=== PATIENT | male | born 1950 | race Caucasian/White ===

== ENCOUNTER 2020-04-29 06:28 | Outpatient (REF) | payer MEDICARE, SELFPAY ==
[2020-04-29 07:29] LABS: MANUAL DIFF FLAG NO
[2020-04-29 07:39] LABS: Basophils Percent Auto 0.2 % (0-2); Eosinophils Percent Auto 0.2 % (0-4); Hematocrit 38.5 % (42-52); Hemoglobin 12.4 g/dl (14.0-18.0); Imm Gran Abs Auto 0.02 X10*3/uL (0.00-0.03); Imm Gran Pct Auto 0.3 % (0.0-0.4); Lymphocytes Absolute Auto 1.7 X10*3/uL (1.2-4.9); Lymphocytes Percent Auto 29.7 % (20-40); Mean Corpuscular HGB Conc 32.2 g/dl (31.0-36.0); Mean Corpuscular Hemoglobin 34.6 pg (27.0-33.0); Mean Corpuscular Volume 107.5 fL (80-98); Monocytes Percent Auto 17.3 % (2-11); Neutrophils Percent Auto 52.3 % (45-73); Platelet Count 218 X10*3/uL (160-400); Red Blood Count 3.58 X10*6/uL (4.60-5.80); Red Cell Distribution Width 12.8 % (11.0-16.0); White Blood Count 5.7 X10*3/uL (4.8-10.8)
[2020-04-29 08:02] LABS: B Type Natriuretic Peptide 811 pg/mL (<100)
[2020-04-29 08:18] LABS: Alanine Aminotransferase 10 U/L (0-40); Albumin Level 3.8 g/dL (3.5-5.0); Alkaline Phosphatase 68 U/L (39-117); Anion Gap 12 (12-20); Aspartate Amino Transferase 19 U/L (5-37); Bilirubin Total 0.5 mg/dL (0.0-1.0); Blood Urea Nitrogen 27 mg/dL (9-16); Calcium 8.6 mg/dL (8.4-10.2); Carbon Dioxide 28 mmol/L (22-29); Chloride 106 mmol/L (96-108); Cholesterol 123 mg/dL; Estimated Glomerular Filt Rate > 60; Glucose Fasting 94 mg/dL (60-99); HDL Cholesterol 46 mg/dL; LDL Cholesterol Calculated 56 mg/dl; Potassium 4.6 mmol/L (3.3-5.1); Sodium 141 mmol/L (135-145); Total Protein 6.8 g/dL (6.5-8.0); Triglycerides 106 mg/dL
[2020-04-29 08:21] LABS: TSH reflex Free T4 1.06 uIU/mL (0.32-4.0); Vitamin D 25-OH Total 28.2 ng/mL (>30)
[2020-04-29 09:26] LABS: Rheumatoid Factor 380.1 IU/mL (<15.0)
[2020-04-29 10:20] LABS: Erythrocyte Sedimentation Rate 13 MM/HR (0-15)
== END 2020-04-29 06:29 | disposition home or self-care (01) ==
LOC: HO.LAB 06:28
PROVIDERS: PCP Internal Medicine; Visit Provider Internal Medicine
DX: I11.0 Hypertensive heart disease with heart failure (principal); I50.42 Chronic combined systolic (congestive) and diastolic (congestive) heart failure; M05.9 Rheumatoid arthritis with rheumatoid factor, unspecified; E55.9 Vitamin D deficiency, unspecified; I25.10 Atherosclerotic heart disease of native coronary artery without angina pectoris; I48.91 Unspecified atrial fibrillation; E78.00 Pure hypercholesterolemia, unspecified
CPT/HCPCS: 36415; 80053; 80061; 82306; 83880; 84443; 85025; 85652; 86431

== ENCOUNTER 2020-05-10 08:12 | Outpatient (REF) | payer MEDICARE, SELFPAY ==
[2020-05-10 09:46] LABS: Glucose Urine UA NEG (NEG); Leukocyte Esterase Urine NEG (NEG); Nitrite Urine NEG (NEG); Specific Gravity - Urine 1.025 (1.005-1.025); Urine Blood NEG (NEG); Urine Ketones NEG (NEG); Urine Protein NEG (NEG-TRACE)
[2020-05-10 09:52] LABS: Appearance Urine HAZY; Color Urine YELLOW
== END 2020-05-10 08:13 | disposition home or self-care (01) ==
LOC: HO.LAB 08:12
PROVIDERS: PCP Internal Medicine; Visit Provider Internal Medicine
DX: I10 Essential (primary) hypertension (principal); I50.42 Chronic combined systolic (congestive) and diastolic (congestive) heart failure
CPT/HCPCS: 81003

== ENCOUNTER 2021-02-15 06:59 | Outpatient (REF) | payer MEDICARE, SELFPAY ==
[2021-02-15 07:28] LABS: MANUAL DIFF FLAG NO
[2021-02-15 08:04] LABS: Basophils Percent Auto 0.1 % (0-2); Eosinophils Percent Auto 0.1 % (0-4); Hematocrit 44.1 % (42.0-52.0); Imm Gran Abs Auto 0.04 X10*3/uL (0.00-0.03); Imm Gran Pct Auto 0.5 % (0.0-0.4); Lymphocytes Absolute Auto 3.2 X10*3/uL (1.2-4.9); Lymphocytes Percent Auto 36.6 % (20-40); Mean Corpuscular Hemoglobin 35.6 pg (27.0-33.0); Mean Corpuscular Volume 104.8 fL (80.0-98.0); Mean Platelet Volume 9.6 fL (9.4-12.4); Monocytes Absolute Auto 1.1 X10*3/uL (0.1-1.2); Monocytes Percent Auto 11.9 % (2-11); Neutrophils Absolute Auto 4.5 x10*3/uL (2.0-8.3); Neutrophils Percent Auto 50.8 % (45-73); Platelet Count 245 X10*3/uL (160-400); Red Blood Count 4.21 X10*6/uL (4.60-5.80); Red Cell Distribution Width 12.2 % (11.0-16.0); White Blood Count 8.8 X10*3/uL (4.8-10.8)
[2021-02-15 08:20] LABS: Alanine Aminotransferase 11 U/L (0-40); Alkaline Phosphatase 78 U/L (39-117); Anion Gap 14 (12-20); Aspartate Amino Transferase 14 U/L (5-37); Bilirubin Total 0.8 mg/dL (0.0-1.0); Blood Urea Nitrogen 15 mg/dL (9-16); Calcium 9.3 mg/dL (8.4-10.2); Carbon Dioxide 23 mmol/L (22-29); Chloride 103 mmol/L (96-108); Cholesterol 127 mg/dL; Estimated Glomerular Filt Rate > 60; Glucose Fasting 99 mg/dL (60-99); HDL Cholesterol 50 mg/dL; LDL Cholesterol Calculated 64 mg/dl; Potassium 4.4 mmol/L (3.3-5.1); Sodium 136 mmol/L (135-145); Total Protein 7.1 g/dL (6.5-8.0); Triglycerides 69 mg/dL
[2021-02-15 08:35] LABS: Appearance Urine CLEAR; Color Urine YELLOW; Glucose Urine UA >=1000 MG/DL (NEG); Leukocyte Esterase Urine NEG (NEG); Nitrite Urine NEG (NEG); Specific Gravity - Urine <= 1.005 (1.005-1.025); Urine Blood NEG (NEG); Urine Ketones NEG (NEG); Urine Protein NEG (NEG-TRACE)
[2021-02-15 08:42] LABS: TSH reflex Free T4 1.63 uIU/mL (0.32-4.0); Vitamin D 25-OH Total 32.3 ng/mL (>30)
[2021-02-15 08:46] LABS: RBC Urine 0-2 /HPF (0); Squamous Epithelial Cell Urine TRACE /LPF; WBC Urine 0-2 /HPF (0-4)
[2021-02-15 08:52] LABS: Amphetamine Screen Urine Not Detected (Not Detect); Barbiturates, Urine Not Detected (Not Detect); Benzodiazepines Screen Urine Not Detected (Not Detect); Cannabinoid Screen Urine Not Detected (Not Detect); Cocaine Screen Urine Not Detected (Not Detect); Fentanyl, urine POSITIVE (Not Detect); Opiate Screen Urine POSITIVE (Not Detect); Phencyclidine Screen Urine Not Detected (Not Detect)
== END 2021-02-15 07:00 | disposition home or self-care (01) ==
LOC: HO.LAB 06:59
PROVIDERS: PCP Internal Medicine; Visit Provider Internal Medicine
DX: F11.90 Opioid use, unspecified, uncomplicated (principal); I10 Essential (primary) hypertension; E78.00 Pure hypercholesterolemia, unspecified; E55.9 Vitamin D deficiency, unspecified
CPT/HCPCS: 80053; 80061; 80307; 81001; 82306; 84443; 85025

== ENCOUNTER 2021-05-24 07:34 | Outpatient (REF) | payer MEDICARE, SELFPAY ==
[2021-05-24 07:54] LABS: MANUAL DIFF FLAG NO
[2021-05-24 08:37] LABS: Basophils Percent Auto 0.4 % (0-2); Eosinophils Absolute Auto 0.3 X10*3/uL (0.0-0.4); Eosinophils Percent Auto 4.9 % (0-4); Hematocrit 38.2 % (42.0-52.0); Hemoglobin 12.1 g/dl (14.0-18.0); Imm Gran Abs Auto 0.02 X10*3/uL (0.00-0.03); Imm Gran Pct Auto 0.3 % (0.0-0.4); Lymphocytes Percent Auto 28.7 % (20-40); Mean Corpuscular HGB Conc 31.7 g/dl (31.0-36.0); Mean Corpuscular Hemoglobin 34.2 pg (27.0-33.0); Mean Corpuscular Volume 107.9 fL (80.0-98.0); Mean Platelet Volume 9.9 fL (9.4-12.4); Monocytes Absolute Auto 1.1 X10*3/uL (0.1-1.2); Monocytes Percent Auto 16.1 % (2-11); Neutrophils Absolute Auto 3.5 x10*3/uL (2.0-8.3); Neutrophils Percent Auto 49.6 % (45-73); Platelet Count 214 X10*3/uL (160-400); Red Blood Count 3.54 X10*6/uL (4.60-5.80); Red Cell Distribution Width 12.9 % (11.0-16.0)
[2021-05-24 08:39] LABS: Appearance Urine CLEAR; Color Urine YELLOW; Glucose Urine UA >=1000 MG/DL (NEG); Leukocyte Esterase Urine NEG (NEG); Nitrite Urine NEG (NEG); Specific Gravity - Urine 1.025 (1.005-1.025); Urine Blood NEG (NEG); Urine Ketones NEG (NEG); Urine Protein NEG (NEG-TRACE)
[2021-05-24 08:51] LABS: RBC Urine 0-2 /HPF (0); WBC Urine 0 /HPF (0-4)
[2021-05-24 09:04] LABS: B Type Natriuretic Peptide 999 pg/mL (<100)
[2021-05-24 09:09] LABS: Alanine Aminotransferase 9 U/L (0-40); Albumin Level 3.9 g/dL (3.5-5.0); Alkaline Phosphatase 65 U/L (39-117); Anion Gap 13 (12-20); Aspartate Amino Transferase 15 U/L (5-37); Bilirubin Total 0.5 mg/dL (0.0-1.0); Blood Urea Nitrogen 43 mg/dL (9-16); Calcium 8.8 mg/dL (8.4-10.2); Carbon Dioxide 20 mmol/L (22-29); Chloride 111 mmol/L (96-108); Cholesterol 105 mg/dL; Estimated Glomerular Filt Rate 46; Glucose Fasting 84 mg/dL (60-99); HDL Cholesterol 32 mg/dL; LDL Cholesterol Calculated 53 mg/dl; Sodium 139 mmol/L (135-145); Total Protein 6.9 g/dL (6.5-8.0); Triglycerides 101 mg/dL
[2021-05-24 09:13] LABS: Erythrocyte Sedimentation Rate 13 MM/HR (0-15)
[2021-05-24 09:27] LABS: TSH reflex Free T4 1.57 uIU/mL (0.32-4.0)
[2021-05-24 10:01] LABS: Vitamin D 25-OH Total 38.7 ng/mL (>30)
[2021-05-24 10:19] LABS: Rheumatoid Factor 429.2 IU/mL (<15.0)
== END 2021-05-24 07:35 | disposition home or self-care (01) ==
LOC: HO.LAB 07:34
PROVIDERS: PCP Internal Medicine; Visit Provider Internal Medicine
DX: I11.0 Hypertensive heart disease with heart failure (principal); I50.9 Heart failure, unspecified; E78.00 Pure hypercholesterolemia, unspecified; M05.9 Rheumatoid arthritis with rheumatoid factor, unspecified; E55.9 Vitamin D deficiency, unspecified
CPT/HCPCS: 36415; 80053; 80061; 81001; 82306; 83880; 84443; 85025; 85652; 86431

== ENCOUNTER 2022-04-03 05:55 | Outpatient (REF) | payer MEDICARE, SELFPAY ==
[2022-04-03 06:14] LABS: MANUAL DIFF FLAG NO
[2022-04-03 08:12] LABS: Basophils Percent Auto 0.4 % (0-2); Eosinophils Absolute Auto 0.3 X10*3/uL (0.0-0.4); Eosinophils Percent Auto 4.2 % (0-4); Hematocrit 45.8 % (42.0-52.0); Hemoglobin 14.8 g/dl (14.0-18.0); Imm Gran Abs Auto 0.02 X10*3/uL (0.00-0.03); Imm Gran Pct Auto 0.3 % (0.0-0.4); Lymphocytes Absolute Auto 2.3 X10*3/uL (1.2-4.9); Lymphocytes Percent Auto 29.6 % (20-40); Mean Corpuscular HGB Conc 32.3 g/dl (31.0-36.0); Mean Corpuscular Volume 108.3 fL (80.0-98.0); Mean Platelet Volume 10.2 fL (9.4-12.4); Monocytes Absolute Auto 1.1 X10*3/uL (0.1-1.2); Monocytes Percent Auto 14.2 % (2-11); Neutrophils Absolute Auto 3.9 x10*3/uL (2.0-8.3); Neutrophils Percent Auto 51.3 % (45-73); Platelet Count 228 X10*3/uL (160-400); Red Blood Count 4.23 X10*6/uL (4.60-5.80); Red Cell Distribution Width 12.8 % (11.0-16.0); White Blood Count 7.6 X10*3/uL (4.8-10.8)
[2022-04-03 08:14] LABS: Appearance Urine Clear; Color Urine Yellow; Glucose Urine UA >=1000 mg/dL (Negative); Leukocyte Esterase Urine Negative (Negative); Nitrite Urine Negative (Negative); PH 6.5 (5.0-9.0); Specific Gravity - Urine 1.025 (1.005-1.025); UMIC TRIGGER UACC YES; Urine Blood Negative (Negative); Urine Ketones Negative (Negative); Urine Protein Negative (Neg-Trace)
[2022-04-03 08:20] LABS: Bacteria Urine None Seen (None Seen); Hyaline Casts Urine 0-2 /LPF (0-2); RBC Urine 0-2 /HPF (0-2); Squamous Epithelial Cell Urine 0-2 /HPF (0-2); WBC Urine 0-5 /HPF (0-5)
[2022-04-03 08:42] LABS: Alanine Aminotransferase 11 U/L (0-40); Albumin Level 4.1 g/dL (3.5-5.0); Alkaline Phosphatase 64 U/L (39-117); Anion Gap 12 (12-20); Aspartate Amino Transferase 20 U/L (5-37); Bilirubin Total 0.8 mg/dL (0.0-1.0); Blood Urea Nitrogen 28 mg/dL (9-16); Calcium 9.4 mg/dL (8.4-10.2); Carbon Dioxide 27 mmol/L (22-29); Chloride 105 mmol/L (96-108); Cholesterol 133 mg/dL; Estimated Glomerular Filt Rate > 60; Glucose Fasting 83 mg/dL (60-99); HDL Cholesterol 48 mg/dL; LDL Cholesterol Calculated 70 mg/dl; Potassium 4.8 mmol/L (3.3-5.1); Sodium 139 mmol/L (135-145); Total Protein 7.4 g/dL (6.5-8.0); Triglycerides 76 mg/dL
[2022-04-03 09:01] LABS: TSH reflex Free T4 1.55 uIU/mL (0.32-4.0); Vitamin D 25-OH Total 47.3 ng/mL (>30)
== END 2022-04-03 05:56 | disposition home or self-care (01) ==
LOC: HO.LAB 05:55
PROVIDERS: PCP Internal Medicine; Visit Provider Internal Medicine
DX: E78.00 Pure hypercholesterolemia, unspecified (principal); E55.9 Vitamin D deficiency, unspecified; I10 Essential (primary) hypertension
CPT/HCPCS: 36415; 80053; 80061; 81001; 81003; 82306; 84443; 85025

== ENCOUNTER 2022-07-09 12:35 | Outpatient (REF) | payer MEDICARE, SELFPAY ==
--- NOTE | 2022-07-09 17:02 | MHC.AU.MED ---
Medical Clearance for Hearing Instrumentation Date: 07/09/22 Patient Name: Remy Reno Date of : 1950 Primary Care Provider: Referring Provider: Vickey Causey MD We have seen your patient on 07/09/22 and have determined that they are a candidate for amplification (See accompanying report). Specifically, they would benefit from: Hearing aid use in both ears There is a statute that addresses Medical Evaluation Requirements prior to fitting a patient with a hearing aid. According to [place] statute 265 CMR:6.03(1), (a) General. Except as provided in 265 CMR 6.03(1)(b), a certified hearing instrument dispenser shall not sell a hearing aid unless the prospective user has presented to the certified hearing instrument dispenser a written statement signed by a licensed physician that states that the patient's hearing loss has been medically evaluated and the patient may be considered a candidate for a hearing aid. The medical evaluation must have taken place within the preceding six months. Please note: Due to the [place] Statute referenced above, we cannot accept a signature other than that of a licensed physician. [employer] and PA signatures cannot be accepted. I am in agreement with the above recommendation. There is no medical contraindication for hearing instrumentation. Physician Signature Date Physician Name (Printed)
--- NOTE | 2022-07-09 17:09 | MHC.AU.HA1 ---
Hearing Aid Evaluation Date of Visit: 07/09/22 Historical Information: Description of Hearing: Moderate to severe sensorineural hearing loss bilaterally Current personal amplification information, if applicable: NONE Summary: Patient is experiencing significant difficulty with speech understanding and requires frequent repetition of speech which is becoming very frustrating. Discussed the different levels of technology and provided pricing. Patient wants to discuss with and will contact office and pay the $350.00 fee when he chooses the technology level he wants to trial. Patient plans to set up a payment plan for the 2nd half of total cost. Hearing Aid Prescription: Based on the individual?s shared listening needs, communication environments, dexterity, desire for connectivity, and personal preferences, the following prescription for amplification has been made: Right ear: Fritz, Model, Color: Phonak Audeo L-RMaximino , Discussed and provided pricing for levels 50, 70, and 90 R models Battery Size: Rechargeable Hand Meat Salter/Slim Tube: #2 P Type of Earmold/Dome/CShell/SlimTip: Power Left ear:Left ear prescription to be same as Right Hearing Aid above: Fritz Model, Color: Phonak Audeo L-RMaximino, Discussed and provided pricing for levels 50, 70, and 90 R models Battery Size: Rechargeable Hand Meat Salter/Slim Tube: #2 P Type of Earmold/Dome/CShell/SlimTip: Power Action Taken/Action Needed: Comments: Patient wants to discuss with and will contact office and pay the $350.00 fee when he chooses the technology level he wants to trial. Primary Diagnosis: H90.3 Bilateral Sensorineural Hearing Loss Signature:Provider: Lauryn Sanchez, [facility]
== END 2022-07-09 12:36 | disposition home or self-care (01) ==
LOC: HO.SH 12:35
PROVIDERS: Visit Provider Internal Medicine
DX: Z46.1 Encounter for fitting and adjustment of hearing aid (principal); H90.3 Sensorineural hearing loss, bilateral
CPT/HCPCS: 92557; 92567

== ENCOUNTER 2022-07-10 11:01 | Outpatient (REF) | payer SELFPAY | END 2022-07-10 11:02 | disposition home or self-care (01) | LOC: HO.HAP 11:01 | PROVIDERS: Visit Provider Internal Medicine | DX: Z46.1 Encounter for fitting and adjustment of hearing aid (principal) | CPT/HCPCS: 92591 ==

== ENCOUNTER 2022-07-17 05:57 | Outpatient (REF) | payer MEDICARE, SELFPAY ==
[2022-07-17 06:16] LABS: MANUAL DIFF FLAG NO
[2022-07-17 07:30] LABS: Basophils Percent Auto 0.3 % (0-2); Eosinophils Absolute Auto 0.4 X10*3/uL (0.0-0.4); Hematocrit 39.4 % (42.0-52.0); Hemoglobin 12.5 g/dl (14.0-18.0); Imm Gran Abs Auto 0.04 X10*3/uL (0.00-0.03); Imm Gran Pct Auto 0.5 % (0.0-0.4); Lymphocytes Absolute Auto 1.9 X10*3/uL (1.2-4.9); Mean Corpuscular HGB Conc 31.7 g/dl (31.0-36.0); Mean Corpuscular Hemoglobin 34.9 pg (27.0-33.0); Mean Platelet Volume 9.6 fL (9.4-12.4); Monocytes Absolute Auto 1.1 X10*3/uL (0.1-1.2); Monocytes Percent Auto 14.9 % (2-11); Neutrophils Absolute Auto 4.2 x10*3/uL (2.0-8.3); Neutrophils Percent Auto 54.3 % (45-73); Platelet Count 230 X10*3/uL (160-400); Red Blood Count 3.58 X10*6/uL (4.60-5.80); Red Cell Distribution Width 13.1 % (11.0-16.0); White Blood Count 7.7 X10*3/uL (4.8-10.8)
[2022-07-17 07:45] LABS: Mean Corpuscular Volume 110.1 fL (80.0-98.0)
[2022-07-17 08:11] LABS: Alanine Aminotransferase 15 U/L (0-40); Albumin Level 3.8 g/dL (3.5-5.0); Alkaline Phosphatase 49 U/L (39-117); Anion Gap 12 (12-20); Aspartate Amino Transferase 20 U/L (5-37); Bilirubin Total 0.3 mg/dL (0.0-1.0); Blood Urea Nitrogen 33 mg/dL (9-16); Calcium 8.9 mg/dL (8.4-10.2); Carbon Dioxide 26 mmol/L (22-29); Chloride 110 mmol/L (96-108); Cholesterol 92 mg/dL; Estimated Glomerular Filt Rate 48; Glucose Fasting 93 mg/dL (60-99); HDL Cholesterol 44 mg/dL; LDL Cholesterol Calculated 36 mg/dl; Potassium 5.2 mmol/L (3.3-5.1); Sodium 143 mmol/L (135-145); Total Protein 6.9 g/dL (6.5-8.0); Triglycerides 60 mg/dL
[2022-07-17 08:28] LABS: TSH reflex Free T4 1.26 uIU/mL (0.32-4.0); Vitamin D 25-OH Total 43.3 ng/mL (>30)
[2022-07-17 08:30] LABS: Appearance Urine Clear; Color Urine Yellow; Glucose Urine UA >=1000 mg/dL (Negative); Leukocyte Esterase Urine Negative (Negative); Nitrite Urine Negative (Negative); PH 5.5 (5.0-9.0); Specific Gravity - Urine 1.025 (1.005-1.025); UMIC TRIGGER UACC YES; Urine Blood Negative (Negative); Urine Ketones Negative (Negative); Urine Protein Negative (Neg-Trace)
[2022-07-17 08:50] LABS: RBC Urine 0-2 /HPF (0-2); WBC Urine 0-5 /HPF (0-5)
[2022-07-17 08:51] LABS: Bacteria Urine None Seen (None Seen); Hyaline Casts Urine 0-2 /LPF (0-2); Squamous Epithelial Cell Urine 0-2 /HPF (0-2)
== END 2022-07-17 05:58 | disposition home or self-care (01) ==
LOC: HO.LAB 05:57
PROVIDERS: PCP Internal Medicine; Visit Provider Internal Medicine
DX: I10 Essential (primary) hypertension (principal); E78.00 Pure hypercholesterolemia, unspecified; E55.9 Vitamin D deficiency, unspecified
CPT/HCPCS: 36415; 80053; 80061; 81001; 82306; 84443; 85025

== ENCOUNTER 2022-07-23 15:19 | Outpatient (REF) | payer SELFPAY ==
--- NOTE | 2022-07-23 15:50 | MHC.AU.NPS ---
PURCHASE AND SALE AGREEMENT Date of Fitting: End of Adjustment Period:30 days from fitting date Motor Route Carrier: [facility] 3 YR Service Agreement? Opt In: expires? Following the expiration of [facility]?s service agreement, charges for items and services are billed at the usual and customary rate. Payment is due at the time of service. ? (Initialed) Opt out: I understand by opting out of the service agreement I will be charged for any and all hearing aid related services obtained after the adjustment period.? (Initialed) Total Due at Fitting $? Includes any opted in hearing aid service agreement, earmolds and accessories Right Ear: Left Ear: Make, Model, Serial Number and Color: Phonak Audeo L-RMaximino , Discussed and provided pricing for levels 50, 70, and 90 R models [id number] Make, Model, Serial Number and Color: Phonak Audeo L-R, Maximino Jaimes, Discussed and provided pricing for levels 50, 70, and 90 R models [id number] Quill Picking Machine Operator/Slim Tube: #2 P Quill Picking Machine Operator/Slim Tube: #2 P Earmold/Dome/CShell/SlimTip: Power Earmold/Dome/CShell/SlimTip: Power dome 4.0 Type of Wax Guard: CeruShield Disc Type of Wax Guard: CeruShield Disc Battery Size: Rechargeable Battery Size: Rechargeable Manager Residential Repair Warranty: 10/07/2025 Manager Residential Repair Warranty: 10/07/2025 Manager Residential Loss and Damage Warranty: 10/07/2025 Manager Residential Loss and Damage Warranty: 10/07/2025 [facility] Service Plan: [facility] Service Plan: Accessories/Assistive Technology: Phonak operations lieutenant Ease [id number] The following items that may be supplied at initial fitting are not included in any warranty or service package: ? Hearing aid batteries ($5), Wax Guard packages ($10) Per [place] regulations, during the 30-day adjustment period, the cd mixer shall be able to cancel the purchase with a limited money back guarantee.? When a cd mixer returns the hearing aid within the adjustment period, the seller shall be entitled to retain the charges for earmolds, services provided to fit the hearing aid; and any repair, remake or adjustment performed that is not contained within any other warranty of sale or service, not to exceed 20% of the purchase masters. ? [facility]?s non-refundable portion of the process, not including earmolds, is the previously paid hearing aid evaluation and selection fee of $350. ? Hearing aids that are lost or damaged beyond repair cannot be returned for credit, and the cd mixer is liable for the full purchase masters. My signature below acknowledges that I have read and understand this hearing aid contract and have received the goods and services out lined above. ?Date? Home Address: ? This hearing aid will not restore normal hearing nor will it prevent further hearing loss. The sale of a hearing aid is restricted to those individuals who have obtained a medical evaluation from a licensed physician or pool servicer. A fully informed adult whose synagogue or personal beliefs preclude consultation with a physician may waive the requirement of a medical evaluation. The exercise of such a waiver is not in your best health interest and its use is strongly discouraged. It is also required that a person under the age of eighteen years obtain an evaluation by an software quality engineer in addition to the medical evaluation before a hearing aid can be sold to such person. Sarahi Garcia,Title XV,Chapter 93:74 ?Base cost of hearing aid(s) includes the following one-time services during adjustment period: ? Pre-fitting programming ? Electroacoustic check ? Conformity Evaluation ? Hearing aid dispensing ? One adjustment period visit after fitting ? Instruction on use of devices ? Custom modifications to settings, fit ? As needed: Starter battery packs, wax guards, cleaning tools, case ? Pairing devices as needed
== END 2022-07-23 15:20 | disposition home or self-care (01) ==
LOC: HO.HAP 15:19
PROVIDERS: Visit Provider Internal Medicine
DX: Z46.1 Encounter for fitting and adjustment of hearing aid (principal); H90.3 Sensorineural hearing loss, bilateral
CPT/HCPCS: V5262; V5299

== ENCOUNTER 2022-08-07 09:40 | Outpatient (REF) | payer MEDICARE, SELFPAY ==
[2022-08-07 09:58] LABS: MANUAL DIFF FLAG NO
[2022-08-07 10:29] LABS: Basophils Percent Auto 0.3 % (0-2); Eosinophils Absolute Auto 0.4 X10*3/uL (0.0-0.4); Hematocrit 38.7 % (42.0-52.0); Hemoglobin 12.4 g/dl (14.0-18.0); Imm Gran Abs Auto 0.03 X10*3/uL (0.00-0.03); Imm Gran Pct Auto 0.5 % (0.0-0.4); Lymphocytes Absolute Auto 1.5 X10*3/uL (1.2-4.9); Lymphocytes Percent Auto 25.1 % (20-40); Mean Platelet Volume 10.1 fL (9.4-12.4); Monocytes Absolute Auto 0.8 X10*3/uL (0.1-1.2); Monocytes Percent Auto 13.8 % (2-11); Neutrophils Absolute Auto 3.3 x10*3/uL (2.0-8.3); Neutrophils Percent Auto 53.3 % (45-73); Platelet Count 217 X10*3/uL (160-400); Red Blood Count 3.44 X10*6/uL (4.60-5.80); Red Cell Distribution Width 13.2 % (11.0-16.0); White Blood Count 6.1 X10*3/uL (4.8-10.8)
[2022-08-07 10:32] LABS: Mean Corpuscular Volume 112.5 fL (80.0-98.0)
[2022-08-07 10:57] LABS: Alanine Aminotransferase 17 U/L (0-40); Albumin Level 3.8 g/dL (3.5-5.0); Alkaline Phosphatase 53 U/L (39-117); Anion Gap 12 (12-20); Aspartate Amino Transferase 24 U/L (5-37); Bilirubin Total 0.3 mg/dL (0.0-1.0); Blood Urea Nitrogen 30 mg/dL (9-16); Calcium 8.9 mg/dL (8.4-10.2); Carbon Dioxide 24 mmol/L (22-29); Chloride 111 mmol/L (96-108); Estimated Glomerular Filt Rate 53; Glucose Random 121 mg/dL (60-115); Potassium 5.6 mmol/L (3.3-5.1); Sodium 141 mmol/L (135-145); Total Protein 7.2 g/dL (6.5-8.0)
== END 2022-08-07 09:41 | disposition home or self-care (01) ==
LOC: HO.LAB 09:40
PROVIDERS: PCP Internal Medicine; Visit Provider Internal Medicine
DX: I12.9 Hypertensive chronic kidney disease with stage 1 through stage 4 chronic kidney disease, or unspecified chronic kidney disease (principal); N18.9 Chronic kidney disease, unspecified
CPT/HCPCS: 36415; 80053; 85025

== ENCOUNTER 2022-08-25 13:02 | Outpatient (REF) | payer MEDICARE, SELFPAY ==
--- NOTE | 2022-08-25 14:47 | MHC.AU.HA3 ---
Hearing Instrument Follow-Up- Binaural Date of Visit: 08/25/22 Right Ear: Fritz, Model, Color, Serial Number: Jose Luis Pascualo 90 L-R, Maximino Jaimes , [id number] Customs Examiner Repair Warranty: 10/07/2025 Customs Examiner Loss and Damage Warranty: 10/07/2025 [facility] Service Plan: 07/23/2025 Battery Size: Rechargeable Machine Chain Maker/Slim Tube: #2 P Earmold/Dome/CShell/SlimTip:Medium Power Type of Wax Guard: CeruShield Disc Dispensed By: [facility] Date of Fittin07/23/2022 Left Ear: Fritz, , Color, Serial Number: Jose Luis Fletchereo 90 L-R, Maximino Jaimes, SN#[id number] Customs Examiner Repair Warranty: 10/07/2025 Customs Examiner Loss and Damage Warranty: 10/07/2025 [facility] Service Plan: 07/23/2025 Battery Size: Rechargeable Machine Chain Maker/Slim Tube: #2 P Earmold/Dome/CShell/SlimTip: Medium Power Type of Wax Guard: CeruShield Disc Dispensed By: [facility] Date of Fittin07/23/2022 Follow-Up Summary: Remy reported that he loves the hearing aids. He cannot believe how much he was missing without them. Did not want any programming adjustments at this time. Reviewed changing domes and wax guards at Remy's request. Still some difficulty inserting fully but reportedly getting better with practice. Briefly discussed custom earmolds, if needed in future. Otherwise, Remy is satisfied with his hearing aids and has confirmed the purchase of the devices. Paid the balance of $2712.00. Recommendations: Hearing instrument maintenance in 6 months, or sooner if needed. Please contact our clinic with any questions or concerns. Diagnosis Code(s): Primary Diagnosis: H90.3 Bilateral Sensorineural Hearing Loss Signature: Provider: Lauryn Charles, [facility]
== END 2022-08-25 13:03 | disposition home or self-care (01) ==
LOC: HO.HAP 13:02
PROVIDERS: Visit Provider Internal Medicine
DX: Z13.89 Encounter for screening for other disorder (principal)

== ENCOUNTER 2022-08-25 13:25 | Outpatient (REF) | payer SELFPAY | END 2022-08-25 13:26 | disposition home or self-care (01) | LOC: HO.HAP 13:25 | PROVIDERS: Visit Provider Internal Medicine | DX: Z13.89 Encounter for screening for other disorder (principal) ==

== ENCOUNTER → 2022-08-27 13:37 | Outpatient (BNVA) | payer MEDICARE, SELFPAY | PROVIDERS: PCP Internal Medicine; Visit Provider Surgery | DX: R10.9 Unspecified abdominal pain (principal); N18.9 Chronic kidney disease, unspecified; N28.9 Disorder of kidney and ureter, unspecified; I48.91 Unspecified atrial fibrillation; I50.42 Chronic combined systolic (congestive) and diastolic (congestive) heart failure; I25.10 Atherosclerotic heart disease of native coronary artery without angina pectoris; M06.9 Rheumatoid arthritis, unspecified | CPT/HCPCS: 99202 ==

== ENCOUNTER 2022-10-26 06:48 | Outpatient (REF) | payer MEDICARE, SELFPAY ==
[2022-10-26 07:05] LABS: MANUAL DIFF FLAG NO
[2022-10-26 08:19] LABS: Basophils Percent Auto 0.4 % (0-2); Eosinophils Absolute Auto 0.4 X10*3/uL (0.0-0.4); Eosinophils Percent Auto 4.7 % (0-4); Hematocrit 44.3 % (42.0-52.0); Hemoglobin 14.4 g/dl (14.0-18.0); Imm Gran Abs Auto 0.02 X10*3/uL (0.00-0.03); Imm Gran Pct Auto 0.3 % (0.0-0.4); Lymphocytes Absolute Auto 2.6 X10*3/uL (1.2-4.9); Mean Corpuscular HGB Conc 32.5 g/dl (31.0-36.0); Mean Corpuscular Hemoglobin 35.5 pg (27.0-33.0); Mean Corpuscular Volume 109.1 fL (80.0-98.0); Mean Platelet Volume 10.3 fL (9.4-12.4); Monocytes Absolute Auto 1.1 X10*3/uL (0.1-1.2); Monocytes Percent Auto 13.4 % (2-11); Neutrophils Absolute Auto 3.8 x10*3/uL (2.0-8.3); Neutrophils Percent Auto 48.2 % (45-73); Platelet Count 226 X10*3/uL (160-400); Red Blood Count 4.06 X10*6/uL (4.60-5.80); White Blood Count 7.8 X10*3/uL (4.8-10.8)
[2022-10-26 08:24] LABS: Estimated Average Glucose 105 mg/dL; Hemoglobin A1c % 5.3 % (<6.0)
[2022-10-26 08:53] LABS: B Type Natriuretic Peptide 336 pg/mL (<100)
[2022-10-26 09:01] LABS: Appearance Urine Clear; Color Urine Yellow; Glucose Urine UA >=1000 mg/dL (Negative); Leukocyte Esterase Urine Negative (Negative); Nitrite Urine Negative (Negative); PH 5.5 (5.0-9.0); Specific Gravity - Urine >= 1.030 (1.005-1.025); UMIC TRIGGER UACC YES; Urine Blood Negative (Negative); Urine Ketones Negative (Negative); Urine Protein Negative (Neg-Trace)
[2022-10-26 09:03] LABS: Alanine Aminotransferase 13 U/L (0-40); Albumin Level 4.2 g/dL (3.5-5.0); Alkaline Phosphatase 51 U/L (39-117); Anion Gap 15 (12-20); Aspartate Amino Transferase 27 U/L (5-37); Bilirubin Total 0.4 mg/dL (0.0-1.0); Blood Urea Nitrogen 44 mg/dL (9-16); Calcium 9.7 mg/dL (8.4-10.2); Carbon Dioxide 24 mmol/L (22-29); Chloride 106 mmol/L (96-108); Cholesterol 111 mg/dL (<200); Estimated Glomerular Filt Rate 42; Glucose Fasting 81 mg/dL (60-99); HDL Cholesterol 49 mg/dL (>40); LDL Cholesterol Calculated 44 mg/dL (<100); Sodium 140 mmol/L (135-145); Total Protein 7.8 g/dL (6.5-8.0); Triglycerides 93 mg/dL (<150)
[2022-10-26 09:06] LABS: Bacteria Urine None Seen (None Seen); RBC Urine 0-2 /HPF (0-2); Squamous Epithelial Cell Urine 0-2 /HPF (0-2); WBC Urine 0-5 /HPF (0-5)
[2022-10-26 09:24] LABS: Folate 17.4 ng/mL (> or = 4.0); Vitamin B12 678 pg/mL (200-900)
[2022-10-26 09:25] LABS: TSH reflex Free T4 1.58 uIU/mL (0.32-4.0); Vitamin D 25-OH Total 55.4 ng/mL (>30)
[2022-10-26 11:04] LABS: Creatinine Urine 114.19 mg/dL
== END 2022-10-26 06:49 | disposition home or self-care (01) ==
LOC: HO.LAB 06:48
PROVIDERS: PCP Internal Medicine; Visit Provider Internal Medicine
DX: E78.00 Pure hypercholesterolemia, unspecified (principal); I11.0 Hypertensive heart disease with heart failure; I50.9 Heart failure, unspecified; E11.9 Type 2 diabetes mellitus without complications; E53.8 Deficiency of other specified B group vitamins; E55.9 Vitamin D deficiency, unspecified
CPT/HCPCS: 36415; 80053; 80061; 81001; 81003; 82043; 82306; 82607; 82746; 83036; 83880; 84443; 85025

== ENCOUNTER 2022-10-29 10:48 | Outpatient (AMB) | payer MEDICARE, SELFPAY ==
[2022-10-29 10:54] VITALS: BP 100/68; PULSE 58; O2SAT 94; BMI 20.2
--- NOTE | 2022-10-29 10:54 | A.OFFPC_ITS ---
Vital Signs 10/29/22 10:54 Height 5 ft 11 in Weight 145 lb BMI 20.2 BP 100/68 Blood Pressure Location Lt brachial Position Sitting Pulse 58 Pulse Source Pulse Oximeter Pulse Oximetry (%) 94 Oxygen Delivery Method Room Air Intake Visit Reasons: CHF, hyperlipidemia, lumbar DDD Shirt Closer Required: No Accompanied by: Self / Same As Patient Allergies gabapentin [GABAPENTIN] Allergy (Severe, Verified 10/29/22 11:29) PASSED OUT , syncopal episodes at 800 mg TID azithromycin [From ZITHROMAX Z-DESIREE] Allergy (Intermediate, Verified 10/29/22 11:29) SWELLING pregabalin Adverse Reaction (Unknown, Verified 10/29/22 11:29) severe muscle pain Medication List - Last Reconciled 10/29/22 by Vickey Causey MD apixaban 5 mg PO BID clopidogrel 75 mg PO DAILY dapagliflozin propanediol 10 mg PO DAILY etanercept 50 mg subcut .[id number] folic acid 1 mg PO DAILY metoprolol succinate ER 200 mg PO DAILY oxycodone 30 mg PO Q6H PRN 28 days OxyContin ER (oxycodone) 80 mg PO .q8hrs 28 days NS rosuvastatin 40 mg PO DAILY sacubitril-valsartan 49-51 mg 1 tab PO BID Tobacco use date assessed: 10/29/22 Fall risk assessment: No Falls in past year Last assessed Fall Risk: 10/29/22 Dental Screening Dental Screen Date: 10/29/22 Did you have a dental visit in the last 12 months?: Yes Did you have a dental problem in the last 6 months where you did not have access to dental care?: No Was dental information given to patient?: Patient has dentist HPI CHF, hyperlipidemia, lumbar DDD HPI Details Patient comes in today for his follow up visit States that he feels okay but still feels fatigued often Was out of his pain meds for a few days but states that he was able to finally get this settled with the new company that took over his previous worker's comp case States that he is now back on all of his pain meds and his chronic low back pain and joint pains are adequately controlled He denies any headaches or dizziness Denies any chest pains, no increased SOB No nausea/vomiting, no abdominal pain No change in bowel habits noted Had his follow up labs done a few days ago - to discuss his results PFSH Medical History Atrial fibrillation Benign essential hypertension Chronic combined systolic and diastolic congestive heart failure Chronic kidney disease (CKD) Coronary artery disease Degenerative disc disease, cervical Lumbar degenerative disc disease Pure hypercholesterolemia Rheumatoid arthritis Vitamin D deficiency Surgical History H/O wrist surgery History of arthroscopy of right knee History of coronary angioplasty History of coronary artery bypass graft History of hernia repair Family History Father Past heart attack Mother Pneumonia Daughter Healthy adult Social History Housing: House Alcohol intake: current Alcohol intake frequency: holidays/special occasions only Patient Tobacco Use Status: Former Tobacco user e-Cigarette/Vaping Use: Never Used Second Hand Smoke Exposure: Yes service: Yes ([employer]) Current occupational status: retired and disabled Cognitive needs: Yes (cane) Hearing needs: Yes (hearing aide) Vision needs: Yes (glasses) Questionnaire PHQ-9 Over the last 2 weeks, how often have you been bothered by any of the following problems? 1. Little interest or pleasure in doing things: not at all 2. Feeling down, depressed, or hopeless: not at all 3. Trouble falling or staying asleep, or sleeping too much: not at all 4. Feeling tired or having little energy: not at all 5. Poor appetite or overeating: not at all 6. Feeling bad about yourself - or that you are a failure or have let yourself or your family down: not at all 7. Trouble concentrating on things, such as reading the newspaper or watching television: not at all 8. Moving or speaking so slowly that other people could have noticed. Or the opposite - being so fidgety or restless that you have been moving around a lot more than usual: not at all 9. Thoughts that you would be better off or of hurting yourself in some way: not at all Total score: 0 Depression Screening Interpretation: Negative 35260 - PHQ-9 Billing: Yes Source: Developed by Drs. Arben Noriega, Mona Gonzalez, Jerrod Adams and colleagues, with an educational arlen from [employer]. Thrive Questionnaire Date Thrive assessed: 10/29/22 I am a: Patient What is your living situation today?: I have a steady place to live Within the past 12 months, did the food you bought not last and you didn't have the money to get more?: Never true Within the past 12 months, did you worry whether your food would run out before you got money to buy more?: Never true Do you have trouble paying for medicines?: No Do you have trouble getting transportation to medical appointments?: No Do you have trouble paying your heating and electricity bill?: No Do you have trouble taking care of your child, family member or friend?: No Do you have trouble with day-to-day activities such as bathing, preparing meals, shopping, managing finances, etc.?: No Are you currently unemployed and looking for a job?: No Are you interested in more education?: No Please select the resources that you would like help with: None Currently or been in a relationship where the following occur: no concerns reported AUDIT C Alcohol Use Questionnaire (AUDIT-C) 1. How often do you have a drink containing alcohol?: Monthly or less 2. How many drinks containing alcohol do you have on a typical day when you are drinking?: 1 or 2 3. How often do you have six or more drinks on one occasion?: Never Total Score: 1 Score Reviewed/Action Taken: Yes NILESH-7 AMB Questionnaire NILESH-7 Date NILESH - 7 assessed: 10/29/22 Feeling nervous, anxious, or on edge: 0 = Not at all Not being able to stop or control worryin = Not at all Worrying too much about different things: 0 = Not at all Trouble relaxin = Not at all Being so restless that it is hard to sit still: 0 = Not at all Becoming easily annoyed or irritable: 0 = Not at all Feeling afraid as if something awful might happen: 0 = Not at all Total NILESH-7 score (0-4 normal; 5-9 mild; 10-14 moderate; 15-21 severe): 0 Source: Developed by Drs. Arben Noriega, Mona B.W. Jerrod Gonzalez and colleagues, with an educational arlen from [employer]. Review of Systems Const Reports fatigue, Denies fever(s) and Denies headache(s) ENT Denies dysphagia, Denies dizziness, Denies otalgia, Denies headache(s), Reports hearing loss (both ears - now wears hearing aids), Denies odynophagia and Denies sore throat Card Denies chest pain, Denies palpitations and Reports dyspnea on exertion (mild) Resp Denies cough, Reports dyspnea on exertion (mild) and Denies wheezing GI Denies abdominal pain, Denies constipation, Denies dysphagia, Denies heartburn, Denies diarrhea, Denies nausea, Denies odynophagia and Denies vomiting Denies dysuria, Denies nocturia and Denies urinary frequency Musc Reports back pain (over the lumbar spine - chronic - increased lately) and Reports arthralgias (multiple joints - increased lately, especially in his hips and knees) Neuro Denies dizziness and Denies headache(s) Endo Reports fatigue and Denies palpitations Aller/Immun Denies wheezing Physical exam (Primary Care) Vital Signs: Last Vital Signs Pulse 58 10/29/22 10:54 BP 100/68 10/29/22 10:54 Pulse Ox 94 10/29/22 10:54 Oxygen Delivery Method Room Air 10/29/22 10:54 BMI result Body Mass Index 20.2 Tobacco/Smoking Status: Tobacco use Status Tobacco use date assessed 10/29/22 10/29/22 11:04 Patient Tobacco Use Status Former Tobacco user 10/29/22 11:04 e-Cigarette/Vaping Use Never Used 10/29/22 11:04 PHQ-9: PHQ-9 Score PHQ-9: Total score 0 10/29/22 11:04 Depression Screening Interpretation: Negative Thrive Assessment: Date of Thrive Assessment Date Thrive assessed 10/29/22 10/29/22 11:04 Currently or been in a relationship where the following occur: no concerns reported Const General: no acute distress and alert HENMT Ears: TM's normal bilaterally and EAC's normal Throat: Yes posterior oropharynx normal and Yes tonsils normal (no TP congestion noted) Neck Neck: Yes no lymphadenopathy and Yes tender Resp Auscultation: clear to auscultation bilaterally, no rales and no wheezes Cardio Rate: regular rate Rhythm: abnormal rhythm irregularly irregular Heart sounds: no murmurs GI Palpation (GI): Soft to palpation and nontender Auscultation: normal bowel sounds Back/Spine/Pelvis Cervical Spine: Cervical spine tenderness Thoracic/Lumbar Spine: lumbar spinal tenderness Skin Rashes: no rashes Extrem General: Yes no clubbing, cyanosis or edema Right upper extremity: Extremity exam: right hand Details: tenderness and no swelling Left upper extremity: hand Details: tenderness and no swelling Results Reviewed Results Reviewed: Laboratory Tests 10/26/22 10/26/22 10/26/22 07:01 07:01 07:01 WBC 7.8 Hgb 14.4 Hct 44.3 Plt Count 226 Sodium 140 Potassium 5.0 Creatinine 1.63 H Estimated GFR 42 Fasting Glucose 81 Hemoglobin A1c % 5.3 Calcium 9.7 D AST 27 ALT 13 B-Natriuretic Peptide Triglycerides 93 Cholesterol 111 LDL Cholesterol, Calc 44 HDL Cholesterol 49 Vitamin B12 25-OH Vitamin D Total 55.4 Folate TSH 1.58 Ur Specific [place] Urine Protein Urine Glucose (UA) Urine Blood Microalb/Creat Ratio 10/26/22 10/26/22 10/26/22 07:01 07:01 07:32 WBC Hgb Hct Plt Count Sodium Potassium Creatinine Estimated GFR Fasting Glucose Hemoglobin A1c % Calcium AST ALT B-Natriuretic Peptide 336 H Triglycerides Cholesterol LDL Cholesterol, Calc HDL Cholesterol Vitamin B12 678 25-OH Vitamin D Total Folate 17.4 TSH Ur Specific [place] >= 1.030 H Urine Protein Negative Urine Glucose (UA) >=1000 H Urine Blood Negative Microalb/Creat Ratio 10/26/22 07:32 WBC Hgb Hct Plt Count Sodium Potassium Creatinine Estimated GFR Fasting Glucose Hemoglobin A1c % Calcium AST ALT B-Natriuretic Peptide Triglycerides Cholesterol LDL Cholesterol, Calc HDL Cholesterol Vitamin B12 25-OH Vitamin D Total Folate TSH Ur Specific [place] Urine Protein Urine Glucose (UA) Urine Blood Microalb/Creat Ratio 14.0 Assessment and Plan Assessment & Plan (1) Chronic combined systolic and diastolic congestive heart failure: Comment: Echocardiogram done back on 01/20/2019 revealed significantly reduced ejection fraction at 27% with grade 2 diastolic dysfunction, severe global hypokinesia with regional variation and dilatation of the left atrium, left ventricle and right ventricle; RV systolic function is also moderately reduced Code(s): I50.42 - Chronic combined systolic (congestive) and diastolic (congestive) heart failure Plan: Patient currently remains compensated - continue Entresto 49-51 mg BID and Dapagliflozin 10 mg QD He has been advised to consider ICD placement and is again strongly urged to pursue this in light of his heart condition - emphasized that an ICD can be potentially life-saving for him as his risk of sudden cardiac is high Follow up with cardiology at the heart failure clinic at [facility] as scheduled (2) Atrial fibrillation: Code(s): I48.91 - Unspecified atrial fibrillation Qualifiers: Atrial fibrillation type: unspecified Qualified Code(s): I48.91 - Unspecified atrial fibrillation Plan: Patient remains rate-controlled on Metoprolol ER 200 mg QD Continue Eliquis 5 mg BID for thromboembolism prophylaxis (3) Coronary artery disease: Comment: S/P CABD x 5 in 1991; recent cardiac CT done showed (+) multi-vessel disease and patient was advised aggressive risk reduction 2018 or 2019, by pass at [facility] Code(s): I25.10 - Atherosclerotic heart disease of seminole coronary artery without angina pectoris Qualifiers: Coronary Disease-Associated Artery/Lesion type: seminole artery [place] vs. transplanted heart: seminole heart Associated angina: without angina Qualified Code(s): I25.10 - Atherosclerotic heart disease of seminole coronary artery without angina pectoris Plan: Continue Clopidogrel 75 mg QD and Nitrostat 0.4 mg SL PRN for chest pains Continue Metoprolol ER 200 mg once a day Follow up with cardiology as scheduled (4) Benign essential hypertension: Code(s): I10 - Essential (primary) hypertension Plan: Reinforced low-sodium diet - goal is systolic BP of at least 130 to 140 mm or less Continue Metoprolol ER 200 mg QD; is also on Entresto 49-51 mg BID (5) Pure hypercholesterolemia: Code(s): E78.00 - Pure hypercholesterolemia, unspecified Plan: Results of his labs done a few days ago reviewed and discussed with patient Reinforced low cholesterol diet Continue Rosuvastatin 40 mg QD Will recheck his labs and fasting lipids in 3 months for follow up (6) Rheumatoid arthritis: Code(s): M06.9 - Rheumatoid arthritis, unspecified Qualifiers: Rheumatoid arthritis location: unspecified site Rheumatoid factor presence: with rheumatoid factor Qualified Code(s): M05.9 - Rheumatoid arthritis with rheumatoid factor, unspecified Plan: Continue Enbrel 50 mg subcutaneous injection once every 2 weeks and Folic acid tablet 1 mg QD Follow-up with Rheumatology (Dr. West) at [facility] as scheduled (7) Renal insufficiency: Code(s): N28.9 - Disorder of kidney and ureter, unspecified Plan: Cautioned that his GFR and serum creatinine have again declined from previous on his recent labs Reminded patient to make sure he stays hydrated (orally) although he has to remember that he also cannot drink too much due to his cardiac Hx (CHF) Will continue to monitor his renal function closely/regularly have him recheck his labs in 3 months for follow up (8) Impaired fasting glucose: Code(s): R73.01 - Impaired fasting glucose Plan: HgbA1c was normal at 5.3% on his labs done a few days ago; in-office HgbA1c was also normal at 5.1% when checked previously Reinforced low calorie diet (9) Lumbar degenerative disc disease: Code(s): M51.36 - Other intervertebral disc degeneration, lumbar region Plan: Reinforced activity and weight lifting restrictions Continue Oxycodone 30 mg Q 6 hours as needed, Oxycodone ER 80 mg Q 8 hours, Tizanidine 4 mg TID PRN and Lidoderm patch 5% 1 patch apply to affected area QD PRN for pain Follow-up with [facility] as scheduled (10) Degenerative disc disease, cervical: Code(s): M50.30 - Other cervical disc degeneration, unspecified cervical region Plan: States that his current medications help keep his neck pain manageable (11) Vitamin D deficiency: Code(s): E55.9 - Vitamin D deficiency, unspecified Plan: Continue Vitamin D3 1000 units QD Plan Follow up in 3 months Orders: Orders B Type Natriuretic Peptide 3 Months I50.9 - Heart failure, unspecified Comprehensive [place]. Panel Fast 3 Months E78.00 - Pure hypercholesterolemia, unspecified Lipid Panel 3 Months E78.00 - Pure hypercholesterolemia, unspecified Complete Blood Count Auto Diff 3 Months I10 - Essential (primary) hypertension Vitamin B12 and Folate 3 Months E53.8 - Deficiency of other specified B group vitamins Vitamin D 25-OH Total 3 Months E55.9 - Vitamin D deficiency, unspecified UA CC w/rflx Micro + Cult 3 Months R30.0 - Dysuria Coding Level of Care Code Est Pt Level 4 (32102) Diagnoses Chronic combined systolic and diastolic congestive heart failure I50.42 Atrial fibrillation I48.91 Atrial fibrillation type: unspecified Coronary artery disease I25.10 Coronary Disease-Associated Artery/Lesion type: [place] artery [place] vs. transplanted heart: seminole heart Associated angina: without angina Benign essential hypertension I10 Pure hypercholesterolemia E78.00 Rheumatoid arthritis M05.9 Rheumatoid arthritis location: unspecified site Rheumatoid factor presence: with rheumatoid factor Renal insufficiency N28.9 Impaired fasting glucose R73.01 Lumbar degenerative disc disease M51.36 Degenerative disc disease, cervical M50.30 Vitamin D deficiency E55.9
== END 2022-10-29 11:35 | disposition home or self-care (01) ==
PROVIDERS: PCP Internal Medicine; Visit Provider Internal Medicine
DX: I11.0 Hypertensive heart disease with heart failure (principal); I50.42 Chronic combined systolic (congestive) and diastolic (congestive) heart failure; E55.9 Vitamin D deficiency, unspecified; I48.91 Unspecified atrial fibrillation; M05.9 Rheumatoid arthritis with rheumatoid factor, unspecified; I25.10 Atherosclerotic heart disease of native coronary artery without angina pectoris; E78.00 Pure hypercholesterolemia, unspecified; N28.9 Disorder of kidney and ureter, unspecified; R73.01 Impaired fasting glucose; M51.36 Other intervertebral disc degeneration, lumbar region
CPT/HCPCS: 99214

== ENCOUNTER 2023-01-29 05:54 | Outpatient (REF) | payer MEDICARE, SELFPAY ==
[2023-01-29 06:11] LABS: MANUAL DIFF FLAG NO
[2023-01-29 07:12] LABS: Basophils Percent Auto 0.4 % (0-2); Eosinophils Absolute Auto 0.4 X10*3/uL (0.0-0.4); Eosinophils Percent Auto 5.8 % (0-4); Hematocrit 44.9 % (42.0-52.0); Hemoglobin 14.5 g/dl (14.0-18.0); Imm Gran Abs Auto 0.02 X10*3/uL (0.00-0.03); Imm Gran Pct Auto 0.3 % (0.0-0.4); Lymphocytes Absolute Auto 2.2 X10*3/uL (1.2-4.9); Lymphocytes Percent Auto 29.6 % (20-40); Mean Corpuscular HGB Conc 32.3 g/dl (31.0-36.0); Mean Corpuscular Hemoglobin 36.3 pg (27.0-33.0); Monocytes Percent Auto 12.5 % (2-11); Neutrophils Absolute Auto 3.9 x10*3/uL (2.0-8.3); Neutrophils Percent Auto 51.4 % (45-73); Platelet Count 220 X10*3/uL (160-400); Red Cell Distribution Width 13.1 % (11.0-16.0); White Blood Count 7.6 X10*3/uL (4.8-10.8)
[2023-01-29 07:13] LABS: Mean Corpuscular Volume 112.3 fL (80.0-98.0)
[2023-01-29 07:31] LABS: B Type Natriuretic Peptide 421 pg/mL (<100)
[2023-01-29 07:33] LABS: Appearance Urine Clear; Color Urine Yellow; Glucose Urine UA >=1000 mg/dL (Negative); Leukocyte Esterase Urine Negative (Negative); Nitrite Urine Negative (Negative); PH 5.5 (5.0-9.0); Specific Gravity - Urine >= 1.030 (1.005-1.025); UMIC TRIGGER UACC YES; Urine Blood Negative (Negative); Urine Ketones Negative (Negative); Urine Protein Negative (Neg-Trace)
[2023-01-29 07:37] LABS: Alanine Aminotransferase 13 U/L (0-40); Albumin Level 4.2 g/dL (3.5-5.0); Alkaline Phosphatase 52 U/L (39-117); Anion Gap 12 (12-20); Aspartate Amino Transferase 21 U/L (5-37); Bilirubin Total 0.4 mg/dL (0.0-1.0); Blood Urea Nitrogen 29 mg/dL (9-16); Calcium 9.3 mg/dL (8.4-10.2); Carbon Dioxide 26 mmol/L (22-29); Chloride 108 mmol/L (96-108); Cholesterol 114 mg/dL (<200); Estimated Glomerular Filt Rate > 60; Glucose Fasting 81 mg/dL (60-99); HDL Cholesterol 49 mg/dL (>40); LDL Cholesterol Calculated 47 mg/dL (<100); Potassium 4.9 mmol/L (3.3-5.1); Sodium 141 mmol/L (135-145); Triglycerides 94 mg/dL (<150)
[2023-01-29 07:38] LABS: Bacteria Urine None Seen (None Seen); Hyaline Casts Urine 0-2 /LPF (0-2); RBC Urine 0-2 /HPF (0-2); Squamous Epithelial Cell Urine 0-2 /HPF (0-2); WBC Urine 0-5 /HPF (0-5)
[2023-01-29 07:45] LABS: Vitamin D 25-OH Total 48.2 ng/mL (>30)
[2023-01-29 08:05] LABS: Folate 17.8 ng/mL (> or = 4.0); Vitamin B12 576 pg/mL (200-900)
== END 2023-01-29 05:55 | disposition home or self-care (01) ==
LOC: HO.LAB 05:54
PROVIDERS: PCP Internal Medicine; Visit Provider Internal Medicine
DX: I11.0 Hypertensive heart disease with heart failure (principal); I50.9 Heart failure, unspecified; E78.00 Pure hypercholesterolemia, unspecified; E55.9 Vitamin D deficiency, unspecified; E53.8 Deficiency of other specified B group vitamins; R30.0 Dysuria
CPT/HCPCS: 36415; 80053; 80061; 81001; 82306; 82607; 82746; 83880; 85025

== ENCOUNTER 2023-02-02 13:59 | Outpatient (AMB) | payer MEDICARE, SELFPAY ==
[2023-02-02 14:06] VITALS: BP 124/78; PULSE 72; O2SAT 95; BMI 21.4
--- NOTE | 2023-02-02 14:06 | A.OFFPC_ITS ---
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 Accompanied by: Self / Same As Patient Allergies gabapentin [GABAPENTIN] Allergy (Severe, Verified 02/02/23 14:58) PASSED OUT , syncopal episodes at 800 mg TID azithromycin [From ZITHROMAX Z-DESIREE] Allergy (Intermediate, Verified 02/02/23 14:58) SWELLING pregabalin Adverse Reaction (Unknown, Verified 02/02/23 14:58) severe muscle pain Medication List - Last Reconciled 02/02/23 by Vickey Causey MD apixaban 5 mg PO BID clopidogrel 75 mg PO DAILY dapagliflozin propanediol 10 mg PO DAILY etanercept 50 mg subcut .[id number] folic acid 1 mg PO DAILY metoprolol succinate ER 200 mg PO DAILY oxycodone 30 mg PO Q6H PRN 28 days OxyContin ER (oxycodone) 80 mg PO .q8hrs 28 days NS rosuvastatin 40 mg PO DAILY sacubitril-valsartan 49-51 mg 1 tab PO BID umeclidinium-vilanterol 62.5-25 mcg/actuation (Anoro Ellipta) 1 inh inhalation DAILY Tobacco use date assessed: 02/02/23 Fall risk assessment: No Falls in past year Last assessed Fall Risk: 02/02/23 Dental Screening Dental Screen Date: 02/02/23 Did you have a dental visit in the last 12 months?: Yes Did you have a dental problem in the last 6 months where you did not have access to dental care?: No Was dental information given to patient?: Patient has dentist HPI 3 month f/u HPI Details Patient comes in today for his follow up visit States that he currently feels okay Relates that he was sent over to pulmonary at [facility] 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 at his last visit with them a couple of weeks ago and pulmonary started him on Anoro, which he states helps a lot as he feels less SOB since he was started on the inhaler He denies any headaches or dizziness Denies any chest pains No nausea/vomiting, no abdominal pain No change in bowel habits noted States that his chronic low back pain remains adequately controlled on his current Rx Has been experiencing increased pain over his shoulders for a while now, especially over his left shoulder Adds that he's had increased pain over the base of his left thumb for months and it has gotten to a point now where he can hardly move his left thumb Would like to know if he can get some cortisone injections into his shoulder and thumb to help relieve his symptoms States that he is scheduled to fly out to . later today and will be gone for a week - he is good with all of his Rx at this time Had his follow up labs done a few days ago - to discuss his results [facility] Medical History Chronic kidney disease (CKD) Vitamin D deficiency Pure hypercholesterolemia Benign essential hypertension Atrial fibrillation Chronic combined systolic and diastolic congestive heart failure Coronary artery disease Rheumatoid arthritis Degenerative disc disease, cervical Lumbar degenerative disc disease Surgical History History of coronary angioplasty History of hernia repair H/O wrist surgery History of arthroscopy of right knee History of coronary artery bypass graft Family History Father Past heart attack Mother Pneumonia Daughter Healthy adult Social History Housing: House Alcohol intake: current Alcohol intake frequency: holidays/special occasions only Patient Tobacco Use Status: Former Tobacco user e-Cigarette/Vaping Use: Never Used Second Hand Smoke Exposure: Yes service: Yes ([employer]) Current occupational status: retired and disabled Cognitive needs: Yes (cane) Hearing needs: Yes (hearing aide) Vision needs: Yes (glasses) Questionnaire PHQ-9 Over the last 2 weeks, how often have you been bothered by any of the following problems? 1. Little interest or pleasure in doing things: not at all 2. Feeling down, depressed, or hopeless: not at all 3. Trouble falling or staying asleep, or sleeping too much: not at all 4. Feeling tired or having little energy: not at all 5. Poor appetite or overeating: not at all 6. Feeling bad about yourself - or that you are a failure or have let yourself or your family down: not at all 7. Trouble concentrating on things, such as reading the newspaper or watching television: not at all 8. Moving or speaking so slowly that other people could have noticed. Or the opposite - being so fidgety or restless that you have been moving around a lot more than usual: not at all 9. Thoughts that you would be better off or of hurting yourself in some way: not at all Total score: 0 Depression Screening Interpretation: Negative Depression Screening Done: Yes 40126 - PHQ-9 Billing: Yes Source: Developed by Drs. Arben Noriega, Mona Gonzalez, Jerrod Adams and colleagues, with an educational arlen from [employer]. Thrive Questionnaire Date Thrive assessed: 02/02/23 I am a: Patient What is your living situation today?: I have a steady place to live Within the past 12 months, did the food you bought not last and you didn't have the money to get more?: Never true Within the past 12 months, did you worry whether your food would run out before you got money to buy more?: Never true Do you have trouble paying for medicines?: No Do you have trouble getting transportation to medical appointments?: No Do you have trouble paying your heating and electricity bill?: No Do you have trouble taking care of your child, family member or friend?: No Do you have trouble with day-to-day activities such as bathing, preparing meals, shopping, managing finances, etc.?: No Are you currently unemployed and looking for a job?: No Are you interested in more education?: No Please select the resources that you would like help with: None Currently or been in a relationship where the following occur: no concerns reported AUDIT C Alcohol Use Questionnaire (AUDIT-C) 1. How often do you have a drink containing alcohol?: Monthly or less 2. How many drinks containing alcohol do you have on a typical day when you are drinking?: 1 or 2 3. How often do you have six or more drinks on one occasion?: Never Total Score: 1 Score Reviewed/Action Taken: Yes NILESH-7 AMB Questionnaire NILESH-7 Date NILESH - 7 assessed: 02/02/23 Feeling nervous, anxious, or on edge: 0 = Not at all Not being able to stop or control worryin = Not at all Worrying too much about different things: 0 = Not at all Trouble relaxin = Not at all Being so restless that it is hard to sit still: 0 = Not at all Becoming easily annoyed or irritable: 0 = Not at all Feeling afraid as if something awful might happen: 0 = Not at all Total NILESH-7 score (0-4 normal; 5-9 mild; 10-14 moderate; 15-21 severe): 0 Source: Developed by Drs. Arben Noriega, Mona Gonzalez, Jerrod Adams and colleagues, with an educational arlen from [employer]. Review of Systems Const Denies chills, Reports fatigue, Denies fever(s) and Denies headache(s) ENT Denies dysphagia, Denies dizziness, Denies otalgia, Denies headache(s), Reports hearing loss (both ears - now wears hearing aids), Reports neck pain (chronic), Denies odynophagia and Denies sore throat Card Denies chest pain, Denies palpitations and Reports dyspnea on exertion (mild - better with current inhaler (Anoro)) Resp Denies cough, Reports dyspnea on exertion (mild - better with current inhaler (Anoro)) and Denies wheezing GI Denies abdominal pain, Denies constipation, Denies dysphagia, Denies heartburn, Denies diarrhea, Denies nausea, Denies odynophagia and Denies vomiting Denies dysuria, Denies nocturia and Denies urinary frequency Musc Reports back pain (over the lumbar spine - chronic), Reports arthralgias (multi ple joints - increased lately, especially in his shoulders, left thumb) and Reports neck pain (chronic) Skin/Breast Denies rash Neuro Denies dizziness and Denies headache(s) Endo Reports fatigue and Denies palpitations Aller/Immun Denies wheezing Physical exam (Primary Care) Vital Signs: Last Vital Signs Pulse 72 02/02/23 14:06 BP 124/78 02/02/23 14:06 Pulse Ox 95 02/02/23 14:06 Oxygen Delivery Method Room Air 02/02/23 14:06 BMI result Body Mass Index 21.4 Tobacco/Smoking Status: Tobacco use Status Tobacco use date assessed 02/02/23 02/02/23 14:09 Patient Tobacco Use Status Former Tobacco user 02/02/23 14:09 e-Cigarette/Vaping Use Never Used 02/02/23 14:09 PHQ-9: PHQ-9 Score PHQ-9: Total score 0 02/02/23 14:22 Depression Screening Interpretation: Negative Thrive Assessment: Date of Thrive Assessment Date Thrive assessed 02/02/23 02/02/23 14:09 Currently or been in a relationship where the following occur: no concerns reported Const General: no acute distress and alert HENMT Ears: TM's normal bilaterally and EAC's normal Throat: Yes posterior oropharynx normal and Yes tonsils normal (no TP congestion noted) Neck Neck: Yes no lymphadenopathy and Yes tender Resp Auscultation: clear to auscultation bilaterally, no rales and no wheezes Cardio Rate: regular rate Rhythm: abnormal rhythm irregularly irregular Heart sounds: no murmurs GI Palpation (GI): Soft to palpation and nontender Auscultation: normal bowel sounds Back/Spine/Pelvis Cervical Spine: Cervical spine tenderness Thoracic/Lumbar Spine: lumbar spinal tenderness Skin Rashes: no rashes Extrem General: Yes no clubbing, cyanosis or edema Right upper extremity: shoulder/upper arm Details: tenderness Location: of the A-C joint and Extremity exam: right hand Details: tenderness and no swelling Left upper extremity: shoulder/upper arm Details: tenderness Location: of the A- C joint and hand Details: tenderness Location: of the thumb Location: at the proximal phalanx, abnormal ROM of finger Details: unable to flex or extend Location: of the thumb and no swelling Results Reviewed Results Reviewed: Laboratory Tests 01/29/23 06:10 WBC 7.6 Hgb 14.5 Hct 44.9 Plt Count 220 Sodium 141 Potassium 4.9 Creatinine 1.17 Estimated GFR > 60 Fasting Glucose 81 Calcium 9.3 AST 21 ALT 13 B-Natriuretic Peptide 421 H Triglycerides 94 Cholesterol 114 LDL Cholesterol, Calc 47 HDL Cholesterol 49 Vitamin B12 576 25-OH Vitamin D Total 48.2 Ur Specific [place] >= 1.030 H Urine Protein Negative Urine Glucose (UA) >=1000 H Urine Blood Negative Assessment and Plan Assessment & Plan (1) Chronic combined systolic and diastolic congestive heart failure: Comment: Echocardiogram done back on 01/20/2019 revealed significantly reduced ejection fraction at 27% with grade 2 diastolic dysfunction, severe global hypokinesia with regional variation and dilatation of the left atrium, left ventricle and right ventricle; RV systolic function is also moderately reduced Code(s): I50.42 - Chronic combined systolic (congestive) and diastolic (congestive) heart failure Plan: Patient currently remains compensated - continue Entresto 49-51 mg BID and Dapagliflozin 10 mg QD He has been advised to consider ICD placement and is again strongly urged to pursue this in light of his heart condition - emphasized that an ICD can be potentially life-saving for him as his risk of sudden cardiac is high Follow up with cardiology at the heart failure clinic at [facility] as scheduled (2) Atrial fibrillation: Code(s): I48.91 - Unspecified atrial fibrillation Qualifiers: Atrial fibrillation type: unspecified Qualified Code(s): I48.91 - Unspecified atrial fibrillation Plan: Patient remains rate-controlled on Metoprolol ER 200 mg QD Continue Eliquis 5 mg BID for thromboembolism prophylaxis (3) Coronary artery disease: Comment: S/P CABD x 5 in 1991; recent cardiac CT done showed (+) multi-vessel disease and patient was advised aggressive risk reduction 2018 or 2019, by pass at [facility] Code(s): I25.10 - Atherosclerotic heart disease of [place] coronary artery without angina pectoris Qualifiers: Coronary Disease-Associated Artery/Lesion type: [place] artery [place] vs. transplanted heart: [place] heart Associated angina: without angina Qualified Code(s): I25.10 - Atherosclerotic heart disease of [place] coronary artery without angina pectoris Plan: Continue Clopidogrel 75 mg QD and Nitrostat 0.4 mg SL PRN for chest pains Continue Metoprolol ER 200 mg once a day Follow up with cardiology as scheduled (4) Benign essential hypertension: Code(s): I10 - Essential (primary) hypertension Plan: Reinforced low-sodium diet - goal is systolic BP of at least 130 to 140 mm or less Continue Metoprolol ER 200 mg QD; is also on Entresto 49-51 mg BID (5) Pure hypercholesterolemia: Code(s): E78.00 - Pure hypercholesterolemia, unspecified Plan: Results of his labs done a few days ago reviewed and discussed with patient Reinforced low cholesterol diet Continue Rosuvastatin 40 mg QD Will recheck his labs and fasting lipids in 3 months for follow up (6) COPD (chronic obstructive pulmonary disease): Code(s): J44.9 - Chronic obstructive pulmonary disease, unspecified Qualifiers: COPD type: emphysema Emphysema type: unspecified Qualified Code(s): J43.9 - Emphysema, unspecified Plan: States that he was seen by pulmonary at [facility] briefly about 2 weeks ago for his increasing SOB (sent over by cardiology) and he was reportedly started on Anoro Ellipta 62.5-25 mcg 1 inhalation QD, which he states has helped a lot with his symptoms Continue Anoro Ellipta 62.5-25 mcg 1 inhalation QD for now (7) Rheumatoid arthritis: Code(s): M06.9 - Rheumatoid arthritis, unspecified Qualifiers: Rheumatoid arthritis location: unspecified site Rheumatoid factor presence: with rheumatoid factor Qualified Code(s): M05.9 - Rheumatoid arthritis with rheumatoid factor, unspecified Plan: Continue Enbrel 50 mg subcutaneous injection once every 2 weeks and Folic acid tablet 1 mg QD Follow-up with Rheumatology (Dr. West) at [facility] as scheduled (8) Renal insufficiency: Code(s): N28.9 - Disorder of kidney and ureter, unspecified Plan: Cautioned that his GFR and serum creatinine have again declined from previous on his recent labs Reminded patient to make sure he stays hydrated (orally) although he has to remember that he also cannot drink too much due to his cardiac Hx (CHF) Will continue to monitor his renal function closely/regularly have him recheck his labs in 3 months for follow up (9) Impaired fasting glucose: Code(s): R73.01 - Impaired fasting glucose Plan: HgbA1c was normal at 5.3% when checked a few months ago; in-office HgbA1c was also normal at 5.1% previously Reinforced low calorie diet (10) Lumbar degenerative disc disease: Code(s): M51.36 - Other intervertebral disc degeneration, lumbar region Plan: Reinforced activity and weight lifting restrictions Continue Oxycodone 30 mg Q 6 hours as needed, Oxycodone ER 80 mg Q 8 hours, Tizanidine 4 mg TID PRN and Lidoderm patch 5% 1 patch apply to affected area QD PRN for pain Follow-up with [facility] as scheduled (11) Degenerative disc disease, cervical: Code(s): M50.30 - Other cervical disc degeneration, unspecified cervical region Plan: States that his current medications help keep his neck pain manageable (12) Vitamin D deficiency: Code(s): E55.9 - Vitamin D deficiency, unspecified Plan: Continue Vitamin D3 1000 units QD (13) Left shoulder pain: Code(s): M25.512 - Pain in left shoulder Qualifiers: Chronicity: unspecified Qualified Code(s): M25.512 - Pain in left shoulder Plan: Will send for left shoulder x-rays for further evaluation (14) Right shoulder pain: Code(s): M25.511 - Pain in right shoulder Qualifiers: Chronicity: unspecified Qualified Code(s): M25.511 - Pain in right shoulder Plan: Will send for x-rays of the right shoulder as well for further evaluation Advised that we do not do joint injections here in the office as we are not really set up for procedures in terms of equipments/supplies and staff and none of the staff here are trained to assist in office procedures so the only way he can get joint (cortisone) injections at this time is from orthopedics Will refer him to orthopedics for further evaluation and management of his shoulder pains and for cosideration for cortisone injections (15) Chronic pain of left thumb: Code(s): M79.645 - Pain in left finger(s); G89.29 - Other chronic pain Plan: Will send him as well for left thumb / hand x-rays - advised that his symptoms are most likely due to OA of the left thumb Will refer him to orthopedics as well for his left thumb issues Plan Follow up in 3 months Orders: Orders Comprehensive [place]. Panel Fast 3 Months E78.00 - Pure hypercholesterolemia, unspecified Lipid Panel 3 Months E78.00 - Pure hypercholesterolemia, unspecified UA CC w/rflx Micro + Cult 3 Months R30.0 - Dysuria Vitamin D 25-OH Total 3 Months E55.9 - Vitamin D deficiency, unspecified XR shoulder RT min 2V Today M25.511 - Pain in right shoulder Complete Blood Count Auto Diff 3 Months I10 - Essential (primary) hypertension TSH reflex Free T4 3 Months E78.00 - Pure hypercholesterolemia, unspecified B Type Natriuretic Peptide 3 Months I50.9 - Heart failure, unspecified XR shoulder LT min 2V Today M25.512 - Pain in left shoulder XR hand LT min 3V Today G89.29 - Other chronic pain, M79.645 - Pain in left finger(s) Referrals Orthopedics Referral G89.29 - Other chronic pain, M25.511 - Pain in right shoulder, M25.512 - Pain in left shoulder, M79.645 - Pain in left finger(s) Coding Level of Care Code Est Pt Level 4 (95019) Diagnoses Chronic combined systolic and diastolic congestive heart failure I50.42 Atrial fibrillation, unspecified type I48.91 Atrial fibrillation type: unspecified Coronary artery disease involving [place] coronary artery of [place] heart without angina pectoris I25.10 Coronary Disease-Associated Artery/Lesion type: [place] artery [place] vs. transplanted heart: [place] heart Associated angina: without angina Benign essential hypertension I10 Pure hypercholesterolemia E78.00 Pulmonary emphysema, unspecified emphysema type J43.9 COPD type: emphysema Emphysema type: unspecified Rheumatoid arthritis with positive rheumatoid factor, involving unspecified site M05.9 Rheumatoid arthritis location: unspecified site Rheumatoid factor presence: with rheumatoid factor Renal insufficiency N28.9 Impaired fasting glucose R73.01 Lumbar degenerative disc disease M51.36 Degenerative disc disease, cervical M50.30 Vitamin D deficiency E55.9 Left shoulder pain, unspecified chronicity M25.512 Chronicity: unspecified Right shoulder pain, unspecified chronicity M25.511 Chronicity: unspecified Chronic pain of left thumb M79.645; G89.29
== END 2023-02-02 15:11 | disposition home or self-care (01) ==
PROVIDERS: PCP Internal Medicine; Visit Provider Internal Medicine
DX: I11.0 Hypertensive heart disease with heart failure (principal); I50.42 Chronic combined systolic (congestive) and diastolic (congestive) heart failure; I48.91 Unspecified atrial fibrillation; J43.9 Emphysema, unspecified; M05.9 Rheumatoid arthritis with rheumatoid factor, unspecified; N28.9 Disorder of kidney and ureter, unspecified; R73.01 Impaired fasting glucose; M51.36 Other intervertebral disc degeneration, lumbar region; M50.30 Other cervical disc degeneration, unspecified cervical region; E55.9 Vitamin D deficiency, unspecified; M25.512 Pain in left shoulder; M25.511 Pain in right shoulder
CPT/HCPCS: 99214

== ENCOUNTER 2023-02-17 08:53 | Outpatient (AMB) | payer MEDICARE, SELFPAY ==
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
[2023-02-17 09:06] VITALS: BMI 21.3
== END 2023-02-17 10:12 | disposition home or self-care (01) ==
PROVIDERS: PCP Internal Medicine; Visit Provider Physician Assistant
DX: M75.82 Other shoulder lesions, left shoulder (principal)
CPT/HCPCS: 20610; 99203

== ENCOUNTER 2023-02-17 09:37 | Outpatient (REF) | payer MEDICARE, SELFPAY ==
--- NOTE | ~2023-02-17 | XR_ITS ---
EXAMINATION: XR SHOULDER, RIGHT CLINICAL INFORMATION: Pain. COMPARISON: None available. TECHNIQUE: AP neutral, scapular Y, and axillary views of the right shoulder. FINDINGS: There is bony demineralization. The glenohumeral joint is intact and shows mild osteoarthritic change. The acromioclavicular and coracoclavicular intervals are normal. There is mild osteoarthritic change of the acromioclavicular joint. No fracture or dislocation is seen. There is no soft tissue calcifications or foreign body. No right pneumothorax is seen. There are post CABG changes. XR/XR shoulder RT min 2V IMPRESSION: 1. There is mild osteoarthritic change of the right glenohumeral and acromioclavicular joints. 2. No fracture or dislocation is seen. EXAMINATION: XR SHOULDER, LEFT CLINICAL INFORMATION: Pain. COMPARISON: None available. TECHNIQUE: AP neutral, scapular Y, and axillary views of the left shoulder. FINDINGS: There is bony demineralization. The glenohumeral joint is intact and shows mild osteoarthritic change. The acromioclavicular and coracoclavicular intervals are normal. There is mild irregularity of the greater tuberosity of the proximal left humerus. No fracture or dislocation is seen. No soft tissue calcification or foreign body. No left pneumothorax is seen. IMPRESSION: 1. There is mild osteoarthritic change of the left glenohumeral joint. 2. Findings are consistent with left rotator cuff impingement, without idana calcific tendinitis noted. 3. No fracture or dislocation is seen.
--- NOTE | ~2023-02-17 | XR_ITS ---
EXAMINATION: XR SHOULDER, RIGHT CLINICAL INFORMATION: Pain. COMPARISON: None available. TECHNIQUE: AP neutral, scapular Y, and axillary views of the right shoulder. FINDINGS: There is bony demineralization. The glenohumeral joint is intact and shows mild osteoarthritic change. The acromioclavicular and coracoclavicular intervals are normal. There is mild osteoarthritic change of the acromioclavicular joint. No fracture or dislocation is seen. There is no soft tissue calcifications or foreign body. No right pneumothorax is seen. There are post CABG changes. XR/XR shoulder LT min 2V IMPRESSION: 1. There is mild osteoarthritic change of the right glenohumeral and acromioclavicular joints. 2. No fracture or dislocation is seen. EXAMINATION: XR SHOULDER, LEFT CLINICAL INFORMATION: Pain. COMPARISON: None available. TECHNIQUE: AP neutral, scapular Y, and axillary views of the left shoulder. FINDINGS: There is bony demineralization. The glenohumeral joint is intact and shows mild osteoarthritic change. The acromioclavicular and coracoclavicular intervals are normal. There is mild irregularity of the greater tuberosity of the proximal left humerus. No fracture or dislocation is seen. No soft tissue calcification or foreign body. No left pneumothorax is seen. IMPRESSION: 1. There is mild osteoarthritic change of the left glenohumeral joint. 2. Findings are consistent with left rotator cuff impingement, without diana calcific tendinitis noted. 3. No fracture or dislocation is seen.
== END 2023-02-17 09:38 | disposition home or self-care (01) ==
LOC: HO.HOSX 09:37
PROVIDERS: Visit Provider Physician Assistant
DX: M25.511 Pain in right shoulder (principal); M25.512 Pain in left shoulder; M75.82 Other shoulder lesions, left shoulder; Z95.1 Presence of aortocoronary bypass graft
CPT/HCPCS: 20610; 73030; 99202; J1040

== ENCOUNTER 2023-04-30 05:58 | Outpatient (REF) | payer MEDICARE, SELFPAY ==
[2023-04-30 06:14] LABS: MANUAL DIFF FLAG NO
[2023-04-30 08:06] LABS: Basophils Percent Auto 0.5 % (0-2); Eosinophils Absolute Auto 0.3 X10*3/uL (0.0-0.4); Eosinophils Percent Auto 4.2 % (0-4); Hematocrit 39.7 % (42.0-52.0); Imm Gran Abs Auto 0.04 X10*3/uL (0.00-0.03); Imm Gran Pct Auto 0.6 % (0.0-0.4); Lymphocytes Absolute Auto 2.1 X10*3/uL (1.2-4.9); Lymphocytes Percent Auto 31.5 % (20-40); Mean Corpuscular HGB Conc 32.7 g/dl (31.0-36.0); Mean Corpuscular Hemoglobin 36.3 pg (27.0-33.0); Monocytes Absolute Auto 1.2 X10*3/uL (0.1-1.2); Monocytes Percent Auto 17.3 % (2-11); Neutrophils Absolute Auto 3.1 x10*3/uL (2.0-8.3); Neutrophils Percent Auto 45.9 % (45-73); Platelet Count 238 X10*3/uL (160-400); Red Blood Count 3.58 X10*6/uL (4.60-5.80); Red Cell Distribution Width 13.5 % (11.0-16.0); White Blood Count 6.6 X10*3/uL (4.8-10.8)
[2023-04-30 08:10] LABS: Mean Corpuscular Volume 110.9 fL (80.0-98.0)
[2023-04-30 08:23] LABS: Appearance Urine Clear; Color Urine Yellow; Glucose Urine UA >=1000 mg/dL (Negative); Leukocyte Esterase Urine Negative (Negative); Nitrite Urine Negative (Negative); PH 6.5 (5.0-9.0); Specific Gravity - Urine 1.015 (1.005-1.025); UMIC TRIGGER UACC YES; Urine Blood Negative (Negative); Urine Ketones Negative (Negative); Urine Protein Negative (Neg-Trace)
[2023-04-30 08:29] LABS: Bacteria Urine None Seen (None Seen); Hyaline Casts Urine 0-2 /LPF (0-2); RBC Urine 0-2 /HPF (0-2); Squamous Epithelial Cell Urine 0-2 /HPF (0-2); WBC Urine 0-5 /HPF (0-5)
[2023-04-30 08:46] LABS: B Type Natriuretic Peptide 481 pg/mL (<100)
[2023-04-30 09:03] LABS: Alanine Aminotransferase 13 U/L (0-40); Albumin Level 3.8 g/dL (3.5-5.0); Alkaline Phosphatase 51 U/L (39-117); Anion Gap 15 (12-20); Aspartate Amino Transferase 23 U/L (5-37); Bilirubin Total 0.3 mg/dL (0.0-1.0); Blood Urea Nitrogen 26 mg/dL (9-16); Calcium 9.6 mg/dL (8.4-10.2); Carbon Dioxide 23 mmol/L (22-29); Chloride 107 mmol/L (96-108); Cholesterol 96 mg/dL (<200); Estimated Glomerular Filt Rate 48; Glucose Fasting 79 mg/dL (60-99); HDL Cholesterol 44 mg/dL (>40); LDL Cholesterol Calculated 38 mg/dL (<100); Potassium 5.3 mmol/L (3.3-5.1); Sodium 140 mmol/L (135-145); Total Protein 7.5 g/dL (6.5-8.0); Triglycerides 71 mg/dL (<150)
[2023-04-30 09:14] LABS: TSH reflex Free T4 1.97 uIU/mL (0.32-4.0); Vitamin D 25-OH Total 35.8 ng/mL (>30)
== END 2023-04-30 05:59 | disposition home or self-care (01) ==
LOC: HO.LAB 05:58
PROVIDERS: PCP Internal Medicine; Visit Provider Internal Medicine
DX: E78.00 Pure hypercholesterolemia, unspecified (principal); E55.9 Vitamin D deficiency, unspecified; I11.0 Hypertensive heart disease with heart failure; I50.9 Heart failure, unspecified
CPT/HCPCS: 36415; 80053; 80061; 81001; 82306; 83880; 84443; 85025

== ENCOUNTER 2023-05-05 14:15 | Outpatient (AMB) | payer MEDICARE, SELFPAY ==
[2023-05-05 14:18] VITALS: BP 118/80; PULSE 78; O2SAT 93; BMI 21.8
--- NOTE | 2023-05-05 14:18 | A.OFFPC_ITS ---
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 Accompanied by: Self / Same As Patient Allergies gabapentin [GABAPENTIN] Allergy (Severe, Verified 05/05/23 14:59) PASSED OUT , syncopal episodes at 800 mg TID azithromycin [From ZITHROMAX Z-DESIREE] Allergy (Intermediate, Verified 05/05/23 14:59) SWELLING pregabalin Adverse Reaction (Unknown, Verified 05/05/23 14:59) severe muscle pain Medication List - Last Reconciled 05/05/23 by Vickey Causey MD apixaban 5 mg PO BID clopidogrel 75 mg PO DAILY dapagliflozin propanediol 10 mg PO DAILY etanercept 50 mg subcut .[id number] folic acid 1 mg PO DAILY metoprolol succinate ER 200 mg PO DAILY oxycodone 30 mg PO Q6H PRN 28 days OxyContin ER (oxycodone) 80 mg PO .q8hrs 28 days NS rosuvastatin 40 mg PO DAILY sacubitril-valsartan 49-51 mg 1 tab PO BID umeclidinium-vilanterol 62.5-25 mcg/actuation (Anoro Ellipta) 1 inh inhalation DAILY Tobacco use date assessed: 05/05/23 Fall risk assessment: No Falls in past year Last assessed Fall Risk: 05/05/23 Dental Screening Dental Screen Date: 05/05/23 Did you have a dental visit in the last 12 months?: Yes Did you have a dental problem in the last 6 months where you did not have access to dental care?: No Was dental information given to patient?: Patient has dentist HPI 3 Month F/U HPI Details Patient comes in today for his follow up visit States that he is currently still experiencing increased pain in his left shoulder He was seen by orthopedics for his shoulder a few months ago and given a cortisone injection into his shoulder back then and he states that the injection helped with the pain temporarily but the pain is now back Adds that he's had increased sore throat for a couple of days recently and his throat is just now starting to feel better Relates that he mostly lost his voice when he had his recent bout with sore throat and that his voice is just now starting to return States that he's had recurrent coughing for the past few days but his cough is mostly dry He has been using his inhaler regularly lately with some relief He denies any fever or chills He denies any headaches or dizziness Denies any chest pains, no increased SOB - has been using his inhalers regularly as prescribed No nausea/vomiting, no abdominal pain No change in bowel habits noted States that his chronic low back pain remains adequately controlled on his current Rx and needs his pain meds Rx refilled today as he has to get it through worker's comp He had his follow up labs done a few days ago - to discuss his results [facility] Medical History Chronic kidney disease (CKD) Vitamin D deficiency Pure hypercholesterolemia Benign essential hypertension Atrial fibrillation Chronic combined systolic and diastolic congestive heart failure Coronary artery disease Rheumatoid arthritis Degenerative disc disease, cervical Lumbar degenerative disc disease Surgical History History of coronary angioplasty History of hernia repair H/O wrist surgery History of arthroscopy of right knee History of coronary artery bypass graft Family History Father Past heart attack Mother Pneumonia Daughter Healthy adult Social History Housing: House Alcohol intake: current Alcohol intake frequency: holidays/special occasions only Patient Tobacco Use Status: Former Tobacco user e-Cigarette/Vaping Use: Never Used Second Hand Smoke Exposure: Yes service: Yes ([employer]) Current occupational status: retired and disabled Current occupation: right hand dominant Cognitive needs: Yes (cane) Hearing needs: Yes (hearing aide) Vision needs: Yes (glasses) Questionnaire PHQ-9 Over the last 2 weeks, how often have you been bothered by any of the following problems? 1. Little interest or pleasure in doing things: not at all 2. Feeling down, depressed, or hopeless: not at all 3. Trouble falling or staying asleep, or sleeping too much: not at all 4. Feeling tired or having little energy: not at all 5. Poor appetite or overeating: not at all 6. Feeling bad about yourself - or that you are a failure or have let yourself or your family down: not at all 7. Trouble concentrating on things, such as reading the newspaper or watching t elevision: not at all 8. Moving or speaking so slowly that other people could have noticed. Or the opposite - being so fidgety or restless that you have been moving around a lot more than usual: not at all 9. Thoughts that you would be better off or of hurting yourself in some way: not at all Total score: 0 Depression Screening Interpretation: Negative Depression Screening Done: Yes 46388 - PHQ-9 Billing: Yes Source: Developed by Drs. Arben Noriega, Mona Gonzalez, Jerrod Adams and colleagues, with an educational arlen from [employer]. Thrive Questionnaire Date Thrive assessed: 05/05/23 I am a: Patient What is your living situation today?: I have a steady place to live Within the past 12 months, did the food you bought not last and you didn't have the money to get more?: Never true Within the past 12 months, did you worry whether your food would run out before you got money to buy more?: Never true Do you have trouble paying for medicines?: No Do you have trouble getting transportation to medical appointments?: No Do you have trouble paying your heating and electricity bill?: No Do you have trouble taking care of your child, family member or friend?: No Do you have trouble with day-to-day activities such as bathing, preparing meals, shopping, managing finances, etc.?: No Are you currently unemployed and looking for a job?: No Are you interested in more education?: No Please select the resources that you would like help with: None Currently or been in a relationship where the following occur: no concerns reported THRIVE Score: 0 AUDIT C Alcohol Use Questionnaire (AUDIT-C) 1. How often do you have a drink containing alcohol?: Monthly or less 2. How many drinks containing alcohol do you have on a typical day when you are drinking?: 1 or 2 3. How often do you have six or more drinks on one occasion?: Never Total Score: 1 Score Reviewed/Action Taken: Yes NILESH-7 AMB Questionnaire NILESH-7 Date NILESH - 7 assessed: 05/05/23 Feeling nervous, anxious, or on edge: 0 = Not at all Not being able to stop or control worryin = Not at all Worrying too much about different things: 0 = Not at all Trouble relaxin = Not at all Being so restless that it is hard to sit still: 0 = Not at all Becoming easily annoyed or irritable: 0 = Not at all Feeling afraid as if something awful might happen: 0 = Not at all Total NILESH-7 score (0-4 normal; 5-9 mild; 10-14 moderate; 15-21 severe): 0 Source: Developed by Drs. Arben Noriega, Mona Gonzalez, Jerrod Adams and colleagues, with an educational arlen from [employer]. Review of Systems Const Denies chills, Reports fatigue, Denies fever(s) and Denies headache(s) ENT Denies dysphagia, Denies dizziness, Denies otalgia, Denies headache(s), Reports hearing loss (both ears - now wears hearing aids), Reports hoarseness, Reports neck pain (chronic), Denies odynophagia and Reports sore throat (subsiding) Card Denies chest pain, Denies palpitations and Reports dyspnea on exertion (mild - better with current inhaler (Anoro)) Resp Reports chest congestion (mild), Reports cough (recurrent lately; non- productive), Denies excessive phlegm production, Denies pain on inspiration, Reports dyspnea on exertion (mild - better with current inhaler (Anoro)) and Denies wheezing GI Denies abdominal pain, Denies constipation, Denies dysphagia, Denies heartburn, Denies diarrhea, Denies nausea, Denies odynophagia and Denies vomiting Denies dysuria, Denies nocturia and Denies urinary frequency Musc Reports back pain (over the lumbar spine - chronic), Reports arthralgias (over multiple joints - increased lately in the left shoulder) and Reports neck pain (chronic) Skin/Breast Denies rash Neuro Denies dizziness and Denies headache(s) Endo Reports fatigue and Denies palpitations Aller/Immun Denies wheezing Physical exam (Primary Care) Vital Signs: Last Vital Signs Pulse 78 05/05/23 14:18 BP 118/80 05/05/23 14:18 Pulse Ox 93 05/05/23 14:18 Oxygen Delivery Method Room Air 05/05/23 14:18 BMI result Body Mass Index 21.8 Tobacco/Smoking Status: Tobacco use Status Tobacco use date assessed 05/05/23 05/05/23 14:20 Patient Tobacco Use Status Former Tobacco user 05/05/23 14:20 e-Cigarette/Vaping Use Never Used 05/05/23 14:20 PHQ-9: PHQ-9 Score PHQ-9: Total score 0 05/05/23 14:27 Depression Screening Interpretation: Negative Thrive Assessment: Date of Thrive Assessment Date Thrive assessed 05/05/23 05/05/23 14:20 Currently or been in a relationship where the following occur: no concerns reported Const General: no acute distress and alert HENMT Ears: TM's normal bilaterally and EAC's normal Throat: Yes tonsils normal (no TP congestion noted) and Yes posterior oropharynx abnormal ((+) increased erythema) Neck Neck: Yes no lymphadenopathy and Yes tender Resp Auscultation: no crackles, no rales, rhonchi (scattered bilaterally) and no wheezes Cardio Rate: regular rate Rhythm: abnormal rhythm irregularly irregular Heart sounds: no murmurs GI Palpation (GI): Soft to palpation and nontender Auscultation: normal bowel sounds General: Yes no CVA tenderness Back/Spine/Pelvis Back: no CVA tenderness Cervical Spine: Cervical spine tenderness Thoracic/Lumbar Spine: lumbar spinal tenderness Skin Rashes: no rashes Extrem General: Yes no clubbing, cyanosis or edema Right upper extremity: shoulder/upper arm Details: tenderness (mild) Location: of the A-C joint and Extremity exam: right hand Details: tenderness and no swelling Left upper extremity: shoulder/upper arm Details: tenderness (increased) Location: of the A-C joint and hand Details: tenderness Location: of the thumb Location: at the proximal phalanx, abnormal ROM of finger Details: unable to f andre or extend Location: of the thumb and no swelling Results Reviewed Results Reviewed: Laboratory Tests 04/30/23 04/30/23 04/30/23 06:09 06:12 06:12 WBC 6.6 Hgb 13.0 L Hct 39.7 L Plt Count 238 Sodium 140 Potassium 5.3 H Creatinine 1.44 H Estimated GFR 48 Calcium 9.6 AST 23 ALT 13 B-Natriuretic Peptide 481 H Triglycerides 71 Cholesterol 96 LDL Cholesterol, Calc 38 HDL Cholesterol 44 25-OH Vitamin D Total 35.8 TSH 1.97 Ur Specific [place] 1.015 Urine Protein Negative Urine Glucose (UA) >=1000 H Urine Blood Negative Urine Nitrite Negative Ur Leukocyte Esterase Negative Assessment and Plan Assessment & Plan (1) Chronic combined systolic and diastolic congestive heart failure: Comment: Echocardiogram done back on 01/20/2019 revealed significantly reduced ejection fraction at 27% with grade 2 diastolic dysfunction, severe global hypokinesia with regional variation and dilatation of the left atrium, left ventricle and right ventricle; RV systolic function is also moderately reduced Code(s): I50.42 - Chronic combined systolic (congestive) and diastolic (congestive) heart failure Plan: Patient currently remains compensated - continue Entresto 49-51 mg BID and Dapagliflozin 10 mg QD He has been advised to consider ICD placement and is again strongly urged to pursue this in light of his heart condition - emphasized that an ICD can be potentially life-saving for him as his risk of sudden cardiac is higher than normal Follow up with cardiology at the heart failure clinic at [facility] as scheduled (2) Atrial fibrillation: Code(s): I48.91 - Unspecified atrial fibrillation Qualifiers: Atrial fibrillation type: unspecified Qualified Code(s): I48.91 - Unspecified atrial fibrillation Plan: Patient remains rate-controlled on Metoprolol ER 200 mg QD Continue Eliquis 5 mg BID for thromboembolism prophylaxis (3) Coronary artery disease: Comment: S/P CABD x 5 in 1991; recent cardiac CT done showed (+) multi-vessel disease and patient was advised aggressive risk reduction 2018 or 2019, by pass at [facility] Code(s): I25.10 - Atherosclerotic heart disease of [place] coronary artery without angina pectoris Qualifiers: Coronary Disease-Associated Artery/Lesion type: [place] artery [place] vs. transplanted heart: [place] heart Associated angina: without angina Qualified Code(s): I25.10 - Atherosclerotic heart disease of [place] coronary artery without angina pectoris Plan: Continue Clopidogrel 75 mg QD and Nitrostat 0.4 mg SL PRN for chest pains Continue Metoprolol ER 200 mg once a day Follow up with cardiology as scheduled (4) Pure hypercholesterolemia: Code(s): E78.00 - Pure hypercholesterolemia, unspecified Plan: Results of his labs done a few days ago reviewed and discussed with patient - his cholesterol numbers remain at goal Reinforced low cholesterol diet Continue Rosuvastatin 40 mg QD Will recheck his labs and fasting lipids in 3 months for follow up (5) Benign essential hypertension: Code(s): I10 - Essential (primary) hypertension Plan: Reinforced low-sodium diet - goal is systolic BP of at least 130 to 140 mm or less Continue Metoprolol ER 200 mg QD; is also on Entresto 49-51 mg BID (6) COPD (chronic obstructive pulmonary disease): Code(s): J44.9 - Chronic obstructive pulmonary disease, unspecified Qualifiers: COPD type: emphysema Emphysema type: unspecified Qualified Code(s): J43.9 - Emphysema, unspecified Plan: Continue Anoro Ellipta 62.5-25 mcg 1 inhalation QD Follow up with pulmonary as scheduled Patient is advised to call at any time if he feels that his current respiratory symptoms (including his sore throat, coughing and breathing) are getting worse and he feels more SOB (7) Rheumatoid arthritis: Code(s): M06.9 - Rheumatoid arthritis, unspecified Qualifiers: Rheumatoid arthritis location: unspecified site Rheumatoid factor presence: with rheumatoid factor Qualified Code(s): M05.9 - Rheumatoid arthritis with rheumatoid factor, unspecified Plan: Continue Enbrel 50 mg subcutaneous injection once every 2 weeks and Folic acid tablet 1 mg QD Follow-up with Rheumatology (Dr. West) at [facility] as scheduled (8) Renal insufficiency: Code(s): N28.9 - Disorder of kidney and ureter, unspecified Plan: Cautioned that his GFR and serum creatinine have again declined from previous on his recent labs Reminded patient to make sure he stays hydrated (orally) although he has to remember that he also cannot drink too much due to his cardiac Hx (CHF) Will continue to monitor his renal function closely/regularly have him recheck his labs in 3 months for follow up (9) Impaired fasting glucose: Code(s): R73.01 - Impaired fasting glucose Plan: HgbA1c was normal at 5.3% when checked a few months ago; in-office HgbA1c was also normal at 5.1% previously Reinforced low calorie diet (10) Lumbar degenerative disc disease: Code(s): M51.36 - Other intervertebral disc degeneration, lumbar region Plan: Reinforced activity and weight lifting restrictions Continue Oxycodone 30 mg Q 6 hours as needed, Oxycodone ER 80 mg Q 8 hours (Rx refilled) , Tizanidine 4 mg TID PRN and Lidoderm patch 5% 1 patch apply to affected area QD PRN for pain Follow-up with [facility] as scheduled (11) Degenerative disc disease, cervical: Code(s): M50.30 - Other cervical disc degeneration, unspecified cervical region Plan: States that his current medications help keep his neck pain manageable (12) Vitamin D deficiency: Code(s): E55.9 - Vitamin D deficiency, unspecified Plan: Continue Vitamin D3 1000 units QD (13) Tendonitis of left rotator cuff: Code(s): M75.82 - Other shoulder lesions, left shoulder Plan: X-rays of the shoulder done a few months ago revealed findings of mild OA with left rotator cuff impingement S/P cortisone injection from orthopedics a few months ago with (+) temporary symptom relief Have advised patient that he can call orthopedics at any time and schedule an appointment with them for cortisone injection again as needed Plan Follow up in 3 months Orders: Orders B Type Natriuretic Peptide 3 Months I50.9 - Heart failure, unspecified Complete Blood Count Auto Diff 3 Months D64.9 - Anemia, unspecified Erythrocyte Sedimentation Rate 3 Months M75.82 - Other shoulder lesions, left shoulder Lipid Panel 3 Months E78.00 - Pure hypercholesterolemia, unspecified Comprehensive [place]. Panel Fast 3 Months E78.00 - Pure hypercholesterolemia, unspecified UA CC w/rflx Micro + Cult 3 Months R30.0 - Dysuria TSH reflex Free T4 3 Months E78.00 - Pure hypercholesterolemia, unspecified Vitamin D 25-OH Total 3 Months E55.9 - Vitamin D deficiency, unspecified Medications: Refilled oxycodone 30 mg PO Q6H PRN 112 tabs 0RF pain 28 days OxyContin ER (oxycodone) 80 mg PO .q8hrs 84 tabs 0RF pain 28 days NS Coding Level of Care Code Est Pt Level 4 (34802) Diagnoses Chronic combined systolic and diastolic congestive heart failure I50.42 Atrial fibrillation, unspecified type I48.91 Atrial fibrillation type: unspecified Coronary artery disease involving [place] coronary artery of [place] heart without angina pectoris I25.10 Coronary Disease-Associated Artery/Lesion type: [place] artery [place] vs. transplanted heart: [place] heart Associated angina: without angina Pure hypercholesterolemia E78.00 Benign essential hypertension I10 Pulmonary emphysema, unspecified emphysema type J43.9 COPD type: emphysema Emphysema type: unspecified Rheumatoid arthritis with positive rheumatoid factor, involving unspecified site M05.9 Rheumatoid arthritis location: unspecified site Rheumatoid factor presence: with rheumatoid factor Renal insufficiency N28.9 Impaired fasting glucose R73.01 Lumbar degenerative disc disease M51.36 Degenerative disc disease, cervical M50.30 Vitamin D deficiency E55.9 Tendonitis of left rotator cuff M75.82
== END 2023-05-05 14:57 | disposition home or self-care (01) ==
PROVIDERS: PCP Internal Medicine; Visit Provider Internal Medicine
DX: I11.0 Hypertensive heart disease with heart failure (principal); I50.42 Chronic combined systolic (congestive) and diastolic (congestive) heart failure; I48.91 Unspecified atrial fibrillation; I25.10 Atherosclerotic heart disease of native coronary artery without angina pectoris; E78.00 Pure hypercholesterolemia, unspecified; J43.9 Emphysema, unspecified; M05.9 Rheumatoid arthritis with rheumatoid factor, unspecified; N28.9 Disorder of kidney and ureter, unspecified; R73.01 Impaired fasting glucose; M51.36 Other intervertebral disc degeneration, lumbar region; M50.30 Other cervical disc degeneration, unspecified cervical region; E55.9 Vitamin D deficiency, unspecified
CPT/HCPCS: 99214

== ENCOUNTER 2023-07-28 09:57 | Outpatient (REF) | payer SELFPAY | END 2023-07-28 09:58 | disposition home or self-care (01) | LOC: HO.HAP 09:57 | PROVIDERS: Visit Provider Internal Medicine | DX: Z46.1 Encounter for fitting and adjustment of hearing aid (principal); H90.3 Sensorineural hearing loss, bilateral | CPT/HCPCS: V5267 ==

== ENCOUNTER 2023-08-02 06:11 | Outpatient (REF) | payer MEDICARE, SELFPAY ==
[2023-08-02 06:33] LABS: MANUAL DIFF FLAG NO
[2023-08-02 08:02] LABS: Basophils Percent Auto 0.4 % (0-2); Eosinophils Absolute Auto 0.3 X10*3/uL (0.0-0.4); Eosinophils Percent Auto 5.2 % (0-4); Hematocrit 36.1 % (42.0-52.0); Hemoglobin 12.1 g/dl (14.0-18.0); Imm Gran Abs Auto 0.02 X10*3/uL (0.00-0.03); Imm Gran Pct Auto 0.4 % (0.0-0.4); Lymphocytes Absolute Auto 1.8 X10*3/uL (1.2-4.9); Lymphocytes Percent Auto 31.1 % (20-40); Mean Corpuscular HGB Conc 33.5 g/dl (31.0-36.0); Mean Corpuscular Hemoglobin 36.6 pg (27.0-33.0); Mean Corpuscular Volume 109.1 fL (80.0-98.0); Mean Platelet Volume 10.5 fL (9.4-12.4); Monocytes Absolute Auto 1.1 X10*3/uL (0.1-1.2); Monocytes Percent Auto 19.8 % (2-11); Neutrophils Absolute Auto 2.4 x10*3/uL (2.0-8.3); Neutrophils Percent Auto 43.1 % (45-73); Platelet Count 192 X10*3/uL (160-400); Red Blood Count 3.31 X10*6/uL (4.60-5.80); Red Cell Distribution Width 13.2 % (11.0-16.0); White Blood Count 5.6 X10*3/uL (4.8-10.8)
[2023-08-02 08:02] LABS: Appearance Urine Clear; Color Urine Yellow; Glucose Urine UA >=1000 mg/dL (Negative); Leukocyte Esterase Urine Negative (Negative); Nitrite Urine Negative (Negative); PH 5.5 (5.0-9.0); Specific Gravity - Urine 1.025 (1.005-1.025); UMIC TRIGGER UACC YES; Urine Blood Negative (Negative); Urine Ketones Negative (Negative); Urine Protein Negative (Neg-Trace)
[2023-08-02 08:14] LABS: Bacteria Urine None Seen (None Seen); Squamous Epithelial Cell Urine 0-2 /HPF (0-2); WBC Urine 0-5 /HPF (0-5)
[2023-08-02 08:16] LABS: RBC Urine 0-2 /HPF (0-2)
[2023-08-02 08:31] LABS: B Type Natriuretic Peptide 374 pg/mL (<100)
[2023-08-02 08:42] LABS: Erythrocyte Sedimentation Rate 13 MM/HR (0-15)
[2023-08-02 08:54] LABS: Alanine Aminotransferase 11 U/L (0-40); Albumin Level 3.8 g/dL (3.5-5.0); Alkaline Phosphatase 47 U/L (39-117); Anion Gap 14 (12-20); Aspartate Amino Transferase 26 U/L (5-37); Bilirubin Total 0.3 mg/dL (0.0-1.0); Blood Urea Nitrogen 42 mg/dL (9-16); Carbon Dioxide 21 mmol/L (22-29); Chloride 110 mmol/L (96-108); Cholesterol 98 mg/dL (<200); Estimated Glomerular Filt Rate 40; Glucose Fasting 91 mg/dL (60-99); HDL Cholesterol 44 mg/dL (>40); LDL Cholesterol Calculated 40 mg/dL (<100); Sodium 140 mmol/L (135-145); TSH reflex Free T4 1.52 uIU/mL (0.32-4.0); Total Protein 7.2 g/dL (6.5-8.0); Triglycerides 74 mg/dL (<150); Vitamin D 25-OH Total 35.7 ng/mL (>30)
== END 2023-08-02 06:12 | disposition home or self-care (01) ==
LOC: HO.LAB 06:11
PROVIDERS: PCP Internal Medicine; Visit Provider Internal Medicine
DX: I50.9 Heart failure, unspecified (principal); D64.9 Anemia, unspecified; M75.82 Other shoulder lesions, left shoulder; E78.00 Pure hypercholesterolemia, unspecified; E55.9 Vitamin D deficiency, unspecified
CPT/HCPCS: 36415; 80053; 80061; 81001; 81003; 82306; 83880; 84443; 85025; 85652

== ENCOUNTER 2023-08-06 13:45 | Outpatient (AMB) | payer MEDICARE, SELFPAY ==
[2023-08-06 13:51] VITALS: BP 84/60; PULSE 70; O2SAT 95; BMI 20.9
--- NOTE | 2023-08-06 13:51 | MHC.PC.OV ---
Vital Signs 08/06/23 13:51 Height 5 ft 11 in Weight 150 lb BMI 20.9 BP 84/60 L Blood Pressure Location Lt brachial Position Sitting Pulse 70 Pulse Source Pulse Oximeter Pulse Oximetry (%) 95 Oxygen Delivery Method Room Air Intake Visit Reasons: Follow Up Quality Rn: Not Required per policy Accompanied by: Self / Same As Patient Allergies gabapentin [GABAPENTIN] Allergy (Severe, Verified 08/06/23 14:21) PASSED OUT , syncopal episodes at 800 mg TID azithromycin [From ZITHROMAX Z-DESIREE] Allergy (Intermediate, Verified 08/06/23 14:21) SWELLING pregabalin Adverse Reaction (Unknown, Verified 08/06/23 14:21) severe muscle pain Medication List - Last Reconciled 08/06/23 by Vickey Causey MD apixaban 5 mg PO BID clopidogrel 75 mg PO DAILY dapagliflozin propanediol 10 mg PO DAILY etanercept 50 mg subcut .I2YSRAS folic acid 1 mg PO DAILY metoprolol succinate ER 200 mg PO DAILY oxycodone 30 mg PO Q6H PRN 28 days OxyContin ER (oxycodone) 80 mg PO .q8hrs 28 days NS rosuvastatin 40 mg PO DAILY sacubitril-valsartan 49-51 mg 1 tab PO BID umeclidinium-vilanterol 62.5-25 mcg/actuation (Anoro Ellipta) 1 inh inhalation DAILY Tobacco use date assessed: 05/05/23 Fall risk assessment: No Falls in past year Last assessed Fall Risk: 08/06/23 Dental Screening Dental Screen Date: 05/05/23 HPI Follow Up HPI Details Patient comes in today for his follow up visit States that he currently feels okay He denies any headaches or dizziness; denies feeling lightheaded at all lately States that he still has a recurrent dry cough and his voice is still hoarse but the antibiotics we prescribed for him last time relieved his sore throat He denies any fever Denies any chest pains, no increased SOB No nausea/vomiting, no abdominal pain No change in bowel habits noted States that his chronic low back pain remains adequately controlled on his current Rx He had his follow up labs done a few days ago - to discuss his results [facility] Medical History (Updated 08/06/23 @ 14:48 by Vickey Causey MD) Allergic rhinitis Chronic kidney disease (CKD) Vitamin D deficiency Pure hypercholesterolemia Benign essential hypertension Atrial fibrillation Chronic combined systolic and diastolic congestive heart failure Coronary artery disease Rheumatoid arthritis Degenerative disc disease, cervical Lumbar degenerative disc disease Surgical History History of coronary angioplasty History of hernia repair H/O wrist surgery History of arthroscopy of right knee History of coronary artery bypass graft Family History Father Past heart attack Mother Pneumonia Daughter Healthy adult Social History Housing: House Alcohol intake: current Alcohol intake frequency: holidays/special occasions only Patient Tobacco Use Status: Former Tobacco user e-Cigarette/Vaping Use: Never Used Second Hand Smoke Exposure: Yes service: Yes ([employer]) Current occupational status: retired and disabled Current occupation: right hand dominant Cognitive needs: Yes (cane) Hearing needs: Yes (hearing aide) Vision needs: Yes (glasses) Questionnaire Thrive Questionnaire Date Thrive assessed: 05/05/23 NILESH-7 AMB Questionnaire NILESH-7 Date NILESH - 7 assessed: 05/05/23 Source: Developed by Drs. Arben Noriega, Mona Gonzalez, Jerrod Adams and colleagues, with an educational arlen from [employer]. Review of Systems Const Denies chills, Reports fatigue, Denies fever(s) and Denies headache(s) ENT Denies dysphagia, Denies dizziness, Denies otalgia, Denies headache(s), Reports hearing loss (both ears - now wears hearing aids), Reports hoarseness, Reports neck pain (chronic), Denies odynophagia and Denies sore throat Card Denies chest pain, Denies palpitations and Reports dyspnea on exertion (mild - better with current inhaler (Anoro)) Resp Denies chest congestion, Reports cough (recurrent; non-productive), Denies pain on inspiration, Reports dyspnea on exertion (mild - better with current inhaler (Anoro)) and Denies wheezing GI Denies abdominal pain, Denies constipation, Denies dysphagia, Denies heartburn, Denies diarrhea, Denies nausea, Denies odynophagia and Denies vomiting Denies dysuria, Denies nocturia and Denies urinary frequency Musc Reports back pain (over the lumbar spine - chronic), Reports arthralgias (over multiple joints - increased lately in the left shoulder) and Reports neck pain (chronic) Skin/Breast Denies rash Neuro Denies dizziness and Denies headache(s) Endo Reports fatigue and Denies palpitations Aller/Immun Denies wheezing Physical exam (Primary Care) Vital Signs: Last Vital Signs Pulse 70 08/06/23 13:51 BP 84/60 L 08/06/23 13:51 Pulse Ox 95 08/06/23 13:51 Oxygen Delivery Method Room Air 08/06/23 13:51 BMI result Body Mass Index 20.9 Tobacco/Smoking Status: Tobacco use Status Tobacco use date assessed 05/05/23 08/06/23 13:54 Patient Tobacco Use Status Former Tobacco user 08/06/23 13:54 e-Cigarette/Vaping Use Never Used 08/06/23 13:54 Thrive Assessment: Date of Thrive Assessment Date Thrive assessed 05/05/23 08/06/23 13:54 Const General: no acute distress and alert HENMT Ears: TM's normal bilaterally and EAC's normal Throat: Yes posterior oropharynx normal and Yes tonsils normal (no TP congestion noted) Neck Neck: Yes no lymphadenopathy and Yes tender Thyroid: Thyroid normal Resp Auscultation: clear to auscultation bilaterally, no rales and no wheezes Cardio Rate: regular rate Rhythm: abnormal rhythm irregularly irregular Heart sounds: no murmurs GI Palpation (GI): Soft to palpation and nontender Auscultation: normal bowel sounds General: Yes no CVA tenderness Back/Spine/Pelvis Back: no CVA tenderness Cervical Spine: Cervical spine tenderness Thoracic/Lumbar Spine: lumbar spinal tenderness Skin Rashes: no rashes Extrem General: Yes no clubbing, cyanosis or edema Right upper extremity: shoulder/upper arm Details: tenderness (mild) Location: of the A-C joint and Extremity exam: right hand Details: tenderness and no swelling Left upper extremity: shoulder/upper arm Details: tenderness (increased) Location: of the A-C joint and hand Details: tenderness Location: of the thumb Location: at the proximal phalanx, abnormal ROM of finger Details: unable to flex or extend Location: of the thumb and no swelling Results Reviewed Results Reviewed: Laboratory Tests 08/02/23 08/02/23 06:20 06:32 WBC 5.6 Hgb 12.1 L Hct 36.1 L Plt Count 192 ESR 13 Sodium 140 Potassium 5.0 Creatinine 1.69 H Estimated GFR 40 Fasting Glucose 91 Calcium 9.0 D AST 26 ALT 11 B-Natriuretic Peptide 374 H Triglycerides 74 Cholesterol 98 LDL Cholesterol, Calc 40 HDL Cholesterol 44 25-OH Vitamin D Total 35.7 TSH 1.52 Ur Specific [place] 1.025 Urine Protein Negative Urine Glucose (UA) >=1000 H Urine Blood Negative Urine Nitrite Negative Ur Leukocyte Esterase Negative Assessment and Plan Assessment & Plan (1) Chronic combined systolic and diastolic congestive heart failure: Comment: Echocardiogram done back on 01/20/2019 revealed significantly reduced ejection fraction at 27% with grade 2 diastolic dysfunction, severe global hypokinesia with regional variation and dilatation of the left atrium, left ventricle and right ventricle; RV systolic function is also moderately reduced Code(s): I50.42 - Chronic combined systolic (congestive) and diastolic (congestive) heart failure Plan: Patient currently remains compensated - continue Entresto 49-51 mg BID and Dapagliflozin 10 mg QD He has been advised to consider ICD placement and is again strongly urged to pursue this in light of his heart condition - emphasized that an ICD can be potentially life-saving for him as his risk of sudden cardiac is higher than normal Follow up with cardiology at the heart failure clinic at [facility] as scheduled (2) Atrial fibrillation: Code(s): I48.91 - Unspecified atrial fibrillation Qualifiers: Atrial fibrillation type: unspecified Qualified Code(s): I48.91 - Unspecified atrial fibrillation Plan: Patient remains rate-controlled on Metoprolol ER 200 mg QD Continue Eliquis 5 mg BID for thromboembolism prophylaxis (3) Coronary artery disease: Comment: S/P CABD x 5 in 1991; recent cardiac CT done showed (+) multi-vessel disease and patient was advised aggressive risk reduction 2018 or 2019, by pass at [facility] Code(s): I25.10 - Atherosclerotic heart disease of [place] coronary artery without angina pectoris Qualifiers: Coronary Disease-Associated Artery/Lesion type: [place] artery [place] vs. transplanted heart: [place] heart Associated angina: without angina Qualified Code(s): I25.10 - Atherosclerotic heart disease of [place] coronary artery without angina pectoris Plan: Continue Clopidogrel 75 mg QD and Nitrostat 0.4 mg SL PRN for chest pains Continue Metoprolol ER 200 mg once a day Follow up with cardiology as scheduled (4) Pure hypercholesterolemia: Code(s): E78.00 - Pure hypercholesterolemia, unspecified Plan: Results of his labs done a few days ago reviewed and discussed with patient - his cholesterol numbers remain at goal Reinforced low cholesterol diet Continue Rosuvastatin 40 mg QD Will recheck his labs and fasting lipids in 3 months for follow up (5) Benign essential hypertension: Code(s): I10 - Essential (primary) hypertension Plan: Reinforced low-sodium diet - goal is systolic BP of at least 130 to 140 mm or less Continue Metoprolol ER 200 mg QD; is also on Entresto 49-51 mg BID but in light of his recent gradual decline in his renal function as well as his low BP readings, have advised that he may need to discuss with his electrotyper about cutting back on his dose of one or the other Rx (6) COPD (chronic obstructive pulmonary disease): Code(s): J44.9 - Chronic obstructive pulmonary disease, unspecified Qualifiers: COPD type: emphysema Emphysema type: unspecified Qualified Code(s): J43.9 - Emphysema, unspecified Plan: Continue Anoro Ellipta 62.5-25 mcg 1 inhalation QD Follow up with pulmonary as scheduled Patient is advised to call at any time if he feels that his current respiratory symptoms (including his sore throat, coughing and breathing) are getting worse and he feels more SOB (7) Rheumatoid arthritis: Code(s): M06.9 - Rheumatoid arthritis, unspecified Qualifiers: Rheumatoid arthritis location: unspecified site Rheumatoid factor presence: with rheumatoid factor Qualified Code(s): M05.9 - Rheumatoid arthritis with rheumatoid factor, unspecified Plan: Continue Enbrel 50 mg subcutaneous injection once every 2 weeks and Folic acid tablet 1 mg QD Follow-up with Rheumatology (Dr. West) at [facility] as scheduled (8) Renal insufficiency: Code(s): N28.9 - Disorder of kidney and ureter, unspecified Plan: Cautioned that his GFR and serum creatinine have again declined from previous on his recent labs Reminded patient to make sure he stays hydrated (orally) although he has to remember that he also cannot drink too much due to his cardiac Hx (CHF) Will continue to monitor his renal function closely/regularly have him recheck his labs in 3 months for follow up Will also have patient try to discuss with his electrotyper about potentially cutting back on his dose of his Entresto or Metoprolol if possible (9) Impaired fasting glucose: Code(s): R73.01 - Impaired fasting glucose Plan: HgbA1c was normal at 5.3% when checked a few months ago; in-office HgbA1c was also normal at 5.1% previously Reinforced low calorie diet (10) Monocytosis: Code(s): D72.821 - Monocytosis (symptomatic) Plan: Patient is still slightly anemic and have noticed that his monocytes have been slowly increasing over the past few months Will check his Hgb electrophoresis in a few months for further evaluation (11) Lumbar degenerative disc disease: Code(s): M51.36 - Other intervertebral disc degeneration, lumbar region Plan: Reinforced activity and weight lifting restrictions Continue Oxycodone 30 mg Q 6 hours as needed, Oxycodone ER 80 mg Q 8 hours (Rx refilled) , Tizanidine 4 mg TID PRN and Lidoderm patch 5% 1 patch apply to affected area QD PRN for pain Follow-up with [facility] as scheduled (12) Degenerative disc disease, cervical: Code(s): M50.30 - Other cervical disc degeneration, unspecified cervical region Plan: States that his current medications help keep his neck pain manageable (13) Vitamin D deficiency: Code(s): E55.9 - Vitamin D deficiency, unspecified Plan: Continue Vitamin D3 1000 units QD (14) Allergic rhinitis: Code(s): J30.9 - Allergic rhinitis, unspecified Qualifiers: Allergic rhinitis trigger: unspecified Allergic rhinitis seasonality: unspecified Qualified Code(s): J30.9 - Allergic rhinitis, unspecified Plan: He is advised that his recurrent cough and hoarseness may likely be due to allergies Will start him on a trial of Cetirizine 10 mg QD PRN (15) Tendonitis of left rotator cuff: Code(s): M75.82 - Other shoulder lesions, left shoulder Plan: X-rays of the shoulder done a few months ago revealed findings of mild OA with left rotator cuff impingement S/P cortisone injection from orthopedics a few months ago with (+) temporary symptom relief Have advised patient that he can call orthopedics at any time and schedule an appointment with them for cortisone injection again as needed Plan Follow up in 3 months Orders: Orders Comprehensive [place]. Panel Fast 3 Months E78.00 - Pure hypercholesterolemia, unspecified Lipid Panel 3 Months E78.00 - Pure hypercholesterolemia, unspecified Hemoglobin Electrophoresis 3 Months D64.9 - Anemia, unspecified UA CC w/rflx Micro + Cult 3 Months R30.0 - Dysuria B Type Natriuretic Peptide 3 Months I50.9 - Heart failure, unspecified Complete Blood Count Auto Diff 3 Months D64.9 - Anemia, unspecified TSH reflex Free T4 3 Months E78.00 - Pure hypercholesterolemia, unspecified Medications: New cetirizine 10 mg PO DAILY 90 days PRN 90 tabs 1RF allergy symptoms Coding Level of Care Code Est Pt Level 4 (57562) Diagnoses Chronic combined systolic and diastolic congestive heart failure I50.42 Atrial fibrillation, unspecified type I48.91 Atrial fibrillation type: unspecified Coronary artery disease involving [place] coronary artery of [place] heart without angina pectoris I25.10 Coronary Disease-Associated Artery/Lesion type: [place] artery [place] vs. transplanted heart: [place] heart Associated angina: without angina Pure hypercholesterolemia E78.00 Benign essential hypertension I10 Pulmonary emphysema, unspecified emphysema type J43.9 COPD type: emphysema Emphysema type: unspecified Rheumatoid arthritis with positive rheumatoid factor, involving unspecified site M05.9 Rheumatoid arthritis location: unspecified site Rheumatoid factor presence: with rheumatoid factor Renal insufficiency N28.9 Impaired fasting glucose R73.01 Monocytosis D72.821 Lumbar degenerative disc disease M51.36 Degenerative disc disease, cervical M50.30 Vitamin D deficiency E55.9 Allergic rhinitis, unspecified seasonality, unspecified trigger J30.9 Allergic rhinitis trigger: unspecified Allergic rhinitis seasonality: unspecified Tendonitis of left rotator cuff M75.82
== END 2023-08-06 14:37 | disposition home or self-care (01) ==
PROVIDERS: PCP Internal Medicine; Visit Provider Internal Medicine
DX: I50.42 Chronic combined systolic (congestive) and diastolic (congestive) heart failure (principal); I48.91 Unspecified atrial fibrillation; J43.9 Emphysema, unspecified; M05.9 Rheumatoid arthritis with rheumatoid factor, unspecified; I25.10 Atherosclerotic heart disease of native coronary artery without angina pectoris; E78.00 Pure hypercholesterolemia, unspecified; I10 Essential (primary) hypertension; N28.9 Disorder of kidney and ureter, unspecified; R73.01 Impaired fasting glucose; D72.821 Monocytosis (symptomatic); M51.36 Other intervertebral disc degeneration, lumbar region; M50.30 Other cervical disc degeneration, unspecified cervical region
CPT/HCPCS: 99214

== ENCOUNTER 2023-11-30 12:48 | Outpatient (AMB) | payer MEDICARE, SELFPAY ==
[2023-11-30 13:08] VITALS: BP 110/60; PULSE 75; O2SAT 96; BMI 20.7
--- NOTE | 2023-11-30 13:08 | MHC.PC.OV ---
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 Accompanied by: Self / Same As Patient Allergies gabapentin [GABAPENTIN] Allergy (Severe, Verified 11/30/23 13:51) PASSED OUT , syncopal episodes at 800 mg TID azithromycin [From ZITHROMAX Z-DESIREE] Allergy (Intermediate, Verified 11/30/23 13:51) SWELLING pregabalin Adverse Reaction (Unknown, Verified 11/30/23 13:51) severe muscle pain Medication List - Last Reconciled 11/30/23 by Vickey Causey MD apixaban 5 mg PO BID cetirizine 10 mg PO DAILY PRN 90 days clopidogrel 75 mg PO DAILY dapagliflozin propanediol 10 mg PO DAILY etanercept 50 mg subcut .[id number] folic acid 1 mg PO DAILY hydrocortisone 2.5% 1 appl topical BID ketoconazole 2% 1 appl topical BID metoprolol succinate ER 200 mg PO DAILY nystatin 1 appl topical TID oxycodone 30 mg PO Q6H PRN 28 days OxyContin ER (oxycodone) 80 mg PO .q8hrs 28 days NS rosuvastatin 40 mg PO DAILY sacubitril-valsartan 49-51 mg 1 tab PO BID triamcinolone acetonide 0.1% 1 appl topical BID umeclidinium-vilanterol 62.5-25 mcg/actuation (Anoro Ellipta) 1 inh inhalation DAILY Tobacco use date assessed: 11/30/23 Fall risk assessment: 1 Fall in past year Last assessed Fall Risk: 11/30/23 Dental Screening Dental Screen Date: 11/30/23 Did you have a dental visit in the last 12 months?: Yes Did you have a dental problem in the last 6 months where you did not have access to dental care?: No Was dental information given to patient?: Patient has dentist HPI 3mof\u HPI Details Patient comes in today for his follow up visit States that he currently feels okay He denies any headaches or dizziness He still has a recurrent dry cough and his voice is still hoarse - thinks this is from all of the large heart pills that he has been taking He denies any fever or sore throat Denies any chest pains, no increased SOB No nausea/vomiting, no abdominal pain No change in bowel habits noted States that his chronic low back pain remains adequately controlled on his current Rx He is scheduled to fly out to [place] in a few weeks for his only daughter's wedding early next month He was not able to get his follow up labs done prior to his appointment today but states that he 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 of 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 He was also finally seen by dermatology a couple of weeks ago and was diagnosed with angular cheilitis, nummular eczema of his feet and erythema intertrigo of his groin areas and was prescribed the appropriate topical Rx for these issues He would also like to get his flu vaccine today [facility] Medical History (Updated 11/30/23 @ 17:35 by Vickey Causey MD) Erythema intertrigo Nummular eczematous dermatitis Allergic rhinitis Chronic kidney disease (CKD) Vitamin D deficiency Pure hypercholesterolemia Benign essential hypertension Atrial fibrillation Chronic combined systolic and diastolic congestive heart failure Coronary artery disease Rheumatoid arthritis Degenerative disc disease, cervical Lumbar degenerative disc disease Surgical History History of coronary angioplasty History of hernia repair H/O wrist surgery History of arthroscopy of right knee History of coronary artery bypass graft Family History Father Past heart attack Mother Pneumonia Daughter Healthy adult Social History Housing: House Alcohol intake: current Alcohol intake frequency: holidays/special occasions only Patient Tobacco Use Status: Former Tobacco user e-Cigarette/Vaping Use: Never Used Second Hand Smoke Exposure: Yes service: Yes ([employer]) Current occupational status: retired and disabled Current occupation: right hand dominant Cognitive needs: Yes (cane) Hearing needs: Yes (hearing aide) Vision needs: Yes (glasses) Questionnaire PHQ-9 Over the last 2 weeks, how often have you been bothered by any of the following problems? 1. Little interest or pleasure in doing things: not at all 2. Feeling down, depressed, or hopeless: not at all 3. Trouble falling or staying asleep, or sleeping too much: not at all 4. Feeling tired or having little energy: not at all 5. Poor appetite or overeating: not at all 6. Feeling bad about yourself - or that you are a failure or have let yourself or your family down: not at all 7. Trouble concentrating on things, such as reading the newspaper or watching television: not at all 8. Moving or speaking so slowly that other people could have noticed. Or the opposite - being so fidgety or restless that you have been moving around a lot more than usual: not at all 9. Thoughts that you would be better off or of hurting yourself in some way: not at all Total score: 0 Depression Screening Interpretation: Negative Depression Screening Done: Yes 18525 - PHQ-9 Billing: Yes Source: Developed by Drs. Arben Noriega, Mona Gonzalez, Jerrod Adams and colleagues, with an educational arlen from [employer]. Thrive Questionnaire Date Thrive assessed: 11/30/23 I am a: Patient What is your living situation today?: I have a steady place to live Within the past 12 months, did the food you bought not last and you didn't have the money to get more?: Never true Within the past 12 months, did you worry whether your food would run out before you got money to buy more?: Never true Do you have trouble paying for medicines?: No Do you have trouble getting transportation to medical appointments?: No Do you have trouble paying your heating and electricity bill?: No Do you have trouble taking care of your child, family member or friend?: No Do you have trouble with day-to-day activities such as bathing, preparing meals, shopping, managing finances, etc.?: No Are you currently unemployed and looking for a job?: No Are you interested in more education?: No Please select the resources that you would like help with: None Currently or been in a relationship where the following occur: No concerns reported THRIVE Score: 0 AUDIT C Alcohol Use Questionnaire (AUDIT-C) 1. How often do you have a drink containing alcohol?: Monthly or less 2. How many drinks containing alcohol do you have on a typical day when you are drinking?: 1 or 2 3. How often do you have six or more drinks on one occasion?: Never Total Score: 1 Score Reviewed/Action Taken: Yes NILESH-7 AMB Questionnaire NILESH-7 Date NILESH - 7 assessed: 11/30/23 Feeling nervous, anxious, or on edge: 0 = Not at all Not being able to stop or control worryin = Not at all Worrying too much about different things: 0 = Not at all Trouble relaxin = Not at all Being so restless that it is hard to sit still: 0 = Not at all Becoming easily annoyed or irritable: 0 = Not at all Feeling afraid as if something awful might happen: 0 = Not at all Total NILESH-7 score (0-4 normal; 5-9 mild; 10-14 moderate; 15-21 severe): 0 Source: Developed by Drs. Arben Noriega, Mona Gonzalez, Jerrod Adams and colleagues, with an educational arlen from [employer]. Review of Systems Const Denies chills, Reports fatigue, Denies fever(s) and Denies headache(s) ENT Denies dysphagia, Denies dizziness, Denies otalgia, Denies headache(s), Reports hearing loss (both ears - now wears hearing aids), Reports hoarseness, Reports neck pain (chronic), Denies odynophagia and Denies sore throat Card Denies chest pain, Denies palpitations and Reports dyspnea on exertion (mild - better with current inhaler (Anoro)) Resp Denies chest congestion, Reports cough (on and off; non-productive), Denies pain on inspiration, Reports dyspnea on exertion (mild - better with current inhaler (Anoro)) and Denies wheezing GI Denies abdominal pain, Denies constipation, Denies dysphagia, Denies heartburn, Denies diarrhea, Denies nausea, Denies odynophagia and Denies vomiting Denies dysuria, Denies nocturia and Denies urinary frequency Musc Reports back pain (over the lumbar spine - chronic), Reports arthralgias (over multiple joints - increased lately in the left shoulder) and Reports neck pain (chronic) Skin/Breast Reports rash (over both feet and over the groin areas) Neuro Denies dizziness and Denies headache(s) Endo Reports fatigue and Denies palpitations Aller/Immun Denies wheezing Physical exam (Primary Care) Vital Signs: Last Vital Signs Pulse 75 11/30/23 13:08 BP 110/60 11/30/23 13:08 Pulse Ox 96 11/30/23 13:08 Oxygen Delivery Method Room Air 11/30/23 13:08 BMI result Body Mass Index 20.7 Tobacco/Smoking Status: Tobacco use Status Tobacco use date assessed 11/30/23 11/30/23 13:12 Patient Tobacco Use Status Former Tobacco user 11/30/23 13:12 e-Cigarette/Vaping Use Never Used 11/30/23 13:12 PHQ-9: PHQ-9 Score PHQ-9: Total score 0 11/30/23 14:08 Depression Screening Interpretation: Negative Thrive Assessment: Date of Thrive Assessment Date Thrive assessed 11/30/23 11/30/23 13:12 Currently or been in a relationship where the following occur: No concerns reported Const General: no acute distress and alert HENMT Ears: TM's normal bilaterally and EAC's normal Throat: Yes posterior oropharynx normal and Yes tonsils normal (no TP congestion noted) Neck Neck: Yes no lymphadenopathy and Yes tender Thyroid: Thyroid normal Resp Auscultation: clear to auscultation bilaterally, no rales and no wheezes Cardio Rate: regular rate Rhythm: abnormal rhythm irregularly irregular Heart sounds: no murmurs GI Palpation (GI): Soft to palpation and nontender Auscultation: normal bowel sounds General: Yes no CVA tenderness Back/Spine/Pelvis Back: no CVA tenderness Cervical Spine: Cervical spine tenderness Thoracic/Lumbar Spine: lumbar spinal tenderness Skin Other: (+) scaling rash over the soles of both feet; (+) erythematous patchy rash over the groin and scrotal areas (per patient) Extrem General: Yes no clubbing, cyanosis or edema Right upper extremity: shoulder/upper arm Details: tenderness (mild) Location: of the A-C joint and Extremity exam: right hand Details: tenderness and no swelling Left upper extremity: shoulder/upper arm Details: tenderness (increased) Location: of the A-C joint and hand Details: tenderness Location: of the thumb Location: at the proximal phalanx, abnormal ROM of finger Details: unable to flex or extend Location: of the thumb and no swelling Office Procedures Flu Questionnaire Does the patient have a severe egg allergy?: No Does the patient have severe life threatening allergies?: No Does the patient have a fever or illness today?: No Has the patient ever had Guillain-Purvis Syndrome?: No Has the patient ever had any past reaction to a flu shot?: No Immunizations Fluarix Triv [id number] (PF) 45 mcg (15 mcg x 3)/0.5 mL IM syringe Performing Provider: Vickey Causey MD Performing Location: [facility] Administered by: CARMELO Tripathi on 11/30/23 13:21 Dose Route Admin Location Dispensed Lot Number Expiration Date NDC [place] [employer] 0.5 mL IM Left Deltoid 0.5 mL [id number] 08/28/24 [id number] [employer] VIS Given Date VIS Provided VIS Publication Date 11/30/23 Single Vaccine 20 Eligibility Eligibility Date Funding Source Not [facility] Eligible 11/30/23 Private Coding Level of Care Code Est Pt Level 4 (83686) Complex EM visit Add On G2211 Diagnoses Chronic combined systolic and diastolic congestive heart failure I50.42 Atrial fibrillation, unspecified type I48.91 Atrial fibrillation type: unspecified Coronary artery disease involving [place] coronary artery of [place] heart without angina pectoris I25.10 Associated angina: without angina Coronary Disease-Associated Artery/Lesion type: [place] artery [place] vs. transplanted heart: [place] heart Pure hypercholesterolemia E78.00 Benign essential hypertension I10 Pulmonary emphysema, unspecified emphysema type J43.9 COPD type: emphysema Emphysema type: unspecified Rheumatoid arthritis with positive rheumatoid factor, involving unspecified site M05.9 Rheumatoid arthritis location: unspecified site Rheumatoid factor presence: with rheumatoid factor Renal insufficiency N28.9 Impaired fasting glucose R73.01 Monocytosis D72.821 Degeneration of intervertebral disc of lumbar region with discogenic back pain and lower extremity pain M51.362 Disc-related pain type: discogenic back pain and lower extremity pain Degenerative disc disease, cervical M50.30 Vitamin D deficiency E55.9 Allergic rhinitis, unspecified seasonality, unspecified trigger J30.9 Allergic rhinitis seasonality: unspecified Allergic rhinitis trigger: unspecified Nummular eczematous dermatitis L30.0 Angular cheilitis K13.0 Erythema intertrigo L30.4 Assessment & Plan Assessment & Plan (1) Chronic combined systolic and diastolic congestive heart failure: Comment: Echocardiogram done back on 01/20/2019 revealed significantly reduced ejection fraction at 27% with grade 2 diastolic dysfunction, severe global hypokinesia with regional variation and dilatation of the left atrium, left ventricle and right ventricle; RV systolic function is also moderately reduced Code(s): I50.42 - Chronic combined systolic (congestive) and diastolic (congestive) heart failure Category: Medical Plan: Patient currently remains compensated - continue Entresto 49-51 mg BID and Dapagliflozin 10 mg QD He has reportedly been having trouble swallowing his heart meds as he finds them too big and he feels that this is the reason for his hoarseness Have advised him to speak with cardiology at his next follow up appointment to see if they can try switching his Entresto the the sprinkle formulation but have advised him NOT to split his current Entresto tablets in half Have also advised him that I suspect his hoarseness may actually be due to his inhaler and not his cardiac Rx He has been advised to consider ICD placement in the past, which he declined - we have urged him to consider pursuing this in light of his heart condition and have emphasized to him that an ICD can be potentially life-saving (for him) as his risk of sudden cardiac is higher than normal Follow up with cardiology at the heart failure clinic at [facility] as scheduled (2) Atrial fibrillation: Code(s): I48.91 - Unspecified atrial fibrillation Category: Medical Qualifiers: Atrial fibrillation type: unspecified Qualified Code(s): I48.91 - Unspecified atrial fibrillation Plan: Patient remains rate-controlled on Metoprolol ER 200 mg QD Continue Eliquis 5 mg BID for thromboembolism prophylaxis (3) Coronary artery disease: Comment: S/P CABD x 5 in 1991; recent cardiac CT done showed (+) multi-vessel disease and patient was advised aggressive risk reduction 2018 or 2019, by pass at [facility] Code(s): I25.10 - Atherosclerotic heart disease of [place] coronary artery without angina pectoris Category: Medical Qualifiers: Associated angina: without angina Coronary Disease-Associated Artery/Lesion type: [place] artery [place] vs. 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 [facility] a few weeks ago - will try to get [facility] to send these over [facility] for review Reinforced low cholesterol diet Continue Rosuvastatin 40 mg QD Will recheck his labs and fasting lipids in 3 months for follow up - his current lab orders are updated and patient will just use these for his next lab draw (5) Benign essential hypertension: Code(s): I10 - Essential (primary) hypertension Category: Medical Plan: Reinforced low-sodium diet - goal is systolic BP of at least 130 to 140 mm or less Continue Metoprolol ER 200 mg QD; he is also on Entresto 49-51 mg BID He is reminded to continue monitoring his blood pressure regularly (6) COPD (chronic obstructive pulmonary disease): Code(s): J44.9 - Chronic obstructive pulmonary disease, unspecified Category: Medical Qualifiers: COPD type: emphysema Emphysema type: unspecified Qualified Code(s): J43.9 - Emphysema, unspecified Plan: Continue Anoro Ellipta 62.5-25 mcg 1 inhalation QD Have advised him that his recurrent hoarseness lately may actually be due to his Anoro inhaler Have instructed him to start gargling and rinsing his mouth a few times followed by drinking at least a half glass of water after he uses his Anoro Ellipta everyday to rinse out any residue of the medication from his throat and mouth and if this works, his hoarseness should gradually clear up in a few weeks' time Follow up with pulmonary as scheduled Patient is advised to call at any time if he feels that his current respiratory symptoms are getting worse and he feels more SOB (7) Rheumatoid arthritis: Code(s): M06.9 - Rheumatoid arthritis, unspecified Category: Medical Qualifiers: Rheumatoid arthritis location: unspecified site Rheumatoid factor presence: with rheumatoid factor Qualified Code(s): M05.9 - Rheumatoid arthritis with rheumatoid factor, unspecified Plan: Continue Enbrel 50 mg subcutaneous injection once every 2 weeks and Folic acid tablet 1 mg QD Follow-up with Rheumatology (Dr. West) at the [facility] as scheduled (8) Renal insufficiency: Code(s): N28.9 - Disorder of kidney and ureter, unspecified Category: Medical Plan: Patient's GFR and serum creatinine declined back in April 2023 but have recovered somewhat a few months later in July 2023 His numbers though indicate that he is now likely in stage 3 CKD Have reminded patient to make sure he stays hydrated (orally) although he has to remember that he also cannot drink too much due to his cardiac Hx (CHF) Will continue to monitor his renal function closely/regularly have him recheck his labs in 3 months for follow up (9) Impaired fasting glucose: Code(s): R73.01 - Impaired fasting glucose Category: Medical Plan: His HgbA1c was normal at 5.3% when checked a few months ago; in-office HgbA1c was also normal at 5.1% previously Reinforced low calorie/low carb diet (10) Monocytosis: Code(s): D72.821 - Monocytosis (symptomatic) Category: Medical Plan: Patient was still slightly anemic on his most recent labs a few months ago; his monocytes population have been slowly increasing over the past few months Will check his Hgb electrophoresis in a few months with his next scheduled labs for further evaluation (11) Lumbar degenerative disc disease: Code(s): M51.36 - Other intervertebral disc degeneration, lumbar region Category: Medical Qualifiers: Disc-related pain type: discogenic back pain and lower extremity pain Qualified Code(s): M51.362 - Other intervertebral disc degeneration, lumbar region with discogenic back pain and lower extremity pain Plan: Reinforced activity and weight lifting restrictions Continue Oxycodone 30 mg Q 6 hours as needed, Oxycodone ER 80 mg Q 8 hours , Tizanidine 4 mg TID PRN and Lidoderm patch 5% 1 patch apply to affected area QD PRN for pain Follow-up with [facility] as scheduled (12) Degenerative disc disease, cervical: Code(s): M50.30 - Other cervical disc degeneration, unspecified cervical region Category: Medical Plan: States that his current medications help keep his neck pain manageable (13) Vitamin D deficiency: Code(s): E55.9 - Vitamin D deficiency, unspecified Category: Medical Plan: Continue Vitamin D3 1000 units QD (14) Allergic rhinitis: Code(s): J30.9 - Allergic rhinitis, unspecified Category: Medical Qualifiers: Allergic rhinitis seasonality: unspecified Allergic rhinitis trigger: unspecified Qualified Code(s): J30.9 - Allergic rhinitis, unspecified Plan: Continue Cetirizine 10 mg QD PRN (15) Nummular eczematous dermatitis: Code(s): L30.0 - Nummular dermatitis Category: Medical Plan: He was seen by Dr. De Jesus a few weeks ago and was continued on Triamcinolone 0.1% cream BID for his feet Follow up with dermatology as scheduled (16) Angular cheilitis: Code(s): K13.0 - Diseases of lips Category: Medical Plan: Continue Ketoconazole cream and Hydrocortiosone 2.5% ointment to the fissures on the angles of the mouth as instructed Follow up with Dr. De Jesus as scheduled (17) Erythema intertrigo: Code(s): L30.4 - Erythema intertrigo Category: Medical Plan: He was started on Nystatin powder [id number] units/gm TID by dermatology Plan Per request, flu vaccine given today Follow up in 3 months Orders: Orders Influenza [id number] Immunization Today Z23 - Encounter for immunization
== END 2023-11-30 14:03 | disposition home or self-care (01) ==
PROVIDERS: PCP Internal Medicine; Visit Provider Internal Medicine
DX: I50.42 Chronic combined systolic (congestive) and diastolic (congestive) heart failure (principal); I48.91 Unspecified atrial fibrillation; I25.10 Atherosclerotic heart disease of native coronary artery without angina pectoris; E78.00 Pure hypercholesterolemia, unspecified; I10 Essential (primary) hypertension; J43.9 Emphysema, unspecified; M05.9 Rheumatoid arthritis with rheumatoid factor, unspecified; N28.9 Disorder of kidney and ureter, unspecified; R73.01 Impaired fasting glucose; D72.821 Monocytosis (symptomatic); M51.362 Other intervertebral disc degeneration, lumbar region with discogenic back pain and lower extremity pain; M50.30 Other cervical disc degeneration, unspecified cervical region; E55.9 Vitamin D deficiency, unspecified; J30.9 Allergic rhinitis, unspecified; L30.0 Nummular dermatitis; K13.0 Diseases of lips; L30.4 Erythema intertrigo; Z23 Encounter for immunization

== ENCOUNTER → 2023-11-30 12:48 | Outpatient (BNVA) | payer MEDICARE, SELFPAY | PROVIDERS: PCP Internal Medicine; Visit Provider Internal Medicine | DX: Z23 Encounter for immunization (principal); I11.0 Hypertensive heart disease with heart failure; I50.42 Chronic combined systolic (congestive) and diastolic (congestive) heart failure; I48.91 Unspecified atrial fibrillation; I25.10 Atherosclerotic heart disease of native coronary artery without angina pectoris; E78.00 Pure hypercholesterolemia, unspecified; J43.9 Emphysema, unspecified; M05.9 Rheumatoid arthritis with rheumatoid factor, unspecified; N28.9 Disorder of kidney and ureter, unspecified; R73.01 Impaired fasting glucose; D72.821 Monocytosis (symptomatic); M51.362 Other intervertebral disc degeneration, lumbar region with discogenic back pain and lower extremity pain; M50.30 Other cervical disc degeneration, unspecified cervical region; E55.9 Vitamin D deficiency, unspecified; J30.9 Allergic rhinitis, unspecified; L30.0 Nummular dermatitis; K13.0 Diseases of lips; L30.4 Erythema intertrigo | CPT/HCPCS: 90471; 90656; 96127; 99212 ==

== ENCOUNTER 2024-04-05 06:06 | Outpatient (REF) | payer MEDICARE, SELFPAY ==
[2024-04-05 06:25] LABS: MANUAL DIFF FLAG NO
[2024-04-05 07:14] LABS: Basophils Percent Auto 0.4 % (0-2); Eosinophils Absolute Auto 0.2 X10*3/uL (0.0-0.4); Eosinophils Percent Auto 3.6 % (0-4); Hematocrit 39.5 % (42.0-52.0); Hemoglobin 12.9 g/dl (14.0-18.0); Imm Gran Abs Auto 0.06 X10*3/uL (0.00-0.03); Imm Gran Pct Auto 0.9 % (0.0-0.4); Lymphocytes Absolute Auto 2.1 X10*3/uL (1.2-4.9); Lymphocytes Percent Auto 30.5 % (20-40); Mean Corpuscular HGB Conc 32.7 g/dl (31.0-36.0); Mean Corpuscular Hemoglobin 36.4 pg (27.0-33.0); Mean Corpuscular Volume 111.6 fL (80.0-98.0); Monocytes Absolute Auto 1.2 X10*3/uL (0.1-1.2); Monocytes Percent Auto 18.3 % (2-11); Neutrophils Absolute Auto 3.1 x10*3/uL (2.0-8.3); Neutrophils Percent Auto 46.3 % (45-73); Platelet Count 222 X10*3/uL (160-400); Red Blood Count 3.54 X10*6/uL (4.60-5.80); Red Cell Distribution Width 13.4 % (11.0-16.0); White Blood Count 6.8 X10*3/uL (4.8-10.8)
[2024-04-05 07:26] LABS: Alanine Aminotransferase 35 U/L (0-40); Albumin Level 3.6 g/dL (3.5-5.0); Alkaline Phosphatase 53 U/L (39-117); Anion Gap 12 (12-20); Aspartate Amino Transferase 45 U/L (5-37); Bilirubin Total 0.3 mg/dL (0.0-1.0); Blood Urea Nitrogen 30 mg/dL (9-16); Calcium 8.4 mg/dL (8.4-10.2); Carbon Dioxide 22 mmol/L (22-29); Chloride 112 mmol/L (96-108); Cholesterol 87 mg/dL (<200); Estimated Glomerular Filt Rate 48; Glucose Fasting 92 mg/dL (60-99); HDL Cholesterol 40 mg/dL (>40); LDL Cholesterol Calculated 33 mg/dL (<100); Potassium 5.6 mmol/L (3.3-5.1); Sodium 140 mmol/L (135-145); Total Protein 7.8 g/dL (6.5-8.0); Triglycerides 72 mg/dL (<150)
[2024-04-05 07:28] LABS: B Type Natriuretic Peptide 598 pg/mL (<100)
[2024-04-05 07:35] LABS: Appearance Urine Clear; Color Urine Yellow; Glucose Urine UA >=1000 mg/dL (Negative); Leukocyte Esterase Urine Negative (Negative); Nitrite Urine Negative (Negative); PH 5.5 (5.0-9.0); Specific Gravity - Urine >= 1.030 (1.005-1.025); UMIC TRIGGER UACC YES; Urine Blood Negative (Negative); Urine Ketones Negative (Negative); Urine Protein Negative (Neg-Trace)
[2024-04-05 07:41] LABS: Bacteria Urine None Seen (None Seen); Hyaline Casts Urine 0-2 /LPF (0-2); RBC Urine 0-2 /HPF (0-2); Squamous Epithelial Cell Urine 0-2 /HPF (0-2); WBC Urine 0-5 /HPF (0-5)
[2024-04-05 07:41] LABS: TSH reflex Free T4 1.36 uIU/mL (0.32-4.0)
[2024-04-07 14:53] LABS: Hematocrit 38.9 % (38.5-50.0); Hemoglobin 12.9 g/dL (13.2-17.1); MCH 36.3 pg (27.0-33.0); MCV 109.6 fL (80.0-100.0); RBC 3.55 Million/uL (4.20-5.80); RDW 12.9 % (11.0-15.0)
== END 2024-04-05 06:07 | disposition home or self-care (01) ==
LOC: HO.LAB 06:06
PROVIDERS: PCP Internal Medicine; Visit Provider Internal Medicine
DX: D64.9 Anemia, unspecified (principal); I50.9 Heart failure, unspecified; E78.00 Pure hypercholesterolemia, unspecified; R30.0 Dysuria
CPT/HCPCS: 36415; 80053; 80061; 81001; 83020; 83880; 84443; 85014; 85018; 85025; 85041

== ENCOUNTER 2024-04-10 12:52 | Outpatient (AMB) | payer MEDICARE, SELFPAY ==
[2024-04-10 13:08] VITALS: BP 110/80; PULSE 90; O2SAT 99; BMI 21.1
--- NOTE | 2024-04-10 13:08 | MHC.PC.OV ---
Vital Signs 04/10/24 13:08 Height 5 ft 11 in Weight 151 lb 4 oz BMI 21.1 BP 110/80 Blood Pressure Location Lt brachial Position Sitting Pulse 90 Pulse Source Pulse Oximeter Pulse Oximetry (%) 99 Oxygen Delivery Method Room Air Intake Visit Reasons: 3 month f/u 3D Modeler Required: No Accompanied by: Self / Same As Patient Allergies gabapentin [GABAPENTIN] Allergy (Severe, Verified 04/10/24 13:27) PASSED OUT , syncopal episodes at 800 mg TID azithromycin [From ZITHROMAX Z-DESIREE] Allergy (Intermediate, Verified 04/10/24 13:27) SWELLING pregabalin Adverse Reaction (Unknown, Verified 04/10/24 13:27) severe muscle pain Medication List - Last Reconciled 04/10/24 by Vickey Causey MD apixaban 5 mg PO BID cetirizine 10 mg PO DAILY PRN 90 days clopidogrel 75 mg PO DAILY dapagliflozin propanediol 10 mg PO DAILY etanercept 50 mg subcut .[id number] folic acid 1 mg PO DAILY hydrocortisone 2.5% 1 appl topical BID ketoconazole 2% 1 appl topical BID metoprolol succinate ER 200 mg PO DAILY nystatin 1 appl topical TID oxycodone 30 mg PO Q6H PRN 28 days OxyContin ER (oxycodone) 80 mg PO .q8hrs 28 days NS rosuvastatin 40 mg PO DAILY sacubitril-valsartan 49-51 mg 1 tab PO BID triamcinolone acetonide 0.1% 1 appl topical BID umeclidinium-vilanterol 62.5-25 mcg/actuation (Anoro Ellipta) 1 inh inhalation DAILY Tobacco use date assessed: 04/10/24 Fall risk assessment: No Falls in past year Last assessed Fall Risk: 04/10/24 Dental Screening Dental Screen Date: 04/10/24 Did you have a dental visit in the last 12 months?: Yes Did you have a dental problem in the last 6 months where you did not have access to dental care?: No Was dental information given to patient?: Patient has dentist HPI 3 month f/u HPI Details Patient comes in today for his follow up visit States that he currently feels okay He denies any headaches or dizziness He still has a recurrent dry cough and his voice is still hoarse but he denies any trouble swallowing; denies any fever or sore throat Denies any chest pains, no increased SOB No nausea/vomiting, no abdominal pain No change in bowel habits noted States that his chronic low back pain remains adequately controlled on his current Rx He had his follow-up labs done a few days ago - to discuss his results [facility] Medical History Erythema intertrigo Nummular eczematous dermatitis Allergic rhinitis Chronic kidney disease (CKD) Vitamin D deficiency Pure hypercholesterolemia Benign essential hypertension Atrial fibrillation Chronic combined systolic and diastolic congestive heart failure Coronary artery disease Rheumatoid arthritis Degenerative disc disease, cervical Lumbar degenerative disc disease Surgical History History of coronary angioplasty History of hernia repair H/O wrist surgery History of arthroscopy of right knee History of coronary artery bypass graft Family History Father Past heart attack Mother Pneumonia Daughter Healthy adult Social History Housing: House Alcohol intake: current Alcohol intake frequency: holidays/special occasions only Patient Tobacco Use Status: Former Tobacco user e-Cigarette/Vaping Use: Never Used Second Hand Smoke Exposure: Yes service: Yes ([employer]) Current occupational status: retired and disabled Current occupation: right hand dominant Cognitive needs: Yes (cane) Hearing needs: Yes (hearing aide) Vision needs: Yes (glasses) Questionnaire PHQ-9 Over the last 2 weeks, how often have you been bothered by any of the following problems? 1. Little interest or pleasure in doing things: not at all 2. Feeling down, depressed, or hopeless: not at all 3. Trouble falling or staying asleep, or sleeping too much: not at all 4. Feeling tired or having little energy: not at all 5. Poor appetite or overeating: not at all 6. Feeling bad about yourself - or that you are a failure or have let yourself or your family down: not at all 7. Trouble concentrating on things, such as reading the newspaper or watching television: not at all 8. Moving or speaking so slowly that other people could have noticed. Or the opposite - being so fidgety or restless that you have been moving around a lot more than usual: not at all 9. Thoughts that you would be better off or of hurting yourself in some way: not at all Total score: 0 Depression Screening Interpretation: Negative Depression Screening Done: Yes 85457 - PHQ-9 Billing: Yes Source: Developed by Drs. Arben Noriega, Mona Gonzalez, Jerrod Adams and colleagues, with an educational arlen from [employer] Thrive Questionnaire Date Thrive assessed: 04/10/24 I am a: Patient What is your living situation today?: I have a steady place to live Within the past 12 months, did the food you bought not last and you didn't have the money to get more?: Never true Within the past 12 months, did you worry whether your food would run out before you got money to buy more?: Never true Do you have trouble paying for medicines?: No Do you have trouble getting transportation to medical appointments?: No Do you have trouble paying your heating and electricity bill?: No Do you have trouble taking care of your child, family member or friend?: No Do you have trouble with day-to-day activities such as bathing, preparing meals, shopping, managing finances, etc.?: No Are you currently unemployed and looking for a job?: No Are you interested in more education?: No Please select the resources that you would like help with: None Currently or been in a relationship where the following occur: No concerns reported THRIVE Score: 0 AUDIT C Alcohol Use Questionnaire (AUDIT-C) 1. How often do you have a drink containing alcohol?: Monthly or less 2. How many drinks containing alcohol do you have on a typical day when you are drinking?: 1 or 2 3. How often do you have six or more drinks on one occasion?: Never Total Score: 1 Score Reviewed/Action Taken: Yes NILESH-7 AMB Questionnaire NILESH-7 Date NILESH - 7 assessed: 04/10/24 Feeling nervous, anxious, or on edge: 0 = Not at all Not being able to stop or control worryin = Not at all Worrying too much about different things: 0 = Not at all Trouble relaxin = Not at all Being so restless that it is hard to sit still: 0 = Not at all Becoming easily annoyed or irritable: 0 = Not at all Feeling afraid as if something awful might happen: 0 = Not at all Total NILESH-7 score (0-4 normal; 5-9 mild; 10-14 moderate; 15-21 severe): 0 Source: Developed by Drs. Arben Noriega, Mona Gonzalez, Jerrod Adams and colleagues, with an educational arlen from [employer] Review of Systems Const Denies chills, Reports fatigue, Denies fever(s) and Denies headache(s) ENT Denies dysphagia, Denies dizziness, Denies otalgia, Denies headache(s), Reports hearing loss (both ears - now wears hearing aids), Reports hoarseness, Reports neck pain (chronic), Denies odynophagia and Denies sore throat Card Denies chest pain, Denies palpitations and Reports dyspnea on exertion (mild - better with current inhaler (Anoro)) Resp Denies chest congestion, Reports cough (on and off; non-productive), Denies pain on inspiration, Reports dyspnea on exertion (mild - better with current inhaler (Anoro)) and Denies wheezing GI Denies abdominal pain, Denies constipation, Denies dysphagia, Denies heartburn, Denies diarrhea, Denies nausea, Denies odynophagia and Denies vomiting Denies dysuria, Denies nocturia and Denies urinary frequency Musc Reports back pain (over the lumbar spine - chronic), Reports arthralgias (over multiple joints - increased lately in the left shoulder) and Reports neck pain (chronic) Skin/Breast Reports rash (over both feet and over the groin areas - improving now with treatment) Neuro Denies dizziness and Denies headache(s) Endo Reports fatigue and Denies palpitations Aller/Immun Denies wheezing Physical exam (Primary Care) Vital Signs: Last Vital Signs Pulse 90 04/10/24 13:08 BP 110/80 04/10/24 13:08 Pulse Ox 99 04/10/24 13:08 Oxygen Delivery Method Room Air 04/10/24 13:08 BMI result Body Mass Index 21.1 Tobacco/Smoking Status: Tobacco use Status Tobacco use date assessed 04/10/24 04/10/24 13:14 Patient Tobacco Use Status Former Tobacco user 04/10/24 13:14 e-Cigarette/Vaping Use Never Used 04/10/24 13:14 PHQ-9: PHQ-9 Score PHQ-9: Total score 0 04/10/24 13:28 Depression Screening Interpretation: Negative Thrive Assessment: Date of Thrive Assessment Date Thrive assessed 04/10/24 04/10/24 13:14 Currently or been in a relationship where the following occur: No concerns reported Const General: no acute distress and alert HENMT Ears: TM's normal bilaterally and EAC's normal Throat: Yes posterior oropharynx normal and Yes tonsils normal (no TP congestion noted) Neck Neck: No lymphadenopathy and Yes tender Thyroid: Thyroid normal Resp Auscultation: clear to auscultation bilaterally, no rales and no wheezes Cardio Rate: regular rate Rhythm: abnormal rhythm irregularly irregular Heart sounds: no murmurs GI Palpation (GI): Soft to palpation and nontender Auscultation: normal bowel sounds General: Yes no CVA tenderness Back/Spine/Pelvis Back: no CVA tenderness Cervical Spine: Cervical spine tenderness Thoracic/Lumbar Spine: lumbar spinal tenderness Skin Other: (+) scaling rash over the soles of both feet; (+) erythematous patchy rash over the groin and scrotal areas (per patient) Extrem General: Yes no clubbing, cyanosis or edema Right upper extremity: shoulder/upper arm Details: tenderness (mild) Location: of the A-C joint and Extremity exam: right hand Details: tenderness and no swelling Left upper extremity: shoulder/upper arm Details: tenderness (increased) Location: of the A-C joint and hand Details: tenderness Location: of the thumb Location: at the proximal phalanx, abnormal ROM of finger Details: unable to flex or extend Location: of the thumb and no swelling Results Reviewed Results Reviewed: Laboratory Tests 01/29/23 04/05/24 04/05/24 06:10 06:17 06:24 WBC 6.8 Hgb 12.9 L Hct 39.5 L Plt Count 222 Hgb ELP Interp SEE NOTE Sodium 140 Potassium 5.6 H Creatinine 1.45 H Estimated GFR 48 Fasting Glucose 92 Calcium 8.4 D AST 45 H ALT 35 B-Natriuretic Peptide 598 H Triglycerides 72 Cholesterol 87 LDL Cholesterol, Calc 33 HDL Cholesterol 40 L Vitamin B12 576 TSH 1.36 Ur Specific [place] >= 1.030 H Urine Protein Negative Urine Glucose (UA) >=1000 H Urine Blood Negative Urine Nitrite Negative Ur Leukocyte Esterase Negative Coding Level of Care Code Est Pt Level 4 (06957) Diagnoses Chronic combined systolic and diastolic congestive heart failure I50.42 Atrial fibrillation, unspecified type I48.91 Atrial fibrillation type: unspecified Coronary artery disease involving [place] coronary artery of [place] heart without angina pectoris I25.10 Coronary Disease-Associated Artery/Lesion type: [place] artery [place] vs. transplanted heart: [place] heart Associated angina: without angina Pure hypercholesterolemia E78.00 Benign essential hypertension I10 Pulmonary emphysema, unspecified emphysema type J43.9 COPD type: emphysema Emphysema type: unspecified Rheumatoid arthritis with positive rheumatoid factor, involving unspecified site M05.9 Rheumatoid arthritis location: unspecified site Rheumatoid factor presence: with rheumatoid factor Renal insufficiency N28.9 Impaired fasting glucose R73.01 Monocytosis D72.821 Degeneration of intervertebral disc of lumbar region with discogenic back pain and lower extremity pain M51.362 Disc-related pain type: discogenic back pain and lower extremity pain Degenerative disc disease, cervical M50.30 Vitamin D deficiency E55.9 Allergic rhinitis, unspecified seasonality, unspecified trigger J30.9 Allergic rhinitis trigger: unspecified Allergic rhinitis seasonality: unspecified Nummular eczematous dermatitis L30.0 Angular cheilitis K13.0 Erythema intertrigo L30.4 Additional Codes PHQ-9 - 60045 - PHQ-9 Billing: Yes ([id number]) Assessment & Plan Assessment & Plan (1) Chronic combined systolic and diastolic congestive heart failure: Comment: Echocardiogram done back on 01/20/2019 revealed significantly reduced ejection fraction at 27% with grade 2 diastolic dysfunction, severe global hypokinesia with regional variation and dilatation of the left atrium, left ventricle and right ventricle; RV systolic function is also moderately reduced Code(s): I50.42 - Chronic combined systolic (congestive) and diastolic (congestive) heart failure Category: Medical Plan: Patient currently remains compensated - continue Entresto 49-51 mg BID and Dapagliflozin 10 mg QD He continues to be hoarse - have advised him that his hoarseness may be due to his inhaler(s) He has been advised to consider ICD placement in the past, which he declined - we have urged him to consider pursuing this in light of his heart condition and have emphasized to him that an ICD can be potentially life-saving (for him) as his risk of sudden cardiac is higher than normal Follow up with cardiology at the heart failure clinic at [facility] as scheduled (2) Atrial fibrillation: Code(s): I48.91 - Unspecified atrial fibrillation Category: Medical Qualifiers: Atrial fibrillation type: unspecified Qualified Code(s): I48.91 - Unspecified atrial fibrillation Plan: Patient remains rate-controlled on Metoprolol ER 200 mg QD Continue Eliquis 5 mg BID for thromboembolism prophylaxis (3) Coronary artery disease: Comment: S/P CABD x 5 in 1991; recent cardiac CT done showed (+) multi-vessel disease and patient was advised aggressive risk reduction 2018 or 2019, by pass at [facility] Code(s): I25.10 - Atherosclerotic heart disease of [place] coronary artery without angina pectoris Category: Medical Qualifiers: Coronary Disease-Associated Artery/Lesion type: [place] artery [place] vs. transplanted heart: [place] heart Associated angina: without angina Qualified Code(s): I25.10 - Atherosclerotic heart disease of [place] coronary artery without angina pectoris Plan: Continue Clopidogrel 75 mg QD and Metoprolol ER 200 mg QD He still has Nitrostat 0.4 mg to take SL PRN for chest pains Follow up with cardiology as scheduled (4) Pure hypercholesterolemia: Code(s): E78.00 - Pure hypercholesterolemia, unspecified Category: Medical Plan: Results of his labs done a few days ago reviewed and discussed with patient Reinforced low cholesterol diet Continue Rosuvastatin 40 mg QD Will recheck his labs and fasting lipids in 3 months for follow up (5) Benign essential hypertension: Code(s): I10 - Essential (primary) hypertension Category: Medical Plan: Reinforced low-sodium diet - goal is systolic BP of at least 130 to 140 mm or less Continue Metoprolol ER 200 mg QD; he is also on Entresto 49-51 mg BID He is reminded to continue monitoring his blood pressure regularly (6) COPD (chronic obstructive pulmonary disease): Code(s): J44.9 - Chronic obstructive pulmonary disease, unspecified Category: Medical Qualifiers: COPD type: emphysema Emphysema type: unspecified Qualified Code(s): J43.9 - Emphysema, unspecified Plan: Continue Anoro Ellipta 62.5-25 mcg 1 inhalation QD Patient has been advised that his recurrent hoarseness may actually be due to his Anoro inhaler Have instructed him to start gargling and rinsing his mouth a few times followed by drinking at least a half glass of water after he uses his Anoro Ellipta everyday to rinse out any residue of the medication from his throat and mouth and if this works - patient notes some improvement of his hoarseness since Follow up with pulmonary as scheduled Patient is advised to call at any time if he feels that his current respiratory symptoms are getting worse and he feels more SOB (7) Rheumatoid arthritis: Code(s): M06.9 - Rheumatoid arthritis, unspecified Category: Medical Qualifiers: Rheumatoid arthritis location: unspecified site Rheumatoid factor presence: with rheumatoid factor Qualified Code(s): M05.9 - Rheumatoid arthritis with rheumatoid factor, unspecified Plan: Continue Enbrel 50 mg subcutaneous injection once every 2 weeks and Folic acid tablet 1 mg QD Follow-up with Rheumatology (Dr. West) [facility] as scheduled (8) Renal insufficiency: Code(s): N28.9 - Disorder of kidney and ureter, unspecified Category: Medical Plan: Patient's GFR and serum creatinine declined back in April 2023 but have recovered somewhat a few months later in July 2023, and they have remained mostly unchanged on his recent lab His numbers though indicate that he is now likely in stage 3 CKD Have reminded patient to make sure he stays hydrated (orally) although he has to remember that he also cannot drink too much due to his cardiac Hx (CHF) Will continue to monitor his renal function closely/regularly have him recheck his labs in 3 months for follow up (9) Impaired fasting glucose: Code(s): R73.01 - Impaired fasting glucose Category: Medical Plan: His HgbA1c was normal at 5.3% when checked a few months ago; in-office HgbA1c was also normal at 5.1% previously Reinforced low calorie/low carb diet (10) Monocytosis: Code(s): D72.821 - Monocytosis (symptomatic) Category: Medical Plan: Patient was still slightly anemic on his most recent labs a few months ago; his monocytes population have been slowly increasing over the past few months His Hgb electrophoresis done last week came back normal (11) Lumbar degenerative disc disease: Code(s): M51.36 - Other intervertebral disc degeneration, lumbar region Category: Medical Qualifiers: Disc-related pain type: discogenic back pain and lower extremity pain Qualified Code(s): M51.362 - Other intervertebral disc degeneration, lumbar region with discogenic back pain and lower extremity pain Plan: Reinforced activity and weight lifting restrictions Continue Oxycodone 30 mg Q 6 hours as needed, Oxycodone ER 80 mg Q 8 hours , Tizanidine 4 mg TID PRN and Lidoderm patch 5% 1 patch apply to affected area QD PRN for pain Follow-up with [facility] as scheduled (12) Degenerative disc disease, cervical: Code(s): M50.30 - Other cervical disc degeneration, unspecified cervical region Category: Medical Plan: States that his current medications help keep his neck pain manageable (13) Vitamin D deficiency: Code(s): E55.9 - Vitamin D deficiency, unspecified Category: Medical Plan: Continue Vitamin D3 1000 units QD (14) Allergic rhinitis: Code(s): J30.9 - Allergic rhinitis, unspecified Category: Medical Qualifiers: Allergic rhinitis trigger: unspecified Allergic rhinitis seasonality: unspecified Qualified Code(s): J30.9 - Allergic rhinitis, unspecified Plan: Continue Cetirizine 10 mg QD PRN (15) Nummular eczematous dermatitis: Code(s): L30.0 - Nummular dermatitis Category: Medical Plan: He was seen by Dr. De Jesus and was continued on Triamcinolone 0.1% cream BID for his feet Follow up with dermatology as scheduled (16) Angular cheilitis: Code(s): K13.0 - Diseases of lips Category: Medical Plan: Continue Ketoconazole cream and Hydrocortiosone 2.5% ointment to the fissures on the angles of the mouth as instructed Follow up with Dr. De Jesus as scheduled (17) Erythema intertrigo: Code(s): L30.4 - Erythema intertrigo Category: Medical Plan: Continue Nystatin powder 503126 units/gm TID by dermatology Plan Follow-up in 3 months Orders: Orders Complete Blood Count Auto Diff 3 Months D64.9 - Anemia, unspecified Lipid Panel 3 Months E78.00 - Pure hypercholesterolemia, unspecified Comprehensive [place]. Panel Fast 3 Months E78.00 - Pure hypercholesterolemia, unspecified
== END 2024-04-10 13:39 | disposition home or self-care (01) ==
PROVIDERS: PCP Internal Medicine; Visit Provider Internal Medicine
DX: I50.42 Chronic combined systolic (congestive) and diastolic (congestive) heart failure (principal); I48.91 Unspecified atrial fibrillation; I25.10 Atherosclerotic heart disease of native coronary artery without angina pectoris; E78.00 Pure hypercholesterolemia, unspecified; I10 Essential (primary) hypertension; J43.9 Emphysema, unspecified; M05.9 Rheumatoid arthritis with rheumatoid factor, unspecified; N28.9 Disorder of kidney and ureter, unspecified; R73.01 Impaired fasting glucose; D72.821 Monocytosis (symptomatic); M51.362 Other intervertebral disc degeneration, lumbar region with discogenic back pain and lower extremity pain; M50.30 Other cervical disc degeneration, unspecified cervical region; E55.9 Vitamin D deficiency, unspecified; J30.9 Allergic rhinitis, unspecified; L30.0 Nummular dermatitis; K13.0 Diseases of lips; L30.4 Erythema intertrigo

== ENCOUNTER → 2024-04-10 12:52 | Outpatient (BNVA) | payer MEDICARE, SELFPAY | PROVIDERS: PCP Internal Medicine; Visit Provider Internal Medicine | DX: I50.42 Chronic combined systolic (congestive) and diastolic (congestive) heart failure (principal); I48.91 Unspecified atrial fibrillation; I25.10 Atherosclerotic heart disease of native coronary artery without angina pectoris; E78.00 Pure hypercholesterolemia, unspecified; I10 Essential (primary) hypertension; J43.9 Emphysema, unspecified; M05.9 Rheumatoid arthritis with rheumatoid factor, unspecified; N28.9 Disorder of kidney and ureter, unspecified; R73.01 Impaired fasting glucose; D72.821 Monocytosis (symptomatic); M51.362 Other intervertebral disc degeneration, lumbar region with discogenic back pain and lower extremity pain; M50.30 Other cervical disc degeneration, unspecified cervical region; E55.9 Vitamin D deficiency, unspecified; J30.9 Allergic rhinitis, unspecified; L30.0 Nummular dermatitis; K13.0 Diseases of lips; L30.4 Erythema intertrigo | CPT/HCPCS: 96127; 99212 ==

== ENCOUNTER 2024-06-16 13:49 | Outpatient (REF) | payer MEDICARE, SELFPAY ==
--- NOTE | ~2024-06-16 | XR_ITS ---
EXAMINATION: XR CHEST CLINICAL INFORMATION: R60.9 - Edema, unspecified COMPARISON: January 19, 2019. TECHNIQUE: 2 views of the chest were obtained. FINDINGS: Pulmonary reticular pattern. Prominence of the interstitial markings. Blunting of the posterior costophrenic angles. No pneumothorax. Cardiomediastinal silhouette is enlarged with a round opacity in the inferior right perihilar/right atrium region. Sternal wires. Multilevel spondylosis. XR/XR chest 2V IMPRESSION: Pulmonary edema and bilateral small pleural effusions. Thyromegaly versus pericardial effusion. Probable enlarged right atrium versus mass versus aneurysm. Overall no gross change since prior x-ray and asymmetric to the CT chest dated January 19, 2019. Electronically signed by: David Oviedo MD 06/16/2024 03:32 PM EDT
[2024-06-16 14:58] LABS: MANUAL DIFF FLAG NO
[2024-06-16 15:06] LABS: Basophils Percent Auto 0.3 % (0-2); Eosinophils Absolute Auto 0.3 X10*3/uL (0.0-0.4); Eosinophils Percent Auto 4.6 % (0-4); Hematocrit 23.5 % (42.0-52.0); Hemoglobin 7.5 g/dl (14.0-18.0); Imm Gran Abs Auto 0.03 X10*3/uL (0.00-0.03); Imm Gran Pct Auto 0.5 % (0.0-0.4); Lymphocytes Absolute Auto 1.1 X10*3/uL (1.2-4.9); Lymphocytes Percent Auto 17.1 % (20-40); Mean Corpuscular HGB Conc 31.9 g/dl (31.0-36.0); Mean Corpuscular Hemoglobin 37.7 pg (27.0-33.0); Mean Platelet Volume 9.1 fL (9.4-12.4); Monocytes Percent Auto 15.3 % (2-11); Neutrophils Percent Auto 62.2 % (45-73); Platelet Count 226 X10*3/uL (160-400); Red Blood Count 1.99 X10*6/uL (4.60-5.80); Red Cell Distribution Width 16.7 % (11.0-16.0); White Blood Count 6.5 X10*3/uL (4.8-10.8)
[2024-06-16 15:14] LABS: Mean Corpuscular Volume 118.1 fL (80.0-98.0)
[2024-06-16 15:35] LABS: D Dimer High Sensitivity 425 NG/ML
[2024-06-16 15:36] LABS: B Type Natriuretic Peptide 4227 pg/mL (<100)
[2024-06-16 15:47] LABS: Alanine Aminotransferase 15 U/L (0-40); Albumin Level 3.3 g/dL (3.5-5.0); Anion Gap 14 (12-20); Aspartate Amino Transferase 40 U/L (5-37); Bilirubin Total 0.3 mg/dL (0.0-1.0); Blood Urea Nitrogen 31 mg/dL (9-16); Calcium 8.2 mg/dL (8.4-10.2); Carbon Dioxide 19 mmol/L (22-29); Chloride 110 mmol/L (96-108); Estimated Glomerular Filt Rate 50; Glucose Random 90 mg/dL (60-115); Potassium 5.1 mmol/L (3.3-5.1); Sodium 138 mmol/L (135-145); Total Protein 6.6 g/dL (6.5-8.0)
[2024-06-16 15:59] LABS: TSH reflex Free T4 1.82 uIU/mL (0.32-4.0)
[2024-06-16 16:01] LABS: Appearance Urine Clear; Color Urine Yellow; Glucose Urine UA >=1000 mg/dL (Negative); Leukocyte Esterase Urine Negative (Negative); Nitrite Urine Negative (Negative); UMIC TRIGGER UACC YES; Urine Blood Negative (Negative); Urine Ketones Trace mg/dL (Negative); Urine Protein Trace mg/dL (Neg-Trace)
[2024-06-16 16:42] LABS: Bacteria Urine None Seen (None Seen); RBC Urine 0-2 /HPF (0-2); Squamous Epithelial Cell Urine 0-2 /HPF (0-2); WBC Urine 0-5 /HPF (0-5)
[2024-06-16 19:10] LABS: Alkaline Phosphatase 61 U/L (39-117)
== END 2024-06-16 13:50 | disposition home or self-care (01) ==
LOC: HO.XRAY 13:49
PROVIDERS: PCP Internal Medicine; Visit Provider Internal Medicine
DX: Z13.89 Encounter for screening for other disorder (principal)
CPT/HCPCS: 36415; 71046; 80053; 81001; 81003; 83880; 84443; 85025; 85379

== ENCOUNTER 2024-06-16 13:49 | Outpatient (AMB) | payer MEDICARE, SELFPAY ==
--- NOTE | 2024-06-16 13:52 | MHC.PC.OV ---
Vital Signs 06/16/24 13:57 Height 5 ft 11 in BMI Reason not done Patient refused/unable BP 110/56 L Blood Pressure Location Lt brachial Position Sitting Pulse 59 Pulse Source Pulse Oximeter Pulse Oximetry (%) 96 Oxygen Delivery Method Room Air Intake Visit Reasons: left side back pain Director Of Materials Required: No Accompanied by: Self / Same As Patient Allergies gabapentin [GABAPENTIN] Allergy (Severe, Verified 06/16/24 14:10) PASSED OUT , syncopal episodes at 800 mg TID azithromycin [From ZITHROMAX Z-DESIREE] Allergy (Intermediate, Verified 06/16/24 14:10) SWELLING pregabalin Adverse Reaction (Unknown, Verified 06/16/24 14:10) severe muscle pain Medication List - Last Reconciled 06/16/24 by Vickey Causey MD apixaban 5 mg PO BID cetirizine 10 mg PO DAILY PRN 90 days clopidogrel 75 mg PO DAILY dapagliflozin propanediol 10 mg PO DAILY etanercept 50 mg subcut .[id number] folic acid 1 mg PO DAILY hydrocortisone 2.5% 1 appl topical BID ketoconazole 2% 1 appl topical BID metoprolol succinate ER 200 mg PO DAILY nystatin 1 appl topical TID oxycodone 30 mg PO Q6H PRN 28 days OxyContin ER (oxycodone) 80 mg PO .q8hrs 28 days NS rosuvastatin 40 mg PO DAILY sacubitril-valsartan 49-51 mg 1 tab PO BID triamcinolone acetonide 0.1% 1 appl topical BID umeclidinium-vilanterol 62.5-25 mcg/actuation (Anoro Ellipta) 1 inh inhalation DAILY Tobacco use date assessed: 06/16/24 Fall risk assessment: 2 + Falls in past year Last assessed Fall Risk: 06/16/24 Dental Screening Dental Screen Date: 06/16/24 HPI left side back pain HPI Details Patient comes in today for evaluation of increasing swelling of both his legs, which he feels has gotten a lot worse over the past couple of weeks Adds that he has been experiencing increased sharp pains over his left lower back lately Recalls that he had a bout of increased sharp pain over his left lower back sometime late last week that made him almost drop down to the floor in pain but the sensation gradually eased up after several minutes States that his feet, especially over the bottom of both feet, hurt a lot lately (likely due to the increased swelling) and that he can hardly walk nowadays due to the increased pain Relates (+) fatigue but he denies any chest pains or increased SOB more than usual lately No nausea/vomiting, no abdominal pain No change in bowel habits noted [facility] Medical History Erythema intertrigo Nummular eczematous dermatitis Allergic rhinitis Chronic kidney disease (CKD) Vitamin D deficiency Pure hypercholesterolemia Benign essential hypertension Atrial fibrillation Chronic combined systolic and diastolic congestive heart failure Coronary artery disease Rheumatoid arthritis Degenerative disc disease, cervical Lumbar degenerative disc disease Surgical History History of coronary angioplasty History of hernia repair H/O wrist surgery History of arthroscopy of right knee History of coronary artery bypass graft Family History Father Past heart attack Mother Pneumonia Daughter Healthy adult Social History Housing: House Alcohol intake: current Alcohol intake frequency: holidays/special occasions only Patient Tobacco Use Status: Former Tobacco user e-Cigarette/Vaping Use: Never Used Second Hand Smoke Exposure: Yes service: Yes ([employer]) Current occupational status: retired and disabled Current occupation: right hand dominant Cognitive needs: Yes (cane) Hearing needs: Yes (hearing aide) Vision needs: Yes (glasses) Questionnaire PHQ-9 Over the last 2 weeks, how often have you been bothered by any of the following problems? 1. Little interest or pleasure in doing things: not at all 2. Feeling down, depressed, or hopeless: not at all 3. Trouble falling or staying asleep, or sleeping too much: not at all 4. Feeling tired or having little energy: not at all 5. Poor appetite or overeating: not at all 6. Feeling bad about yourself - or that you are a failure or have let yourself or your family down: not at all 7. Trouble concentrating on things, such as reading the newspaper or watching television: not at all 8. Moving or speaking so slowly that other people could have noticed. Or the opposite - being so fidgety or restless that you have been moving around a lot more than usual: not at all 9. Thoughts that you would be better off or of hurting yourself in some way: not at all Total score: 0 Depression Screening Interpretation: Negative Depression Screening Done: Yes 13642 - PHQ-9 Billing: Yes Source: Developed by Drs. Arben Noriega, Mona Gonzalez, Jerrod Adams and colleagues, with an educational arlen from [employer]. Thrive Questionnaire Date Thrive assessed: 06/16/24 I am a: Patient What is your living situation today?: I have a steady place to live Within the past 12 months, did the food you bought not last and you didn't have the money to get more?: Never true Within the past 12 months, did you worry whether your food would run out before you got money to buy more?: Never true Do you have trouble paying for medicines?: No Do you have trouble getting transportation to medical appointments?: No Do you have trouble paying your heating and electricity bill?: No Do you have trouble taking care of your child, family member or friend?: No Do you have trouble with day-to-day activities such as bathing, preparing meals, shopping, managing finances, etc.?: No Are you currently unemployed and looking for a job?: No Are you interested in more education?: No Please select the resources that you would like help with: None Currently or been in a relationship where the following occur: No concerns reported THRIVE Score: 0 AUDIT C Alcohol Use Questionnaire (AUDIT-C) 1. How often do you have a drink containing alcohol?: Monthly or less 2. How many drinks containing alcohol do you have on a typical day when you are drinking?: 1 or 2 3. How often do you have six or more drinks on one occasion?: Never Total Score: 1 Score Reviewed/Action Taken: Yes NILESH-7 AMB Questionnaire NILESH-7 Date NILESH - 7 assessed: 06/16/24 Feeling nervous, anxious, or on edge: 0 = Not at all Not being able to stop or control worryin = Not at all Worrying too much about different things: 0 = Not at all Trouble relaxin = Not at all Being so restless that it is hard to sit still: 0 = Not at all Becoming easily annoyed or irritable: 0 = Not at all Feeling afraid as if something awful might happen: 0 = Not at all Total NILESH-7 score (0-4 normal; 5-9 mild; 10-14 moderate; 15-21 severe): 0 Source: Developed by Drs. Arben Noriega, Mona Gonzalez, Jerrod Adams and colleagues, with an educational arlen from [employer]. Review of Systems Const Denies chills, Reports fatigue, Denies fever(s) and Denies headache(s) ENT Denies dysphagia, Denies dizziness, Denies otalgia, Denies headache(s), Reports hearing loss (both ears - now wears hearing aids), Reports neck pain (chronic), Denies odynophagia and Denies sore throat Card Denies chest pain, Denies palpitations and Reports dyspnea on exertion (mild - better with current inhaler (Anoro)) Resp Denies chest congestion, Reports cough (on and off; non-productive) and Reports dyspnea on exertion (mild - better with current inhaler (Anoro)) GI Denies abdominal pain, Denies constipation, Denies dysphagia, Denies heartburn, Denies diarrhea, Denies nausea, Denies odynophagia and Denies vomiting Denies difficulty urinating, Denies dysuria, Denies nocturia and Denies urinary frequency Musc Reports back pain (over the lumbar spine - chronic), Reports arthralgias (over multiple joints - increased lately in the left shoulder) and Reports neck pain (chronic) Skin/Breast Denies rash Neuro Denies dizziness and Denies headache(s) Endo Reports fatigue and Denies palpitations Physical exam (Primary Care) Vital Signs: Last Vital Signs Pulse 59 06/16/24 13:57 BP 110/56 L 06/16/24 13:57 Pulse Ox 96 06/16/24 13:57 Oxygen Delivery Method Room Air 06/16/24 13:57 Tobacco/Smoking Status: Tobacco use Status Tobacco use date assessed 06/16/24 06/16/24 14:04 Patient Tobacco Use Status Former Tobacco user 06/16/24 13:53 e-Cigarette/Vaping Use Never Used 06/16/24 13:53 PHQ-9: PHQ-9 Score PHQ-9: Total score 0 06/16/24 14:04 Depression Screening Interpretation: Negative Thrive Assessment: Date of Thrive Assessment Date Thrive assessed 06/16/24 06/16/24 14:04 Currently or been in a relationship where the following occur: No concerns reported Const General: no acute distress and alert HENMT Throat: Yes posterior oropharynx normal and Yes tonsils normal (no TP congestion noted) Neck Neck: No lymphadenopathy and Yes tender Thyroid: Thyroid normal Resp Auscultation: clear to auscultation bilaterally, no rales and no wheezes Cardio Rate: regular rate Rhythm: abnormal rhythm irregularly irregular Heart sounds: no murmurs GI Palpation (GI): Soft to palpation and nontender Auscultation: normal bowel sounds General: Yes no CVA tenderness Back/Spine/Pelvis Back: no CVA tenderness Cervical Spine: Cervical spine tenderness Thoracic/Lumbar Spine: lumbar spinal tenderness Skin Rashes: no rashes Extrem General: Yes edema (3+ edema over both lower extremities) Right upper extremity: shoulder/upper arm Details: tenderness (mild) Location: of the A-C joint and Extremity exam: right hand Details: tenderness and no swelling Left upper extremity: shoulder/upper arm Details: tenderness (increased) Location: of the A-C joint and hand Details: tenderness Location: of the thumb Location: at the proximal phalanx, abnormal ROM of finger Details: unable to flex or extend Location: of the thumb and no swelling Coding Level of Care Code Est Pt Level 4 (48029) Diagnoses Edema, unspecified type R60.9 Edema type: unspecified Chronic combined systolic and diastolic congestive heart failure I50.42 Atrial fibrillation, unspecified type I48.91 Atrial fibrillation type: unspecified Coronary artery disease involving [place] coronary artery of [place] heart without angina pectoris I25.10 Coronary Disease-Associated Artery/Lesion type: [place] artery [place] vs. transplanted heart: [place] heart Associated angina: without angina Benign essential hypertension I10 Pulmonary emphysema, unspecified emphysema type J43.9 COPD type: emphysema Emphysema type: unspecified Renal insufficiency N28.9 Degeneration of intervertebral disc of lumbar region with discogenic back pain and lower extremity pain M51.362 Disc-related pain type: discogenic back pain and lower extremity pain Degenerative disc disease, cervical M50.30 Additional Codes PHQ-9 - 56953 - PHQ-9 Billing: Yes ([id number]) Assessment & Plan Assessment & Plan (1) Edema: Code(s): R60.9 - Edema, unspecified Category: Medical Qualifiers: Edema type: unspecified Qualified Code(s): R60.9 - Edema, unspecified Plan: Will send him for some urgent labs ZACARIAS for further evaluation Discussed concerns with patient that his recently increasing edema could be potentially due to renal or cardiac causes or both and that depending on how his labs come out, we may need to start him on some oral diuretics to help address some of his current issues Will also send him for chest x-rays for further evaluation We may need to send him for repeat echocardiogram as well but will wait and see how his initial tests come out first (2) Chronic combined systolic and diastolic congestive heart failure: Comment: Echocardiogram done back on 01/20/2019 revealed significantly reduced ejection fraction at 27% with grade 2 diastolic dysfunction, severe global hypokinesia with regional variation and dilatation of the left atrium, left ventricle and right ventricle; RV systolic function is also moderately reduced Code(s): I50.42 - Chronic combined systolic (congestive) and diastolic (congestive) heart failure Category: Medical Plan: Continue Entresto 49-51 mg BID and Dapagliflozin 10 mg QD He has been advised to consider ICD placement in the past, which he declined - we have urged him to consider pursuing this in light of his heart condition and have emphasized to him that an ICD can be potentially life-saving (for him) as his risk of sudden cardiac is higher than normal Follow up with cardiology at the heart failure clinic at [facility] as scheduled (3) Atrial fibrillation: Code(s): I48.91 - Unspecified atrial fibrillation Category: Medical Qualifiers: Atrial fibrillation type: unspecified Qualified Code(s): I48.91 - Unspecified atrial fibrillation Plan: Patient remains rate-controlled on Metoprolol ER 200 mg QD Continue Eliquis 5 mg BID for thromboembolism prophylaxis (4) Coronary artery disease: Comment: S/P CABD x 5 in 1991; recent cardiac CT done showed (+) multi-vessel disease and patient was advised aggressive risk reduction 2018 or 2019, by pass at [facility] Code(s): I25.10 - Atherosclerotic heart disease of [place] coronary artery without angina pectoris Category: Medical Qualifiers: Coronary Disease-Associated Artery/Lesion type: [place] artery [place] vs. transplanted heart: [place] heart Associated angina: without angina Qualified Code(s): I25.10 - Atherosclerotic heart disease of [place] coronary artery without angina pectoris Plan: Continue Clopidogrel 75 mg QD and Metoprolol ER 200 mg QD He still has Nitrostat 0.4 mg to take SL PRN for chest pains Follow up with cardiology as scheduled (5) Benign essential hypertension: Code(s): I10 - Essential (primary) hypertension Category: Medical Plan: Reinforced low-sodium diet - goal is systolic BP of at least 130 to 140 mm or less Continue Metoprolol ER 200 mg QD; he is also on Entresto 49-51 mg BID He is reminded to continue monitoring his blood pressure regularly (6) COPD (chronic obstructive pulmonary disease): Code(s): J44.9 - Chronic obstructive pulmonary disease, unspecified Category: Medical Qualifiers: COPD type: emphysema Emphysema type: unspecified Qualified Code(s): J43.9 - Emphysema, unspecified Plan: Continue Anoro Ellipta 62.5-25 mcg 1 inhalation QD Patient has been advised that his recurrent hoarseness may actually be due to his Anoro inhaler Have instructed him to start gargling and rinsing his mouth a few times followed by drinking at least a half glass of water after he uses his Anoro Ellipta everyday to rinse out any residue of the medication from his throat and mouth and if this works - patient notes some improvement of his hoarseness since Follow up with pulmonary as scheduled Will send him for chest x-rays for further evaluation (7) Renal insufficiency: Code(s): N28.9 - Disorder of kidney and ureter, unspecified Category: Medical Plan: Patient's GFR and serum creatinine declined back in April 2023 but have recovered somewhat a few months later in July 2023, and they have remained mostly unchanged on his recent lab His numbers though indicate that he is now likely in stage 3 CKD Have reminded patient to make sure he stays hydrated (orally) although he has to remember that he also cannot drink too much due to his cardiac Hx (CHF) Will continue to monitor his renal function closely/regularly have him recheck his labs next month for follow up (8) Lumbar degenerative disc disease: Code(s): M51.36 - Other intervertebral disc degeneration, lumbar region Category: Medical Qualifiers: Disc-related pain type: discogenic back pain and lower extremity pain Qualified Code(s): M51.362 - Other intervertebral disc degeneration, lumbar region with discogenic back pain and lower extremity pain Plan: Reinforced activity and weight lifting restrictions Continue Oxycodone 30 mg Q 6 hours as needed, Oxycodone ER 80 mg Q 8 hours , Tizanidine 4 mg TID PRN and Lidoderm patch 5% 1 patch apply to affected area QD PRN for pain Follow-up with [facility] as scheduled (9) Degenerative disc disease, cervical: Code(s): M50.30 - Other cervical disc degeneration, unspecified cervical region Category: Medical Plan: States that his current medications help keep his neck pain manageable Plan Follow up as scheduled next month Orders: Orders Complete Blood Count Auto Diff Today D64.9 - Anemia, unspecified, R60.9 - Edema, unspecified Comprehensive Met. Panel Today R60.9 - Edema, unspecified TSH reflex Free T4 Today R60.9 - Edema, unspecified D Dimer High Sensitivity Today R60.9 - Edema, unspecified XR chest 2V Today R05.9 - Cough, unspecified, R60.9 - Edema, unspecified B Type Natriuretic Peptide Today I50.9 - Heart failure, unspecified, R60.9 - Edema, unspecified UA CC w/rflx Micro + Cult Today R30.0 - Dysuria, R60.9 - Edema, unspecified
[2024-06-16 13:57] VITALS: BP 110/56; PULSE 59; O2SAT 96
--- OUTSIDE RECORDS SUMMARY | 2024-06-16 14:12 | XMS_ITS ---
Author Organization [facility] Address [address] [place] [address] Care Team Providers Care Puller Machine Name Role Phone Padilla SEBASTIAN, Vickey Primary Care Provider Unava ilNed Killian Unavailable [phone] Encounters Encounter Location Date Provider Diagnosis [address] [address] 06/06/2024 Ned Yu Plan Of Treatment Next Appt Details Provider Name:Ned Yu , 09/05/2024 03:30:00 PM, [address] [place] [address], [phone], Progress Notes * Remy TATEDOB: [birth year] (74 yo M)Acc No.[id number]:06/06/2024 Progress Note Patient:?Remy TATE Provider:?Ned Yu DPM :1950???Age:74 Y???Sex:Male Robert e:06/06/2024 Address:[address] [place] [address] Pcp:Vickey Causey MD Subjective: * Chief Complaints: * ??? * Medical History:? Objective: * Vitals:? Assessment: Plan: * Treatment: * Images: * The named appointment provid er may or may not be the originator of this progress note, and it is not deemed complete until electronically signed by the appointment provider. Sign off status: Pending * Provider:?Ned Yu DPM Date:?2024 Generated for Debo ferrer/Nidhi/Yue on:?06/16/2024 02:11 PM EDT
--- OUTSIDE RECORDS SUMMARY | 2024-06-16 14:12 | XMS_ITS ---
Author Organization [facility] Address [address] [place] [address] Care Team Providers Care [employer] Principal Name Role Phone Padilla SEBASTIAN, Vickey Primary Care Provider Unava ilNed Killian Unavailable [phone] Encounters Encounter Location Date Provider Diagnosis [address] [address] 04/25/2024 Ned Yu Plan Of Treatment Next Appt Details Provider Name:Ned Yu , 09/05/2024 03:30:00 PM, [address] [place] [address], [phone], Progress Notes * Remy TATEDOB: [birth year] (74 yo M)Acc No.[id number]:04/25/2024 Progress Notes Patient:?Remy TATE Provider:?Ned Yu DPM :1950???Age:74 Y???Sex:Male Robert e:04/25/2024 Address:[address] [place] [address] Pcp:Vickey Causey MD Subjective: * Chief Complaints: [...]
--- OUTSIDE RECORDS SUMMARY | 2024-06-16 14:12 | XMS_ITS | Patient Health Record ---
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 Phone Padilla SEBASTIAN [place] Primary Care Provider UnaNed Galarza Unavailable [phone] Allergies Allergen (clinical drug ingredient) Drug/Non Drug Allergy documented on EMR Reaction Allergy Type Onset Date Status gabapentin Gabapentin fainting Drug Allergy Activ e Reason For Referral No Information Medications Medication SIG (Take, Route, Frequency, Duration) Notes Start Date End Date Status Metoprolol & Diet Manage Prod 200 Active Iron Active Methotrexate 2.5 MG 1 tablet Orally Three times a Week for 30 day(s) Not-Taking Eliquis 5 MG as directed Orally Active Furosemide 20 MG 1 tablet Orally Once a day for 30 day(s) Not-Taking Clopidogrel Bisulfate 75 MG 1 tablet Orally Once a day for 30 day(s) Active LamISIL 250 MG 1 tablet Orally Once a day for 30 days 02/04/2024 Active Folic Acid Active Enbrel 25 MG as directed Subcutaneous Not-Taking Entresto 24-26 MG 1 tablet Orally Twice a day for 30 day(s) Active Terbinafine 250mg once a day Not-Taking Rosuvastatin Calcium 40 MG 1 tablet Orally Once a day for 30 day(s) Active oxyCODONE HCl 30 MG Orally every 6 hrs Active Plavix Not-Taking Aspirin 81mg Active Cephalexin 500 MG 1 capsule Orally every 6 hrs for 10 days Active Ammonium Lactate 12 % 1 APPLICATION TO AFFECTED AREA TWICE A DAY EXTERNALLY TO FEET 30 DAYS for 30 Active Iodosorb 0.9 % as directed Externally Apply to ulceration daily with dry sterile dressing for 30 days 11/05/2023 Active OxyCONTIN 80 MG Orally Acti ve Urea Not-Taking Lipitor Not-Taking Immunizations Vaccine Route Administration Date Status Comme nts COVID-19 Pfizer BioNTech Vaccine Unknown 01/29/2021 Administered 1st 04/27/20 2nd 05/18/20 Influenza Unknown 10/30/2021 Administered Pneumococcal Unknown 12/16/2021 Administered Social History Tobacco Use: Social History Observation Description Date Details (start date - stop date) Current Smoker NA - NA Tobacco use other than smoking: Question Answer Notes Are you an other tobacco user? No Tobacco Control (Standard) Question Answer Notes Tobacco use: Current smoker AUDIT-C (Standard) Question Answer Notes Did you have a drink containing alcohol in the p ast year? No Points 0 Interpretation Negative Problems Problem Type SNOMED Code ICD Code Onset Dates Problem Status W/U Status Risk Notes Problem Atherosclerosis of unga arteries of the extremities (421182118726082) Atherosclerosis of unga artery of both lower extremities, with unspecified presence of clinical manifestation (I70.203) Active confirmed Vital Signs Blood pressure diastolic 80 mm Hg 03/14/2024 Height 5ft1in in 03/14/2024 Blood pressure systolic 120 mm Hg 03/14/2024 Weight 140 lbs 03/14/2024 BMI 26.45 kg/m2 03/14/2024 Procedures Procedure Date Ordered Date Performed Result Body Sit e 00495-Lebr Destruction, 1-06/29/2023 N/A 23301-GBUXTYN NAIL, 6 OR MORE 08/03/2023 N/A 10698-Mnye Destruction, 1-08/03/2023 N/A 59456-RTYZ SKIN LESIONS, OVER 4 08/03/2023 N/A 67598-Jrgw Destruction, 1-09/28/2023 N/A 97412-CUBDRFY NAIL, 6 OR MORE 11/05/2023 N/A 07089-Cphf Destruction, -11/05/2023 N/A 23096-JAAX SKIN LESIONS, OVER 4 11/05/2023 N/A 50750-XKTHOEX NAIL, 6 OR MORE 03/14/2024 N/A 31453-BQRE SKIN LESIONS, OVER 4 03/14/2024 N/A Encounters Encounter Location Date Provider Diagnosis [facility] [place] [address] [place] [address] 06/29/2023 Ned Aimee Pain in right foot M79.671 and Plantar wart B07.[address] [address] 08/03/2023 Ned Aimee Atherosclerosis of unga artery of both lower extremities, with unspecified presence of clinical manifestation I70.203 ; Plantar wart B07.0 ; Tinea unguium B35.1 ; Pain in right foot M79.671 ; Pain in right toe(s) M79.674 and Pain in left toe(s) M79.[address] [address] 09/28/2023 Ned Aimee Pain in right foot M79.671 and Plantar wart B07.[address] [address] 11/05/2023 Ned Aimee Atherosclerosis of unga artery of both lower extremities, with unspecified presence of clinical manifestation I70.203 ; Plantar wart B07.0 ; Tinea unguium B35.1 ; Pain in right foot M79.671 ; Pain in right toe(s) M79.674 ; Pain in left toe(s) M79.675 and Tinea pedis of both feet B35.[address] [address] 12/21/2023 Ned Aimee Cellulitis of foot, right L03.115 ; Cellulitis of foot, left L03.116 and Generalized edema R60.[address] [address] 02/04/2024 Ned Aimee Cellulitis of foot, right L03.115 ; Cellulitis of foot, left L03.116 and Tinea pedis of both feet B35.[address] [address] 03/14/2024 Ned Aimee Atherosclerosis of unga artery of both lower extremities, with unspecified presence of clinical manifestation I70.203 ; Tinea unguium B35.1 ; Pain in right toe(s) M79.674 ; Pain in left toe(s) M79.675 and Tinea pedis of both feet B35.[address] [facility] [address] 06/29/2023 Ned Yu [address] [address] 09/28/2023 Ned Yu [address] [address] 02/07/2024 Ned Yu Tinea pedis of both feet B35.[address] [address] 06/06/2024 Ned Yu Assessments Encounter Date Diagnosis (ICD Code) Assessment Notes Treatment Notes Treatment Clinical Notes Section Notes 06/29/2023 Pain in right foot (ICD-10 - M79.671) 08/03/2023 Plantar wart (ICD-10 - B07.0) 08/03/2023 Atherosclerosis of unga artery of both lower extremities, with unspecified presence of clinical manifestation (ICD-10 - I70.203) 09/28/2023 Pain in right foot (ICD-10 - M79.671) 11/05/2023 Plantar wart (ICD-10 - B07.0) 11/05/2023 Atherosclerosis of unga artery of both lower extremities, with unspecified presence of clinical manifestation (ICD-10 - I70.203) 12/21/2023 Cellulitis of foot, right (ICD-10 - L03.115) 12/21/2023 Cellulitis of foot, left (ICD-10 - L03.116) 02/04/2024 Cellulitis of foot, right (ICD-10 - L03.115) 02/04/2024 Cellulitis of foot, left (ICD-10 - L03.116) 02/07/2024 Tinea pedis of both feet (ICD-10 - B35.3) 03/14/2024 Tinea unguium (ICD-10 - B35.1) 03/14/2024 Atherosclerosis of unga artery of both lower extremities, with unspecified presence of clinical manifestation (ICD-10 - I70.203) 03/14/2024 Pain in right toe(s) (ICD-10 - M79.674) 12/21/2023 Generalized edema (ICD-10 - R60.1) 02/04/2024 Tinea pedis of both feet (ICD-10 - B35.3) 11/05/2023 Tinea unguium (ICD-10 - B35.1) 09/28/2023 Plantar wart (ICD-10 - B07.0) 08/03/2023 Tinea unguium (ICD-10 - B35.1) 06/29/2023 Plantar wart (ICD-10 - B07.0) 08/03/2023 Pain in right foot (ICD-10 - M79.671) 11/05/2023 Pain in right foot (ICD-10 - M79.671) 03/14/2024 Pain in left toe(s) (ICD-10 - M79.675) 03/14/2024 Tinea pedis of both feet (ICD-10 - B35.3) 11/05/2023 Pain in right toe(s) (ICD-10 - M79.674) 08/03/2023 Pain in right toe(s) (ICD-10 - M79.674) 08/03/2023 Pain in left toe(s) (ICD-10 - M79.675) 11/05/2023 Pain in left toe(s) (ICD-10 - M79.675) 11/05/2023 Tinea pedis of both feet (ICD-10 - B35.3) Plan Of Treatment Pending Test Test Name Order Date X ray : Foot, left 3V 07/21/2022 X ray : Foot, right 3V 03/15/2012 04489-PRVXTKF NAIL, 6 OR MORE 11/17/2019 45859-MSMIQOF NAIL, 6 OR MORE 02/16/2020 47420-BUTKVDZ NAIL, 6 OR MORE 06/11/2020 90656-RSBLUDE NAIL, 6 OR MORE 08/27/2020 04332-YYVDTZQ NAIL, 6 OR MORE 11/08/2020 58958-CQASDOL NAIL, 6 OR MORE 01/14/2021 09607-YSLMPKS NAIL, 6 OR MORE 05/27/2021 74268-ZOVIVRI NAIL, 6 OR MORE 08/26/2021 56678-RGPIWIT NAIL, 6 OR MORE 11/04/2021 00014-TSXGFIR NAIL, 6 OR MORE 09/15/2022 11205-GXEUMTC NAIL, 6 OR MORE 01/27/2022 61539-GPSKXEG NAIL, 6 OR MORE 04/28/2022 23408-KNBQWWI NAIL, 6 OR MORE 12/22/2022 08496-UZSQZNI NAIL, 6 OR MORE 03/05/2023 55136-BAJQPCT NAIL, 6 OR MORE 05/25/2023 55520-GOFWKFL NAIL, 6 OR MORE 09/15/2019 66599-MCWESQK NAIL, 6 OR MORE 08/03/2023 93583-PUBWOJK NAIL, 6 OR MORE 11/05/2023 86805-VEYHNCP NAIL, 6 OR MORE 03/14/2024 48478-Ijls Destruction, -14 11/05/2023 80141-Wedm Destruction, -14 06/29/2023 94707-Sjxz Destruction, -14 09/28/2023 12275-Grnw Destruction, -14 08/03/2023 98693-Chll Destruction, -14 09/15/2019 98821-Bcwv Destruction, -14 05/25/2023 73246-Chwx Destruction, -14 01/26/2023 33741-Aawy Destruction, -14 04/13/2023 17159-Ohte Destruction, -14 03/05/2023 81540-Hqtm Destruction, -14 12/22/2022 16773-Wcmv Destruction, -14 04/28/2022 09749-Mzey Destruction, -14 06/09/2022 13883-Fylq Destruction, -14 10/20/2022 31162-Dkoh Destruction, -14 01/27/2022 49528-Jrzp Destruction, 14 12/16/2021 91034-Hrol Destruction, 03-1403/13/2022 12989-Ebxc Destruction, 03-1409/15/2022 26753-Wtge Destruction, -14 11/04/2021 16039-Punt Destruction, -14 08/26/2021 31111-Ibzj Destruction, -14 05/27/2021 56538-Doza Destruction, -14 03/14/2021 75038-Fgph Destruction, -14 07/15/2021 39898-Sowh Destruction, -14 01/14/2021 43120-Lldk Destruction, 1-14 10/01/2020 61762-Lkjq Destruction, 1-14 12/10/2020 20418-Dnqh Destruction, -14 11/08/2020 93864-Nxtc Destruction, -14 08/27/2020 78067-Atss Destruction, -14 06/11/2020 43815-Tsjc Destruction, -14 03/29/2020 24075-Hnwa Destruction, -14 07/19/2020 86011-Serl Destruction, -14 02/16/2020 07201-Lahs Destruction, -14 11/17/2019 02270-Jauo Destruction, 1-14 08/08/2013 94283-Fspk Destruction, -14 09/29/2013 95808-Batw Destruction, -14 2011 37550-Upgy Destruction, -14 03/24/2011 24255-Ojid Destruction, -14 06/02/2011 72406-Huvo Destruction, -14 07/17/2011 98644-Xfjd Destruction, -14 10/09/2011 26589-Newn Destruction, 1-14 01/05/2012 56335- Debride <25 sq cm 10/02/2014 18233-VCOZ SKIN LESIONS, OVER 4 02/16/20 20 12298-TQTW SKIN LESIONS, OVER 4 06/12/19 21 14594-BBCW SKIN LESIONS, OVER 4 08/28/19 21 75303-RGVY SKIN LESIONS, OVER 4 11/09/19 21 76581-ZRCI SKIN LESIONS, OVER 4 01/15/20 21 26053-XSGE SKIN LESIONS, OVER 4 05/28/19 22 93611-PCSS SKIN LESIONS, OVER 4 08/27/19 22 19536-ASTQ SKIN LESIONS, OVER 4 11/05/19 22 34992-QCMV SKIN LESIONS, OVER 4 09/16/19 23 33783-KLYQ SKIN LESIONS, OVER 4 01/28/20 22 58652-KMCL SKIN LESIONS, OVER 4 04/28/19 23 58004-XLBP SKIN LESIONS, OVER 4 12/23/19 23 19946-NVVJ SKIN LESIONS, OVER 4 03/05/19 24 05315-NKHK SKIN LESIONS, OVER 4 05/25/19 24 97335-KSZK SKIN LESIONS, OVER 4 08/03/19 24 73479-IIYY SKIN LESIONS, OVER 4 11/05/19 24 93034-JFVJ SKIN LESIONS, OVER 4 03/14/19 58872-ZGZN SKIN LESIONS, 2 TO 4 09/15/19 65066-JGNZ SKIN LESIONS, 2 TO 4 11/17/19 Next Appt Details Provider Name:Ned Yu , 09/05/2024 03:30:00 PM, [address] [facility], [place], [address], Insurance Providers Payer Name Payer Address Payer Phone Subscriber Number Group Number Insured Name Patient Relationship to Insured Coverage Start Date Coverage End Date Medicare National Govt Sv[employer] [address] [place] [address] [id number] Remy Reno Self - patient is the insured [employer] Blue [employer] [address] [place] [address] [id number] Remy Reno Self - patient is the insured Medical (General) History Medical History History ICD Code warts osteoporosis mumps measles heart disease chicken pox back, hip, knee pain Arthritis cholesterol Heart valve conditions/replacement Surgical History Surgery Date(Month/Year) 3 right knee surgeries 5 bypass heart surgery shattered left wrist surgery 4 spinal taps for anuerysm Bunionectomy right 03/09/2012 heart surgery 01/2019 Hospitalization History Reason Date(Month/Year) CT Scan 08/2019
--- OUTSIDE RECORDS SUMMARY | 2024-06-16 14:12 | XMS_ITS ---
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 Generated for Printi ng/Faxing/eTransmitting on:?06/16/2024 02:11 PM EDT
== END 2024-06-16 14:42 | disposition home or self-care (01) ==
LOC: HO.HMCH 13:50
PROVIDERS: PCP Internal Medicine; Visit Provider Internal Medicine
DX: R60.9 Edema, unspecified (principal); I50.42 Chronic combined systolic (congestive) and diastolic (congestive) heart failure; I48.91 Unspecified atrial fibrillation; J43.9 Emphysema, unspecified; I25.10 Atherosclerotic heart disease of native coronary artery without angina pectoris; I10 Essential (primary) hypertension; N28.9 Disorder of kidney and ureter, unspecified; M51.362 Other intervertebral disc degeneration, lumbar region with discogenic back pain and lower extremity pain; M50.30 Other cervical disc degeneration, unspecified cervical region

== ENCOUNTER → 2024-06-16 15:06 | Outpatient (BNV) | payer MEDICARE, SELFPAY | PROVIDERS: PCP Internal Medicine; Visit Provider Radiology Diagnostic Radiology | DX: I50.9 Heart failure, unspecified (principal); J90 Pleural effusion, not elsewhere classified; R60.9 Edema, unspecified | CPT/HCPCS: 71046 ==

== ENCOUNTER 2024-06-16 18:57 | Emergency (ER) | payer MEDICARE, SELFPAY ==
[2024-06-16] VITALS (15 sets, daily range): BP systolic 91–126; BP diastolic 32–63; PULSE 38–84; RESP 14–18; TEMP 36.7–36.8; O2SAT 94–97; BMI 21.7; BMI 22.1
--- NOTE | ~2024-06-16 | CT_ITS ---
CLINICAL HISTORY: Right mass cancer? CT chest with contrast Comparison: None Findings: Fluid density nonenhancing peripherally calcified structure abuts the right heart measuring 6.2 x 5.8 x 7.2 cm, by least partially encompassing and anteriorly displacing a stent in the right coronary artery. The visualized thyroid and mediastinum are unremarkable. Severe emphysematous changes are present within the lungs. Trace bilateral pleural effusions are present, [id number], with basilar areas of subsegmental atelectasis or infiltrate. The visualized upper abdomen is unremarkable. The bones are intact. Atherosclerotic vascular calcifications are present. IMPRESSION: 1. Trace bilateral pleural effusions, [id number]-left, with basilar subsegmental atelectasis or infiltrate. 2. Severe emphysema. 3. Peripherally calcified fluid density structure abutting the right heart measuring 6.2 x 5.8 x 7.2 cm. The structure envelops and anteriorly displaces a right coronary stent. Given involvement of a coronary vascular stent, a large aneurysm or endoleak is a potential differential consideration and coronary angiography may be helpful for further evaluation. Pericardial cysts can also be seen in this location. Recommend comparison with prior imaging to assess stability of the finding. This document has been electronically signed by: Leonel Mancilla MD, PHD on 06/17/2024 00:27:25
--- NOTE | ~2024-06-16 | XR_ITS ---
CLINICAL HISTORY: CHF exacerbation. 1 view chest x-ray Comparison: CR/SR - XR CHEST 2V - 06/16/24 15:21 EDT Findings: 2 films were obtained. Right middle lobe opacity appears larger and more defined. There are small bilateral pleural effusions. No pneumothorax. Stable cardiomediastinal silhouette and bony thorax. There are median sternotomy and post CABG changes. IMPRESSION: 1. Indeterminate right middle lobe masslike opacity appears increased compared to prior. Recommend further characterization with a contrast-enhanced CT chest. 2. Cardiomegaly with improving pulmonary edema. 3. Small bilateral pleural effusions. This document has been electronically signed by: Rosa Vigil DO on 06/16/2024 21:04:24
--- NOTE | 2024-06-16 19:14 | ED_ITS ---
HPI - General Adult General Chief complaint: Recheck/Abnormal Lab/Rx Stated complaint: ABN lab results Time Seen by Provider: 06/16/24 19:40 Related Data Home Medications ?Medication ?Instructions ?Recorded ?Confirmed apixaban 5 mg tablet 5 mg PO BID 02/05/20 06/16/24 folic acid 1 mg tablet 1 mg PO DAILY 02/05/20 06/16/24 metoprolol succinate 200 mg 200 mg PO DAILY 02/05/20 06/16/24 tablet,extended release 24 hr sacubitril 49 mg-valsartan 51 mg 1 tab PO BID 02/05/20 06/16/24 tablet hydrocortisone 2.5 % topical 1 appl topical BID PRN lesions 11/30/23 06/16/24 ointment nystatin 100,000 unit/gram topical 1 appl topical TID 11/30/23 06/16/24 powder alendronate 70 mg tablet 70 mg PO HUFF 06/16/24 06/16/24 dapagliflozin propanediol 10 mg 10 mg PO DAILY 06/16/24 06/16/24 tablet (Farxiga) dupilumab 300 mg/2 mL subcutaneous 300 mg subcut Q2W 06/16/24 06/16/24 pen injector (Dupixent) ezetimibe 10 mg tablet 10 mg PO DAILY 06/16/24 06/16/24 furosemide 20 mg tablet 20 mg PO DAILY PRN weight gain or 06/16/24 06/16/24 leg swelling oxycodone 80 mg tablet,crush 80 mg PO Q8H pain 06/16/24 06/16/24 resistant,extended release 12 hr (OxyContin) umeclidinium 62.5 mcg-vilanterol 1 ea inhalation DAILY 06/16/24 06/16/24 25 mcg/actuation powdr for inhalation (Anoro Ellipta) Previous Rx's ?Medication ?Instructions ?Recorded clopidogrel 75 mg tablet 75 mg PO DAILY #90 tabs 01/04/24 oxycodone 30 mg tablet 30 mg PO Q6H PRN pain 28 days #112 05/25/24 tabs rosuvastatin 40 mg tablet 40 mg PO DAILY #90 tabs 05/29/24 Allergies Allergy/AdvReac Type Severity Reaction Status Date / Time gabapentin [GABAPENTIN] Allergy Severe PASSED Verified 06/16/24 19:18 OUT , syncopal episodes at 800 mg TID azithromycin Allergy Intermediate SWELLING Verified 06/16/24 19:18 [From ZITHROMAX Z-DESIREE] pregabalin AdvReac Unknown severe Verified 06/16/24 19:18 muscle pain PMFSH Past Medical History Medical History Erythema intertrigo Nummular eczematous dermatitis Allergic rhinitis Chronic kidney disease (CKD) Vitamin D deficiency Pure hypercholesterolemia Benign essential hypertension Atrial fibrillation Chronic combined systolic and diastolic congestive heart failure Coronary artery disease Rheumatoid arthritis Degenerative disc disease, cervical Lumbar degenerative disc disease Surgical History History of coronary angioplasty History of hernia repair H/O wrist surgery History of arthroscopy of right knee History of coronary artery bypass graft Family History Family History Father Past heart attack Mother Pneumonia Daughter Healthy adult Social History Social History Housing: House Alcohol intake: current Alcohol intake frequency: holidays/special occasions only Patient Tobacco Use Status: Former Tobacco user e-Cigarette/Vaping Use: Never Used Second Hand Smoke Exposure: Yes Advance Directives: No Advance Directives Information Provided: Yes service: Yes ([employer]) Current occupational status: retired and disabled Current occupation: right hand dominant Cognitive needs: Yes (cane) Hearing needs: Yes (hearing aide) Vision needs: Yes (glasses) Physical Exam ED Vital Signs: Vital Signs - 24 hr 06/16/24 19:12 06/16/24 19:40 06/16/24 20:01 Temperature 98.0 F Pulse Rate 48 L 60 Respiratory Rate 18 14 Blood Pressure 92/32 L 106/36 L 107/37 L Pulse Oximetry 97 95 Oxygen Delivery Method Room Air Room Air 06/16/24 21:32 06/16/24 21:39 06/16/24 22:04 Temperature 98.3 F Pulse Rate 54 63 57 Respiratory Rate 17 14 Blood Pressure 97/39 L 91/42 L 94/44 L Pulse Oximetry 94 94 Oxygen Delivery Method Room Air Room Air 06/16/24 22:14 06/16/24 22:18 Temperature Pulse Rate 50 52 Respiratory Rate 14 Blood Pressure 105/50 L 98/34 L Pulse Oximetry 94 Oxygen Delivery Method BMI result Body Mass Index 22.1 Course Course Course Narrative: This is a Rapid Medical Examination (RME) performed by Carlos Mcdaniel PA-C in triage. Full HPI, ROS, assessment and treatment plan per primary provider in the Main ED. Hx: 74 yo male here for eval of abn workup by PCP. Feeling generally unwell, reports increased shortness of breath and bilateral lower extremity edema x2 weeks. Lower back pain feels like being stabbed with a knife. Was called by PCP due to abnormal labs and chest x-ray. PE/vitals: Patient appears uncomfortable, bent over clutching chest. Bradycardic, hypotensive. Chest x-ray obtained today shows pulmonary edema with question pericardial effusion Plan: Repeat labs, EKG Main ED provider aware. Patient immediately brought back to room. Medications Administered Discontinued Medications Generic Name Dose Route Start Last Admin Trade Name Freq PRN Reason Stop Dose Admin Furosemide 40 mg 06/16/24 19:43 06/16/24 20:01 Furosemide 40 Mg/4 Ml Vial IVPUSH 06/16/24 19:44 40 mg ONCE ONE Administration Protocol Norepinephrine Bitartrate 8 mg in 250 mls @ 0 mls/hr 06/16/24 21:54 06/16/24 22:18 Levophed IVCONT 06/16/24 21:55 0.07 mcg/kg/min .Q0M STA 9.25 mls/hr Titration Protocol Per Protocol Procedures Procedure Narrative Procedure Narrative: EMERGENCY ULTRASOUND INTERPRETATION-Limited Echocardiography [This study was ordered, performed, and interpreted by myself. The study reveals: Impression: Poor LV FUNCTION, mild dilation of the RV not greater than 1-1, NO PERICARDIAL EFFUSION] [Emergent Cardiac for Indication: Views Used: PLAX, PSSA, A4, SX, IVC Pericardial Effusion/Tamponade Findings: NONE RV Dilation (> LV diam in 4ch apical): mild dilation of the RV not greater than 1-1 Global LV Fxn: Poor IVC Dilation and Resp Variation: Plethoric Performed by: MD Sarah CPT:[id number]] Medical Decision Making Lab Data 06/16/24 19:46 06/16/24 19:46 Labs: Lab Results 04/18/25 04/18/25 Range/Units 19:46 19:59 WBC 6.2 (4.8-10.8) X10*3/uL RBC 2.12 L (4.60-5.80) X10*6/uL Hgb 8.0 L (14.0-18.0) g/dl Hct 25.3 L (42.0-52.0) % MCV 119.3 H (80.0-98.0) fL MCH 37.7 H (27.0-33.0) pg MCHC 31.6 (31.0-36.0) g/dl RDW 16.5 H (11.0-16.0) % Plt Count 224 (160-400) X10*3/uL MPV 8.8 L (9.4-12.4) fL Immature Gran % (Auto) 0.3 (0.0-0.4) % Neut % (Auto) 65.0 (45-73) % Lymph % (Auto) 17.7 L (20-40) % Love % (Auto) 13.2 H (2-11) % Eos % (Auto) 3.5 (0-4) % Baso % (Auto) 0.3 (0-2) % Lymph # (Auto) 1.1 L (1.2-4.9) X10*3/uL Love # (Auto) 0.8 (0.1-1.2) X10*3/uL Eos # (Auto) 0.2 (0.0-0.4) X10*3/uL Baso # (Auto) 0.0 (0.0-0.2) X10*3/uL Abs Immat Gran (auto) 0.02 (0.00-0.03) X10*3/uL Absolute Neuts (auto) 4.0 (2.0-8.3) x10*3/uL Absolute Nucleated RBC 0.000 (0.0-0.012) X10*3/uL Nucleated RBC % (auto) 0.0 (0.0-0.2) /100WBC PT 16.5 H (10.9-12.4) SEC INR 1.4 H (0.9-1.1) APTT 36.2 (26.0-36.8) SEC Sodium 141 (135-145) mmol/L Potassium 4.5 (3.3-5.1) mmol/L Chloride 111 H (96-108) mmol/L Carbon Dioxide 22 (22-29) mmol/L Anion Gap 13 (12-20) BUN 33 H (9-16) mg/dL Creatinine 1.35 (0.5-1.4) mg/dL Estim Creat Clear Calc 47.8 Estimated GFR 52 Random Glucose 86 (60-115) mg/dL Calcium 8.2 L (8.4-10.2) mg/dL Magnesium 2.7 H (1.6-2.6) mg/dL Total Bilirubin 0.3 (0.0-1.0) mg/dL AST 41 H (5-37) U/L ALT 16 (0-40) U/L Alkaline Phosphatase 63 (39-117) U/L Troponin I High Sens 34.7 (<3.5-35.0) ng/L B-Natriuretic Peptide 4216 H (<100) pg/mL Total Protein 6.5 (6.5-8.0) g/dL Albumin 3.4 L (3.5-5.0) g/dL Lipase 26 (8-78) U/L Discharge Plan Discharge Clinical Impression: Congestive heart failure Patient Disposition: Admitted As Inpatient Print Language: Mongolian
--- NOTE | 2024-06-16 19:16 | ECG_ITS ---
Test Reason : SOB Blood Pressure : */* mmHG Vent. Rate : 56 BPM Atrial Rate : * BPM P-R Int : * ms QRS Dur : 98 ms QT Int : 424 ms P-R-T Axes : * 85 -24 degrees QTcB Int : 409 ms Atrial fibrillation with slow ventricular response Nonspecific ST abnormality Abnormal QRS-T angle, consider primary T wave abnormality Abnormal ECG When compared with ECG of 19-Jan-2019 19:38, Atrial fibrillation has replaced Sinus rhythm Borderline criteria for Inferior infarct are no longer Present Nonspecific T wave abnormality no longer evident in Lateral leads Referred By: Светлана Mcdaniel Electronically Signed By: MELINA GREY MD
[2024-06-16 19:51] LABS: MANUAL DIFF FLAG NO
[2024-06-16 19:53] LABS: Basophils Percent Auto 0.3 % (0-2); Eosinophils Absolute Auto 0.2 X10*3/uL (0.0-0.4); Eosinophils Percent Auto 3.5 % (0-4); Hematocrit 25.3 % (42.0-52.0); Imm Gran Abs Auto 0.02 X10*3/uL (0.00-0.03); Imm Gran Pct Auto 0.3 % (0.0-0.4); Lymphocytes Absolute Auto 1.1 X10*3/uL (1.2-4.9); Lymphocytes Percent Auto 17.7 % (20-40); Mean Corpuscular HGB Conc 31.6 g/dl (31.0-36.0); Mean Corpuscular Hemoglobin 37.7 pg (27.0-33.0); Mean Platelet Volume 8.8 fL (9.4-12.4); Monocytes Absolute Auto 0.8 X10*3/uL (0.1-1.2); Monocytes Percent Auto 13.2 % (2-11); Platelet Count 224 X10*3/uL (160-400); Red Blood Count 2.12 X10*6/uL (4.60-5.80); Red Cell Distribution Width 16.5 % (11.0-16.0); White Blood Count 6.2 X10*3/uL (4.8-10.8)
[2024-06-16 19:56] LABS: Mean Corpuscular Volume 119.3 fL (80.0-98.0)
--- NOTE | 2024-06-16 20:00 | PC.NURSE ---
A+Ox4. wearing bilat hearing aids, eyeglasses. MEEKS, strength equal bilat. lungs CTA with a slight exp wheeze to LLL. feels mildly SOB - no accessory muscle use. denies CP. bilat leg +4 pitting edema. skin appears intact. L medial heel painful, callused circular area approx 1cm. abdomen soft, nontender. no nausea. unsure date of last BM. denies dysuria. continent, passing CYU into urinal. low back chronic pain worse recently on left side. access. ambulatory. skin warm throughout, patient face appears slightly pale.
[2024-06-16] MEDS: Furosemide 40 MG/4 ML VIAL IVPUSH (20:01)
[2024-06-16 20:12] LABS: B Type Natriuretic Peptide 4216 pg/mL (<100)
[2024-06-16 20:14] LABS: Troponin-I High Sensitivity 34.7 ng/L (<3.5-35.0)
[2024-06-16 20:14] LABS: INTERNATIONAL NORM RATIO 1.4 (0.9-1.1); Prothrombin Time 16.5 SEC (10.9-12.4)
[2024-06-16 20:17] LABS: Partial Thromboplastin Time 36.2 SEC (26.0-36.8)
[2024-06-16 20:22] LABS: Alanine Aminotransferase 16 U/L (0-40); Albumin Level 3.4 g/dL (3.5-5.0); Alkaline Phosphatase 63 U/L (39-117); Aspartate Amino Transferase 41 U/L (5-37); Bilirubin Total 0.3 mg/dL (0.0-1.0); Blood Urea Nitrogen 33 mg/dL (9-16); Calcium 8.2 mg/dL (8.4-10.2); Creatinine Clr Calc Pharmacy 47.8; Estimated Glomerular Filt Rate 52; Glucose Random 86 mg/dL (60-115); Lipase 26 U/L (8-78); Magnesium 2.7 mg/dL (1.6-2.6); Total Protein 6.5 g/dL (6.5-8.0)
[2024-06-16 20:29] LABS: Anion Gap 13 (12-20); Carbon Dioxide 22 mmol/L (22-29); Chloride 111 mmol/L (96-108); Potassium 4.5 mmol/L (3.3-5.1); Sodium 141 mmol/L (135-145)
--- NOTE | 2024-06-16 21:20 | ED_ITS ---
HPI - General Adult General Chief complaint: Recheck/Abnormal Lab/Rx Stated complaint: ABN lab results Time Seen by Provider: 06/16/24 19:40 Source: patient Mode of arrival: ambulatory Limitations: no limitations History of Present Illness ED Provider: Jose L Cordova HPI narrative: 74-year-old male history of CHF, COPD, chronic kidney disease high cholesterol, AFib presents to the ED for elevated BNP and shortness of breath. Patient was sent for primary care for elevated BNP, shortness of breath, x-ray stating potential pericardial effusion. Patient's states he has increased swelling of the legs and has only taking furosemide twice Related Data Home Medications ?Medication ?Instructions ?Recorded ?Confirmed apixaban 5 mg tablet 5 mg PO BID 02/05/20 06/16/24 folic acid 1 mg tablet 1 mg PO DAILY 02/05/20 06/16/24 metoprolol succinate 200 mg 200 mg PO DAILY 02/05/20 06/16/24 tablet,extended release 24 hr sacubitril 49 mg-valsartan 51 mg 1 tab PO BID 02/05/20 06/16/24 tablet hydrocortisone 2.5 % topical 1 appl topical BID PRN lesions 11/30/23 06/16/24 ointment nystatin 100,000 unit/gram topical 1 appl topical TID 11/30/23 06/16/24 powder alendronate 70 mg tablet 70 mg PO HUFF 06/16/24 06/16/24 dapagliflozin propanediol 10 mg 10 mg PO DAILY 06/16/24 06/16/24 tablet (Farxiga) dupilumab 300 mg/2 mL subcutaneous 300 mg subcut Q2W 06/16/24 06/16/24 pen injector (Dupixent) ezetimibe 10 mg tablet 10 mg PO DAILY 06/16/24 06/16/24 furosemide 20 mg tablet 20 mg PO DAILY PRN weight gain or 06/16/24 06/16/24 leg swelling oxycodone 80 mg tablet,crush 80 mg PO Q8H pain 06/16/24 06/16/24 resistant,extended release 12 hr (OxyContin) umeclidinium 62.5 mcg-vilanterol 1 ea inhalation DAILY 06/16/24 06/16/24 25 mcg/actuation powdr for inhalation (Anoro Ellipta) Previous Rx's ?Medication ?Instructions ?Recorded clopidogrel 75 mg tablet 75 mg PO DAILY #90 tabs 01/04/24 oxycodone 30 mg tablet 30 mg PO Q6H PRN pain 28 days #112 05/25/24 tabs rosuvastatin 40 mg tablet 40 mg PO DAILY #90 tabs 05/29/24 Allergies Allergy/AdvReac Type Severity Reaction Status Date / Time gabapentin [GABAPENTIN] Allergy Severe PASSED Verified 06/16/24 19:18 OUT , syncopal episodes at 800 mg TID azithromycin Allergy Intermediate SWELLING Verified 06/16/24 19:18 [From ZITHROMAX Z-DESIREE] pregabalin AdvReac Unknown severe Verified 06/16/24 19:18 muscle pain Review of Systems 2 Review of Systems: Shortness of breath bilateral legs for Yes all other systems are reviewed and are negative [facility] Past Medical History Medical History Erythema intertrigo Nummular eczematous dermatitis Allergic rhinitis Chronic kidney disease (CKD) Vitamin D deficiency Pure hypercholesterolemia Benign essential hypertension Atrial fibrillation Chronic combined systolic and diastolic congestive heart failure Coronary artery disease Rheumatoid arthritis Degenerative disc disease, cervical Lumbar degenerative disc disease Surgical History History of coronary angioplasty History of hernia repair H/O wrist surgery History of arthroscopy of right knee History of coronary artery bypass graft Family History Family History Father Past heart attack Mother Pneumonia Daughter Healthy adult Social History Social History Housing: House Alcohol intake: current Alcohol intake frequency: holidays/special occasions only Patient Tobacco Use Status: Former Tobacco user Smoked in Last 30 Days: Yes e-Cigarette/Vaping Use: Never Used Second Hand Smoke Exposure: Yes Use of substances other than those prescribed or required for medical reasons: No Advance Directives: No Advance Directives Information Provided: Yes service: Yes ([employer]) Current occupational status: retired and disabled Current occupation: right hand dominant Cognitive needs: Yes (cane) Hearing needs: Yes (hearing aide) Vision needs: Yes (glasses) Physical Exam ED Vital Signs: Vital Signs - 24 hr 06/16/24 19:12 06/16/24 19:40 06/16/24 20:01 Temperature 98.0 F Pulse Rate 48 L 60 Respiratory Rate 18 14 Blood Pressure 92/32 L 106/36 L 107/37 L Pulse Oximetry 97 95 Oxygen Delivery Method Room Air Room Air 06/16/24 21:32 06/16/24 21:39 06/16/24 22:04 Temperature 98.3 F Pulse Rate 54 63 57 Respiratory Rate 17 14 Blood Pressure 97/39 L 91/42 L 94/44 L Pulse Oximetry 94 94 Oxygen Delivery Method Room Air Room Air 06/16/24 22:14 06/16/24 22:18 06/16/24 22:23 Temperature Pulse Rate 50 52 58 Respiratory Rate 14 Blood Pressure 105/50 L 98/34 L 104/48 L Pulse Oximetry 94 Oxygen Delivery Method 06/16/24 22:38 06/16/24 22:56 Temperature Pulse Rate 42 L 38 L Respiratory Rate Blood Pressure 115/40 L 114/38 L Pulse Oximetry Oxygen Delivery Method BMI result Body Mass Index 22.1 Const General: cooperative, healthy appearing, comfortable, no acute distress, well developed, alert and awake Orientation/consciousness: patient oriented x3 [facility] Head: Yes normal to inspection, Yes No palpable skull fracture present, Yes normocephalic and Yes atraumatic Eyes General: appearance normal, both eyes and all related structures Neck Neck: Yes normal visual inspection, Yes full ROM, Yes no lymphadenopathy, Yes no meningeal signs, Yes trachea midline, Yes supple, No anterior neck swelling and No tender Chest Chest palpation & inspection: normal inspection of the chest and normal palpation of entire chest wall Resp Effort & Inspection: normal respiratory effort and able to speak in complete sentences Auscultation: clear to auscultation bilaterally Cardio Jugular venous distension: no JVD Heart sounds: S1 normal heart sound present and S2 normal heart sound present GI Inspection: Yes normal to inspection Palpation (GI): Soft to palpation, not firm, nontender, no guarding and not rigid Back/Spine/Pelvis Back: No back tenderness Skin General skin exam: no rashes or lesions noted, elasticity normal and turgor normal Neuro General: patient oriented x3, gait normal, tone normal, moves all extremities, Normal light touch and pain sensation, no meningeal signs, no focal motor deficits, CN's II-XI intact bilaterally and normal sensation to monofilament Extrem Other: Positive for bilateral lower extremity swelling, pitting edema. Negative for calf tenderness Psych Appearance: grossly normal, well kempt and not disheveled Course Reevaluation(s) Reevaluation #1: I personally had been following along with this patient but assumed full care at sign out 23:30 from the PA. Brief summary this is a patient with heart failure, AFib arrived tachypneic and short of breath with borderline low blood pressure. Throughout the ED course he developed worsening bradycardia at looks like junctional versus slow AFib sometimes as low as 28 as well as hypotension 80s over 40s requiring pressors. We initially started him on Levophed. We consulted the ICU who change this to dopamine . The PA head called out to [facility] to transfer the patient to Cardiology they are given the complexity of the case likely need for biventricular pacemaker/defibrillator and admission to their heart failure Service. Charlie Smith MD Time: 23:50 Medications Administered Discontinued Medications Generic Name Dose Route Start Last Admin Trade Name Freq PRN Reason Stop Dose Admin Albuterol/Ipratropium 3 ml 06/16/24 22:57 06/16/24 23:47 Albuterol/Iprat 2.5/0.5mg 3 Ml Ampul.Neb INHALE 06/16/24 22:58 3 ml ONCE ONE Administration Furosemide 40 mg 06/16/24 19:43 06/16/24 20:01 Furosemide 40 Mg/4 Ml Vial IVPUSH 06/16/24 19:44 40 mg ONCE ONE Administration Protocol Norepinephrine Bitartrate 8 mg in 250 mls @ 0 mls/hr 06/16/24 21:54 06/16/24 23:02 Levophed IVCONT 06/16/24 21:55 0 mcg/kg/min .Q0M STA 0 mls/hr Titration Protocol Per Protocol Dopamine HCl/Dextrose 400 mg in 250 mls @ 0 mls/hr 06/16/24 22:43 06/16/24 23:12 Dopamine Hcl/D5w IVCONT 06/16/24 22:44 10 mcg/kg/min .Q0M STA 26.96 mls/hr Titration Protocol Per Protocol Iohexol 65 ml 06/16/24 23:24 06/16/24 23:27 Iohexol 350 Mg/Ml 100 Ml Infus..Btl IV 06/16/24 23:25 65 ml ONCE ONE Administration Ondansetron HCl 4 mg 06/17/24 00:04 06/17/24 00:09 Ondansetron Hcl 4 Mg/2 Ml Vial IVPUSH 06/17/24 00:05 4 mg ONCE ONE Administration Procedures Procedure Narrative Procedure Narrative: Procedure Narrative: EMERGENCY ULTRASOUND INTERPRETATION-Limited Echocardiography [This study was ordered, performed, and interpreted by myself. The study reveals: Impression: Poor LV FUNCTION, mild dilation of the RV not greater than 1-1, NO PERICARDIAL EFFUSION] [Emergent Cardiac for Indication: Views Used: PLAX, PSSA, A4, SX, IVC Pericardial Effusion/Tamponade Findings: NONE RV Dilation (> LV diam in 4ch apical): mild dilation of the RV not greater than 1-1 Global LV Fxn: Poor IVC Dilation and Resp Variation: Plethoric Performed by: MD Sarah [id number]] Medical Decision Making Medical Decision Making MDM Narrative: 74-year-old male presents to ED for shortness of breath and increased leg swelling and elevated BNP. Dr. Neff did a bedside ultrasound which was negative for signs of pericardial effusion. No need for pericardial with no. Patient is not having cardiac tamponade or pericardial effusion. Patient's blood pressure improved. Patient given Lasix. Patient accepted by hospitalist Dr. Moody for admission for CHF. I reviewed patient's previous [facility] cardiology note from 2023 was states patient has last echo showed ejection fraction of 29% 10:19pm; Patient is hypotensive. Spoke with Dr. Moody for recommends patient be admitted to ICU. Patient is started on Levophed. Case discussed with Dr. Zayas who states he will admit patient to ICU. BREONNA Sandoval recommend CT Chest COntrast to rule out RIght lung Cancer as shown on xray. 11:31pm: Patient was still hypotensive of Levophed. Sloughing systolic was in the 80s. Heart rate dropped lowest 29. With discussing which ICU BREONNA Catherine patient was change to dopamine. Case was discussed with Dr. Wheat inspector salvage recommend patient be transferred to [facility] for cardiogenic shock may need Implantable pacemaker. Repeat EKG shows junctional bradycardia Differential Diagnosis Differential Diagnoses: The differential diagnosis associated with the presentation includes Lab Data 06/16/24 19:46 06/16/24 23:01 Labs: Lab Results 06/16/24 06/16/24 06/16/24 Range/Units 19:46 19:59 23:01 WBC 6.2 (4.8-10.8) X10*3/uL RBC 2.12 L (4.60-5.80) X10*6/uL Hgb 8.0 L (14.0-18.0) g/dl Hct 25.3 L (42.0-52.0) % MCV 119.3 H (80.0-98.0) fL MCH 37.7 H (27.0-33.0) pg MCHC 31.6 (31.0-36.0) g/dl RDW 16.5 H (11.0-16.0) % Plt Count 224 (160-400) X10*3/uL MPV 8.8 L (9.4-12.4) fL Immature Gran % (Auto) 0.3 (0.0-0.4) % Neut % (Auto) 65.0 (45-73) % Lymph % (Auto) 17.7 L (20-40) % [place] % (Auto) 13.2 H (2-11) % Eos % (Auto) 3.5 (0-4) % Baso % (Auto) 0.3 (0-2) % Lymph # (Auto) 1.1 L (1.2-4.9) X10*3/uL [place] # (Auto) 0.8 (0.1-1.2) X10*3/uL Eos # (Auto) 0.2 (0.0-0.4) X10*3/uL Baso # (Auto) 0.0 (0.0-0.2) X10*3/uL Abs Immat Gran (auto) 0.02 (0.00-0.03) X10*3/uL Absolute Neuts (auto) 4.0 (2.0-8.3) x10*3/uL Absolute Nucleated RBC 0.000 (0.0-0.012) X10*3/uL Nucleated RBC % (auto) 0.0 (0.0-0.2) /100WBC PT 16.5 H (10.9-12.4) SEC INR 1.4 H (0.9-1.1) APTT 36.2 (26.0-36.8) SEC Sodium 141 141 (135-145) mmol/L Potassium 4.5 5.3 H (3.3-5.1) mmol/L Chloride 111 H 113 H (96-108) mmol/L Carbon Dioxide 22 20 L (22-29) mmol/L Anion Gap 13 13 (12-20) BUN 33 H 35 H (9-16) mg/dL Creatinine 1.35 1.36 (0.5-1.4) mg/dL Estim Creat Clear Calc 47.8 48.4 Estimated GFR 52 51 Random Glucose 86 121 H (60-115) mg/dL Calcium 8.2 L 8.0 L (8.4-10.2) mg/dL Magnesium 2.7 H (1.6-2.6) mg/dL Total Bilirubin 0.3 0.3 (0.0-1.0) mg/dL AST 41 H 37 (5-37) U/L ALT 16 15 (0-40) U/L Alkaline Phosphatase 63 58 (39-117) U/L Troponin I High Sens 34.7 36.4 H (<3.5-35.0) ng/L B-Natriuretic Peptide 4216 H (<100) pg/mL Total Protein 6.5 (6.5-8.0) g/dL Albumin 3.4 L (3.5-5.0) g/dL Lipase 26 (8-78) U/L Procalcitonin ng/mL TSH (0.32-4.0) uIU/mL Urine Color Urine Appearance Urine pH (5.0-9.0) Ur Specific [place] (1.005-1.025) Urine Protein (Neg-Trace) mg/dL Urine Glucose (UA) (Negative) mg/dL Urine Ketones (Negative) mg/dL Urine Blood (Negative) Urine Nitrite (Negative) Ur Leukocyte Esterase (Negative) Urine RBC (0-2) /HPF Urine WBC (0-5) /HPF Ur Squamous Epith Cells (0-2) /HPF Urine Bacteria (None Seen) Hyaline Casts (0-2) /LPF 06/16/24 06/16/24 06/16/24 Range/Units 23:01 23:01 23:01 WBC (4.8-10.8) X10*3/uL RBC (4.60-5.80) X10*6/uL Hgb (14.0-18.0) g/dl Hct (42.0-52.0) % MCV (80.0-98.0) fL MCH (27.0-33.0) pg MCHC (31.0-36.0) g/dl RDW (11.0-16.0) % Plt Count (160-400) X10*3/uL MPV (9.4-12.4) fL Immature Gran % (Auto) (0.0-0.4) % Neut % (Auto) (45-73) % Lymph % (Auto) (20-40) % [place] % (Auto) (2-11) % Eos % (Auto) (0-4) % Baso % (Auto) (0-2) % Lymph # (Auto) (1.2-4.9) X10*3/uL [place] # (Auto) (0.1-1.2) X10*3/uL Eos # (Auto) (0.0-0.4) X10*3/uL Baso # (Auto) (0.0-0.2) X10*3/uL Abs Immat Gran (auto) (0.00-0.03) X10*3/uL Absolute Neuts (auto) (2.0-8.3) x10*3/uL Absolute Nucleated RBC (0.0-0.012) X10*3/uL Nucleated RBC % (auto) (0.0-0.2) /100WBC PT (10.9-12.4) SEC INR (0.9-1.1) APTT (26.0-36.8) SEC Sodium (135-145) mmol/L Potassium (3.3-5.1) mmol/L Chloride (96-108) mmol/L Carbon Dioxide (22-29) mmol/L Anion Gap (12-20) BUN (9-16) mg/dL Creatinine (0.5-1.4) mg/dL Estim Creat Clear Calc Estimated GFR Random Glucose (60-115) mg/dL Calcium (8.4-10.2) mg/dL Magnesium (1.6-2.6) mg/dL Total Bilirubin (0.0-1.0) mg/dL AST (5-37) U/L ALT (0-40) U/L Alkaline Phosphatase (39-117) U/L Troponin I High Sens Cancelled (<3.5-35.0) ng/L B-Natriuretic Peptide (<100) pg/mL Total Protein 6.1 L (6.5-8.0) g/dL Albumin 3.2 L (3.5-5.0) g/dL Lipase (8-78) U/L Procalcitonin 0.03 Cancelled ng/mL TSH 1.29 Cancelled (0.32-4.0) uIU/mL Urine Color Urine Appearance Urine pH (5.0-9.0) Ur Specific [place] (1.005-1.025) Urine Protein (Neg-Trace) mg/dL Urine Glucose (UA) (Negative) mg/dL Urine Ketones (Negative) mg/dL Urine Blood (Negative) Urine Nitrite (Negative) Ur Leukocyte Esterase (Negative) Urine RBC (0-2) /HPF Urine WBC (0-5) /HPF Ur Squamous Epith Cells (0-2) /HPF Urine Bacteria (None Seen) Hyaline Casts (0-2) /LPF 06/16/24 Range/Units 23:09 WBC (4.8-10.8) X10*3/uL RBC (4.60-5.80) X10*6/uL Hgb (14.0-18.0) g/dl Hct (42.0-52.0) % MCV (80.0-98.0) fL MCH (27.0-33.0) pg MCHC (31.0-36.0) g/dl RDW (11.0-16.0) % Plt Count (160-400) X10*3/uL MPV (9.4-12.4) fL Immature Gran % (Auto) (0.0-0.4) % Neut % (Auto) (45-73) % Lymph % (Auto) (20-40) % [place] % (Auto) (2-11) % Eos % (Auto) (0-4) % Baso % (Auto) (0-2) % Lymph # (Auto) (1.2-4.9) X10*3/uL [place] # (Auto) (0.1-1.2) X10*3/uL Eos # (Auto) (0.0-0.4) X10*3/uL Baso # (Auto) (0.0-0.2) X10*3/uL Abs Immat Gran (auto) (0.00-0.03) X10*3/uL Absolute Neuts (auto) (2.0-8.3) x10*3/uL Absolute Nucleated RBC (0.0-0.012) X10*3/uL Nucleated RBC % (auto) (0.0-0.2) /100WBC PT (10.9-12.4) SEC INR (0.9-1.1) APTT (26.0-36.8) SEC Sodium (135-145) mmol/L Potassium (3.3-5.1) mmol/L Chloride (96-108) mmol/L Carbon Dioxide (22-29) mmol/L Anion Gap (12-20) BUN (9-16) mg/dL Creatinine (0.5-1.4) mg/dL Estim Creat Clear Calc Estimated GFR Random Glucose (60-115) mg/dL Calcium (8.4-10.2) mg/dL Magnesium (1.6-2.6) mg/dL Total Bilirubin (0.0-1.0) mg/dL AST (5-37) U/L ALT (0-40) U/L Alkaline Phosphatase (39-117) U/L Troponin I High Sens (<3.5-35.0) ng/L B-Natriuretic Peptide (<100) pg/mL Total Protein (6.5-8.0) g/dL Albumin (3.5-5.0) g/dL Lipase (8-78) U/L Procalcitonin ng/mL TSH (0.32-4.0) uIU/mL Urine Color Yellow Urine Appearance Clear Urine pH 5.5 (5.0-9.0) Ur Specific [place] 1.015 (1.005-1.025) Urine Protein Negative (Neg-Trace) mg/dL Urine Glucose (UA) 500 H (Negative) mg/dL Urine Ketones Negative (Negative) mg/dL Urine Blood Negative (Negative) Urine Nitrite Negative (Negative) Ur Leukocyte Esterase Negative (Negative) Urine RBC 0-2 (0-2) /HPF Urine WBC 0-5 (0-5) /HPF Ur Squamous Epith Cells 0-2 (0-2) /HPF Urine Bacteria None Seen (None Seen) Hyaline Casts 0-2 (0-2) /LPF Independent Interpretation I performed an independent interpretation of an: EKG (Afib rate controlled.) Critical Care Time Critical Care Time Critical Care Time: Yes Total Critical Care Time: 120 Attestation: ED Critical Care: Authorized and Performed by: Charlie Smith MD Total critical care time: Approximately 120 Due to a high probability of clinically significant, life threatening deterioration, the patient required my highest level of preparedness to intervene emergently and I personally spent this critical care time directly and personally managing the patient. This critical care time included obtaining a history; examining the patient; pulse oximetry; ordering and review of studies; arranging urgent treatment with development of a management plan; evaluation of patient's response to treatment; frequent reassessment; and, discussions with other providers. This critical care time was performed to assess and manage the high probability of imminent, life-threatening deterioration that could result in multi-organ failure. It was exclusive of separately billable procedures and treating other patients and teaching time. Discharge Plan Discharge Clinical Impression: Congestive heart failure Patient Disposition: [facility] Transfer Details: At 00:40 I discussed the case with CCU attending at [facility] who has accepted the patient for transfer. He agrees with the care thus far. Instructions: Heart Failure (ED) Prescriptions: No Action clopidogrel 75 mg tablet 75 mg PO DAILY Qty: 90 1RF oxycodone 30 mg tablet 30 mg PO Q6H PRN (Reason: pain) 28 Days Qty: 112 0RF rosuvastatin 40 mg tablet 40 mg PO DAILY Qty: 90 1RF alendronate 70 mg tablet 70 mg PO HUFF furosemide 20 mg tablet 20 mg PO DAILY PRN (Reason: weight gain or leg swelling) ezetimibe 10 mg tablet 10 mg PO DAILY Anoro Ellipta 62.5-25 mcg/actuation blister with device 1 ea inhalation DAILY dapagliflozin propanediol [Farxiga] 10 mg tablet 10 mg PO DAILY Dupixent Pen 300 mg/2 mL pen injector 300 mg SUBCUT Q2W oxycodone [OxyContin] 80 mg tablet,oral only,ext.rel.12 hr 80 mg PO Q8H metoprolol succinate 200 mg tablet extended release 24 hr 200 mg PO DAILY folic acid 1 mg tablet 1 mg PO DAILY Eliquis 5 mg tablet 5 mg PO BID Entresto 49-51 mg tablet 1 tab PO BID nystatin 100,000 unit/gram powder 1 appl topical TID Rx Instructions: apply to rash in groin areas hydrocortisone 2.5 % ointment 1 appl topical BID PRN (Reason: lesions) Rx Instructions: apply to fissures at the angle(s) of the mouth; start tapering off when lesions improving Interventions: Acute Care Transfer Worksheet (ED) Last Done: 06/17/24 02:01 Discharge Date/Time: 06/17/24 04:55 Print Language: Bhutanese
[2024-06-16] MEDS: Norepinephrine Bitartrate/D5W 8 MG/250 ML PLAST..BAG 6.61 MG IVCONT (22:04)
--- NOTE | 2024-06-16 22:04 | PHA.MEDREC ---
Addendum entered by Juan Ingram 06/16/24 22:12: Reviewed Original Note: Pharmacy Consult ? Medication Reconciliation Pharmacy has completed the medication reconciliation. Spoke to patient and at bedside to confirm med list. had a list of patients medications , however list was dated [id number]. confirmed patient is on both Plavix 75 mg, last filled 04/01/24 for 90 days and Eliquis 5 mg , last fill date 10/16/23 for for 30 days. Called [facility] to confirm that patient hasn't picked up Eliquis since Sep 2023. left on med rec because states he last took them today. also confirmed Alendronate 70 mg is every Wednesday. last dose 06/11/24, Dupixent pen 300 mg is every 2 weeks , last dose was yesterday 06/15/24
--- NOTE | 2024-06-16 22:22 | PC.NURSE ---
levophedappearing as discontinued. continue transfusion per BREONNA Domingo
--- NOTE | 2024-06-16 22:47 | ECG_ITS ---
Test Reason : EVANS Blood Pressure : */* mmHG Vent. Rate : 47 BPM Atrial Rate : 47 BPM P-R Int : * ms QRS Dur : 96 ms QT Int : 466 ms P-R-T Axes : * 83 37 degrees QTcB Int : 412 ms Undetermined rhythm Possible Atrial fibrillation with slow ventricular response Nonspecific ST abnormality Abnormal ECG When compared with ECG of 16-Jun-2024 19:42, Vent. rate has decreased Nonspecific T wave abnormality has replaced inverted T waves in Inferior leads Referred By: Jose L Cordova Electronically Signed By: MELINA GREY MD
[2024-06-16] MEDS: DOPamine HCL/D5W 400 MG/250 ML PLAST..BAG 13.48 MG IVCONT (22:56)
[2024-06-16 23:16] LABS: Appearance Urine Clear; Color Urine Yellow; Glucose Urine UA 500 mg/dL (Negative); Leukocyte Esterase Urine Negative (Negative); Nitrite Urine Negative (Negative); PH 5.5 (5.0-9.0); Specific Gravity - Urine 1.015 (1.005-1.025); Urine Blood Negative (Negative); Urine Ketones Negative (Negative); Urine Protein Negative (Neg-Trace)
[2024-06-16 23:18] LABS: Bacteria Urine None Seen (None Seen); Hyaline Casts Urine 0-2 /LPF (0-2); RBC Urine 0-2 /HPF (0-2); Squamous Epithelial Cell Urine 0-2 /HPF (0-2); WBC Urine 0-5 /HPF (0-5)
[2024-06-16 23:24] LABS: Troponin-I High Sensitivity 36.4 ng/L (<3.5-35.0)
[2024-06-16] MEDS: iohexoL 350 MG/ML 100 ML INFUS..BTL 65 ML IV (23:27)
[2024-06-16 23:29] LABS: Alanine Aminotransferase 15 U/L (0-40); Albumin Level 3.2 g/dL (3.5-5.0); Alkaline Phosphatase 58 U/L (39-117); Anion Gap 13 (12-20); Aspartate Amino Transferase 37 U/L (5-37); Bilirubin Total 0.3 mg/dL (0.0-1.0); Blood Urea Nitrogen 35 mg/dL (9-16); Carbon Dioxide 20 mmol/L (22-29); Chloride 113 mmol/L (96-108); Creatinine Clr Calc Pharmacy 48.4; Estimated Glomerular Filt Rate 51; Glucose Random 121 mg/dL (60-115); Potassium 5.3 mmol/L (3.3-5.1); Sodium 141 mmol/L (135-145); Total Protein 6.1 g/dL (6.5-8.0)
[2024-06-16] MEDS: Albuterol/Iprat 2.5/0.5MG 3 ML AMPUL.NEB INHALE (23:47)
[2024-06-16 23:50] LABS: Procalcitonin 0.03 ng/mL; TSH reflex Free T4 1.29 uIU/mL (0.32-4.0)
[2024-06-17] MEDS: ondansetron HCL 4 MG/2 ML VIAL IVPUSH (00:09)
[2024-06-17 00:12] VITALS: BP 112/53; PULSE 86; O2SAT 92
[2024-06-17 00:23] VITALS: BP 111/52; PULSE 80; RESP 19; O2SAT 92
[2024-06-17 01:13] VITALS: BP 109/47; PULSE 77; RESP 18; O2SAT 92
[2024-06-17 02:01] VITALS: BP 101/51; PULSE 85; RESP 20; TEMP 36.6; O2SAT 92
== END 2024-06-17 04:55 | disposition short-term general hospital (02) ==
LOC: HO.ED 22:57 → HO.EDOVER 06-17 00:43 → HO.ED 06-17 01:59
PROVIDERS: Physician Assistant; Physician Assistant Medical; Emergency Provider Emergency Medicine; PCP Internal Medicine
DX: I50.9 Heart failure, unspecified (principal); R79.89 Other specified abnormal findings of blood chemistry; I48.91 Unspecified atrial fibrillation; R06.82 Tachypnea, not elsewhere classified; R00.1 Bradycardia, unspecified; I95.9 Hypotension, unspecified; R94.31 Abnormal electrocardiogram [ECG] [EKG]; R60.0 Localized edema; Z79.899 Other long term (current) drug therapy
CPT/HCPCS: 36415; 71045; 71046; 71260; 80053; 81001; 83690; 83735; 83880; 84145; 84443; 84484; 85025; 85379; 85610; 85730; 93005; 96127; 96365; 96375; 99212; 99285; J1265; J1938; J2405; Q9967

== ENCOUNTER → 2024-06-16 19:16 | Outpatient (BNV) | payer MEDICARE, SELFPAY | PROVIDERS: Emergency Provider Emergency Medicine; PCP Internal Medicine; Visit Provider Internal Medicine Cardiovascular Disease | DX: I48.91 Unspecified atrial fibrillation (principal); R94.31 Abnormal electrocardiogram [ECG] [EKG]; R00.1 Bradycardia, unspecified | CPT/HCPCS: 93010 ==

== ENCOUNTER 2024-07-04 13:17 | Outpatient (AMB) | payer MEDICARE, SELFPAY ==
--- NOTE | 2024-07-04 13:37 | A.OFFPC_ITS ---
Vital Signs 07/04/24 13:38 Height 5 ft 11 in Weight 138 lb 12.8 oz BMI 19.4 BP 102/58 L Blood Pressure Location Lt brachial Position Sitting Respiration 18 Pulse 55 Pulse Source Pulse Oximeter Temp 97.4 F Temp Source Oral Pulse Oximetry (%) 90 L Oxygen Delivery Method Room Air Intake Visit Reasons: [facility] 06/23 heart failure Intake Note: Patient is here for hospital discharge follow up. Patient was discharged from [facility] in [facility] on 06/23/2024. 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 Accompanied by: Spouse Allergies gabapentin [GABAPENTIN] Allergy (Severe, Verified 07/11/24 21:41) PASSED OUT , syncopal episodes at 800 mg TID azithromycin [From ZITHROMAX Z-DESIREE] Allergy (Intermediate, Verified 07/11/24 21:41) SWELLING pregabalin Adverse Reaction (Unknown, Verified 07/11/24 21:41) severe muscle pain Medication List - Last Reconciled 07/11/24 by EARLENE Marcus alendronate 70 mg PO HUFF apixaban 5 mg PO BID clopidogrel 75 mg PO DAILY dapagliflozin propanediol (Farxiga) 10 mg PO DAILY dupilumab (Dupixent) 300 mg subcut Q2W ezetimibe 10 mg PO DAILY folic acid 1 mg PO DAILY hydrocortisone 2.5% 1 appl topical BID PRN nystatin 1 appl topical TID oxycodone 30 mg PO Q6H PRN 28 days oxycodone ER (OxyContin) 80 mg PO Q8H OxyContin ER (oxycodone) 80 mg PO .q8hrs 28 days NS rosuvastatin 40 mg PO DAILY sacubitril-valsartan 49-51 mg 1 tab PO BID umeclidinium-vilanterol 62.5-25 mcg/actuation (Anoro Ellipta) 1 ea inhalation DAILY Tobacco use date assessed: 07/04/24 Fall risk assessment: 1 Fall in past year Last assessed Fall Risk: 07/04/24 Dental Screening Dental Screen Date: 07/04/24 Did you have a dental visit in the last 12 months?: Yes Did you have a dental problem in the last 6 months where you did not have access to dental care?: No Was dental information given to patient?: Patient has dentist HPI [facility] 06/23 heart failure HPI Details The patient is a 74-year-old gentleman was past medical history concerning for CAD status post CABG x5 (1991) by Dr. Rosa, on Plavis 75 mg, no aspirin), severe COPD, HLD, chronic atrial fibrillation on Eliquis, CKD Presenting for f/u for post [facility] visit for Heart failure. The patient was transfer from [facility] in the setting of shortness of Breath and bradycardia. Initially, went to [facility] with concerns of chest x-ray showing potential pericardial effusion an elevated proBNP. The patient had increased bilateral lower extremity edema and was taking furosemide as needed as instructed by his heart failure Dr. Bob. While at [facility] ER the patient had worsening bradycardia that appeared to be junctional versus slow atrial fibrillation as low as 28 with associated hypotension 80s/40s requiring levophed. [facility] cardiology was contacted who recommended transferring patient to [facility] cardiac ICU and switching Levophed to dopamine. Bedside ultrasound completed by ED staff that did not reveal any concern for pericardial effusion/cardiac tamponade. Dopamine stopped upon arrival and Levophed restarted. Patient was able to be weaned off Levophed. No recurrent episodes of bradycardia, PPM. deferred unless tear is another episode. The patient had a positive stress test, which led to left heart catheterization. L HC revealing multivessel coronary artery disease, patent ALFORD to LAD and free radial graft to the marginal branch, occluded SVG to RPDA (new) and normal LV filling pressures. The patient was started on oral anticoagulation. Metoprolol was held in the setting of his initial presenting complaint which was bradycardia. Recommendation for the patient to be monitored outpatient and follow up with Cardiology to determine whether or not he will need a permanent pacemaker. Patient was started on dapagliflozin, continue furosemide, -hold home metoprolol -continue home Entresto -we will need outpatient monitor to eval uate for further episodes of bradycardia /CHB -continue Eliquis -history of CABG x5; continue clopidogre l and rosuvastatin The patient also had urinary retention, failed urinary for a trial, found to have retention, Steward placed again we will need outpatient follow up. Patient has an appointment for Urology-Steward in place in office the patient reports that it is uncomfortable that he can wait for it to be taken out. The patient had acute hypoxemia respiratory failure the hospital in the setting of moderate COPD and severe reduction in diffusing capacity with DLCO 31% Emphysema Back pain due to history of fracture: Continue OxyContin 80 mg if he 8 hours and oxycodone 30 mg every 6 hours In the office: - Cardiovascular: Reports intermittent s hortness of breath; denies chest pain or palpitations. - Genitourinary: Reports difficulty with voiding necessitating Steward catheter; denies gross hematuria. - Musculoskeletal: Reports previous righ t flank pain resolved; denies recurrence. - Hematologic: Reports persistent cold s ensation likely related to anemia. - Neurologic: Denies any acute neurologi shayna symptoms. [facility] Medical History Erythema intertrigo Nummular eczematous dermatitis Allergic rhinitis Chronic kidney disease (CKD) Vitamin D deficiency Pure hypercholesterolemia Benign essential hypertension Atrial fibrillation Chronic combined systolic and diastolic congestive heart failure Coronary artery disease Rheumatoid arthritis Degenerative disc disease, cervical Lumbar degenerative disc disease Surgical History History of coronary angioplasty History of hernia repair H/O wrist surgery History of arthroscopy of right knee History of coronary artery bypass graft Family History Father Past heart attack Mother Pneumonia Daughter Healthy adult Social History Housing: House Alcohol intake: current Alcohol intake frequency: holidays/special occasions only Patient Tobacco Use Status: Former Tobacco user e-Cigarette/Vaping Use: Never Used Second Hand Smoke Exposure: Yes service: Yes ([employer]) Current occupational status: retired and disabled Current occupation: right hand dominant Cognitive needs: Yes (cane) Hearing needs: Yes (hearing aide) Vision needs: Yes (glasses) Questionnaire PHQ-9 Over the last 2 weeks, how often have you been bothered by any of the following problems? 1. Little interest or pleasure in doing things: not at all 2. Feeling down, depressed, or hopeless: not at all 3. Trouble falling or staying asleep, or sleeping too much: not at all 4. Feeling tired or having little energy: several days 5. Poor appetite or overeating: not at all 6. Feeling bad about yourself - or that you are a failure or have let yourself or your family down: not at all 7. Trouble concentrating on things, such as reading the newspaper or watching television: not at all 8. Moving or speaking so slowly that other people could have noticed. Or the opposite - being so fidgety or restless that you have been moving around a lot more than usual: several days 9. Thoughts that you would be better off or of hurting yourself in some way: not at all Total score: 2 Depression Screening Interpretation: Negative Depression Screening Done: Yes Source: Developed by Drs. Arben Noriega, Mona Gonzalez, Jerrod Adams and colleagues, with an educational arlen from [employer]. Thrive Questionnaire Date Thrive assessed: 07/04/24 I am a: Patient What is your living situation today?: I have a steady place to live Within the past 12 months, did the food you bought not last and you didn't have the money to get more?: Never true Within the past 12 months, did you worry whether your food would run out before you got money to buy more?: Never true Do you have trouble paying for medicines?: No Do you have trouble getting transportation to medical appointments?: No Do you have trouble paying your heating and electricity bill?: No Do you have trouble taking care of your child, family member or friend?: No Do you have trouble with day-to-day activities such as bathing, preparing meals, shopping, managing finances, etc.?: Yes Are you currently unemployed and looking for a job?: No Are you interested in more education?: No Please select the resources that you would like help with: None Currently or been in a relationship where the following occur: No concerns reported THRIVE Score: 0 AUDIT C Alcohol Use Questionnaire (AUDIT-C) 1. How often do you have a drink containing alcohol?: Monthly or less 2. How many drinks containing alcohol do you have on a typical day when you are drinking?: 1 or 2 3. How often do you have six or more drinks on one occasion?: Never Total Score: 1 Score Reviewed/Action Taken: No NILESH-7 AMB Questionnaire NILESH-7 Date NILESH - 7 assessed: 07/04/24 Feeling nervous, anxious, or on edge: 0 = Not at all Not being able to stop or control worryin = Not at all Worrying too much about different things: 0 = Not at all Trouble relaxin = Not at all Being so restless that it is hard to sit still: 0 = Not at all Becoming easily annoyed or irritable: 0 = Not at all Feeling afraid as if something awful might happen: 0 = Not at all Total NILESH-7 score (0-4 normal; 5-9 mild; 10-14 moderate; 15-21 severe): 0 Source: Developed by Drs. Arben Noriega, Mona Gonzalez, Jerrod Adams and colleagues, with an educational arlen from [employer]. Review of Systems Const Denies headache(s) Eyes Denies loss of vision ENT Denies vertigo, Denies dizziness, Denies headache(s) and Denies sore throat Card Denies chest pain, Denies leg edema, Denies lightheadedness and Reports dyspnea on exertion Resp Denies cough, Denies hemoptysis, Reports dyspnea on exertion and Denies wheezing GI Denies abdominal pain, Denies melena, Denies constipation, Denies diarrhea, Denies vomiting and Reports other (Left flank pain subsided) Denies dysuria, Denies urinary frequency, Denies urinary urgency and Reports other (Difficulty voiding- Steward catheter in place) Musc Denies arthralgias, Denies joint swelling, Denies numbness and Denies tingling Neuro Denies Abnormal speech present, Denies vertigo, Denies dizziness, Denies headache(s), Denies loss of vision, Denies numbness and Denies tingling Ac/Lymph Denies easy bleeding and Denies easy bruising Aller/Immun Denies wheezing Physical exam (Primary Care) Vital Signs: Last Vital Signs Temp 97.4 F 07/04/24 13:38 Pulse 55 07/04/24 13:38 Resp 18 07/04/24 13:38 BP 102/58 L 07/04/24 13:38 Pulse Ox 90 L 07/04/24 13:38 Oxygen Delivery Method Room Air 07/04/24 13:38 BMI result Body Mass Index 19.4 Tobacco/Smoking Status: Tobacco use Status Tobacco use date assessed 07/04/24 07/04/24 13:47 Patient Tobacco Use Status Former Tobacco user 07/04/24 13:47 e-Cigarette/Vaping Use Never Used 07/04/24 13:47 PHQ-9: PHQ-9 Score PHQ-9: Total score 2 07/04/24 14:22 Depression Screening Interpretation: Negative Thrive Assessment: Date of Thrive Assessment Date Thrive assessed 07/04/24 07/04/24 13:47 Currently or been in a relationship where the following occur: No concerns reported Const General: healthy appearing, no acute distress, alert and awake Nutritional Appearance: well nourished Orientation/consciousness: oriented to person, oriented to place and oriented to time HENMT Ears: TM's normal bilaterally General nose exam: Normal nasal mucous membranes and turbinates present Eyes Conjunctivae: conjunctivae normal Sclerae: sclerae normal Pupils: Equal, round and reactive pupils present Neck Neck: Yes no lymphadenopathy and Yes no JVD Thyroid: Thyroid normal Carotids: no bruits Resp Effort & Inspection: normal respiratory effort and not tachypneic Auscultation: no crackles, no rales, no rhonchi and no wheezes Cardio Rate: regular rate Rhythm: abnormal rhythm irregularly irregular Heart sounds: no murmurs and normal S1 and S2 GI Palpation (GI): Soft to palpation and nontender Auscultation: normal bowel sounds Skin General skin exam: no rashes or lesions noted and dry skin Neuro General: oriented to person, oriented to place and oriented to time Cranial nerves: Yes Equal, round and reactive pupils present Speech: No Abnormal speech present Gait exam (Neuro): Normal gait present Motor exam (neuro): no tremor noted Extrem Right upper extremity: full ROM Left upper extremity: full ROM Right lower extremity: full ROM and edema Details: pitting and 1+ Left lower extremity: full ROM and edema Details: pitting and 1+ Psych Mental Status: mental status grossly normal Speech and movement: Normal speech and movement present Affect: normal affect Attitude: cooperative Thought process: Normal thought process present Coding Level of Care Code Est Pt Level 4 (80085) Diagnoses Acute on chronic combined systolic and diastolic congestive heart failure I50.43 Heart failure type: combined systolic and diastolic Heart failure chronicity: acute on chronic Indwelling urinary catheter present Z96.0 Pulmonary emphysema, unspecified emphysema type J43.9 COPD type: emphysema Emphysema type: unspecified Atrial fibrillation, unspecified type I48.91 Atrial fibrillation type: unspecified Benign essential hypertension I10 Bradycardia R00.1 Time Spent (min) 42 Assessment & Plan Assessment & Plan (1) Congestive heart failure: Code(s): I50.9 - Heart failure, unspecified Category: Medical Qualifiers: Heart failure type: combined systolic and diastolic Heart failure chronicity: acute on chronic Qualified Code(s): I50.43 - Acute on chronic combined systolic (congestive) and diastolic (congestive) heart failure Plan: The patient was being 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 The patient was sent to [facility] ER after x-rays showed possible pericardial effusion. The patient became bradycardic as low as 28, he was started on Levophed then transitioned to dopamine after contacting [facility] Cardiology. Bedside ultrasound done in ED showed no pericardial infusion or concern for tamponade so the patient was transitioned back to Levophed and stopping dopamine. At [facility], positive stress test, as a result, the patient had a left heart cardiac catheterization revealing multivessel coronary artery disease, continue anticoagulation (apixaban 5 bid and clopidogrel 75 mg daily). (2) Indwelling urinary catheter present: Code(s): Z96.0 - Presence of urogenital implants Category: Medical Plan: The patient has suffered urinary retention at [facility] and failed voiding trials so the Steward was reinserted. Follow up appointment with Urology pending. Patient complaining of discomfort of the Steward catheter. Encouraged the patient to practice aseptic technique and placing the Steward bag below hip area to ensure gravity (3) COPD (chronic obstructive pulmonary disease): Code(s): J44.9 - Chronic obstructive pulmonary disease, unspecified Category: Medical Qualifiers: COPD type: emphysema Emphysema type: unspecified Qualified Code(s): J43.9 - Emphysema, unspecified Plan: Acute on chronic respiratory distress while he was in the hospital. Reports that he is feeling much better today and is continuing same treatment has prior. (4) Atrial fibrillation: Code(s): I48.91 - Unspecified atrial fibrillation Category: Medical Qualifiers: Atrial fibrillation type: unspecified Qualified Code(s): I48.91 - Unspecified atrial fibrillation Plan: Rate controlled and slightly Noah at 55 in office. Continue apixaban 5 mg b.i.d. and clopidogrel 75 mg daily, continue to hold metoprolol. (5) Benign essential hypertension: Code(s): I10 - Essential (primary) hypertension Category: Medical Plan: Reinforced dash diet continue sacubitril-varsartan 49-51 mg 1 tab BID, continue to hold metoprolol (6) Bradycardia: Code(s): R00.1 - Bradycardia, unspecified Category: Medical Plan: Patient was bradycardic in [facility] ED as low as 28. Transferred to [facility] for possible permanent pacemaker. Bradycardia resolve and did not reoccur, continue to monitor outpatient to determine if PPM is needed.
[2024-07-04 13:38] VITALS: BP 102/58; PULSE 55; RESP 18; TEMP 36.3; O2SAT 90; BMI 19.4
--- OUTSIDE RECORDS SUMMARY | 2024-07-04 14:34 | XMS_ITS | Patient Health Record ---
Author Organization [facility] Address [address] [place] [address] Care Team Providers Care Supervisor Covering And Lining Name Role Phone Padilla SEBASTIAN [place] Primary Care Provider UnaNed Galarza Unavailable [phone] Allergies Allergen (clinical drug ingredient) Drug/Non Drug [...] W/U Status Risk Notes Problem Atherosclerosis of [place] arteries of the extremities ([id number]) Atherosclerosis of [place] artery of both lower extremities, with unspecified presence of clinical manifestation (I70.203) Active confirmed Vital Signs Blood pressure diastolic 80 mm Hg 03/14/2024 Height 5ft1in in 03/14/2024 Blood pressure systolic 120 mm Hg 03/14/2024 Weight 140 lbs 03/14/2024 BMI 26.45 kg/m2 03/14/2024 Procedures Procedure Date Ordered Date Performed Result Body Sit e 00815-RRYXEEP NAIL, 6 OR MORE 08/03/2023 N/A 57601-Dpto Destruction, 1-08/03/2023 N/A 40163-GMNG SKIN LESIONS, OVER 4 08/03/2023 N/A 65906-Ixst Destruction, 1-09/28/2023 N/A 01015-XQIYFYO NAIL, 6 OR MORE 11/05/2023 N/A 46209-Erxw Destruction, 1-11/05/2023 N/A 24426-JOKH SKIN LESIONS, OVER 4 11/05/2023 N/A 66410-JHKYXGC NAIL, 6 OR MORE 03/14/2024 N/A 34101-IRQV SKIN LESIONS, OVER 4 03/14/2024 N/A Encounters Encounter Location Date Provider Diagnosis [facility] [place] [address] [place] [address] 08/03/2023 Ned Aimee Atherosclerosis of [place] artery of both lower extremities, with unspecified presence of clinical manifestation I70.203 ; Plantar wart B07.0 ; Tinea unguium B35.1 ; Pain in right foot M79.671 ; Pain in right toe(s) M79.674 and Pain in left toe(s) M79.[address] [address] 09/28/2023 Ned Aimee Pain in right foot M79.671 and Plantar wart B07.[address] [address] 11/05/2023 Ned Aimee Atherosclerosis of [place] artery of both lower extremities, with unspecified presence of clinical manifestation I70.203 ; Plantar wart B07.0 ; Tinea unguium B35.1 ; Pain in right foot M79.671 ; Pain in right toe(s) M79.674 ; Pain in left toe(s) M79.675 and Tinea pedis of both feet B35.[address] [address] 12/21/2023 Ned Aimee Cellulitis of foot, right L03.115 ; Cellulitis of foot, left L03.116 and Generalized edema R60.[address] [address] 02/04/2024 Ned Aimee Cellulitis of foot, right L03.115 ; Cellulitis of foot, left L03.116 and Tinea pedis of both feet B35.[address] [address] 03/14/2024 Ned Aimee Atherosclerosis of [place] artery of both lower extremities, with unspecified presence of clinical manifestation I70.203 ; Tinea unguium B35.1 ; Pain in right toe(s) M79.674 ; Pain in left toe(s) M79.675 and Tinea pedis of both feet B35.[address] [address] 09/28/2023 [facility] [address] [address] 02/07/2024 Ned Yu Tinea pedis of both feet B35.3 [facility] [address] [address] 06/06/2024 Ned Yu Assessments Encounter Date Diagnosis (ICD Code) Assessment Notes Treatment Notes Treatment Clinical Notes Section Notes 08/03/2023 Plantar wart (ICD-10 - B07.0) 08/03/2023 Atherosclerosis of [place] artery of both lower extremities, with unspecified presence of clinical manifestation (ICD-10 - I70.203) 09/28/2023 Pain in right foot (ICD-10 - M79.671) 11/05/2023 Plantar wart (ICD-10 - B07.0) 11/05/2023 Atherosclerosis of [place] artery of both lower extremities, with unspecified [...] unguium (ICD-10 - B35.1) 03/14/2024 Atherosclerosis of [place] artery of both lower extremities, with unspecified presence of clinical manifestation (ICD-10 - I70.203) 02/04/2024 Tinea pedis of both feet (ICD-10 - B35.3) 12/21/2023 Generalized edema (ICD-10 - R60.1) 11/05/2023 Tinea unguium (ICD-10 - B35.1) 09/28/2023 Plantar wart (ICD-10 - B07.0) 08/03/2023 Tinea unguium (ICD-10 - B35.1) 03/14/2024 Pain in right toe(s) (ICD-10 - M79.674) 08/03/2023 Pain in right foot (ICD-10 - M79.671) 11/05/2023 Pain in right foot (ICD-10 - M79.671) 03/14/2024 Pain in left toe(s) (ICD-10 - M79.675) 03/14/2024 Tinea pedis of both feet (ICD-10 - B35.3) 08/03/2023 Pain in right toe(s) (ICD-10 - M79.674) 11/05/2023 Pain in right toe(s) (ICD-10 - M79.674) 11/05/2023 Pain in left toe(s) (ICD-10 - M79.675) 08/03/2023 Pain in left toe(s) (ICD-10 - M79.675) 11/05/2023 Tinea pedis of both feet (ICD-10 - B35.3) Plan Of Treatment Pending Test Test Name Order Date X ray : Foot, left 3V 07/21/2022 X ray : Foot, right 3V 03/15/2012 89896-PJKHEJJ NAIL, 6 OR MORE 08/26/2021 16670-KBKKLUB NAIL, 6 OR MORE 11/04/2021 80384-GJZXCGY NAIL, 6 OR MORE 01/27/2022 72433-DDEJHVZ NAIL, 6 OR MORE 01/14/2021 99777-JYZLJZY NAIL, 6 OR MORE 05/27/2021 00136-UURLVRC NAIL, 6 OR MORE 09/15/2019 63177-WMVCEJX NAIL, 6 OR MORE 11/17/2019 02056-PQMVNXN NAIL, 6 OR MORE 06/11/2020 74246-FJRXHSD NAIL, 6 OR MORE 08/27/2020 20093-FUFFZER NAIL, 6 OR MORE 11/08/2020 19709-JHCVMAV NAIL, 6 OR MORE 09/15/2022 47072-ALRSIKM NAIL, 6 OR MORE 04/28/2022 03935-FCLUDJS NAIL, 6 OR MORE 12/22/2022 77786-RFUDLOA NAIL, 6 OR MORE 03/05/2023 16833-OCIAYAP NAIL, 6 OR MORE 05/25/2023 58608-UXLGQTR NAIL, 6 OR MORE 08/03/2023 61087-GLXXKMQ NAIL, 6 OR MORE 11/05/2023 04501-KEWZNEF NAIL, 6 OR MORE 02/16/2020 04967-VBQYHMQ NAIL, 6 OR MORE 03/14/2024 36400-Miod Destruction, -02/16/2020 53428-Dngy Destruction, -01/05/2012 05228-Qaeg Destruction, 03-1407/17/2011 43907-Bael Destruction, 03-1406/02/2011 87709-Mqka Destruction, 03-1403/24/2011 27652-Ohzr Destruction, 03-1411/05/2023 55560-Uark Destruction, 03-1406/29/2023 76360-Fytj Destruction, 03-1409/28/2023 81023-Nnwx Destruction, 03-1408/03/2023 60289-Igqb Destruction, 03-1405/25/2023 94448-Kuwc Destruction, 03-1403/05/2023 89550-Eivg Destruction, 03-1401/26/2023 41955-Cwet Destruction, 03-1404/13/2023 07782-Pwty Destruction, 03-1412/22/2022 88962-Cutw Destruction, 03-1406/09/2022 68408-Hxjv Destruction, 03-1410/20/2022 91351-Wjif Destruction, 03-1404/28/2022 48032-Hiwa Destruction, 03-1412/16/2021 81790-Gspm Destruction, 03-1403/13/2022 03204-Kynl Destruction, 03-1409/15/2022 53498-Hkiu Destruction, 03-1411/08/2020 48162-Evew Destruction, 03-1408/27/2020 86782-Azvp Destruction, 03-1406/11/2020 30532-Ypyk Destruction, 03-1403/29/2020 14803-Voht Destruction, 03-1407/19/2020 23676-Vtrg Destruction, 03-1411/17/2019 11563-Syfe Destruction, 03-1409/15/2019 39591-Dgmi Destruction, 03-1401/13/2011 73616-Pohp Destruction, 1-14 10/09/2011 44987-Ybwn Destruction, 1-14 08/08/2013 36938-Lmmp Destruction, -14 09/29/2013 68438-Yaeg Destruction, -14 05/27/2021 24394-Gqre Destruction, -14 03/14/2021 88253-Mzrw Destruction, -14 07/15/2021 14214-Wtxs Destruction, -14 01/14/2021 49029-Drrg Destruction, -14 10/01/2020 99001-Vvjv Destruction, -14 12/10/2020 26094-Mtem Destruction, -14 01/27/2022 97119-Xhbh Destruction, -14 11/04/2021 81523-Hdns Destruction, -08/26/2021 83266- Debride <25 sq cm 10/02/2014 47976-GFGV SKIN LESIONS, OVER 4 06/12/19 21 19095-LEKU SKIN LESIONS, OVER 4 08/28/19 21 01094-ABJX SKIN LESIONS, OVER 4 11/09/19 21 02139-MHPX SKIN LESIONS, OVER 4 08/27/19 22 54314-IQXP SKIN LESIONS, OVER 4 11/05/19 22 55153-LNRP SKIN LESIONS, OVER 4 01/28/20 22 03703-OLLS SKIN LESIONS, OVER 4 01/15/20 21 23095-IKTW SKIN LESIONS, OVER 4 05/28/19 22 01425-NHNI SKIN LESIONS, OVER 4 09/16/19 23 75125-KGOM SKIN LESIONS, OVER 4 04/28/19 23 42339-DYHQ SKIN LESIONS, OVER 4 12/23/19 23 32056-KRMB SKIN LESIONS, OVER 4 03/05/19 24 75509-UHSM SKIN LESIONS, OVER 4 05/25/19 24 93115-DMXO SKIN LESIONS, OVER 4 08/03/19 24 87289-WFQM SKIN LESIONS, OVER 4 11/05/19 24 37782-FUXP SKIN LESIONS, OVER 4 02/16/20 20 88907-VSFI SKIN LESIONS, OVER 4 03/14/19 25 82536-MVIT SKIN LESIONS, 2 TO 4 09/15/19 20 48214-HNZQ SKIN LESIONS, 2 TO 4 11/17/19 Next Appt Details Provider Name:Ned Yu , 09/05/2024 03:30:00 PM, [address] [facility], [place], [address], Insurance Providers Payer Name Payer Address Payer Phone Subscriber Number Group Number Insured Name Patient Relationship to Insured Coverage Start Date Coverage End Date Medicare National [facility] [employer] [address] [place] [address] [id number] Remy Reno Self - patient is the insured [employer] [address] [place] [address] [phone] [id number] Remy Reno Self - patient is the [...]
--- OUTSIDE RECORDS SUMMARY | 2024-07-04 14:34 | XMS_ITS ---
Author Organization [facility] Address [address] [place] [address] Care Team Providers Care Bag Inspector Name Role Phone Padilla SEBASTIAN, [place] Primary Care Provider Unava ilable Ned Yu Unavailable [phone] REASON FOR VISIT same day 06/06/24 Encounters Encounter Location Date Provider Diagnosis [address] [address] 06/06/2024 Ned Yu Plan Of Treatment Next Appt Details Provider Name:Ned Yu , 09/05/2024 03:30:00 PM, [address] [place], [address], Progress Notes * Remy RENODOB: [birth year] (74 yo M)Acc No.[id number]:06/06/2024 Patient:?Remy RENO :1950???Age:74 Y???Sex:Male Address:[address] [place] [address], [address] * true * Date:? Generated for Printi ng/Faxing/eTransmitting on:?07/04/2024 02:34 PM EDT
--- OUTSIDE RECORDS SUMMARY | 2024-07-04 14:34 | XMS_ITS ---
Author Organization [facility] Address [address] [place] [address] Care Team Providers Care Coke Crane Operator Name Role Phone Padilla SEBASTIAN, [place] Primary Care Provider Unava ilNed Killian Unavailable [phone] Encounters Encounter Location Date Provider Diagnosis [address] [address] 06/06/2024 Ned Yu Plan Of Treatment Next Appt Details Provider Name:Ned Yu , 09/05/2024 03:30:00 PM, [address] [place] [address], [address], Progress Notes * Remy TATEDOB: [birth year] (74 yo M)Acc No.[id number]:06/06/2024 Progress Note Patient:?Remy TATE Provider:?Ned Yu DPM :1950???Age:74 Y???Sex:Male Robert e:06/06/2024 Address:[address] [place] [address] Pcp:Vickey Causey MD Subjective: * Chief Complaints: [...] Yu DPM Date:?2024 Generated for Debo ferrer/Nidhi/Yue on:?07/04/2024 02:34 PM EDT
--- OUTSIDE RECORDS SUMMARY | 2024-07-04 14:34 | XMS_ITS ---
Author Organization [facility] Address [address] [place] [address] Care Team Providers Care Welder Railcar Mechanic Name Role Phone Padilla SEBASTIAN, [place] Primary Care Provider Unava ilNed Killian Unavailable [phone] Encounters Encounter Location Date Provider Diagnosis [address] [address] 04/25/2024 Ned Yu Plan Of Treatment Next Appt Details Provider Name:Ned Yu , 09/05/2024 03:30:00 PM, [address] [place] [address], [address], Progress Notes * Remy TATEDOB: [birth year] (74 yo M)Acc No.[id number]:04/25/2024 Progress Notes Patient:?Remy TATE Provider:?Ned Yu DPM :1950???Age:74 Y???Sex:Male Robert e:04/25/2024 Address:[address] [place] [address] Pcp:Vickey Causey MD Subjective: * Chief Complaints: [...]
== END 2024-07-04 14:50 | disposition home or self-care (01) ==
LOC: HO.HMCH 13:18
PROVIDERS: PCP Internal Medicine
DX: I50.43 Acute on chronic combined systolic (congestive) and diastolic (congestive) heart failure (principal); Z96.0 Presence of urogenital implants; J43.9 Emphysema, unspecified; I48.91 Unspecified atrial fibrillation; I10 Essential (primary) hypertension; R00.1 Bradycardia, unspecified

== ENCOUNTER → 2024-07-04 13:17 | Outpatient (BNVA) | payer MEDICARE, SELFPAY | PROVIDERS: PCP Internal Medicine | DX: I11.0 Hypertensive heart disease with heart failure (principal); I50.43 Acute on chronic combined systolic (congestive) and diastolic (congestive) heart failure; J43.9 Emphysema, unspecified; I48.91 Unspecified atrial fibrillation; R00.1 Bradycardia, unspecified; Z96.0 Presence of urogenital implants | CPT/HCPCS: 99212 ==

== ENCOUNTER → 2024-07-05 23:59 | Outpatient (BNV) | payer MEDICARE, SELFPAY | PROVIDERS: PCP Internal Medicine; Visit Provider Internal Medicine | DX: I13.0 Hypertensive heart and chronic kidney disease with heart failure and stage 1 through stage 4 chronic kidney disease, or unspecified chronic kidney disease (principal); I50.23 Acute on chronic systolic (congestive) heart failure; N18.31 Chronic kidney disease, stage 3a | CPT/HCPCS: G0180 ==

== ENCOUNTER 2024-07-07 06:02 | Outpatient (REF) | payer MEDICARE, SELFPAY ==
--- OUTSIDE RECORDS SUMMARY | 2024-07-07 06:04 | XMS_ITS ---
Author Organization [facility] Address [address] [place] [address] Care Team Providers Care Blow Mold Technician Name Role Phone Padilla SEBASTIAN, [place] Primary Care Provider Unava ilable Ned Yu Unavailable [phone] REASON FOR VISIT same day 06/06/24 Encounters Encounter Location Date Provider Diagnosis [address] [address] 06/06/2024 Ned Yu Plan Of Treatment Next Appt Details Provider Name:Ned Yu , 09/05/2024 03:30:00 PM, [address] [place], [address], Progress Notes * Remy RENODOB: [birth year] (74 yo M)Acc No.[id number]:06/06/2024 Patient:?Remy RENO :1950???Age:74 Y???Sex:Male Address:[address] [place] [address], [address] * true * Date:? Generated for Printi ng/Faxing/eTransmitting on:?07/07/2024 06:04 AM EDT
--- OUTSIDE RECORDS SUMMARY | 2024-07-07 06:04 | XMS_ITS | Clinical Summary ---
Author Organization Unknown Care Team Providers Care Vmware Engineer Name Role Phone PATTI SEBASTIAN, GERALD Unavailable Unavailable CLIFFORD JADE, PINO Unavailable Unavailable Payers Payer Name Policy Type Policy Number Effective Date Expira tion Date MEDICARE - [place] - PDGM [id number] Problems Condition Name Condition Details Condition Category Status Onset Date Resolution Date Last Treatment Date Treating Clinician Comments HYP HRT AND CHR KDNY DIS W HRT FAIL AND STG 1-4/UNSP CHR KDNY Active 03-01 00:00: 00 ACUTE ON CHRONIC SYSTOLIC (CONGESTIVE) HEART FAILURE Active 03-01 00:00: 00 CHRONIC KIDNEY DISEASE, STAGE 3A Active 03-01 00:00: 00 ANEMIA IN CHRONIC KIDNEY DISEASE Active 03-01 00:00: 00 PULMONARY HYPERTENSION , UNSPECIFIED Active 03-01 00:00: 00 CHRONIC ATRIAL FIBRILLATION , UNSPECIFIED Active 03-01 00:00: 00 ACUTE RESPIRATORY FAILURE WITH HYPOXIA Active 03-01 00:00: 00 EMPHYSEMA, UNSPECIFIED Active 03-01 00:00: 00 ISCHEMIC CARDIOMYOPAT HY Active 03-01 00:00: 00 PRESENCE OF AORTOCORONAR Y BYPASS GRAFT Active 03-01 00:00: 00 HYPERLIPIDEM IA, UNSPECIFIED Active 03-01 00:00: 00 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 STEROIDS Active 03-01 00:00: 00 DIE MACHINE OPERATOR (CURRENT) USE OF ANTITHROMBOT ICS/ANTIPLAT ELETS Active 03-01 00:00: 00 [facility] (CURRENT) USE OF ANTICOAGULAN TS Active 03-01 00:00: 00 OTHER [facility] (CURRENT) DRUG THERAPY Active 03-01 00:00: 00 Problems related to health literacy Active 03-01 00:00: 00 Allergies, Adverse Reactions, Alerts Allergy Name Allergy Type Status Severity Reaction(s) Onset Date Inactive Date Treating Clinician Comments LYRICA Propensity to adverse reactions Active 06-25 17:12: 50 GABAPENTIN Propensity to adverse reactions Active 06-25 17:13: 00 ZITHROMAX Propensity to adverse reactions Active 06-25 17:13: 10 Medications Ordered Medication Name Filled Medication Name Start Date Stop Date Current Medication? Ordering Clinician Indication Dosage Frequency Signature (SIG) Comments Components Dupixent 300 mg/2 mL subcutaneou s pen injector 06-20 00:00: 00 Yes [id number] 4 mL DIRECTED 4 mL DIRECTED (route: subcutaneo us) Med Classific ation: Dermatolo gical Entresto 49 mg-51 mg tablet 06-16 00:00: 00 Yes [id number] 1 tablet TWICE A DAY 1 tablet TWICE A DAY (route: oral) Med Classific ation: Cardiovas cular Therapy Agents ezetimibe 10 mg tablet 06-16 00:00: 00 Yes [id number] 1 tablet EVERY DAY 1 tablet EVERY DAY (route: oral) Med Classific ation: Cardiovas cular Therapy Agents metoprolol succinate ER 200 mg tablet,exte nded release 24 hr 06-16 00:00: 00 06-24 00:00 :00 No [id number] Per instruc tions EVERY DAY Per instructio ns EVERY DAY (route: oral) Med Classific ation: Cardiovas cular Therapy Agents OxyContin 80 mg tablet,nakita h resistant,e xtended release 05-31 00:00: 00 Yes [id number] 1 tablet EVERY 8 HOURS NEEDED FOR 28 DAYS 1 tablet EVERY 8 HOURS NEEDED FOR 28 DAYS (route: oral) Med Classific ation: Analgesic , Anti-infl ammatory or Antipyret ic rosuvastati n 40 mg tablet 05-29 00:00: 00 06-24 00:00 :00 No [id number] Per instruc tions EVERY DAY Per instructio ns EVERY DAY (route: oral) Med Classific ation: Cardiovas cular Therapy Agents oxycodone 30 mg tablet 3-30 00:00: 00 Yes [id number] 1 tablet EVERY 6 HOURS NEEDED FOR 28 DAYS 1 tablet EVERY 6 HOURS NEEDED FOR 28 DAYS (route: oral) Med Classific ation: Analgesic , Anti-infl ammatory or Antipyret ic Anoro Ellipta 62.5 mcg-25 mcg/actuati on powder for inhalation 3- 00:00: 00 Yes [id number] 1 inhalat ion INTO THE LUNGS EVERY DAY FOR 30 DAYS 1 inhalation INTO THE LUNGS EVERY DAY FOR 30 DAYS (route: inhalation ) Med Classific ation: Respirato ry Therapy Agents alendronate 70 mg tablet 06-24 00:00: 00 Yes [id number] 1 tablet WEEKLY 1 tablet WEEKLY (route: oral) Med Classific ation: Endocrine clopidogrel 75 mg tablet 06-24 00:00: 00 Yes [id number] 1 tablet DAILY 1 tablet DAILY (route: oral) Med Classific ation: Hematolog ical Agents Eliquis 5 mg tablet 06-24 00:00: 00 Yes [id number] 1 tablet 2 TIMES DAILY 1 tablet 2 TIMES DAILY (route: oral) Med Classific ation: Hematolog ical Agents Farxiga 10 mg tablet 06-24 00:00: 00 Yes [id number] 1 tablet DAILY 1 tablet DAILY (route: oral) Med Classific ation: Endocrine furosemide 20 mg tablet 06-24 00:00: 00 Yes [id number] 1 tablet DAILY 1 tablet DAILY (route: oral) Med Classific ation: Cardiovas cular Therapy Agents rosuvastati n 40 mg tablet 06-24 00:00: 00 Yes [id number] 1 tablet DAILY 1 tablet DAILY (route: oral) Med Classific ation: Cardiovas cular Therapy Agents Immunizations Ordered Immunization Name Filled Immunization Name Date Status Comments Refusal Reason RSV, RSV 2024-01-24 00:00:00 PNEUMOCOCCAL (PPV), PPV 2023-12-20 00:00:00 INFLUENZA, TIV (INACTIVATED) 2023-12-19 00:00:00 COVID-19, COVID-19 2023-11-22 00:00:00 Vital Signs Vital Name Observation Time Observation Value Commen ts Temperature 2024-07-06 14:26:00.000 98.1 [degF] Temperature 2024-06-29 12:34:00.000 98.2 [degF] Temperature 2024-06-24 10:32:00.000 97.8 [degF] BMI (%) 2024-06-24 10:32:00.000 20 kg/m2 Height 2024-06-24 10:32:00.000 71 [in_us] Pulse 2024-07-06 14:26:00.000 62 /min Pulse 2024-06-29 12:34:00.000 52 /min Pulse 2024-06-24 10:32:00.000 84 /min O2 Saturation (%) 2024-07-06 14:26:00.000 95 % O2 Saturation (%) 2024-06-29 12:34:00.000 97 % O2 Saturation (%) 2024-06-24 10:32:00.000 94 % Respirations 2024-07-06 14:26:00.000 18 /min Respirations 2024-06-29 12:34:00.000 18 /min Respirations 2024-06-24 10:32:00.000 20 /min Weight (lbs) 2024-07-06 14:26:00.000 138.9 [lb_av] Weight (lbs) 2024-06-29 12:34:00.000 145.6 [lb_av] Weight (lbs) 2024-06-24 10:32:00.000 150 [lb_av] Systolic Blood Pressure 2024-07-06 14:26:00.000 100 mm [Hg] Systolic Blood Pressure 2024-06-29 12:34:00.000 104 mm [Hg] Systolic Blood Pressure 2024-06-24 10:32:00.000 100 mm [Hg] Diastolic Blood Pressure 2024-07-06 14:26:00.000 62 mm [Hg] Diastolic Blood Pressure 2024-06-29 12:34:00.000 60 mm [Hg] Diastolic Blood Pressure 2024-06-24 10:32:00.000 54 mm [Hg] Plan of Treatment Planned Activity Planned Date Details Comments Future Scheduled Test SKILLED NU RSE TO EVALUATE PATIENT, IDENTIFY PRIMARY AND CO-MORBID CONDITIONS CODED PER CODING GUIDELINES, AND DEVELOP PATIENT SPECIFIC PLAN OF CARE THAT INCLUDES PATIENT GOAL FOR HOME HEALTH. [code = SKILLED NURSE TO EVALUATE PATIENT, IDENTIFY PRIMARY AND CO-MORBID CONDITIONS CODED PER CODING GUIDELINES, AND DEVELOP PATIENT SPECIFIC PLAN OF CARE THAT INCLUDES PATIENT GOAL FOR HOME HEALTH.] Future Scheduled Test SKILLED NU RSE FOR O/A, TEACHING, AND MANAGEMENT OF HTN, HLD, CARDIOMYOPATHY. [code = SKILLED NURSE FOR O/A, TEACHING, AND MANAGEMENT OF HTN, HLD, CARDIOMYOPATHY.] Future Scheduled Test SKILLED NU RSE TO INSTRUCT PATIENT/CAREGIVER AND PERFORM CARE AND MANAGEMENT OF INDWELLING URINARY CATHETERINDWELLING CATHETER INSERTION WITH 16 FR CATHETER WITH 10 ML BALLOON VIA STERILE TECHNIQUE, CHANGE Q MONTH AND PRN FOR LEAKING OR MALFUNCTIONING CATHETER. IRRIGATE URINARY CATHETER WITH 30-60CC NORMAL SALINE PRN BLOCKAGE/LEAKAGE, HEAVY SEDIMENT. 1 - 3 PRN RETIREMENT VISITS FOR CATHETER CHANGE(S) AND/OR TROUBLESHOOTING. [code = SKILLED NURSE TO INSTRUCT PATIENT/CAREGIVER AND PERFORM CARE AND MANAGEMENT OF INDWELLING URINARY CATHETERINDWELLING CATHETER INSERTION WITH 16 FR CATHETER WITH 10 ML BALLOON VIA STERILE TECHNIQUE, CHANGE Q MONTH AND PRN FOR LEAKING OR MALFUNCTIONING CATHETER. IRRIGATE URINARY CATHETER WITH 30-60CC NORMAL SALINE PRN BLOCKAGE/LEAKAGE, HEAVY SEDIMENT. 1 - 3 PRN RETIREMENT VISITS FOR CATHETER CHANGE(S) AND/OR TROUBLESHOOTING.] Future Scheduled Test SKILLED NU RSE FOR O/A, TEACHING AND MANAGEMENT OF CKD FOR EARLY IDENTIFICATION OF EXACERBATION OF DISEASE PROCESS [code = SKILLED NURSE FOR O/A, TEACHING AND MANAGEMENT OF CKD FOR EARLY IDENTIFICATION OF EXACERBATION OF DISEASE PROCESS] Future Scheduled Test SKILLED NU RSE FOR O/A OF RESPIRATORY SYSTEM TO IDENTIFY CHANGES ASSOCIATED WITH EXACERBATION AND TO PROVIDE SKILLED TEACHING ON MANAGEMENT OF EMPHYSEMA/RESP FAILURE PROCESS. [code = SKILLED NURSE FOR O/A OF RESPIRATORY SYSTEM TO IDENTIFY CHANGES ASSOCIATED WITH EXACERBATION AND TO PROVIDE SKILLED TEACHING ON MANAGEMENT OF EMPHYSEMA/RESP FAILURE PROCESS.] Future Scheduled Test SKILLED NU RSE TO INSTRUCT PATIENT/CAREGIVER ON SIGNS AND SYMPTOMS, RISK FACTORS, COMPLICATIONS, AND MANAGEMENT OF ATRIAL FIBRILLATION. [code = SKILLED NURSE TO INSTRUCT PATIENT/CAREGIVER ON SIGNS AND SYMPTOMS, RISK FACTORS, COMPLICATIONS, AND MANAGEMENT OF ATRIAL FIBRILLATION.] Future Scheduled Test SKILLED NU RSE TO INSTRUCT PATIENT/CAREGIVER ON COPD TO INCLUDE TEACHING AND SELF-MANAGEMENT RELATED TO COPD DISEASE PROCESS, SIGNS AND SYMPTOMS, AND COMPLICATIONS. [code = SKILLED NURSE TO INSTRUCT PATIENT/CAREGIVER ON COPD TO INCLUDE TEACHING AND SELF-MANAGEMENT RELATED TO COPD DISEASE PROCESS, SIGNS AND SYMPTOMS, AND COMPLICATIONS.] Future Scheduled Test SKILLED NU RSE FOR O/A, TEACHING AND SELF-MANAGEMENT RELATED TO HEART FAILURE. INSTRUCT PATIENT/CAREGIVER ON SIGNS AND SYMPTOMS OF EXACERBATION TO REPORT AND IMPORTANCE OF OBTAINING AND RECORDING DAILY WEIGHT AND/OR MEASUREMENTS. SN OR TRAINED PATIENT/CAREGIVER TO OBTAIN WEIGHT DAILY AND WEIGHT GAIN OF 2 LBS OVERNIGHT OR 5 LBS IN 1 WEEK TO BE REPORTED TO PHYSICIAN/PROVIDER. IF UNABLE TO WEIGH PATIENT, SN OR TRAINED PATIENT/CAREGIVER TO OBTAIN MEASUREMENT OF L CALF IN CM DAILY AND REPORT AN INCREASE OF 2 CM TO PHYSICIAN/PROVIDER. [code = SKILLED NURSE FOR O/A, TEACHING AND SELF-MANAGEMENT RELATED TO HEART FAILURE. INSTRUCT PATIENT/CAREGIVER ON SIGNS AND SYMPTOMS OF EXACERBATION TO REPORT AND IMPORTANCE OF OBTAINING AND RECORDING DAILY WEIGHT AND/OR MEASUREMENTS. SN OR TRAINED PATIENT/CAREGIVER TO OBTAIN WEIGHT DAILY AND WEIGHT GAIN OF 2 LBS OVERNIGHT OR 5 LBS IN 1 WEEK TO BE REPORTED TO PHYSICIAN/PROVIDER. IF UNABLE TO WEIGH PATIENT, SN OR TRAINED PATIENT/CAREGIVER TO OBTAIN MEASUREMENT OF L CALF IN CM DAILY AND REPORT AN INCREASE OF 2 CM TO PHYSICIAN/PROVIDER.] Future Scheduled Test SKILLED NU RSE FOR O/A AND SKILLED TEACHING RELATED TO SIGNS AND SYMPTOMS AND MANAGEMENT OF ANEMIA. [code = SKILLED NURSE FOR O/A AND SKILLED TEACHING RELATED TO SIGNS AND SYMPTOMS AND MANAGEMENT OF ANEMIA.] Future Scheduled Test PATIENT POPE S A RISK OF HOSPITALIZATION AND ED USE. SKILLED NURSE TO ESTABLISH SUPPORT MEASURES TO MINIMIZE RISK OF HOSPITALIZATION AND ED USE, AND INSTRUCT PATIENT/CAREGIVER ON METHODS TO REDUCE AVOIDABLE HOSPITALIZATION AND ED USE. [code = PATIENT HAS A RISK OF HOSPITALIZATION AND ED USE. SKILLED NURSE TO ESTABLISH SUPPORT MEASURES TO MINIMIZE RISK OF HOSPITALIZATION AND ED USE, AND INSTRUCT PATIENT/CAREGIVER ON METHODS TO REDUCE AVOIDABLE HOSPITALIZATION AND ED USE.] Future Scheduled Test SKILLED NU RSE TO PROVIDE INSTRUCTION TO PATIENT/CAREGIVER RELATED TO DISCHARGE PLANNING. [code = SKILLED NURSE TO PROVIDE INSTRUCTION TO PATIENT/CAREGIVER RELATED TO DISCHARGE PLANNING.] Future Scheduled Test SKILLED NU RSE TO PERFORM ENVIRONMENTAL SAFETY RISK ASSESSMENT AND FALL RISK ASSESSMENT AND PROVIDE INSTRUCTION TO IMPLEMENT ENVIRONMENTAL SAFETY AND FALL PREVENTION STRATEGIES THROUGHOUT THE CERTIFICATION PERIOD. SKILLED NURSE WILL MAINTAIN SITUATIONAL AWARENESS AND WILL NOTIFY CLINICAL METAL WEIGHER AND PHYSICIAN/PROVIDER WITH ANY CHANGE IN CONDITION. [code = SKILLED NURSE TO PERFORM ENVIRONMENTAL SAFETY RISK ASSESSMENT AND FALL RISK ASSESSMENT AND PROVIDE INSTRUCTION TO IMPLEMENT ENVIRONMENTAL SAFETY AND FALL PREVENTION STRATEGIES THROUGHOUT THE CERTIFICATION PERIOD. SKILLED NURSE WILL MAINTAIN SITUATIONAL AWARENESS AND WILL NOTIFY CLINICAL METAL WEIGHER AND PHYSICIAN/PROVIDER WITH ANY CHANGE IN CONDITION.] Future Scheduled Test SKILLED NU RSE FOR OBSERVATION AND ASSESSMENT OF PATIENTS PAIN LEVEL AND EFFECTIVENESS OF PAIN MANAGEMENT REGIMEN. SKILLED NURSE TO INSTRUCT PATIENT/CAREGIVER REGARDING PHARMACOLOGIC AND NON-PHARMACOLOGIC PAIN CONTROL MEASURES. SKILLED NURSE TO REPORT TO PHYSICIAN IF PAIN IS UNCONTROLLED WITH CURRENT PAIN MANAGEMENT REGIMEN. [code = SKILLED NURSE FOR OBSERVATION AND ASSESSMENT OF PATIENTS PAIN LEVEL AND EFFECTIVENESS OF PAIN MANAGEMENT REGIMEN. SKILLED NURSE TO INSTRUCT PATIENT/CAREGIVER REGARDING PHARMACOLOGIC AND NON-PHARMACOLOGIC PAIN CONTROL MEASURES. SKILLED NURSE TO REPORT TO PHYSICIAN IF PAIN IS UNCONTROLLED WITH CURRENT PAIN MANAGEMENT REGIMEN.] Future Scheduled Test SKILLED NU RSE TO ASSESS PATIENT'S SKIN INTEGRITY AND INSTRUCT PATIENT/CAREGIVER ON MEASURES TO PREVENT PRESSURE ULCERS. [code = SKILLED NURSE TO ASSESS PATIENT'S SKIN INTEGRITY AND INSTRUCT PATIENT/CAREGIVER ON MEASURES TO PREVENT PRESSURE ULCERS.] Future Scheduled Test SKILLED NU RSE TO REVIEW PATIENT MEDICATIONS (PRESCRIPTION/OTC). INSTRUCT PATIENT/CAREGIVER ON ALL MEDICATIONS INCLUDING PURPOSE, WHEN TO TAKE, IMPORTANCE OF MEDICATION ADHERENCE, MONITORING OF EFFECTIVENESS, ADVERSE DRUG REACTIONS, POSSIBLE SIDE EFFECTS, AND WHEN TO NOTIFY AGENCY OR PHYSICIAN/PROVIDER OF ANY CONCERNS. [code = SKILLED NURSE TO REVIEW PATIENT MEDICATIONS (PRESCRIPTION/OTC). INSTRUCT PATIENT/CAREGIVER ON ALL MEDICATIONS INCLUDING PURPOSE, WHEN TO TAKE, IMPORTANCE OF MEDICATION ADHERENCE, MONITORING OF EFFECTIVENESS, ADVERSE DRUG REACTIONS, POSSIBLE SIDE EFFECTS, AND WHEN TO NOTIFY AGENCY OR PHYSICIAN/PROVIDER OF ANY CONCERNS.] Goal Patient Goal - TO GET MY STR ENGTH BACK Goal Provider Goal - A PLAN OF CARE WILL BE ESTABLISHED THAT MEETS PATIENT'S RETIREMENT NEEDS AND INCLUDES PATIENT GOAL FOR HOME HEALTH. Goal Provider Goal - PATIENT/CAREGIVER WILL VERBALIZE/DEMONSTRATE MANAGEMENT OF CARDIAC DISEASE PROCESS AND EXACERBATIONS WILL BE IDENTIFIED AND PROMPTLY REPORTED THROUGHOUT THE CERTIFICATION PERIOD. Goal Provider Goal - PATIENT WILL VERBALIZE TOLERANCE OF CATHETER CHANGE AND KNOWLEDGE OF REQUIRED CARE TO MANAGE INDWELLING URINARY CATHETER WITHOUT COMPLICATIONS BY THE END OF THE CERTIFICATION PERIOD. Goal Provider Goal - PATIENT/CAREGIVER WILL VERBALIZE UNDERSTANDING OF GENITOURINARY DISEASE PROCESS, AND EXACERBATIONS OF GENITOURINARY DISEASE WILL BE PROMPTLY IDENTIFIED FOR EARLY INTERVENTION THROUGHOUT THE CERTIFICATION PERIOD. Goal Provider Goal - PATIENT/CAREGIVER WILL VERBALIZE/DEMONSTRATE MANAGEMENT OF RESPIRATORY DISEASE PROCESS. CHANGES IN RESPIRATORY STATUS WILL BE IDENTIFIED AND REPORTED TO PHYSICIAN FOR PROMPT INTERVENTION THROUGHOUT THE CERTIFICATION PERIOD. Goal Provider Goal - PATIENT/CAREGIVER WILL VERBALIZE UNDERSTANDING OF SIGNS AND SYMPTOMS, COMPLICATIONS, AND MANAGEMENT OF ATRIAL FIBRILLATION THROUGHOUT THE CERTIFICATION PERIOD. Goal Provider Goal - PATIENT/CAREGIVER WILL VERBALIZE/DEMONSTRATE KNOWLEDGE AND MANAGEMENT OF COPD BY END OF EPISODE. Goal Provider Goal - PATIENT/CAREGIVER WILL VERBALIZE/DEMONSTRATE KNOWLEDGE AND MANAGEMENT OF HEART FAILURE DISEASE PROCESS BY END OF EPISODE. Goal Provider Goal - PATIENT/CARGIVER WILL VERBALIZE UNDERSTANDING OF ANEMIA INCLUDING SIGNS AND SYMPTOMS, MANAGEMENT OF COMPLICATIONS, AND PRESCRIBED TREATMENT REGIMEN BY END OF EPISODE. Goal Provider Goal - PATIENT WILL HAVE SUPPORT MEASURES ESTABLISHED TO PREVENT HOSPITALIZATION AND ED USE AND PATIENT/CAREGIVER WILL VERBALIZE/DEMONSTRATE METHODS TO REDUCE AVOIDABLE HOSPITALIZATION AND ED USE BY END OF EPISODE. Goal Provider Goal - PATIENT/CAREGIVER WILL VERBALIZE UNDERSTANDING OF DISCHARGE PLANNING INSTRUCTIONS BY DATE OF DISCHARGE. Goal Provider Goal - PATIENT/CAREGIVER WILL VERBALIZE/DEMONSTRATE EFFECTIVE ENVIRONMENTAL SAFETY AND FALL PREVENTION STRATEGIES, WILL REMAIN SAFE IN THE COMMUNITY, AND WILL BE FREE OF DANGER TO SELF AND OTHERS THROUGHOUT THE CERTIFICATION PERIOD. Goal Provider Goal - PATIENT/CAREGIVER WILL DEMONSTRATE UNDERSTANDING OF PHARMACOLOGIC AND NONPHARMACOLOGIC PAIN CONTROL MEASURES AND PATIENT WILL HAVE IMPROVEMENT IN PAIN INTERFERING WITH ACTIVITY EVIDENCED BY PAIN CONTROLLED AT LEVEL OF 7 OR LESS BY END OF CERTIFICATION PERIOD. Goal Provider Goal - PATIENT/CAREGIVER WILL VERBALIZE UNDERSTANDING OF PRESSURE ULCER PREVENTION BY END OF THE EPISODE. Goal Provider Goal - PATIENT/CAREGIVER WILL VERBALIZE UNDERSTANDING OF EDUCATION PROVIDED ON MEDICATIONS BY THE END OF THE CERTIFICATION PERIOD. Progress Notes Progress Notes <paragraph>[Visit Date: 2024 by DEJUAN KAUFMAN LPN]:</paragraph><paragraph>SNV 5/8 ABNORMAL VITALS: N/A FALLS: NO FALLS MEDICATION CHANGES: NONE OBSERVATION AND ASSESSMENT PROVIDED: PATIENT IS ALERT AND ORIENTED X4 PLEASANT AND COOPERATIVE DURING VISIT. PATIENT AMBULATING THROUGHOUT HOME WITH SLOW STEADY GAIT, HOLDS ON TO KLINE OR FURNITURE FOR SUPPORT. SN OBSERVED SHORTNESS OF BREATH WITH MODERATE EXERTION, RECOVERS WITH REST. NO USE OF DME DEVICES. VITAL SIGNS ARE STABLE, LUNG SOUNDS ARE DIM THROUGHOUT BUT CLEAR, CHRONIC LOW BACK PAIN FROM PREVIOUS INJURY, +1 EDEMA BILATERAL LOWER EXTREMITIES, COMPRESSION BEING USED, DENIES CHEST PAIN. PATIENT HAS DONATO CATHETER IN PLACE, DENIES ANY ISSUES, SUPPLIES ARRIVED. OCCASIONAL CONSTIPATION MANAGED WITH DIETARY FIBER AND FLUIDS, LBM YESTERDAY. APPETITE ADEQUATE. EDUCATION: ENERGY CONSERVATION TECHNIQUES, LOW SODIUM DIET INTERVENTIONS NEEDED AT NEXT VISIT: ASSESSMENT COMMUNICATION WITH MD: Nathaniel HEART MD APPOINTMENT: PULM TODAY, UROLOGY 07/25 PT AND CAREGIVER INSTRUCTED TO CALL [facility] WITH ANY QUESTIONS OR CONCERNS AND/OR CHANGES IN CONDITION. PATIENT VERBALIZED UNDERSTANDING</paragraph> Encounters Start Date/Time End Date/Time Encounter Type Admission Type Attending [facility] Facility Care Department Encounter ID Discharge Date Discharge Status Discharge Condition Discharge Reason Percent Goals Met 2024-06-24 00:00:00 2024-08-22 00:00:00 Outpatient NEW ADMISSION [facility] [id number] 31.25
--- OUTSIDE RECORDS SUMMARY | 2024-07-07 06:04 | XMS_ITS ---
Author Organization [facility] Address [address] [place] [id number] Care Team Providers Care Grocery Clerk Name Role Phone Padilla SEBASTIAN, Vikcey Primary Care Provider Unava ilNed Killian Unavailable [phone] Encounters Encounter Location Date Provider Diagnosis [address] [address] 06/06/2024 Ned Yu Plan Of Treatment Next Appt Details Provider Name:Ned Yu , 09/05/2024 03:30:00 PM, [address] [place] [address], [phone], Progress Notes * Remy TATEDOB: [birth year] (74 yo M)Acc No.[id number]:06/06/2024 Progress Note Patient:?Remy TATE Provider:?Ned Yu DPM :1950???Age:74 Y???Sex:Male Robert e:06/06/2024 Address:[address] [place] [address] Pcp:Vickey Causey MD Subjective: * Chief Complaints: [...] Yu DPM Date:?2024 Generated for Debo ferrer/Nidhi/Yue on:?07/07/2024 06:04 AM EDT
--- OUTSIDE RECORDS SUMMARY | 2024-07-07 06:04 | XMS_ITS | Clinical Summary ---
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) USE OF ANTITHROMBOT ICS/ANTIPLAT ELETS Active 03-01 00:00: 00 [facility] (CURRENT) USE OF ANTICOAGULAN TS Active 03-01 00:00: 00 OTHER [facility] (CURRENT) DRUG THERAPY Active 03-01 00:00: 00 [...] s pen injector 06-20 00:00: 00 Yes [id number] 4 mL DIRECTED 4 mL DIRECTED (route: subcutaneo us) Med Classific ation: Dermatolo gical Entresto 49 mg-51 mg tablet 06-16 00:00: 00 Yes [id number] 1 tablet TWICE A DAY 1 tablet TWICE A DAY (route: oral) Med Classific ation: Cardiovas cular Therapy Agents ezetimibe 10 mg tablet 06-16 00:00: 00 Yes [id number] 1 tablet EVERY DAY 1 tablet EVERY DAY (route: oral) Med Classific ation: Cardiovas cular Therapy Agents metoprolol succinate ER 200 mg tablet,exte nded release 24 hr 06-16 00:00: 00 06-24 00:00 :00 No [id number] Per instruc tions EVERY DAY Per instructio ns EVERY DAY (route: oral) Med Classific ation: Cardiovas cular Therapy Agents OxyContin 80 mg tablet,nakita h resistant,e xtended release 05-31 00:00: 00 Yes [id number] 1 tablet EVERY 8 HOURS NEEDED FOR 28 DAYS 1 tablet EVERY 8 HOURS NEEDED FOR 28 DAYS (route: oral) Med Classific ation: Analgesic , Anti-infl ammatory or Antipyret ic rosuvastati n 40 mg tablet 05-29 00:00: 00 06-24 00:00 :00 No [id number] Per instruc tions EVERY DAY Per instructio ns EVERY DAY (route: oral) Med Classific ation: Cardiovas cular Therapy Agents oxycodone 30 mg tablet 3-30 00:00: 00 Yes [id number] 1 tablet EVERY 6 HOURS NEEDED FOR 28 DAYS 1 tablet EVERY 6 HOURS NEEDED FOR 28 DAYS (route: oral) Med Classific ation: Analgesic , Anti-infl ammatory or Antipyret ic Anoro Ellipta 62.5 mcg-25 mcg/actuati on powder for inhalation 3- 00:00: 00 Yes [id number] 1 inhalat ion INTO THE LUNGS EVERY DAY FOR 30 DAYS 1 inhalation INTO THE LUNGS EVERY DAY FOR 30 DAYS (route: inhalation ) Med Classific ation: Respirato ry Therapy Agents alendronate 70 mg tablet 06-24 00:00: 00 Yes [id number] 1 tablet WEEKLY 1 tablet WEEKLY (route: oral) Med Classific ation: Endocrine clopidogrel 75 mg tablet 06-24 00:00: 00 Yes [id number] 1 tablet DAILY 1 tablet DAILY (route: oral) Med Classific ation: Hematolog ical Agents Eliquis 5 mg tablet 06-24 00:00: 00 Yes [id number] 1 tablet 2 TIMES DAILY 1 tablet 2 TIMES DAILY (route: oral) Med Classific ation: Hematolog ical Agents Farxiga 10 mg tablet 06-24 00:00: 00 Yes [id number] 1 tablet DAILY 1 tablet DAILY (route: oral) Med Classific ation: Endocrine furosemide 20 mg tablet 06-24 00:00: 00 Yes [id number] 1 tablet DAILY 1 tablet DAILY (route: oral) Med Classific ation: Cardiovas cular Therapy Agents rosuvastati n 40 mg tablet 06-24 00:00: 00 Yes [id number] 1 tablet DAILY 1 tablet DAILY (route: [...] BLOCKAGE/LEAKAGE, HEAVY SEDIMENT. 1 - 3 PRN SNF VISITS FOR CATHETER CHANGE(S) AND/OR TROUBLESHOOTING. [code = SKILLED NURSE TO INSTRUCT PATIENT/CAREGIVER AND PERFORM CARE AND MANAGEMENT OF INDWELLING URINARY CATHETERINDWELLING CATHETER INSERTION WITH 16 FR CATHETER WITH 10 ML BALLOON VIA STERILE TECHNIQUE, CHANGE Q MONTH AND PRN FOR LEAKING OR MALFUNCTIONING CATHETER. IRRIGATE URINARY CATHETER WITH 30-60CC NORMAL SALINE PRN BLOCKAGE/LEAKAGE, HEAVY SEDIMENT. 1 - 3 PRN SNF VISITS FOR CATHETER CHANGE(S) AND/OR TROUBLESHOOTING.] Future [...] MAINTAIN SITUATIONAL AWARENESS AND WILL NOTIFY CLINICAL LEARNING PROGRAM MANAGER AND PHYSICIAN/PROVIDER WITH ANY CHANGE IN CONDITION. [code = SKILLED NURSE TO PERFORM ENVIRONMENTAL SAFETY RISK ASSESSMENT AND FALL RISK ASSESSMENT AND PROVIDE INSTRUCTION TO IMPLEMENT ENVIRONMENTAL SAFETY AND FALL PREVENTION STRATEGIES THROUGHOUT THE CERTIFICATION PERIOD. SKILLED NURSE WILL MAINTAIN SITUATIONAL AWARENESS AND WILL NOTIFY CLINICAL LEARNING PROGRAM MANAGER AND PHYSICIAN/PROVIDER WITH ANY CHANGE IN CONDITION.] [...] CARE WILL BE ESTABLISHED THAT MEETS PATIENT'S SNF NEEDS AND INCLUDES PATIENT GOAL FOR HOME [...] End Date/Time Encounter Type Admission Type Attending [facility] Facility Care Department Encounter ID Discharge Date Discharge Status Discharge Condition Discharge Reason Percent Goals Met 2024-06-24 00:00:00 2024-08-22 00:00:00 Outpatient NEW ADMISSION [facility] [id number] 31.25
--- OUTSIDE RECORDS SUMMARY | 2024-07-07 06:04 | XMS_ITS | Patient Health Record ---
Author Organization [facility] Address [address] [place] [address] Care Team Providers Care Student Teaching Coordinator Name Role Phone Padilla SEBASTIAN Headrick Primary Care Provider UnaNed Galarza Unavailable [phone] Allergies Allergen (clinical drug ingredient) Drug/Non Drug [...] W/U Status Risk Notes Problem Atherosclerosis of pauma arteries of the extremities ([id number]) Atherosclerosis of pauma artery of both lower extremities, with unspecified presence of clinical manifestation (I70.203) Active confirmed Vital Signs Blood pressure diastolic 80 mm Hg 03/14/2024 Height 5ft1in in 03/14/2024 Blood pressure systolic 120 mm Hg 03/14/2024 Weight 140 lbs 03/14/2024 BMI 26.45 kg/m2 03/14/2024 Procedures Procedure Date Ordered Date Performed Result Body Sit e 61374-PFENPRS NAIL, 6 OR MORE 08/03/2023 N/A 15100-Pfwy Destruction, 1-08/03/2023 N/A 72166-IZHF SKIN LESIONS, OVER 4 08/03/2023 N/A 12795-Kjbf Destruction, 1-09/28/2023 N/A 08677-HGVHBFX NAIL, 6 OR MORE 11/05/2023 N/A 24923-Nkak Destruction, 1-11/05/2023 N/A 28654-JOJF SKIN LESIONS, OVER 4 11/05/2023 N/A 33719-ETBBDRB NAIL, 6 OR MORE 03/14/2024 N/A 04154-SJZV SKIN LESIONS, OVER 4 03/14/2024 N/A Encounters Encounter Location Date Provider Diagnosis [facility] [address] [address] [place] [address] 08/03/2023 Ned Aimee Atherosclerosis of pauma artery of both lower extremities, with unspecified presence of clinical manifestation I70.203 ; Plantar wart B07.0 ; Tinea unguium B35.1 ; Pain in right foot M79.671 ; Pain in right toe(s) M79.674 and Pain in left toe(s) M79.[address] [address] 09/28/2023 Ned Aimee Pain in right foot M79.671 and Plantar wart B07.[address] [address] 11/05/2023 Ned Aimee Atherosclerosis of pauma artery of both lower extremities, with unspecified presence of clinical manifestation I70.203 ; Plantar wart B07.0 ; Tinea unguium B35.1 ; Pain in right foot M79.671 ; Pain in right toe(s) M79.674 ; Pain in left toe(s) M79.675 and Tinea pedis of both feet B35.[address] [address] 12/21/2023 Ned Aimee Cellulitis of foot, right L03.115 ; Cellulitis of foot, left L03.116 and Generalized edema R60.[address] [address] 02/04/2024 Ned Aimee Cellulitis of foot, right L03.115 ; Cellulitis of foot, left L03.116 and Tinea pedis of both feet B35.[address] [address] 03/14/2024 Ned Aimee Atherosclerosis of pauma artery of both lower extremities, with unspecified presence of clinical manifestation I70.203 ; Tinea unguium B35.1 ; Pain in right toe(s) M79.674 ; Pain in left toe(s) M79.675 and Tinea pedis of both feet B35.[address] [address] 09/28/2023 [facility] [address] [address] 02/07/2024 Ned Yu Tinea pedis of both feet B35.3 [facility] [address] [address] 06/06/2024 Ned Yu Assessments Encounter Date Diagnosis (ICD Code) Assessment Notes Treatment Notes Treatment Clinical Notes Section Notes 08/03/2023 Atherosclerosis of pauma artery of both lower extremities, with unspecified presence of clinical manifestation (ICD-10 - I70.203) 09/28/2023 Pain in right foot (ICD-10 - M79.671) 08/03/2023 Plantar wart (ICD-10 - B07.0) 11/05/2023 Plantar wart (ICD-10 - B07.0) 11/05/2023 Atherosclerosis of pauma artery of both lower extremities, with unspecified [...] unguium (ICD-10 - B35.1) 03/14/2024 Atherosclerosis of pauma artery of both lower extremities, with unspecified presence of clinical manifestation (ICD-10 - I70.203) 12/21/2023 Generalized edema (ICD-10 - R60.1) 03/14/2024 Pain in right toe(s) (ICD-10 - M79.674) 02/04/2024 Tinea pedis of both feet (ICD-10 - B35.3) 11/05/2023 Tinea unguium (ICD-10 - B35.1) 08/03/2023 Tinea unguium (ICD-10 - B35.1) 09/28/2023 Plantar wart (ICD-10 - B07.0) 08/03/2023 Pain [...] X ray : Foot, right 3V 03/15/2012 05013-SZIEJOJ NAIL, 6 OR MORE 09/15/2019 57776-CRKQFFE NAIL, 6 OR MORE 11/17/2019 98721-LYBXCHL NAIL, 6 OR MORE 02/16/2020 42803-OLLORYQ NAIL, 6 OR MORE 06/11/2020 07299-XGGYSBJ NAIL, 6 OR MORE 08/27/2020 19609-QXGXQCQ NAIL, 6 OR MORE 11/08/2020 56301-OKVCOXX NAIL, 6 OR MORE 01/14/2021 78201-YWCXPTE NAIL, 6 OR MORE 05/27/2021 30821-DEVWNWS NAIL, 6 OR MORE 08/26/2021 13401-AARUHQR NAIL, 6 OR MORE 09/15/2022 88725-RJHZEZH NAIL, 6 OR MORE 12/22/2022 92247-WMPNJZG NAIL, 6 OR MORE 11/04/2021 34516-CZWWJBK NAIL, 6 OR MORE 01/27/2022 43153-RKBNFEQ NAIL, 6 OR MORE 04/28/2022 49515-LUFDRDV NAIL, 6 OR MORE 03/05/2023 18753-SKBNGRI NAIL, 6 OR MORE 05/25/2023 90847-OJJQMQY NAIL, 6 OR MORE 08/03/2023 43452-FERPQEY NAIL, 6 OR MORE 11/05/2023 42307-BCDPLDL NAIL, 6 OR MORE 03/14/2024 71876-Ihrb Destruction, -14 11/05/2023 00770-Mgjk Destruction, -14 06/29/2023 66246-Fmbm Destruction, -09/28/2023 55010-Nkfr Destruction, 14 08/03/2023 98355-Vljf Destruction, -14 05/25/2023 42674-Emtk Destruction, 03-1403/05/2023 60301-Yrnw Destruction, 03-1401/26/2023 81296-Yfpg Destruction, 03-1404/13/2023 42679-Hvoz Destruction, 03-1404/28/2022 01784-Ojkl Destruction, 03-1412/16/2021 36190-Esah Destruction, 03-1403/13/2022 71006-Jlle Destruction, 03-1401/27/2022 49976-Bflc Destruction, 03-1411/04/2021 49807-Sejo Destruction, 03-1412/22/2022 30743-Yznq Destruction, 03-1406/09/2022 14641-Pszl Destruction, 03-1410/20/2022 35175-Vvhy Destruction, 03-1409/15/2022 49942-Bnbb Destruction, 03-1408/26/2021 14936-Nkhh Destruction, 03-1403/14/2021 18850-Icjy Destruction, 03-1407/15/2021 34880-Yaqg Destruction, 03-1405/27/2021 71559-Htia Destruction, 03-1401/14/2021 89323-Ujye Destruction, 03-1411/08/2020 30760-Egls Destruction, 03-1410/01/2020 18744-Spqa Destruction, 03-1412/10/2020 44119-Kkpo Destruction, 03-1408/27/2020 71378-Jurb Destruction, 03-1403/29/2020 81868-Qbxj Destruction, 03-1407/19/2020 25887-Tsqw Destruction, -14 06/11/2020 94215-Iteb Destruction, -14 02/16/2020 53062-Htix Destruction, -14 11/17/2019 44123-Auve Destruction, -14 09/15/2019 50977-Mkem Destruction, -14 08/08/2013 35865-Zkcj Destruction, -14 09/29/2013 68200-Xfzf Destruction, -14 2011 24383-Pkmk Destruction, -14 03/24/2011 94834-Gwrx Destruction, -14 06/02/2011 38568-Bkkx Destruction, -07/17/2011 30091-Zmhb Destruction, 03-1410/09/2011 66800-Xlwr Destruction, -14 01/05/2012 42730- Debride <25 sq cm 10/02/2014 15365-IEPM SKIN LESIONS, OVER 4 02/16/20 20 60475-COJX SKIN LESIONS, OVER 4 06/12/19 21 31062-UTQF SKIN LESIONS, OVER 4 08/28/19 21 51748-ZDZA SKIN LESIONS, OVER 4 11/09/19 21 59697-NPJO SKIN LESIONS, OVER 4 01/15/20 21 06411-HXDV SKIN LESIONS, OVER 4 05/28/19 22 45607-ETHN SKIN LESIONS, OVER 4 08/27/19 22 16154-IMTH SKIN LESIONS, OVER 4 09/16/19 23 04619-HNUK SKIN LESIONS, OVER 4 12/23/19 23 55303-QGNA SKIN LESIONS, OVER 4 11/05/19 22 72403-LWEO SKIN LESIONS, OVER 4 01/28/20 22 86653-NJQB SKIN LESIONS, OVER 4 04/28/19 23 53669-NHEI SKIN LESIONS, OVER 4 03/05/19 24 55067-TXUG SKIN LESIONS, OVER 4 05/25/19 24 10520-GSCT SKIN LESIONS, OVER 4 08/03/19 24 65332-PQEV SKIN LESIONS, OVER 4 11/05/19 24 02213-TZDW SKIN LESIONS, OVER 4 03/14/19 25 86739-CFDM SKIN LESIONS, 2 TO 4 09/15/19 20 85629-JEAE SKIN LESIONS, 2 TO 4 11/17/19 Next Appt Details Provider Name:Ned Yu , 09/05/2024 03:30:00 PM, [address] [facility], [place], [address], Insurance Providers Payer Name Payer Address Payer Phone Subscriber Number Group Number Insured Name Patient Relationship to Insured Coverage Start Date Coverage End Date Medicare National [facility] [employer] [address] [place] [address] [id number] Remy Reno Self - patient is the insured [employer] [address] [place] [address] [phone] [id number] Remy Ren[place] Self - patient is the [...]
--- OUTSIDE RECORDS SUMMARY | 2024-07-07 06:05 | XMS_ITS ---
Author Organization [facility] Address [address] [place] [address] Care Team Providers Care Contract Serviceman Name Role Phone Padilla SEBASTIAN, Vickey Primary Care Provider Unava ilNed Killian Unavailable [phone] Encounters Encounter Location Date Provider Diagnosis [address] [address] 04/25/2024 Ned Yu Plan Of Treatment Next Appt Details Provider Name:Ned Yu , 09/05/2024 03:30:00 PM, [address] [place] [address], [address], Progress Notes * Remy TATEDOB: [birth year] (74 yo M)Acc No.[id number]:04/25/2024 Progress Notes Patient:?Remy TATE Provider:?Ned Yu DPM :1950???Age:74 Y???Sex:Male Robert e:04/25/2024 Address:[address] [place] [address] Pcp:Vickey Causey MD Subjective: * Chief Complaints: [...]
[2024-07-07 06:17] LABS: MANUAL DIFF FLAG NO
[2024-07-07 07:42] LABS: Basophils Percent Auto 0.7 % (0-2); Eosinophils Absolute Auto 0.4 X10*3/uL (0.0-0.4); Eosinophils Percent Auto 6.4 % (0-4); Hematocrit 33.1 % (42.0-52.0); Hemoglobin 10.7 g/dl (14.0-18.0); Imm Gran Abs Auto 0.02 X10*3/uL (0.00-0.03); Imm Gran Pct Auto 0.3 % (0.0-0.4); Lymphocytes Absolute Auto 1.2 X10*3/uL (1.2-4.9); Lymphocytes Percent Auto 20.2 % (20-40); Mean Corpuscular HGB Conc 32.3 g/dl (31.0-36.0); Mean Corpuscular Hemoglobin 33.8 pg (27.0-33.0); Mean Corpuscular Volume 104.4 fL (80.0-98.0); Mean Platelet Volume 9.2 fL (9.4-12.4); Monocytes Absolute Auto 0.9 X10*3/uL (0.1-1.2); Monocytes Percent Auto 14.6 % (2-11); Neutrophils Absolute Auto 3.5 x10*3/uL (2.0-8.3); Neutrophils Percent Auto 57.8 % (45-73); Platelet Count 387 X10*3/uL (160-400); Red Blood Count 3.17 X10*6/uL (4.60-5.80); Red Cell Distribution Width 16.4 % (11.0-16.0); White Blood Count 6.1 X10*3/uL (4.8-10.8)
[2024-07-07 07:55] LABS: Appearance Urine Cloudy; Color Urine Yellow; Glucose Urine UA >=1000 mg/dL (Negative); Leukocyte Esterase Urine Negative (Negative); Nitrite Urine Negative (Negative); PH 5.5 (5.0-9.0); Specific Gravity - Urine >= 1.030 (1.005-1.025); UMIC TRIGGER UACC YES; Urine Blood Moderate (2+) (Negative); Urine Ketones Negative (Negative); Urine Protein 100 (2+) mg/dL (Neg-Trace)
[2024-07-07 08:18] LABS: Bacteria Urine 1+ (None Seen); Granular Casts Urine Present; Hyaline Casts Urine 0-2 /LPF (0-2); WBC Urine 0-5 /HPF (0-5)
[2024-07-07 08:23] LABS: Alanine Aminotransferase 17 U/L (0-40); Albumin Level 3.6 g/dL (3.5-5.0); Alkaline Phosphatase 75 U/L (39-117); Anion Gap 16 (12-20); Aspartate Amino Transferase 39 U/L (5-37); Bilirubin Total 0.2 mg/dL (0.0-1.0); Blood Urea Nitrogen 36 mg/dL (9-16); Calcium 8.7 mg/dL (8.4-10.2); Carbon Dioxide 23 mmol/L (22-29); Chloride 102 mmol/L (96-108); Cholesterol 94 mg/dL (<200); Estimated Glomerular Filt Rate 33; Glucose Fasting 99 mg/dL (60-99); HDL Cholesterol 48 mg/dL (>40); LDL Cholesterol Calculated 36 mg/dL (<100); Sodium 136 mmol/L (135-145); Total Protein 7.5 g/dL (6.5-8.0); Triglycerides 54 mg/dL (<150)
== END 2024-07-07 06:03 | disposition home or self-care (01) ==
LOC: HO.LAB 06:02
PROVIDERS: PCP Internal Medicine; Visit Provider Internal Medicine
DX: D64.9 Anemia, unspecified (principal); E78.00 Pure hypercholesterolemia, unspecified
CPT/HCPCS: 36415; 80053; 80061; 81001; 81003; 85025

== ENCOUNTER 2024-07-10 13:06 | Outpatient (AMB) | payer MEDICARE, SELFPAY ==
--- NOTE | 2024-07-10 13:11 | A.OFFPC_ITS ---
Vital Signs 07/10/24 13:12 Height 5 ft 11 in Weight 139 lb BMI 19.4 BP 100/62 Blood Pressure Location Lt brachial Position Sitting Pulse 78 Pulse Source Pulse Oximeter Pulse Oximetry (%) 94 Oxygen Delivery Method Room Air Intake Visit Reasons: 3 Months f/u Maintenance Of Way Superintendent Required: No Accompanied by: Self / Same As Patient Allergies gabapentin [GABAPENTIN] Allergy (Severe, Verified 07/17/24 09:14) PASSED OUT , syncopal episodes at 800 mg TID azithromycin [From ZITHROMAX Z-DESIREE] Allergy (Intermediate, Verified 07/17/24 09:14) SWELLING pregabalin Adverse Reaction (Unknown, Verified 07/17/24 09:14) severe muscle pain Medication List - Last Reconciled 07/17/24 by Vickey Causey MD alendronate 70 mg PO HUFF apixaban 5 mg PO BID clopidogrel 75 mg PO DAILY dapagliflozin propanediol (Farxiga) 10 mg PO DAILY dupilumab (Dupixent) 300 mg subcut Q2W ezetimibe 10 mg PO DAILY folic acid 1 mg PO DAILY hydrocortisone 2.5% 1 appl topical BID PRN nystatin 1 appl topical TID oxycodone 30 mg PO Q6H PRN 28 days oxycodone ER (OxyContin) 80 mg PO Q8H OxyContin ER (oxycodone) 80 mg PO .q8hrs 28 days NS rosuvastatin 40 mg PO DAILY sacubitril-valsartan 49-51 mg 1 tab PO BID umeclidinium-vilanterol 62.5-25 mcg/actuation (Anoro Ellipta) 1 ea inhalation DAILY Tobacco use date assessed: 07/10/24 Fall risk assessment: 1 Fall in past year Last assessed Fall Risk: 07/10/24 Dental Screening Dental Screen Date: 07/10/24 Did you have a dental visit in the last 12 months?: Yes Did you have a dental problem in the last 6 months where you did not have access to dental care?: No Was dental information given to patient?: Patient has dentist HPI 3 Months f/u HPI Details Patient comes in today for his follow up visit States that he currently feels okay and appears to have mostly recovered from his hospitalization last month for acute heart failure and JIM Patient denies any headaches or dizziness Denies any chest pains, no increased SOB No nausea/vomiting, no abdominal pain No change in bowel habits noted States that his chronic low back pain remains adequately controlled on his current Rx Adds that he has a cyst on his right 3rd finger that has been present for a while now and it seems to have gotten bigger lately - would like to see if he can have this removed He had his folllow up labs done a few days ago - to discuss his results [facility] Medical History Erythema intertrigo Nummular eczematous dermatitis Allergic rhinitis Chronic kidney disease (CKD) Vitamin D deficiency Pure hypercholesterolemia Benign essential hypertension Atrial fibrillation Chronic combined systolic and diastolic congestive heart failure Coronary artery disease Rheumatoid arthritis Degenerative disc disease, cervical Lumbar degenerative disc disease Surgical History History of coronary angioplasty History of hernia repair H/O wrist surgery History of arthroscopy of right knee History of coronary artery bypass graft Family History Father Past heart attack Mother Pneumonia Daughter Healthy adult Social History Housing: House Alcohol intake: current Alcohol intake frequency: holidays/special occasions only Patient Tobacco Use Status: Former Tobacco user e-Cigarette/Vaping Use: Never Used Second Hand Smoke Exposure: Yes service: Yes ([employer]) Current occupational status: retired and disabled Current occupation: right hand dominant Cognitive needs: Yes (cane) Hearing needs: Yes (hearing aide) Vision needs: Yes (glasses) Questionnaire PHQ-9 Over the last 2 weeks, how often have you been bothered by any of the following problems? 1. Little interest or pleasure in doing things: not at all 2. Feeling down, depressed, or hopeless: not at all 3. Trouble falling or staying asleep, or sleeping too much: not at all 4. Feeling tired or having little energy: several days 5. Poor appetite or overeating: not at all 6. Feeling bad about yourself - or that you are a failure or have let yourself or your family down: not at all 7. Trouble concentrating on things, such as reading the newspaper or watching television: not at all 8. Moving or speaking so slowly that other people could have noticed. Or the opposite - being so fidgety or restless that you have been moving around a lot more than usual: several days 9. Thoughts that you would be better off or of hurting yourself in some way: not at all Total score: 2 Depression Screening Interpretation: Negative Depression Screening Done: Yes 54962 - PHQ-9 Billing: Yes Source: Developed by Drs. Arben Noriega, Mona Gonzalez, Jerrod Adams and colleagues, with an educational arlen from [employer]. Thrive Questionnaire Date Thrive assessed: 07/10/24 I am a: Patient What is your living situation today?: I have a steady place to live Within the past 12 months, did the food you bought not last and you didn't have the money to get more?: Never true Within the past 12 months, did you worry whether your food would run out before you got money to buy more?: Never true Do you have trouble paying for medicines?: No Do you have trouble getting transportation to medical appointments?: No Do you have trouble paying your heating and electricity bill?: No Do you have trouble taking care of your child, family member or friend?: No Do you have trouble with day-to-day activities such as bathing, preparing meals, shopping, managing finances, etc.?: Yes Are you currently unemployed and looking for a job?: No Are you interested in more education?: No Please select the resources that you would like help with: None Currently or been in a relationship where the following occur: No concerns reported THRIVE Score: 0 AUDIT C Alcohol Use Questionnaire (AUDIT-C) 1. How often do you have a drink containing alcohol?: Monthly or less 2. How many drinks containing alcohol do you have on a typical day when you are drinking?: 1 or 2 3. How often do you have six or more drinks on one occasion?: Never Total Score: 1 Score Reviewed/Action Taken: No NILESH-7 AMB Questionnaire NILESH-7 Date NILESH - 7 assessed: 07/10/24 Feeling nervous, anxious, or on edge: 0 = Not at all Not being able to stop or control worryin = Not at all Worrying too much about different things: 0 = Not at all Trouble relaxin = Not at all Being so restless that it is hard to sit still: 0 = Not at all Becoming easily annoyed or irritable: 0 = Not at all Feeling afraid as if something awful might happen: 0 = Not at all Total NILESH-7 score (0-4 normal; 5-9 mild; 10-14 moderate; 15-21 severe): 0 Source: Developed by Drs. Arben Noriega, Mona Gonzalez, Jerrod Adams and colleagues, with an educational arlen from [employer]. NILESH-7 Assessment Billing NILESH-7 Assessment Tool: NILESH-7 Assessment 05800 Review of Systems Const Denies chills, Reports fatigue, Denies fever(s) and Denies headache(s) ENT Denies dysphagia, Denies dizziness, Denies otalgia, Denies headache(s), Reports hearing loss (both ears - now wears hearing aids), Reports hoarseness, Reports neck pain (chronic), Denies odynophagia and Denies sore throat Card Denies chest pain, Denies palpitations and Reports dyspnea on exertion (mild - better with current inhaler (Anoro)) Resp Denies chest congestion, Reports cough (on and off; non-productive), Denies pain on inspiration, Reports dyspnea on exertion (mild - better with current inhaler (Anoro)) and Denies wheezing GI Denies abdominal pain, Denies constipation, Denies dysphagia, Denies heartburn, Denies diarrhea, Denies nausea, Denies odynophagia and Denies vomiting Denies dysuria, Denies nocturia and Denies urinary frequency Musc Reports back pain (over the lumbar spine - chronic), Reports arthralgias (over multiple joints - increased lately in the left shoulder) and Reports neck pain (chronic) Skin/Breast Details: (+) large cyst on the right 3rd finger Reports rash (over both feet and over the groin areas - improving now with treatment) Neuro Denies dizziness and Denies headache(s) Endo Reports fatigue and Denies palpitations Aller/Immun Denies wheezing Physical exam (Primary Care) Vital Signs: Last Vital Signs Pulse 78 07/10/24 13:12 BP 100/62 07/10/24 13:12 Pulse Ox 94 07/10/24 13:12 Oxygen Delivery Method Room Air 07/10/24 13:12 BMI result Body Mass Index 19.4 Tobacco/Smoking Status: Tobacco use Status Tobacco use date assessed 07/10/24 07/10/24 13:17 Patient Tobacco Use Status Former Tobacco user 07/10/24 13:17 e-Cigarette/Vaping Use Never Used 07/10/24 13:17 PHQ-9: PHQ-9 Score PHQ-9: Total score 2 07/17/24 09:14 Depression Screening Interpretation: Negative Thrive Assessment: Date of Thrive Assessment Date Thrive assessed 07/10/24 07/10/24 13:17 Currently or been in a relationship where the following occur: No concerns reported Const General: no acute distress and alert HENMT Ears: TM's normal bilaterally and EAC's normal Throat: Yes posterior oropharynx normal and Yes tonsils normal (no TP congestion noted) Neck Neck: No lymphadenopathy and Yes tender Thyroid: Thyroid normal Resp Auscultation: clear to auscultation bilaterally, no rales and no wheezes Cardio Rate: regular rate Rhythm: abnormal rhythm irregularly irregular Heart sounds: no murmurs GI Palpation (GI): Soft to palpation and nontender Auscultation: normal bowel sounds General: Yes no CVA tenderness Back/Spine/Pelvis Back: no CVA tenderness Cervical Spine: Cervical spine tenderness Thoracic/Lumbar Spine: lumbar spinal tenderness Skin Other: (+) scaling rash over the soles of both feet; (+) erythematous patchy rash over the groin and scrotal areas (per patient) Extrem Other: (+) large cyst over the middle IP joint of the right 3rd finger General: Yes no clubbing, cyanosis or edema Right upper extremity: shoulder/upper arm Details: tenderness (mild) Location: of the A-C joint and Extremity exam: right hand Details: tenderness and no swelling Left upper extremity: shoulder/upper arm Details: tenderness (increased) Location: of the A-C joint and hand Details: tenderness Location: of the thumb Location: at the proximal phalanx, abnormal ROM of finger Details: unable to flex or extend Location: of the thumb and no swelling Results Reviewed Results Reviewed: Laboratory Tests 07/07/24 07/07/24 06:13 06:16 WBC 6.1 Hgb 10.7 L D Hct 33.1 L D Plt Count 387 D Sodium 136 Potassium 5.0 Creatinine 2.00 H Estimated GFR 33 Fasting Glucose 99 Calcium 8.7 D AST 39 H ALT 17 Triglycerides 54 Cholesterol 94 LDL Cholesterol, Calc 36 HDL Cholesterol 48 Ur Specific [place] >= 1.030 H Urine Protein 100 (2+) H Urine Glucose (UA) >=1000 H Urine Blood Moderate (2+) H Urine Nitrite Negative Ur Leukocyte Esterase Negative Coding Level of Care Code Est Pt Level 4 (61412) Diagnoses Chronic combined systolic and diastolic congestive heart failure I50.42 Atrial fibrillation, unspecified type I48.91 Atrial fibrillation type: unspecified Coronary artery disease involving [place] coronary artery of [place] heart without angina pectoris I25.10 Associated angina: without angina Coronary Disease-Associated Artery/Lesion type: [place] artery [place] vs. transplanted heart: [place] heart Pure hypercholesterolemia E78.00 Benign essential hypertension I10 Pulmonary emphysema, unspecified emphysema type J43.9 COPD type: emphysema Emphysema type: unspecified Rheumatoid arthritis with positive rheumatoid factor, involving unspecified site M05.9 Rheumatoid arthritis location: unspecified site Rheumatoid factor presence: with rheumatoid factor Renal insufficiency N28.9 Impaired fasting glucose R73.01 Monocytosis D72.821 Degeneration of intervertebral disc of lumbar region with discogenic back pain and lower extremity pain M51.362 Disc-related pain type: discogenic back pain and lower extremity pain Degenerative disc disease, cervical M50.30 Vitamin D deficiency E55.9 Allergic rhinitis, unspecified seasonality, unspecified trigger J30.9 Allergic rhinitis seasonality: unspecified Allergic rhinitis trigger: unspecified Nummular eczematous dermatitis L30.0 Erythema intertrigo L30.4 Epidermoid cyst of finger L72.0 Additional Codes NILESH-7 Assessment Billing - NILESH-7 Assessment Tool: NILESH-7 Assessment 60231 ([id number]) PHQ-9 - 34224 - PHQ-9 Billing: Yes ([id number]) Assessment & Plan Assessment & Plan (1) Chronic combined systolic and diastolic congestive heart failure: Comment: Echocardiogram done back on 01/20/2019 revealed significantly reduced ejection fraction at 27% with grade 2 diastolic dysfunction, severe global hypokinesia with regional variation and dilatation of the left atrium, left ventricle and right ventricle; RV systolic function is also moderately reduced Code(s): I50.42 - Chronic combined systolic (congestive) and diastolic (congestive) heart failure Category: Medical Plan: Patient currently remains compensated - continue Entresto 49-51 mg BID and Dapagliflozin 10 mg QD He continues to be hoarse - have advised him that his hoarseness may be due to his inhaler(s) He has been advised to consider ICD placement in the past, which he declined - we have urged him to consider pursuing this in light of his heart condition and have emphasized to him that an ICD can be potentially life-saving (for him) as his risk of sudden cardiac is higher than normal Follow up with cardiology at the heart failure clinic at [facility] as scheduled (2) Atrial fibrillation: Code(s): I48.91 - Unspecified atrial fibrillation Category: Medical Qualifiers: Atrial fibrillation type: unspecified Qualified Code(s): I48.91 - Unspecified atrial fibrillation Plan: Patient remains rate-controlled on Metoprolol ER 200 mg QD Continue Eliquis 5 mg BID for thromboembolism prophylaxis (3) Coronary artery disease: Comment: S/P CABD x 5 in 1991; recent cardiac CT done showed (+) multi-vessel disease and patient was advised aggressive risk reduction 2018 or 2019, by pass at [facility] Code(s): I25.10 - Atherosclerotic heart disease of [place] coronary artery without angina pectoris Category: Medical Qualifiers: Associated angina: without angina Coronary Disease-Associated Artery/Lesion type: [place] artery [place] vs. transplanted heart: [place] heart Qualified Code(s): I25.10 - Atherosclerotic heart disease of [place] coronary artery without angina pectoris Plan: Continue Clopidogrel 75 mg QD and Metoprolol ER 200 mg QD He still has Nitrostat 0.4 mg to take SL PRN for chest pains Follow up with cardiology as scheduled (4) Pure hypercholesterolemia: Code(s): E78.00 - Pure hypercholesterolemia, unspecified Category: Medical Plan: Results of his labs done a few days ago reviewed and discussed with patient Reinforced low cholesterol diet Continue Rosuvastatin 40 mg QD Will recheck his labs and fasting lipids in 3 months for follow up (5) Benign essential hypertension: Code(s): I10 - Essential (primary) hypertension Category: Medical Plan: Reinforced low-sodium diet - goal is systolic BP of at least 130 to 140 mm or less Continue Metoprolol ER 200 mg QD; he is also on Entresto 49-51 mg BID He is reminded to continue monitoring his blood pressure regularly (6) COPD (chronic obstructive pulmonary disease): Code(s): J44.9 - Chronic obstructive pulmonary disease, unspecified Category: Medical Qualifiers: COPD type: emphysema Emphysema type: unspecified Qualified Code(s): J43.9 - Emphysema, unspecified Plan: Continue Anoro Ellipta 62.5-25 mcg 1 inhalation QD Patient has been advised that his recurrent hoarseness may actually be due to his Anoro inhaler Have instructed him to start gargling and rinsing his mouth a few times followed by drinking at least a half glass of water after he uses his Anoro Ellipta everyday to rinse out any residue of the medication from his throat and mouth and if this works - patient notes some improvement of his hoarseness since Follow up with pulmonary as scheduled Patient is advised to call at any time if he feels that his current respiratory symptoms are getting worse and he feels more SOB (7) Rheumatoid arthritis: Code(s): M06.9 - Rheumatoid arthritis, unspecified Category: Medical Qualifiers: Rheumatoid arthritis location: unspecified site Rheumatoid factor presence: with rheumatoid factor Qualified Code(s): M05.9 - Rheumatoid arthritis with rheumatoid factor, unspecified Plan: Continue Enbrel 50 mg subcutaneous injection once every 2 weeks and Folic acid tablet 1 mg QD Follow-up with Rheumatology (Dr. West) at [facility] as scheduled (8) Renal insufficiency: Code(s): N28.9 - Disorder of kidney and ureter, unspecified Category: Medical Plan: Patient's GFR and serum creatinine declined back in April 2023 but have recovered somewhat a few months later in July 2023, and they have remained mostly unchanged on his recent lab His numbers though indicate that he is now likely in stage 3 CKD Have reminded patient to make sure he stays hydrated (orally) although he has to remember that he also cannot drink too much due to his cardiac Hx (CHF) Will continue to monitor his renal function closely/regularly have him recheck his labs in 3 months for follow up (9) Impaired fasting glucose: Code(s): R73.01 - Impaired fasting glucose Category: Medical Plan: His HgbA1c was normal at 5.3% when checked a few months ago; in-office HgbA1c was also normal at 5.1% previously Reinforced low calorie/low carb diet (10) Monocytosis: Code(s): D72.821 - Monocytosis (symptomatic) Category: Medical Plan: Patient was still slightly anemic on his most recent labs a few months ago; his monocytes population have been slowly increasing over the past few months His Hgb electrophoresis done last week came back normal (11) Lumbar degenerative disc disease: Code(s): M51.36 - Other intervertebral disc degeneration, lumbar region Category: Medical Qualifiers: Disc-related pain type: discogenic back pain and lower extremity pain Qualified Code(s): M51.362 - Other intervertebral disc degeneration, lumbar region with discogenic back pain and lower extremity pain Plan: Reinforced activity and weight lifting restrictions Continue Oxycodone 30 mg Q 6 hours as needed, Oxycodone ER 80 mg Q 8 hours , Tizanidine 4 mg TID PRN and Lidoderm patch 5% 1 patch apply to affected area QD PRN for pain Follow-up with [facility] as scheduled (12) Degenerative disc disease, cervical: Code(s): M50.30 - Other cervical disc degeneration, unspecified cervical region Category: Medical Plan: States that his current medications help keep his neck pain manageable (13) Vitamin D deficiency: Code(s): E55.9 - Vitamin D deficiency, unspecified Category: Medical Plan: Continue Vitamin D3 1000 units QD (14) Allergic rhinitis: Code(s): J30.9 - Allergic rhinitis, unspecified Category: Medical Qualifiers: Allergic rhinitis seasonality: unspecified Allergic rhinitis trigger: unspecified Qualified Code(s): J30.9 - Allergic rhinitis, unspecified Plan: Continue Cetirizine 10 mg QD PRN (15) Nummular eczematous dermatitis: Code(s): L30.0 - Nummular dermatitis Category: Medical Plan: He was seen by Dr. De Jesus and was continued on Triamcinolone 0.1% cream BID for his feet Follow up with dermatology as scheduled (16) Erythema intertrigo: Code(s): L30.4 - Erythema intertrigo Category: Medical Plan: Continue Nystatin powder [id number] units/gm TID by dermatology (17) Epidermoid cyst of finger: Comment: (+) large cyst over the middle IP joint of the right 3rd finger Code(s): L72.0 - Epidermal cyst Category: Medical Plan: Will refer him to orthopedics for further evaluation and management Plan Follow-up in 3 months Orders: Orders Comprehensive Rogers. Panel Fast 3 Months E78.00 - Pure hypercholesterolemia, unspecified TSH reflex Free T4 3 Months E78.00 - Pure hypercholesterolemia, unspecified Complete Blood Count Auto Diff 3 Months D64.9 - Anemia, unspecified B Type Natriuretic Peptide 3 Months I50.9 - Heart failure, unspecified Lipid Panel 3 Months E78.00 - Pure hypercholesterolemia, unspecified UA CC w/rflx Micro + Cult 3 Months R30.0 - Dysuria Vitamin D 25-OH Total 3 Months E55.9 - Vitamin D deficiency, unspecified Referrals Orthopedics Referral L72.0 - Epidermal cyst
[2024-07-10 13:12] VITALS: BP 100/62; PULSE 78; O2SAT 94; BMI 19.4
--- OUTSIDE RECORDS SUMMARY | 2024-07-10 13:24 | XMS_ITS ---
Author Organization [facility] Address [address] [place] [id number] Care Team Providers Care Inserting Machine Operator Name Role Phone Padilla SEBASTIAN, [place] Primary Care Provider Unava ilable Ned Yu Unavailable [phone] REASON FOR VISIT same day 06/06/24 Encounters Encounter Location Date Provider Diagnosis [address] [address] 06/06/2024 Ned Yu Plan Of Treatment Next Appt Details Provider Name:Ned Yu , 09/05/2024 03:30:00 PM, [address] [place], [address], Progress Notes * Remy RENODOB: [birth year] (74 yo M)Acc No.[id number]:06/06/2024 Patient:?Remy RENO :1950???Age:74 Y???Sex:Male Address:[address] [place] [address], [address] * true * Date:? Generated for Printi ng/Faxing/eTransmitting on:?07/10/2024 01:24 PM EDT
--- OUTSIDE RECORDS SUMMARY | 2024-07-10 13:25 | XMS_ITS ---
Author Organization [facility] Address [address] [place] [id number] Care Team Providers Care Wood Heel Fitter Machine Name Role Phone Padilla SEBASTIAN, Vickey Primary Care Provider Unava ilNed Killian Unavailable [phone] Encounters Encounter Location Date Provider Diagnosis [address] [address] 04/25/2024 Ned Yu Plan Of Treatment Next Appt Details Provider Name:Ned Yu , 09/05/2024 03:30:00 PM, [address] [place] [address], [phone], Progress Notes * Remy TATEDOB: [birth year] (74 yo M)Acc No.[id number]:04/25/2024 Progress Notes Patient:?Remy TATE Provider:?Ned uY DPM :1950???Age:74 Y???Sex:Male Robert e:04/25/2024 Address:[address] [place] [address] Pcp:Vickey Causey MD Subjective: * Chief Complaints: [...] Yu DPM Date:?2024 Generated for Debo ferrer/Nidhi/Yue on:?07/10/2024 01:25 PM EDT
--- OUTSIDE RECORDS SUMMARY | 2024-07-10 13:25 | XMS_ITS ---
Author Organization [facility] Address [address] [place] [phone] Care Team Providers Care Geographic Information Systems Manager Name Role Phone Padilla SEBASTIAN, Vickey Primary Care Provider Unava ilNed Killian Unavailable [phone] Encounters Encounter Location Date Provider Diagnosis [address] [address] 06/06/2024 Ned Yu Plan Of Treatment Next Appt Details Provider Name:Ned Yu , 09/05/2024 03:30:00 PM, [address] [place] [address], [phone], Progress Notes * Remy TATEDOB: [birth year] (74 yo M)Acc No.[id number]:06/06/2024 Progress Note Patient:?Remy TATE Provider:?Ned Yu DPM :1950???Age:74 Y???Sex:Male Robert e:06/06/2024 Address:[address] [place] [address] Pcp:Vickey Causey MD Subjective: * Chief Complaints: [...] DPM Date:?2024 Generated for Debo ferrer/Nidhi/Yue on:?07/10/2024 01:24 PM EDT
--- OUTSIDE RECORDS SUMMARY | 2024-07-10 13:25 | XMS_ITS | Clinical Summary ---
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) USE OF INHALED STEROIDS Active 03-01 00:00: 00 GROUP HOME (CURRENT) USE OF ANTITHROMBOT ICS/ANTIPLAT ELETS Active 03-01 00:00: 00 GROUP HOME (CURRENT) USE OF ANTICOAGULAN TS Active 03-01 00:00: 00 OTHER GROUP HOME (CURRENT) DRUG THERAPY Active 03-01 00:00: 00 [...] s pen injector 06-20 00:00: 00 Yes [id number] 4 mL DIRECTED 4 mL DIRECTED (route: subcutaneo us) Med Classific ation: Dermatolo gical Entresto 49 mg-51 mg tablet 06-16 00:00: 00 Yes [id number] 1 tablet TWICE A DAY 1 tablet TWICE A DAY (route: oral) Med Classific ation: Cardiovas cular Therapy Agents ezetimibe 10 mg tablet 06-16 00:00: 00 Yes [id number] 1 tablet EVERY DAY 1 tablet EVERY DAY (route: oral) Med Classific ation: Cardiovas cular Therapy Agents metoprolol succinate ER 200 mg tablet,exte nded release 24 hr 06-16 00:00: 00 06-24 00:00 :00 No [id number] Per instruc tions EVERY DAY Per instructio ns EVERY DAY (route: oral) Med Classific ation: Cardiovas cular Therapy Agents OxyContin 80 mg tablet,nakita h resistant,e xtended release 05-31 00:00: 00 Yes [id number] 1 tablet EVERY 8 HOURS NEEDED FOR 28 DAYS 1 tablet EVERY 8 HOURS NEEDED FOR 28 DAYS (route: oral) Med Classific ation: Analgesic , Anti-infl ammatory or Antipyret ic rosuvastati n 40 mg tablet 05-29 00:00: 00 06-24 00:00 :00 No [id number] Per instruc tions EVERY DAY Per instructio ns EVERY DAY (route: oral) Med Classific ation: Cardiovas cular Therapy Agents oxycodone 30 mg tablet 3-30 00:00: 00 Yes [id number] 1 tablet EVERY 6 HOURS NEEDED FOR 28 DAYS 1 tablet EVERY 6 HOURS NEEDED FOR 28 DAYS (route: oral) Med Classific ation: Analgesic , Anti-infl ammatory or Antipyret ic Anoro Ellipta 62.5 mcg-25 mcg/actuati on powder for inhalation 3- 00:00: 00 Yes [id number] 1 inhalat ion INTO THE LUNGS EVERY DAY FOR 30 DAYS 1 inhalation INTO THE LUNGS EVERY DAY FOR 30 DAYS (route: inhalation ) Med Classific ation: Respirato ry Therapy Agents alendronate 70 mg tablet 06-24 00:00: 00 Yes [id number] 1 tablet WEEKLY 1 tablet WEEKLY (route: oral) Med Classific ation: Endocrine clopidogrel 75 mg tablet 06-24 00:00: 00 Yes [id number] 1 tablet DAILY 1 tablet DAILY (route: oral) Med Classific ation: Hematolog ical Agents Eliquis 5 mg tablet 06-24 00:00: 00 Yes [id number] 1 tablet 2 TIMES DAILY 1 tablet 2 TIMES DAILY (route: oral) Med Classific ation: Hematolog ical Agents Farxiga 10 mg tablet 06-24 00:00: 00 Yes [id number] 1 tablet DAILY 1 tablet DAILY (route: oral) Med Classific ation: Endocrine furosemide 20 mg tablet 06-24 00:00: 00 Yes [id number] 1 tablet DAILY 1 tablet DAILY (route: oral) Med Classific ation: Cardiovas cular Therapy Agents rosuvastati n 40 mg tablet 06-24 00:00: 00 Yes [id number] 1 tablet DAILY 1 tablet DAILY (route: [...] BLOCKAGE/LEAKAGE, HEAVY SEDIMENT. 1 - 3 PRN DETENTION VISITS FOR CATHETER CHANGE(S) AND/OR TROUBLESHOOTING. [code = SKILLED NURSE TO INSTRUCT PATIENT/CAREGIVER AND PERFORM CARE AND MANAGEMENT OF INDWELLING URINARY CATHETERINDWELLING CATHETER INSERTION WITH 16 FR CATHETER WITH 10 ML BALLOON VIA STERILE TECHNIQUE, CHANGE Q MONTH AND PRN FOR LEAKING OR MALFUNCTIONING CATHETER. IRRIGATE URINARY CATHETER WITH 30-60CC NORMAL SALINE PRN BLOCKAGE/LEAKAGE, HEAVY SEDIMENT. 1 - 3 PRN DETENTION VISITS FOR CATHETER CHANGE(S) AND/OR TROUBLESHOOTING.] Future [...] MAINTAIN SITUATIONAL AWARENESS AND WILL NOTIFY CLINICAL VOLCANOLOGIST AND PHYSICIAN/PROVIDER WITH ANY CHANGE IN CONDITION. [code = SKILLED NURSE TO PERFORM ENVIRONMENTAL SAFETY RISK ASSESSMENT AND FALL RISK ASSESSMENT AND PROVIDE INSTRUCTION TO IMPLEMENT ENVIRONMENTAL SAFETY AND FALL PREVENTION STRATEGIES THROUGHOUT THE CERTIFICATION PERIOD. SKILLED NURSE WILL MAINTAIN SITUATIONAL AWARENESS AND WILL NOTIFY CLINICAL VOLCANOLOGIST AND PHYSICIAN/PROVIDER WITH ANY CHANGE IN CONDITION.] [...] CARE WILL BE ESTABLISHED THAT MEETS PATIENT'S DETENTION NEEDS AND INCLUDES PATIENT GOAL FOR HOME [...] End Date/Time Encounter Type Admission Type Attending [facility] Facility Care Department Encounter ID Discharge Date Discharge Status Discharge Condition Discharge Reason Percent Goals Met 2024-06-24 00:00:00 2024-08-22 00:00:00 Outpatient NEW ADMISSION [facility] [id number] 31.25
--- OUTSIDE RECORDS SUMMARY | 2024-07-10 13:25 | XMS_ITS | Patient Health Record ---
Author Organization [facility] Address [address] [place] [address] Care Team Providers Care Spindle Setter Name Role Phone Padilla SEBASTIAN Mears Primary Care Provider UnaNed Galarza Unavailable [phone] Allergies Allergen (clinical drug ingredient) Drug/Non Drug [...] W/U Status Risk Notes Problem Atherosclerosis of kiowa tribe arteries of the extremities (737781404748691) Atherosclerosis of kiowa tribe artery of both lower extremities, with unspecified presence of clinical manifestation (I70.203) Active confirmed Vital Signs Blood pressure diastolic 80 mm Hg 03/14/2024 Height 5ft1in in 03/14/2024 Blood pressure systolic 120 mm Hg 03/14/2024 Weight 140 lbs 03/14/2024 BMI 26.45 kg/m2 03/14/2024 Procedures Procedure Date Ordered Date Performed Result Body Sit e 24960-XILQQRN NAIL, 6 OR MORE 08/03/2023 N/A 71469-Umfa Destruction, 1-08/03/2023 N/A 10828-KPLK SKIN LESIONS, OVER 4 08/03/2023 N/A 90063-Ijvi Destruction, 1-09/28/2023 N/A 56650-XAGDSRD NAIL, 6 OR MORE 11/05/2023 N/A 63229-Rrzl Destruction, 1-11/05/2023 N/A 83016-EICT SKIN LESIONS, OVER 4 11/05/2023 N/A 77358-PGWFFDW NAIL, 6 OR MORE 03/14/2024 N/A 34356-GKCO SKIN LESIONS, OVER 4 03/14/2024 N/A Encounters Encounter Location Date Provider Diagnosis [facility] [place] [address] [place] [address] 08/03/2023 Ned Aimee Atherosclerosis of kiowa tribe artery of both lower extremities, with unspecified presence of clinical manifestation I70.203 ; Plantar wart B07.0 ; Tinea unguium B35.1 ; Pain in right foot M79.671 ; Pain in right toe(s) M79.674 and Pain in left toe(s) M79.[address] [address] 09/28/2023 Ned Aimee Pain in right foot M79.671 and Plantar wart B07.[address] [address] 11/05/2023 Ned Aimee Atherosclerosis of kiowa tribe artery of both lower extremities, with unspecified presence of clinical manifestation I70.203 ; Plantar wart B07.0 ; Tinea unguium B35.1 ; Pain in right foot M79.671 ; Pain in right toe(s) M79.674 ; Pain in left toe(s) M79.675 and Tinea pedis of both feet B35.[address] [address] 12/21/2023 Ned Aimee Cellulitis of foot, right L03.115 ; Cellulitis of foot, left L03.116 and Generalized edema R60.[address] [address] 02/04/2024 Ned Aimee Cellulitis of foot, right L03.115 ; Cellulitis of foot, left L03.116 and Tinea pedis of both feet B35.[address] [address] 03/14/2024 Ned Aimee Atherosclerosis of kiowa tribe artery of both lower extremities, with unspecified presence of clinical manifestation I70.203 ; Tinea unguium B35.1 ; Pain in right toe(s) M79.674 ; Pain in left toe(s) M79.675 and Tinea pedis of both feet B35.[address] [address] 09/28/[address] [facility] [address] [address] 02/07/2024 Ned Yu Tinea pedis of both feet B35.3 [facility] [address] [address] 06/06/2024 Ned Yu Assessments Encounter Date Diagnosis (ICD Code) Assessment Notes Treatment Notes Treatment Clinical Notes Section Notes 08/03/2023 Atherosclerosis of kiowa tribe artery of both lower extremities, with unspecified presence of clinical manifestation (ICD-10 - I70.203) 09/28/2023 Pain in right foot (ICD-10 - M79.671) 08/03/2023 Plantar wart (ICD-10 - B07.0) 11/05/2023 Plantar wart (ICD-10 - B07.0) 11/05/2023 Atherosclerosis of kiowa tribe artery of both lower extremities, with unspecified [...] unguium (ICD-10 - B35.1) 03/14/2024 Atherosclerosis of kiowa tribe artery of both lower extremities, with unspecified [...] X ray : Foot, right 3V 03/15/2012 63437-WSKUSRB NAIL, 6 OR MORE 09/15/2019 14854-QYJKBTA NAIL, 6 OR MORE 11/17/2019 44943-OIANVAJ NAIL, 6 OR MORE 02/16/2020 89787-ZQTMCQX NAIL, 6 OR MORE 06/11/2020 35274-VMAFSOU NAIL, 6 OR MORE 08/27/2020 63360-VSXQCOS NAIL, 6 OR MORE 11/08/2020 52416-LGDSYTZ NAIL, 6 OR MORE 01/14/2021 12278-KXSQUJU NAIL, 6 OR MORE 05/27/2021 62216-ROVQWEA NAIL, 6 OR MORE 08/26/2021 15825-RQEJWTE NAIL, 6 OR MORE 09/15/2022 16785-MDLSFPY NAIL, 6 OR MORE 12/22/2022 03564-SMBZLHO NAIL, 6 OR MORE 11/04/2021 81737-YUJPWDD NAIL, 6 OR MORE 01/27/2022 98119-JEWMFIE NAIL, 6 OR MORE 04/28/2022 25638-NFGEADU NAIL, 6 OR MORE 03/05/2023 09496-TWEKSWN NAIL, 6 OR MORE 05/25/2023 03717-ZNFDGAG NAIL, 6 OR MORE 08/03/2023 66474-XLNVXRW NAIL, 6 OR MORE 11/05/2023 36912-YJNINUQ NAIL, 6 OR MORE 03/14/2024 56782-Xycs Destruction, -14 11/05/2023 53635-Hncy Destruction, -14 06/29/2023 42133-Jxqo Destruction, -09/28/2023 49642-Gohw Destruction, 14 08/03/2023 12790-Gcfo Destruction, -14 05/25/2023 97157-Qqiz Destruction, 03-1403/05/2023 41356-Kxyj Destruction, 03-1401/26/2023 16600-Udcx Destruction, 03-1404/13/2023 23765-Mjau Destruction, 03-1404/28/2022 81363-Wggj Destruction, 03-1412/16/2021 80243-Aonw Destruction, 03-1403/13/2022 39372-Nlpk Destruction, 03-1401/27/2022 54633-Olei Destruction, 03-1411/04/2021 95502-Ppln Destruction, 03-1412/22/2022 69247-Xcdi Destruction, 03-1406/09/2022 49872-Fpvf Destruction, 03-1410/20/2022 88083-Uynr Destruction, 03-1409/15/2022 80355-Njrr Destruction, 03-1408/26/2021 43115-Owgq Destruction, 03-1403/14/2021 44606-Lyqt Destruction, 03-1407/15/2021 06312-Lewz Destruction, 03-1405/27/2021 61658-Mgdu Destruction, 03-1401/14/2021 71675-Enpx Destruction, 03-1411/08/2020 43483-Kemp Destruction, 03-1410/01/2020 37005-Szen Destruction, 03-1412/10/2020 69192-Ojsv Destruction, 03-1408/27/2020 84003-Fjzg Destruction, 03-1403/29/2020 32240-Jgfs Destruction, 03-1407/19/2020 72533-Rmpm Destruction, -14 06/11/2020 54520-Iqfq Destruction, -14 02/16/2020 11883-Gkfx Destruction, -14 11/17/2019 22757-Owqs Destruction, -14 09/15/2019 45756-Odla Destruction, -14 08/08/2013 31151-Dmbj Destruction, -14 09/29/2013 41005-Csle Destruction, -14 2011 95508-Uxsf Destruction, -14 03/24/2011 02443-Wwng Destruction, -14 06/02/2011 45340-Uvan Destruction, -07/17/2011 88648-Hjji Destruction, 03-1410/09/2011 94822-Akbt Destruction, -14 01/05/2012 55138- Debride <25 sq cm 10/02/2014 22441-OBHU SKIN LESIONS, OVER 4 02/16/20 20 18959-ISZU SKIN LESIONS, OVER 4 06/12/19 21 13844-AXET SKIN LESIONS, OVER 4 08/28/19 21 28918-TZZV SKIN LESIONS, OVER 4 11/09/19 21 89252-OBEB SKIN LESIONS, OVER 4 01/15/20 21 64418-FMFT SKIN LESIONS, OVER 4 05/28/19 22 67875-CYGR SKIN LESIONS, OVER 4 08/27/19 22 03522-OCZJ SKIN LESIONS, OVER 4 09/16/19 23 15985-LMAE SKIN LESIONS, OVER 4 12/23/19 23 82326-NLJF SKIN LESIONS, OVER 4 11/05/19 22 71790-JMEL SKIN LESIONS, OVER 4 01/28/20 22 01501-RVBF SKIN LESIONS, OVER 4 04/28/19 23 87301-BXZF SKIN LESIONS, OVER 4 03/05/19 24 67004-ATCP SKIN LESIONS, OVER 4 05/25/19 24 46847-KPNE SKIN LESIONS, OVER 4 08/03/19 24 81084-UPFG SKIN LESIONS, OVER 4 11/05/19 24 82739-ANAS SKIN LESIONS, OVER 4 03/14/19 25 02646-OLSG SKIN LESIONS, 2 TO 4 09/15/19 20 30177-DVTA SKIN LESIONS, 2 TO 4 11/17/19 Next Appt Details Provider Name:Ned Yu , 09/05/2024 03:30:00 PM, [address] [facility], [place], [address], Insurance Providers Payer Name Payer Address Payer Phone Subscriber Number Group Number Insured Name Patient Relationship to Insured Coverage Start Date Coverage End Date Medicare [employer] [facility] [employer] [address] [place] [address] [id number] Remy Reno Self - patient is the insured [employer] [address] [place] [address] [id number] Remy Reno Self - patient is the [...]
== END 2024-07-10 14:00 | disposition home or self-care (01) ==
LOC: HO.HMCH 13:07
PROVIDERS: PCP Internal Medicine; Visit Provider Internal Medicine
DX: I50.42 Chronic combined systolic (congestive) and diastolic (congestive) heart failure (principal); I48.91 Unspecified atrial fibrillation; J43.9 Emphysema, unspecified; M05.9 Rheumatoid arthritis with rheumatoid factor, unspecified; I25.10 Atherosclerotic heart disease of native coronary artery without angina pectoris; E78.00 Pure hypercholesterolemia, unspecified; I10 Essential (primary) hypertension; N28.9 Disorder of kidney and ureter, unspecified; R73.01 Impaired fasting glucose; D72.821 Monocytosis (symptomatic); M51.362 Other intervertebral disc degeneration, lumbar region with discogenic back pain and lower extremity pain; M50.30 Other cervical disc degeneration, unspecified cervical region

== ENCOUNTER → 2024-07-10 13:06 | Outpatient (BNVA) | payer MEDICARE, SELFPAY | PROVIDERS: PCP Internal Medicine; Visit Provider Internal Medicine | DX: I11.0 Hypertensive heart disease with heart failure (principal); I50.42 Chronic combined systolic (congestive) and diastolic (congestive) heart failure; I48.91 Unspecified atrial fibrillation; E78.00 Pure hypercholesterolemia, unspecified; J43.9 Emphysema, unspecified; M05.9 Rheumatoid arthritis with rheumatoid factor, unspecified; N28.9 Disorder of kidney and ureter, unspecified; R73.01 Impaired fasting glucose; D72.821 Monocytosis (symptomatic); M51.362 Other intervertebral disc degeneration, lumbar region with discogenic back pain and lower extremity pain; M50.30 Other cervical disc degeneration, unspecified cervical region; E55.9 Vitamin D deficiency, unspecified; J30.9 Allergic rhinitis, unspecified; L30.0 Nummular dermatitis; L30.4 Erythema intertrigo; L72.0 Epidermal cyst | CPT/HCPCS: 96127; 99212 ==

== ENCOUNTER 2024-07-25 14:16 | Outpatient (AMB) | payer MEDICARE, SELFPAY ==
--- NOTE | 2024-07-25 14:20 | MHC.OFFVIS ---
Intake Visit Reasons: Urinary retention/UA Intake Note: New patient presents today for initial visit for urinary retention (catheterized) Urology Medication:None Blood Thinner:Apixaban, Clopidogrel Antibiotic Allergies:Azithromycin Allergies gabapentin [GABAPENTIN] Allergy (Severe, Verified 07/25/24 14:27) PASSED OUT , syncopal episodes at 800 mg TID azithromycin [From ZITHROMAX Z-DESIREE] Allergy (Intermediate, Verified 07/25/24 14:27) SWELLING pregabalin Adverse Reaction (Unknown, Verified 07/25/24 14:27) severe muscle pain HPI Comments Details: Remy is a pleasant male. He is a patient of Dr. Causey. He is seen for the following urologic conditions - urinary retention Recent admission to [facility] secondary to cardiac issues Failed voiding trial with urinary retention Theodore catheter placed No medications included Voiding trial in office today Failed voiding trial Prostate medication started 4 week follow-up repeat voiding trial Urinary retention Recent admission to [facility] cardiac related issues Found to be in urinary retention Catheter placed No prostate medications initially given PFS Medical History Erythema intertrigo Nummular eczematous dermatitis Allergic rhinitis Chronic kidney disease (CKD) Vitamin D deficiency Pure hypercholesterolemia Benign essential hypertension Atrial fibrillation Chronic combined systolic and diastolic congestive heart failure Coronary artery disease Rheumatoid arthritis Degenerative disc disease, cervical Lumbar degenerative disc disease Surgical History History of coronary angioplasty History of hernia repair H/O wrist surgery History of arthroscopy of right knee History of coronary artery bypass graft Family History Father Past heart attack Mother Pneumonia Daughter Healthy adult Social History Housing: House Alcohol intake: current Alcohol intake frequency: holidays/special occasions only Patient Tobacco Use Status: Former Tobacco user e-Cigarette/Vaping Use: Never Used Second Hand Smoke Exposure: Yes service: Yes ([employer]) Current occupational status: retired and disabled Current occupation: right hand dominant Cognitive needs: Yes (cane) Hearing needs: Yes (hearing aide) Vision needs: Yes (glasses) Review of Systems Const Denies chills and Denies fever(s) Card Reports no additional complaints and Denies syncope Resp Denies cough GI Denies abdominal pain and Denies heartburn Reports as per HPI and Denies change in libido Neuro Denies syncope Psych Denies change in libido Endo Denies change in libido Physical Exam Const General: cooperative, healthy appearing, comfortable and no acute distress Orientation/consciousness: patient oriented x3 HEENT Face and sinus: Yes normal facial exam Mouth: moist mucous membranes Neck Neck: Yes normal visual inspection, Yes full ROM and Yes trachea midline Chest Chest palpation & inspection: normal inspection of the chest Resp Effort & Inspection: normal respiratory effort, able to speak in complete sentences and no respiratory distress GI Inspection: Yes normal to inspection Back/Spine/Pelvis Cervical Spine: normal cervical lordosis Thoracic/Lumbar Spine: thoracic and lumbar spine normal to inspection Skin General skin exam: no rashes or lesions noted Neuro General: patient oriented x3, gait normal, tone normal and moves all extremities Extrem General: Yes normal to inspection and Yes capillary refill normal Office Procedures Bladder/Catheter Procedure Details: Patient presents to office for voiding trial s/p hospitalization. 120mls sterile water instilled through catheter, patient tolerated well. Removed 16fr theodore catheter, patient tolerated removal well. Patient not able to void. Reviewed with Dr. Cade- insert new 16fr theodore catheter, teach cycling to patient for bladder have patient repeat VT in 4 weeks with nursing. Patient understood all information. Dr. Cade explained all information to patient who was present for visit as well. Patient to make 4 week appointment with nursing for repeat voiding trial. 89418-Kqtqgeactn of Bladder 07697-Jwvcha Temporary Bladder Catheter Procedure code (CPT) selection complete Assessment & Plan Assessment & Plan (1) Urinary retention: Code(s): R33.9 - Retention of urine, unspecified Category: Medical (2) Chronic kidney disease (CKD): Code(s): N18.9 - Chronic kidney disease, unspecified Category: Medical Plan 4 week follow-up voiding trial Orders: Orders AMB Bladder/Catheter Procedure Today R33.9 - Retention of urine, unspecified Medications: New finasteride 5 mg PO DAILY 90 tabs 1RF 90 days R33.9 - Retention of urine, unspecified tamsulosin (Flomax) 0.4 mg PO BEDTIME 90 tabs 1RF 90 days R33.9 - Retention of urine, unspecified Patient Instructions: This note is constructed using voice recognition software. While every effort has been made to ensure accuracy breaker table worker errors may have been included. Imaging studies, laboratory and physical exam results were discussed and reviewed in detail. No major barriers to patient understanding were identified. An opportunity to ask questions regarding the treatment plan was provided. All questions were answered. The patient expressed understanding and agreement with the above treatment plan. The patient is aware they should contact our office by phone for worsening of their current condition or the appearance of new urologic symptoms. Compliance is encouraged with any medications and followup testing that is ordered. It is a privilege to participate in the urologic care of your patient. If you have any questions or concerns regarding treatment for the above conditions, or other urologic issues, please do not hesitate to contact me. The office telephone contact is [phone]. Sincerely, Dr Marcus Cade MD, [facility] - Urology Compassionate Specialist Care for the Genitourinary System Coding Level of Care Code New Pt Level 4 (36907) Diagnoses Urinary retention R33.9 Chronic kidney disease (CKD) N18.9 CPT Codes Bladder/Catheter Procedure - CPT: 11530-Comrchjniz of Bladder ([id number]) Bladder/Catheter Procedure - CPT: 96683-Rczbtg Temporary Bladder Catheter ([id number])
--- OUTSIDE RECORDS SUMMARY | 2024-07-25 14:25 | XMS_ITS ---
Author Organization [facility] Address [address] [place] [address] Care Team Providers Care Wick And Base Assembler Name Role Phone Padilla SEBASTIAN, [place] Primary Care Provider Unava ilable Ned Yu Unavailable [phone] REASON FOR VISIT same day rs 06/06/24 Encounters Encounter Location Date Provider Diagnosis [address] [address] 06/06/2024 Ned Yu Plan Of Treatment Next Appt Details Provider Name:Ned Yu , 09/05/2024 03:30:00 PM, [address] [place], [address], Progress Notes * Remy RENODOB: [birth year] (74 yo M)Acc No.[id number]:06/06/2024 Patient:?Remy RENO :1950???Age:74 Y???Sex:Male Address:[address] [place] [address], [address] * true * Date:? Generated for Printi ng/Faxing/eTransmitting on:?07/25/2024 02:25 PM EDT
== END 2024-07-25 15:35 | disposition home or self-care (01) ==
LOC: HO.HUSH 14:17
PROVIDERS: PCP Internal Medicine; Visit Provider Urology
DX: R33.9 Retention of urine, unspecified (principal); N18.9 Chronic kidney disease, unspecified
CPT/HCPCS: 51700; 99204

== ENCOUNTER → 2024-07-25 14:16 | Outpatient (BNVA) | payer MEDICARE, SELFPAY | PROVIDERS: PCP Internal Medicine; Visit Provider Urology | DX: R33.9 Retention of urine, unspecified (principal); N18.9 Chronic kidney disease, unspecified | CPT/HCPCS: 51700; 99202 ==

== ENCOUNTER → 2024-08-23 08:59 | Outpatient (BNVA) | payer MEDICARE, SELFPAY | PROVIDERS: PCP Internal Medicine; Visit Provider Urology | DX: R33.9 Retention of urine, unspecified (principal) | CPT/HCPCS: 51700; 51702 ==

== ENCOUNTER 2024-09-04 14:20 | Outpatient (REF) | payer SELFPAY ==
--- OUTSIDE RECORDS SUMMARY | 2024-06-06 12:00 | XMS_ITS ---
Author Organization [facility] Address [address] [place] [phone] Care Team Providers Care Rf Test Technician Name Role Phone Padilla SEBASTIAN, Vickey Primary Care Provider Unava ilNed Killian Unavailable [phone] Encounters Encounter Location Date Provider Diagnosis [address] [address] 06/06/2024 Ned Yu Plan Of Treatment Next Appt Details Provider Name:Ned Yu , 09/05/2024 03:30:00 PM, [address] [place] [address], [phone], Progress Notes * Remy TATEDOB: [birth year] (74 yo M)Acc No.[id number]:06/06/2024 Progress Note Patient: Tere Remy GAONA Provider: Caprice Yu DPM :1950 A ge:74 Y S ex:Male Date:06/06/2024 Address:[address] [place] [address] Pcp:Vickey Causey MD Subjective: * Chief Complaints: [...] 0 06/06/2024 Generated for Debo ferrer/Nidhi/Yue on: 0 09/04/2024 02:51 PM EDT
--- OUTSIDE RECORDS SUMMARY | 2024-09-04 14:51 | XMS_ITS | Patient Health Record ---
Author Organization [facility] Address [address] [place] [address] Care Team Providers Care Stone Spreader Operator Name Role Phone Padilla SEBASTIAN, [place] Primary Care Provider Christopher Chen Jr Unavailable Allergies Allergen (clinical drug ingredient) Drug/Non Drug Allergy documented on EMR Reaction Allergy Type Onset Date Status ? antibiotic (uncoded) Unknown Allergy Active Reason For Referral No Information Medications Medication SIG (Take, Route, Frequency, Duration) Notes Start Date End Date Status OxyCONTIN 80mg 1 tablet Orally TID Active Aspirin 81 MG 1 tablet Orally Once a day Active Nitroglycerin 0.4 MG 1 patch to skin rem ove after 12 hours Translingual prn Active Enbrel 50 MG/ML 1 ml Subcutaneous ev gilles week Active Methotrexate 50mg 1 as directed every weel Active Colyte with Flavor Packs 240 GM As directed Orally Over the specified time. for 1 day(s) Active Folic Acid 1mg 1 capsule Orally Onc e a day Active Clopidogrel Bisulfate 75 MG 1 tablet Ora lly Once a day Active Metoprolol & Diet Manage Prod 100mg 1 po QD Active Lisinopril 5mg 1 tablet Orally Once a day Active Social History Tobacco Use: Social History Observation Description Date Details (start date - stop date) Current Smoker NA - NA Tobacco Use/Smoking Question Answer Notes Patient is a current smoker How often do you smoke cigarettes? every day How many cigarettes a day do you smoke? 5 or les s How soon after you wake up d o you smoke your first cigarette? after 60 minutes Are you interested in quitting? Thinking about q uitting Problems Problem Type SNOMED Code ICD Code Onset Dates Problem Status W/U Status Risk Notes Problem 395584341 Colon cancer screening (Z12.11) Active confirmed Problem 885505293 Long-term use of aspirin therapy (Z79.82) Active confirmed Plan Of Treatment Future Test Test Name Order Date COLONOSCOPY 11/10/2012 COLONOSCOPY 07/08/2016 Insurance Providers Payer Name Payer Address Payer Phone Subscriber Number Group Number Insured Name Patient Relationship to Insured Coverage Start Date Coverage End Date [facility] [address] [facility] [place] [phone] [id number] PAT TATE Self - patient is the insured Medical (General) History Medical History History ICD Code coronary disease with history of IA back pain rheumatoid arthritis Surgical History Surgery Date(Month/Year) left knee arthroscopy right knee arthroscopy CABG X 5 foot surgery ventral hernia repair
== END 2024-09-04 14:21 | disposition home or self-care (01) ==
LOC: HO.HAP 14:20
PROVIDERS: Visit Provider Internal Medicine
DX: Z46.1 Encounter for fitting and adjustment of hearing aid (principal); H90.3 Sensorineural hearing loss, bilateral
CPT/HCPCS: V5267

== ENCOUNTER 2024-09-15 09:34 | Outpatient (AMB) | payer MEDICARE, SELFPAY ==
--- NOTE | 2024-09-15 09:31 | A.OFFVIS_ITS ---
Intake Visit Reasons: Cysto w/VT Intake Note: patient presents today for follow up visit cystoscopy & voiding trial for retention Urology Medication:finasteride , tamsulosin Blood Thinner:Apixaban, Clopidogrel Antibiotic Allergies:Azithromycin Claim Agent Required: No Accompanied by: Self / Same As Patient Allergies gabapentin (GABAPENTIN) Allergy (Severe, Verified 11/20/24 11:15) PASSED OUT , syncopal episodes at 800 mg TID azithromycin (From ZITHROMAX Z-DESIREE) Allergy (Intermediate, Verified 11/20/24 11:15) SWELLING pregabalin Adverse Reaction (Unknown, Verified 11/20/24 11:15) severe muscle pain HPI Comments Details: Remy is a pleasant male. He is a patient of Dr. Causey. He is seen for the following urologic conditions - urinary retention Recent admission to [facility] secondary to cardiac issues Failed voiding trial with urinary retention Theodore catheter placed No medications included Voiding trial in office today Failed voiding trial Prostate medication started 4 week follow-up repeat voiding trial Cystoscopy open bladder neck, short prostate PVR 250 cc Recommend double voiding Add bethanechol Urinary retention Recent admission to [facility] cardiac related issues Found to be in urinary retention Catheter placed No prostate medications initially given Placed on combination therapy PFS Medical History (Updated 11/15/24 @ 14:20 by Daiana Bhatt NP) Chronic kidney disease (CKD), stage III (moderate) Closed rib fracture Fall Erythema intertrigo Nummular eczematous dermatitis Allergic rhinitis Chronic kidney disease (CKD) Vitamin D deficiency Pure hypercholesterolemia Benign essential hypertension Atrial fibrillation Chronic combined systolic and diastolic congestive heart failure Coronary artery disease Rheumatoid arthritis Degenerative disc disease, cervical Lumbar degenerative disc disease Surgical History History of coronary angioplasty History of hernia repair H/O wrist surgery History of arthroscopy of right knee History of coronary artery bypass graft Family History Father Past heart attack Mother Pneumonia Daughter Healthy adult Social History Housing: House Alcohol intake: current Alcohol intake frequency: holidays/special occasions only Patient Tobacco Use Status: Current someday Tobacco user e-Cigarette/Vaping Use: Never Used Second Hand Smoke Exposure: Yes service: Yes ([employer]) Current occupational status: retired and disabled Current occupation: right hand dominant Cognitive needs: Yes (cane) Hearing needs: Yes (hearing aide) Vision needs: Yes (glasses) Review of Systems Const Denies chills and Denies fever(s) Card Reports no additional complaints and Denies syncope Resp Denies cough GI Denies abdominal pain and Denies heartburn Reports as per HPI and Denies change in libido Neuro Denies syncope Psych Denies change in libido Endo Denies change in libido Physical Exam Const General: cooperative, healthy appearing, comfortable and no acute distress Orientation/consciousness: patient oriented x3 HEENT Face and sinus: Yes normal facial exam Mouth: moist mucous membranes Neck Neck: Yes normal visual inspection, Yes full ROM and Yes trachea midline Chest Chest palpation & inspection: normal inspection of the chest Resp Effort & Inspection: normal respiratory effort, able to speak in complete sentences and no respiratory distress GI Inspection: Yes normal to inspection Back/Spine/Pelvis Cervical Spine: normal cervical lordosis Thoracic/Lumbar Spine: thoracic and lumbar spine normal to inspection Skin General skin exam: no rashes or lesions noted Neuro General: patient oriented x3, gait normal, tone normal and moves all extremities Extrem General: Yes normal to inspection and Yes capillary refill normal Office Procedures Cystoscopy Consent Discussed risk and benefit or proposed procedure with the patient. Information consent for procedure given to the patient. Discussed technical aspects, risks, benefits and alternatives in full. Addressed all of the patient's questions and concerns regarding the procedure. The patient demonstrated knowledge and understanding. They wish to proceed with this procedure. Preparation The patient was prepped in the usual manner. A sewage plant attendant was present and in the room. Genitalia was prepped with betadine solution in a sterile manner. Lidocaine Jelly 2% was placed into the urethra and 16Fr flexible Olympus cystoscope was inserted into the meatus after adequate lubrication. Procedure Cystoscopy performed using a disposable hoccervue digital 16 Japanese cystoscope. Meatus circumcised Urethra anterior and posterior urethra normal Prostatic Urethra unremarkable small prostate, short, no evidence of int rusion Bladder examination with retroflexion of cystoscope Bladder Orifices normal shape and position Bladder Capacity large Trabeculations - Cellule Formation - Diverticulum Formation -- Mucosal Erythema - Bladder Tumor - 16Fr theodore with blue cap removed prior to cysto prep. 53244-Oedfggykwo DISPOSABLE SCOPE URO-G FLEXIBLE SCOPE Procedure code (CPT) selection complete Post Void Residual Post Residual Void Post Void Residual (PVR): 275 76894-Onvy Void Residual by ultrasound Office Meds lidocaine HCl 2 % mucosal jelly in applicator Performing Provider: Marcus Cade MD Performing Location[facility] [place] [facility] Administered by: Laurita Christianson RN on 09/15/24 09:48 Dose Route Admin Location Dispensed Lot Number Expiration Date NDC Town [employer] 10 mL intra-urethral 10 mL nitrofurantoin monohydrate/macrocrystals 100 mg capsule Performing Provider: Marcus Cade MD Performing Location: [facility] [place] [facility] Administered by: Laurita Christianson RN on 09/15/24 09:48 Dose Route Admin Location Dispensed Lot Number Expiration Date NDC [employer]anner 100 mg PO 1 cap Assessment & Plan Assessment & Plan (1) Urinary retention: Code(s): R33.9 - Retention of urine, unspecified Category: Medical Plan Features consistent with neurogenic bladder Start bethanechol Six week follow-up check PVR Orders: Orders AMB Cystoscopy 09/15/24 R33.9 - Retention of urine, unspecified, Z96.0 - Presence of urogenital implants Medications: New bethanechol chloride 50 mg PO BID 60 tabs 2RF 30 days R33.9 - Retention of urine, unspecified, N39.0 - Urinary tract infection, site not specified Patient Instructions: This note is constructed using voice recognition software. While every effort has been made to ensure accuracy distribution warehouse manager errors may have been included. Imaging studies, laboratory and physical exam results were discussed and reviewed in detail. No major barriers to patient understanding were identified. An opportunity to ask questions regarding the treatment plan was provided. All questions were answered. The patient expressed understanding and agreement with the above treatment plan. The patient is aware they should contact our office by phone for worsening of their current condition or the appearance of new urologic symptoms. Compliance is encouraged with any medications and followup testing that is ordered. It is a privilege to participate in the urologic care of your patient. If you have any questions or concerns regarding treatment for the above conditions, or other urologic issues, please do not hesitate to contact me. The office telephone contact is [phone]. Sincerely, Dr Marcus Cade MD, [facility] - Urology Compassionate Specialist Care for the Genitourinary System Coding Level of Care Code Est Pt Level 4 (25783) Complex EM visit Add On G2211 Diagnoses Urinary retention R33.9 CPT Codes Cystoscopy - CPT: 99832-Sybnsyeuwa ([id number]) Post Residual Void - PVR CPT Code: 49511-Bozp Void Residual by ultrasound ([id number])
--- OUTSIDE RECORDS SUMMARY | 2024-09-15 09:41 | XMS_ITS | Patient Health Record ---
Author Organization [facility] Address [address] [place] [address] Care Team Providers Care Mortgage Loan Processing Clerk Name Role Phone Padilla SEBASTIAN, Vickey Primary Care Provider Christopher Chen Jr Unavailable [phone] Allergies Allergen (clinical drug ingredient) Drug/Non Drug [...] Problem Status W/U Status Risk Notes Problem [id number] Colon cancer screening (Z12.11) Active confirmed Problem [id number] Long-term use of aspirin therapy (Z79.82) Active confirmed Plan Of Treatment Future Test Test Name Order Date COLONOSCOPY 11/10/2012 COLONOSCOPY 07/08/2016 Insurance Providers Payer Name Payer Address Payer Phone Subscriber Number Group Number Insured Name Patient Relationship to Insured Coverage Start Date Coverage End Date [facility] [address] [facility] [place] [phone] [id number] PAT TATE Self - patient is the insured Medical (General) History Medical History History ICD Code coronary disease with history of NC back pain rheumatoid arthritis Surgical History Surgery Date(Month/Year) left knee arthroscopy right knee arthroscopy CABG X 5 foot surgery ventral hernia repair
--- OUTSIDE RECORDS SUMMARY | 2024-09-15 09:41 | XMS_ITS | Patient Health Record ---
Author Organization [facility] Address [address] [place] [address] Care Team Providers Care Grants Analyst Name Role Phone Emelia Causey MDh Primary Care Provider UnaNed Galarza Unavailable [phone] Allergies Allergen (clinical drug ingredient) Drug/Non Drug Allergy documented on EMR Reaction Allergy Type Onset Date Status gabapentin Gabapentin fainting Drug Allergy Activ e Reason For Referral No Information Medications Medication SIG (Take, Route, Frequency, Duration) Notes Start Date End Date Status Iron Active Folic Acid Active Enbrel 25 MG as directed Subcutaneous Not-Taking oxyCODONE HCl 30 MG Orally every 6 hrs Active Plavix Not-Taking OxyCONTIN 80 MG Orally Acti ve Urea Not-Taking Ammonium Lactate 12 % 1 APPLICATION TO AFFECTED AREA TWICE A DAY EXTERNALLY TO FEET 30 DAYS; Duration: 30 Active Iodosorb 0.9 % as directed Externally Apply to ulceration daily with dry sterile dressing; Duration: 30 days 11/05/2023 Active Rosuvastatin Calcium 40 MG 1 tablet Orally Once a day; Duration: 30 day(s) Active Clopidogrel Bisulfate 75 MG 1 tablet Orally Once a day; Duration: 30 day(s) Active LamISIL 250 MG 1 tablet Orally Once a day; Duration: 30 days 02/04/2024 Active Aspirin 81mg Active Cephalexin 500 MG 1 capsule Orally every 6 hrs; Duration: 10 days Active Entresto 24-26 MG 1 tablet Orally Twice a day; Duration: 30 day(s) Active Terbinafine 250mg once a day Not-Taking Eliquis 5 MG as directed Orally Active Furosemide 20 MG 1 tablet Orally Once a day; Duration: 30 day(s) Not-Taking Metoprolol & Diet Manage Prod 200 Active Lipitor Not-Taking Methotrexate 2.5 MG 1 tablet Orally Three times a Week; Duration: 30 day(s) Not-Taking Immunizations Vaccine Route Administration Date Status Comme nts COVID-19 Pfizer BioNTech Vaccine Unknown 01/29/2021 Administered 1st 04/27/20 2nd 05/18/20 Influenza Unknown 10/30/2021 Administered Influenza Unknown 11/30/2023 Administered Pneumococcal Unknown 12/16/2021 Administered Social History [...] Problem Status W/U Status Risk Notes Problem Bilateral atherosclerosis of arteries of lower limbs (disorder) ([id number] ) Atherosclerosis of oneida artery of both lower extremities, with unspecified presence of clinical manifestation (I70.203) Active confirmed Vital Signs Blood pressure diastolic 65 mm Hg 09/05/2024 Height 5ft1in in 09/05/2024 Blood pressure systolic 128 mm Hg 09/05/2024 Weight 140 lbs 09/05/2024 BMI 26.45 kg/m2 09/05/2024 Procedures Procedure Date Ordered Date Performed Result Body Sit e 55505-Xsyz Destruction, 1-14 09/28/2023 N/A 85727-HLUNCND NAIL, 6 OR MORE 11/05/2023 N/A 17749-Xmms Destruction, 1-14 11/05/2023 N/A 64618-TPKT SKIN LESIONS, OVER 4 11/05/2023 N/A 03540-QRLOEQP NAIL, 6 OR MORE 03/14/2024 N/A 68113-IFBH SKIN LESIONS, OVER 4 03/14/2024 N/A 70862-NBXIVMP NAIL, 6 OR MORE 09/05/2024 N/A 02540-RTVX SKIN LESIONS, OVER 4 09/05/2024 N/A Encounters Encounter Location Date Provider Diagnosis [facility] [place] [address] [place] [address] 09/28/2023 Ned Aimee Pain in right foot M79.671 and Plantar wart B07.[address] [address] 11/05/2023 Ned Aimee Atherosclerosis of oneida artery of both lower extremities, with unspecified presence of clinical manifestation I70.203 ; Plantar wart B07.0 ; Tinea unguium B35.1 ; Pain in right foot M79.671 ; Pain in right toe(s) M79.674 ; Pain in left toe(s) M79.675 and Tinea pedis of both feet B35.[address] [address] 12/21/2023 Ned Aimee Cellulitis of foot, right L03.115 ; Cellulitis of foot, left L03.116 and Generalized edema R60.[address] [address] 02/04/2024 Nedcarito Godoyier Cellulitis of foot, right L03.115 ; Cellulitis of foot, left L03.116 and Tinea pedis of both feet B35.[address] [address] 03/14/2024 Nedcarito Yu Atherosclerosis of oneida artery of both lower extremities, with unspecified presence of clinical manifestation I70.203 ; Tinea unguium B35.1 ; Pain in right toe(s) M79.674 ; Pain in left toe(s) M79.675 and Tinea pedis of both feet B35.[address] [address] 09/05/2024 Ned Aimee Tinea unguium B35.1 ; Atherosclerosis of oneida artery of both lower extremities, with unspecified presence of clinical manifestation I70.203 ; Pain in right toe(s) M79.674 and Pain in left toe(s) M79.[address] [address] 09/28/2023 Ned Aimee [facility] [address] [address] 02/07/2024 Ned Yu Tinea pedis of both feet B35.3 [facility] [address] [address] 06/06/2024 Nedcarito Godoyier Assessments Encounter Date Diagnosis (ICD Code) Assessment Notes Treatment Notes Treatment Clinical Notes Section Notes 09/28/2023 Pain in right foot (ICD-10 - M79.671) 11/05/2023 Plantar wart (ICD-10 - B07.0) 11/05/2023 Atherosclerosis of oneida artery of both lower extremities, with unspecified [...] unguium (ICD-10 - B35.1) 03/14/2024 Atherosclerosis of oneida artery of both lower extremities, with unspecified presence of clinical manifestation (ICD-10 - I70.203) 09/05/2024 Tinea unguium (ICD-10 - B35.1) 09/05/2024 Atherosclerosis of oneida artery of both lower extremities, with unspecified presence of clinical manifestation (ICD-10 - I70.203) 09/05/2024 Pain in right toe(s) (ICD-10 - M79.674) 12/21/2023 Generalized edema (ICD-10 - R60.1) 03/14/2024 Pain in right toe(s) (ICD-10 - M79.674) 02/04/2024 Tinea pedis of both feet (ICD-10 - B35.3) 11/05/2023 Tinea unguium (ICD-10 - B35.1) 09/28/2023 Plantar wart (ICD-10 - B07.0) 11/05/2023 Pain in right foot (ICD-10 - M79.671) 03/14/2024 Pain in left toe(s) (ICD-10 - M79.675) 09/05/2024 Pain in left toe(s) (ICD-10 - M79.675) [...] X ray : Foot, right 3V 03/15/2012 58631-ABXOSZP NAIL, 6 OR MORE 09/15/2019 27714-GNPYBRH NAIL, 6 OR MORE 11/17/2019 10341-FEYNWNW NAIL, 6 OR MORE 02/16/2020 78726-UZAVSCL NAIL, 6 OR MORE 06/11/2020 15059-JIZFICM NAIL, 6 OR MORE 08/27/2020 26816-MQIZZER NAIL, 6 OR MORE 11/08/2020 91365-BLQXACH NAIL, 6 OR MORE 01/14/2021 88962-MBVAFQE NAIL, 6 OR MORE 05/27/2021 07600-HVYXZNJ NAIL, 6 OR MORE 08/26/2021 84500-LPXLDOP NAIL, 6 OR MORE 09/15/2022 48802-KNGCNXA NAIL, 6 OR MORE 12/22/2022 20573-JCEZUIJ NAIL, 6 OR MORE 11/04/2021 07627-ZVWVSPF NAIL, 6 OR MORE 01/27/2022 01221-AJTINPL NAIL, 6 OR MORE 04/28/2022 78459-SMHFTFX NAIL, 6 OR MORE 03/05/2023 30809-WNKSQDZ NAIL, 6 OR MORE 05/25/2023 04269-CEPSJVD NAIL, 6 OR MORE 08/03/2023 40030-MHEFFWV NAIL, 6 OR MORE 11/05/2023 01655-ILUHSZH NAIL, 6 OR MORE 03/14/2024 39213-AVEMMMF NAIL, 6 OR MORE 09/05/2024 65000-Zhxz Destruction, -11/05/2023 55280-Noaz Destruction, 03-1406/29/2023 51040-Zbqq Destruction, 03-1409/28/2023 94403-Oamx Destruction, 03-1408/03/2023 42350-Nyls Destruction, 03-1405/25/2023 54293-Lcaa Destruction, 03-1403/05/2023 13853-Nycd Destruction, 03-1401/26/2023 56028-Tqik Destruction, 03-1404/13/2023 19471-Hxpp Destruction, 03-1404/28/2022 80536-Bqag Destruction, 03-1412/16/2021 43618-Ugeu Destruction, 03-1403/13/2022 93820-Rvqu Destruction, 03-1401/27/2022 19989-Hlbm Destruction, 03-1411/04/2021 82857-Ifku Destruction, 03-1412/22/2022 72051-Vjec Destruction, 03-1406/09/2022 56167-Otsg Destruction, 03-1410/20/2022 08383-Qwge Destruction, 03-1409/15/2022 91961-Kpji Destruction, 03-1408/26/2021 41098-Mhfa Destruction, 03-1403/14/2021 48624-Hjmy Destruction, 03-1407/15/2021 76180-Husy Destruction, 03-1405/27/2021 55524-Gbki Destruction, 03-1401/14/2021 97237-Itoz Destruction, 03-1411/08/2020 06385-Vpde Destruction, 03-1410/01/2020 07976-Bipt Destruction, 03-1412/10/2020 54362-Jihb Destruction, 03-1408/27/2020 25704-Qtdx Destruction, 03-1403/29/2020 35426-Mnni Destruction, 03-1407/19/2020 99174-Kxxz Destruction, 03-1406/11/2020 78019-Ghtr Destruction, 03-1402/16/2020 57317-Nzpq Destruction, -14 11/17/2019 23170-Fpgo Destruction, -14 09/15/2019 56209-Vjrj Destruction, -14 08/08/2013 25024-Cqxu Destruction, -14 09/29/2013 54270-Enxl Destruction, -14 2011 21857-Gnbe Destruction, -14 03/24/2011 65256-Vbau Destruction, -14 06/02/2011 78947-Lfcj Destruction, -14 07/17/2011 71514-Bhtk Destruction, -14 10/09/2011 82854-Hiyd Destruction, -14 01/05/2012 78671- Debride <25 sq cm 10/02/2014 34231-JBMD SKIN LESIONS, OVER 4 02/16/20 20 92308-OBZE SKIN LESIONS, OVER 4 06/12/19 21 01827-VHSO SKIN LESIONS, OVER 4 08/28/19 21 43156-XYVX SKIN LESIONS, OVER 4 11/09/19 21 12852-BZCC SKIN LESIONS, OVER 4 01/15/20 21 91066-NIYW SKIN LESIONS, OVER 4 05/28/19 22 26378-IFYT SKIN LESIONS, OVER 4 08/27/19 22 79862-SNPF SKIN LESIONS, OVER 4 09/16/19 23 56063-PQZU SKIN LESIONS, OVER 4 12/23/19 23 20706-TTTH SKIN LESIONS, OVER 4 11/05/19 22 92964-HSJD SKIN LESIONS, OVER 4 01/28/20 22 23078-XWZR SKIN LESIONS, OVER 4 04/28/19 23 21015-EEAJ SKIN LESIONS, OVER 4 03/05/19 24 63145-JNMK SKIN LESIONS, OVER 4 05/25/19 24 44563-PPUB SKIN LESIONS, OVER 4 08/03/19 24 40858-EJFY SKIN LESIONS, OVER 4 11/05/19 24 23396-XKWQ SKIN LESIONS, OVER 4 09/06/19 25 05741-VGVL SKIN LESIONS, OVER 4 03/14/19 25 34720-RXTO SKIN LESIONS, 2 TO 4 09/15/19 20 30825-EWNK SKIN LESIONS, 2 TO 4 11/17/19 20 Next Appt Details Provider Name:Ned Yu , 12/05/2024 11:30:00 AM, [address] [place], [address], Insurance Providers Payer Name Payer Address Payer Phone Subscriber Number Group Number Insured Name Patient Relationship to Insured Coverage Start Date Coverage End Date Medicare National [facility] [employer] [address] [place] [address] [id number] Remy Reno Self - patient is the insured [employer] [address] [place] [address] [id number] Remy Reno Self - patient is the [...]
== END 2024-09-15 10:27 | disposition home or self-care (01) ==
LOC: HO.HUSH 09:34
PROVIDERS: PCP Internal Medicine; Visit Provider Urology
DX: R33.9 Retention of urine, unspecified (principal); Z96.0 Presence of urogenital implants
CPT/HCPCS: 52000

== ENCOUNTER → 2024-09-15 09:34 | Outpatient (BNVA) | payer MEDICARE, SELFPAY | PROVIDERS: PCP Internal Medicine; Visit Provider Urology | DX: R33.9 Retention of urine, unspecified (principal) | CPT/HCPCS: 51798; 52000; 99212 ==

== ENCOUNTER 2024-10-13 12:59 | Outpatient (AMB) | payer MEDICARE, SELFPAY ==
--- OUTSIDE RECORDS SUMMARY | 2024-06-06 12:00 | XMS_ITS ---
Author Organization [facility] Address [address] [place] [address] Care Team Providers Care Progress Man Name Role Phone Padilla SEBASTIAN, Vickey Primary Care Provider Unava ilNed Killian Unavailable [phone] Encounters Encounter Location Date Provider Diagnosis [address] [address] 06/06/2024 Ned Yu Plan Of Treatment Next Appt Details Provider Name:Ned Yu , 12/05/2024 11:30:00 AM, [address] [place] [address], [phone], Progress Notes * Remy TATEDOB: [birth year] (74 yo M)Acc No.[id number]:06/06/2024 Progress Note Patient: Tere Remy GAONA Provider: Caprice Yu DPM :1950 A ge:74 Y S ex:Male Date:06/06/2024 Address:[address] [place] [address] Pcp:Vickey Causey MD Subjective: * Chief Complaints: [...] 06/06/2024 Generated for Debo ferrer/Nidhi/Yue on: 0 10/13/2024 01:02 PM EDT
[2024-10-13 13:03] VITALS: BP 80/58; PULSE 47; O2SAT 95; BMI 19.4
--- NOTE | 2024-10-13 13:03 | A.OFFPC_ITS ---
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 Accompanied by: Self / Same As Patient Allergies gabapentin (GABAPENTIN) Allergy (Severe, Verified 10/13/24 13:08) PASSED OUT , syncopal episodes at 800 mg TID azithromycin (From ZITHROMAX Z-DESIREE) Allergy (Intermediate, Verified 10/13/24 13:08) SWELLING pregabalin Adverse Reaction (Unknown, Verified 10/13/24 13:08) severe muscle pain Tobacco use date assessed: 10/13/24 Fall risk assessment: 1 Fall in past year Last assessed Fall Risk: 10/13/24 Dental Screening Dental Screen Date: 10/13/24 Did you have a dental visit in the last 12 months?: Yes Did you have a dental problem in the last 6 months where you did not have access to dental care?: No Was dental information given to patient?: Patient has dentist HPI HPI Comments History of Present Illness Details 74 y/o Male patient who presents to the clinic today for HDF. He was admitted at [facility] on 09/25 - 10/02 after he suffered a Fall at home broke his left anterior 2 Ribs. Today reports minimal pain but denies SOB, Wheezing or dyspnea. [facility] Medical History (Updated 10/13/24 @ 13:43 by Lynn Jung NP) Closed rib fracture Fall Erythema intertrigo Nummular eczematous dermatitis Allergic rhinitis Chronic kidney disease (CKD) Vitamin D deficiency Pure hypercholesterolemia Benign essential hypertension Atrial fibrillation Chronic combined systolic and diastolic congestive heart failure Coronary artery disease Rheumatoid arthritis Degenerative disc disease, cervical Lumbar degenerative disc disease Surgical History History of coronary angioplasty History of hernia repair H/O wrist surgery History of arthroscopy of right knee History of coronary artery bypass graft Family History Father Past heart attack Mother Pneumonia Daughter Healthy adult Social History Housing: House Alcohol intake: current Alcohol intake frequency: holidays/special occasions only Patient Tobacco Use Status: Former Tobacco user e-Cigarette/Vaping Use: Never Used Second Hand Smoke Exposure: Yes service: Yes ([employer]) Current occupational status: retired and disabled Current occupation: right hand dominant Cognitive needs: Yes (cane) Hearing needs: Yes (hearing aide) Vision needs: Yes (glasses) Questionnaire PHQ-9 Over the last 2 weeks, how often have you been bothered by any of the following problems? 1. Little interest or pleasure in doing things: not at all 2. Feeling down, depressed, or hopeless: not at all 3. Trouble falling or staying asleep, or sleeping too much: not at all 4. Feeling tired or having little energy: several days 5. Poor appetite or overeating: not at all 6. Feeling bad about yourself - or that you are a failure or have let yourself or your family down: not at all 7. Trouble concentrating on things, such as reading the newspaper or watching television: not at all 8. Moving or speaking so slowly that other people could have noticed. Or the opposite - being so fidgety or restless that you have been moving around a lot more than usual: several days 9. Thoughts that you would be better off or of hurting yourself in some way: not at all Total score: 2 Depression Screening Interpretation: Negative Depression Screening Done: Yes Source: Developed by Drs. Arben Noriega, Mona Gonzalez, Jerrod Adams and colleagues, with an educational arlen from [employer]. Thrive Questionnaire Date Thrive assessed: 10/13/24 I am a: Patient What is your living situation today?: I have a steady place to live Within the past 12 months, did the food you bought not last and you didn't have the money to get more?: Never true Within the past 12 months, did you worry whether your food would run out before you got money to buy more?: Never true Do you have trouble paying for medicines?: No Do you have trouble getting transportation to medical appointments?: No Do you have trouble paying your heating and electricity bill?: No Do you have trouble taking care of your child, family member or friend?: No Do you have trouble with day-to-day activities such as bathing, preparing meals, shopping, managing finances, etc.?: Yes Are you currently unemployed and looking for a job?: No Are you interested in more education?: No Please select the resources that you would like help with: None Currently or been in a relationship where the following occur: No concerns reported THRIVE Score: 0 AUDIT C Alcohol Use Questionnaire (AUDIT-C) 1. How often do you have a drink containing alcohol?: Monthly or less 2. How many drinks containing alcohol do you have on a typical day when you are drinking?: 1 or 2 3. How often do you have six or more drinks on one occasion?: Never Total Score: 1 Score Reviewed/Action Taken: No NILESH-7 AMB Questionnaire NILESH-7 Date NILESH - 7 assessed: 10/13/24 Feeling nervous, anxious, or on edge: 0 = Not at all Not being able to stop or control worryin = Not at all Worrying too much about different things: 0 = Not at all Trouble relaxin = Not at all Being so restless that it is hard to sit still: 0 = Not at all Becoming easily annoyed or irritable: 0 = Not at all Feeling afraid as if something awful might happen: 0 = Not at all Total NILESH-7 score (0-4 normal; 5-9 mild; 10-14 moderate; 15-21 severe): 0 Source: Developed by Drs. Arben Noriega, Mona Gonzalez, Jerrod Adams and colleagues, with an educational arlen from [employer]. NILESH-7 Assessment Billing NILESH-7 Assessment Tool: NILESH-7 Assessment 14296 Review of Systems Const All systems reviewed & are unremarkable except as noted in HPI and below Physical exam (Primary Care) Vital Signs: Last Vital Signs Pulse 47 L 10/13/24 13:03 BP 80/58 L 10/13/24 13:03 Pulse Ox 95 10/13/24 13:03 Oxygen Delivery Method Room Air 10/13/24 13:03 BMI result Body Mass Index 19.4 Tobacco/Smoking Status: Tobacco use Status Tobacco use date assessed 10/13/24 10/13/24 13:09 Patient Tobacco Use Status Former Tobacco user 10/13/24 13:09 e-Cigarette/Vaping Use Never Used 10/13/24 13:09 PHQ-9: PHQ-9 Score PHQ-9: Total score 2 10/13/24 13:09 Depression Screening Interpretation: Negative Thrive Assessment: Date of Thrive Assessment Date Thrive assessed 10/13/24 10/13/24 13:09 Currently or been in a relationship where the following occur: No concerns reported Const General: no acute distress Nutritional Appearance: thin Orientation/consciousness: patient oriented x3 Chest Chest palpation & inspection: tenderness rib Resp Effort & Inspection: normal respiratory effort Auscultation: clear to auscultation bilaterally Cardio Heart sounds: S1 normal heart sound present and S2 normal heart sound present Neuro General: patient oriented x3 Coding Level of Care Code Est Pt Level 4 (86403) Diagnoses Closed fracture of multiple ribs of left side, initial encounter S22.42XA Encounter type: initial encounter Rib fracture type: multiple ribs Laterality: left Fall, initial encounter W19.XXXA Encounter type: initial encounter Additional Codes NILESH-7 Assessment Billing - NILESH-7 Assessment Tool: NILESH-7 Assessment 04410 ([id number]) Time Spent (min) 20 Assessment & Plan Assessment & Plan (1) Closed rib fracture: Code(s): S22.39XA - Fracture of one rib, unspecified side, initial encounter for closed fracture Category: Medical Qualifiers: Encounter type: initial encounter Rib fracture type: multiple ribs Laterality: left Qualified Code(s): S22.42XA - Multiple fractures of ribs, left side, initial encounter for closed fracture Plan: Stable NSAIDs for pain relief. (2) Fall: Code(s): W19.XXXA - Unspecified fall, initial encounter Category: Medical Qualifiers: Encounter type: initial encounter Qualified Code(s): W19.XXXA - Unspecified fall, initial encounter Plan: Stable.
--- OUTSIDE RECORDS SUMMARY | 2024-12-01 20:00 | XMS_ITS | Clinical Summary ---
Author Organization Unknown Care Team Providers Care Precipitate Washer Name Role Phone PATTI SEBASTIAN, GERALD Unavailable Unavailable AR RN, EUSEBIO Unavailable Unavaila matt HORTON RN, PINO Unavailable Unavailable FLORES KAUFMAN LPN, DEJUAN Unavailable Unavai lable Payers Payer Name Policy Type Policy Number Effective Date Expira tion Date MEDICARE - [facility] [id number] Problems Condition Name Condition Details Condition Category [...] 06-20 00:00: 00 10-01 23:59 :00 No [id number] 4 mL DIRECTED 4 mL DIRECTED (route: subcutaneo us) Med Classific ation: Dermatolo gical Entresto 49 mg-51 mg tablet 06-16 00:00: 00 10-01 23:59 :00 No [id number] 1 tablet TWICE A DAY 1 tablet TWICE A DAY (route: oral) Med Classific ation: Cardiovas cular Therapy Agents ezetimibe 10 mg tablet 2025-0 4-18 00:00: 00 10-01 23:59 :00 No [id number] 1 tablet EVERY DAY 1 tablet EVERY DAY (route: oral) Med Classific ation: Cardiovas cular Therapy Agents metoprolol succinate ER 200 mg tablet,exte nded release 24 hr 18 00:00: 00 06-24 00:00 :00 No [id number] Per instruc tions EVERY DAY Per instructio ns EVERY DAY (route: oral) Med Classific ation: Cardiovas cular Therapy Agents OxyContin 80 mg tablet,nakita h resistant,e xtended release 05-31 00:00: 00 10-01 23:59 :00 No [id number] 1 tablet EVERY 8 HOURS NEEDED FOR 28 DAYS 1 tablet EVERY 8 HOURS NEEDED FOR 28 DAYS (route: oral) Med Classific ation: Analgesic , Anti-infl ammatory or Antipyret ic rosuvastati n 40 mg tablet 05-29 00:00: 00 06-24 00:00 :00 No [id number] Per instruc tions EVERY DAY Per instructio ns EVERY DAY (route: oral) Med Classific ation: Cardiovas cular Therapy Agents oxycodone 30 mg tablet 05-28 00:00: 00 10-01 23:59 :00 No [id number] 1 tablet EVERY 6 HOURS NEEDED FOR 28 DAYS 1 tablet EVERY 6 HOURS NEEDED FOR 28 DAYS (route: oral) Med Classific ation: Analgesic , Anti-infl ammatory or Antipyret ic Anoro Ellipta 62.5 mcg-25 mcg/actuati on powder for inhalation 3-29 00:00: 00 10-01 23:59 :00 No [id number] 1 inhalat ion INTO THE LUNGS EVERY DAY FOR 30 DAYS 1 inhalation INTO THE LUNGS EVERY DAY FOR 30 DAYS (route: inhalation ) Med Classific ation: Respirato ry Therapy Agents alendronate 70 mg tablet 06-24 00:00: 00 10-01 23:59 :00 No [id number] 1 tablet WEEKLY 1 tablet WEEKLY (route: oral) Med Classific ation: Endocrine clopidogrel 75 mg tablet 06-24 00:00: 00 10-01 23:59 :00 No [id number] 1 tablet DAILY 1 tablet DAILY (route: oral) Med Classific ation: Hematolog ical Agents Eliquis 5 mg tablet 06-24 00:00: 00 10-01 23:59 :00 No [id number] 1 tablet 2 TIMES DAILY 1 tablet 2 TIMES DAILY (route: oral) Med Classific ation: Hematolog ical Agents Farxiga 10 mg tablet 06-24 00:00: 00 10-01 23:59 :00 No [id number] 1 tablet DAILY 1 tablet DAILY (route: oral) Med Classific ation: Endocrine furosemide 20 mg tablet 06-24 00:00: 00 10-01 23:59 :00 No [id number] 1 tablet DAILY 1 tablet DAILY (route: oral) Med Classific ation: Cardiovas cular Therapy Agents rosuvastati n 40 mg tablet 06-24 00:00: 00 10-01 23:59 :00 No [id number] 1 tablet DAILY 1 tablet DAILY (route: oral) Med Classific ation: Cardiovas cular Therapy Agents Vital Signs Vital Name Observation Time Observation Value Commen ts Temperature 2024-10-11 12:00:00.000 97.9 [degF] Temperature 2024-10-04 12:28:00.000 97.9 [degF] BMI (%) 2024-10-04 12:28:00.000 19 kg/m2 Height 2024-10-04 12:28:00.000 71 [in_us] Pulse 2024-10-11 12:00:00.000 72 /min Pulse 2024-10-04 12:28:00.000 55 /min Respirations 2024-10-11 12:00:00.000 18 /min Respirations 2024-10-04 12:28:00.000 18 /min Weight (lbs) 2024-10-04 12:28:00.000 140 [lb_av] Systolic Blood Pressure 2024-10-11 12:00:00.000 100 mm [Hg] Systolic Blood Pressure 2024-10-04 12:28:00.000 100 mm [Hg] Diastolic Blood Pressure 2024-10-11 12:00:00.000 [...] MAINTAIN SITUATIONAL AWARENESS AND WILL NOTIFY CLINICAL RESISTANCE WELDER AND PHYSICIAN/PROVIDER WITH ANY CHANGE IN CONDITION. [code = SKILLED NURSE TO PERFORM ENVIRONMENTAL SAFETY RISK ASSESSMENT AND FALL RISK ASSESSMENT AND PROVIDE INSTRUCTION TO IMPLEMENT ENVIRONMENTAL SAFETY AND FALL PREVENTION STRATEGIES THROUGHOUT THE CERTIFICATION PERIOD. SKILLED NURSE WILL MAINTAIN SITUATIONAL AWARENESS AND WILL NOTIFY CLINICAL RESISTANCE WELDER AND PHYSICIAN/PROVIDER WITH ANY CHANGE IN CONDITION.] [...] CARE WILL BE ESTABLISHED THAT MEETS PATIENT'S SENIOR LIVING NEEDS AND INCLUDES PATIENT GOAL FOR HOME [...] <paragraph>[Visit Date: 2024 by DEJUAN KAUFMAN LPN]:</paragraph><paragraph>SNV 10/11 ABNORMAL VITALS: WDL, WT 141 FALLS: NO FALLS SINCE LAST SNV MEDICATION CHANGES: NONE OBSERVATION AND ASSESSMENT PROVIDED: PATIENT IS ALERT AND ORIENTED X3 PLEASANT AND COOPERATIVE DURING VISIT. PATIENT REPORTS PAIN IN RIBS HAS IMPROVED TO 3/10 WITH CHRONIC BACK PAIN REMAINING STABLE AND MANAGED WITH EXISTING PAIN REGIMEN. VSS, LSCTA, +1 EDEMA BLE, REPORTED WGT 141, O2SAT 97%RA. NO ISSUES WITH BLADDER OR BOWELS, LBM THIS MORNING. APPETITE ADEQUATE EDUCATION: FALL PREVENTION; CONSISTENT USE OF CANE, AVOID RUSHING, SLOW CHANGES IN POSITION, LEG ELEVATION TO REDUCE EDEMA INTERVENTIONS NEEDED AT NEXT VISIT: ASSESSMENT COMMUNICATION WITH MD: Nathaniel NEXT MD APPOINTMENT: PCP 10/25 PT AND CAREGIVER INSTRUCTED TO CALL [facility] WITH ANY QUESTIONS OR CONCERNS AND/OR CHANGES IN CONDITION. PT VERBALIZED UNDERSTANDING DEJUAN KAUFMAN LPN</paragraph> Encounters Start Date/Time End Date/Time Encounter Type Admission Type Attending [facility] Facility Care Department Encounter ID Discharge Date Discharge Status Discharge Condition Discharge Reason Percent Goals Met 2024-10-04 00:00:00 2024-12-02 00:00:00 Outpatient [facility]O G[facility]BO[facility] [id number] 20.00
== END 2024-10-13 14:10 | disposition home or self-care (01) ==
LOC: HO.HMCH 13:00
PROVIDERS: PCP Internal Medicine; Visit Provider Nurse Practitioner Family
DX: S22.42XA Multiple fractures of ribs, left side, initial encounter for closed fracture (principal); W19.XXXA Unspecified fall, initial encounter

== ENCOUNTER → 2024-10-13 12:59 | Outpatient (BNVA) | payer MEDICARE, SELFPAY | PROVIDERS: PCP Internal Medicine; Visit Provider Nurse Practitioner Family | DX: S22.42XD Multiple fractures of ribs, left side, subsequent encounter for fracture with routine healing (principal); W19.XXXD Unspecified fall, subsequent encounter; Z13.31 Encounter for screening for depression | CPT/HCPCS: 96127; 99212 ==

== ENCOUNTER 2024-10-23 06:06 | Outpatient (REF) | payer MEDICARE, SELFPAY ==
--- OUTSIDE RECORDS SUMMARY | 2024-06-06 12:00 | XMS_ITS ---
Author Organization [facility] Address [address] [place] [address] Care Team Providers Care Head Bander And Liner Operator Name Role Phone Padilla SEBASTIAN, Vickey Primary Care Provider Unava ilNed iKllian Unavailable [phone] Encounters Encounter Location Date Provider Diagnosis [address] [address] 06/06/2024 Ned Yu Plan Of Treatment Next Appt Details Provider Name:Ned Yu , 12/05/2024 11:30:00 AM, [address] [place] [address], [phone], Progress Notes * Remy TATEDOB: [birth year] (74 yo M)Acc No.[id number]:06/06/2024 Progress Note Patient: Tere Remy GAONA Provider: Caprice Yu DPM :1950 A ge:74 Y S ex:Male Date:06/06/2024 Address:[address] [place] [address] Pcp:Vickey Causey MD Subjective: * Chief Complaints: [...] 06/06/2024 Generated for Debo ferrer/Nidhi/Yue on: 0 10/23/2024 06:09 AM EDT
--- OUTSIDE RECORDS SUMMARY | 2024-10-23 06:09 | XMS_ITS | Patient Health Record ---
Author Organization [facility] Address [address] [place] [address] Care Team Providers Care Screen Stretcher Name Role Phone Padilla SEBASTIAN, Vickey Primary [...] Problem Status W/U Status Risk Notes Problem [id number] Colon cancer screening (Z12.11) Active confirmed Problem [id number] Long-term use of aspirin therapy (Z79.82) Active confirmed Plan Of Treatment Future Test Test Name Order Date COLONOSCOPY 11/10/2012 COLONOSCOPY 07/08/2016 Insurance Providers Payer Name Payer Address Payer Phone Subscriber Number Group Number Insured Name Patient Relationship to Insured Coverage Start Date Coverage End Date [facility] [address] [facility] [place] [phone] [id number] PAT TATE Self - patient is the insured Medical (General) History Medical History History ICD Code coronary disease with history of [place] back pain rheumatoid arthritis Surgical History Surgery Date(Month/Year) left knee arthroscopy right knee arthroscopy CABG X 5 foot surgery ventral hernia repair
[2024-10-23 06:20] LABS: MANUAL DIFF FLAG NO
[2024-10-23 07:16] LABS: Hematocrit 29.2 % (42.0-52.0); Hemoglobin 9.4 g/dl (14.0-18.0); Imm Gran Abs Auto 0.02 X10*3/uL (0.00-0.03); Imm Gran Pct Auto 0.4 % (0.0-0.4); Lymphocytes Absolute Auto 1.1 X10*3/uL (1.2-4.9); Mean Corpuscular HGB Conc 32.2 g/dl (31.0-36.0); Mean Corpuscular Hemoglobin 35.1 pg (27.0-33.0); Mean Corpuscular Volume 109.0 fL (80.0-98.0); NRBC Abs Auto 0.000 X10*3/uL (0.0-0.012); NRBC Pct Auto 0.0 /100WBC (0.0-0.2); Platelet Count 178 X10*3/uL (160-400); Red Blood Count 2.68 X10*6/uL (4.60-5.80); White Blood Count 4.8 X10*3/uL (4.8-10.8)
[2024-10-23 07:50] LABS: B Type Natriuretic Peptide 1555 pg/mL (<100)
[2024-10-23 07:57] LABS: Appearance Urine Clear; Glucose Urine UA >=1000 mg/dL (Negative); PH 5.5 (5.0-9.0); Specific Gravity - Urine 1.020 (1.005-1.025); UMIC TRIGGER UACC YES
[2024-10-23 08:01] LABS: Alanine Aminotransferase 8 U/L (0-40); Albumin Level 3.5 g/dL (3.5-5.0); Alkaline Phosphatase 73 U/L (39-117); Anion Gap 15 (12-20); Aspartate Amino Transferase 34 U/L (5-37); Blood Urea Nitrogen 48 mg/dL (9-16); Calcium 8.5 mg/dL (8.4-10.2); Carbon Dioxide 19 mmol/L (22-29); Chloride 112 mmol/L (96-108); Cholesterol 87 mg/dL (<200); Estimated Glomerular Filt Rate 30; HDL Cholesterol 43 mg/dL (>40); Potassium 5.9 mmol/L (3.3-5.1); Sodium 140 mmol/L (135-145); Total Protein 6.7 g/dL (6.5-8.0); Triglycerides 67 mg/dL (<150)
--- OUTSIDE RECORDS SUMMARY | 2024-12-01 20:00 | XMS_ITS | Clinical Summary ---
Author Organization Unknown Care Team Providers Care Director Of Communications Name Role Phone PATTI SEBASTIAN, GERALD Unavailable Unavailable AR RN, EUSEBIO Unavailable Unavaila matt HORTON RN, PINO Unavailable Unavailable FLORES KAUFMAN LPN, DEJUAN Unavailable Unavai lable Payers Payer Name Policy Type Policy Number Effective Date Expira tion Date MEDICARE - [facility] - PD [id number] Problems Condition Name Condition Details Condition Category Status Onset Date Resolution Date Last Treatment Date Treating Clinician Comments MULTIPLE FRACTURES OF RIBS, UNSP SIDE, INIT FOR CLOS FX Active 09-25 00:00: 00 CODING TO BE COMPLETED AFTER CLINICAL DOCUMENTATIO N REVIEW Active 09-25 00:00: 00 Allergies, Adverse Reactions, Alerts Allergy [...] 06-20 00:00: 00 10-01 23:59 :00 No [id number] 4 mL DIRECTED 4 mL DIRECTED (route: subcutaneo us) Med Classific ation: Dermatolo gical Entresto 49 mg-51 mg tablet 06-16 00:00: 00 10-01 23:59 :00 No [id number] 1 tablet TWICE A DAY 1 tablet TWICE A DAY (route: oral) Med Classific ation: Cardiovas cular Therapy Agents ezetimibe 10 mg tablet 2025-0 4-18 00:00: 00 10-01 23:59 :00 No [id number] 1 tablet EVERY DAY 1 tablet EVERY DAY (route: oral) Med Classific ation: Cardiovas cular Therapy Agents metoprolol succinate ER 200 mg tablet,exte nded release 24 hr 18 00:00: 00 06-24 00:00 :00 No [id number] Per instruc tions EVERY DAY Per instructio ns EVERY DAY (route: oral) Med Classific ation: Cardiovas cular Therapy Agents OxyContin 80 mg tablet,nakita h resistant,e xtended release 05-31 00:00: 00 10-01 23:59 :00 No [id number] 1 tablet EVERY 8 HOURS NEEDED FOR 28 DAYS 1 tablet EVERY 8 HOURS NEEDED FOR 28 DAYS (route: oral) Med Classific ation: Analgesic , Anti-infl ammatory or Antipyret ic rosuvastati n 40 mg tablet 05-29 00:00: 00 06-24 00:00 :00 No [id number] Per instruc tions EVERY DAY Per instructio ns EVERY DAY (route: oral) Med Classific ation: Cardiovas cular Therapy Agents oxycodone 30 mg tablet 05-28 00:00: 00 10-01 23:59 :00 No [id number] 1 tablet EVERY 6 HOURS NEEDED FOR 28 DAYS 1 tablet EVERY 6 HOURS NEEDED FOR 28 DAYS (route: oral) Med Classific ation: Analgesic , Anti-infl ammatory or Antipyret ic Anoro Ellipta 62.5 mcg-25 mcg/actuati on powder for inhalation 3-29 00:00: 00 10-01 23:59 :00 No [id number] 1 inhalat ion INTO THE LUNGS EVERY DAY FOR 30 DAYS 1 inhalation INTO THE LUNGS EVERY DAY FOR 30 DAYS (route: inhalation ) Med Classific ation: Respirato ry Therapy Agents alendronate 70 mg tablet 06-24 00:00: 00 10-01 23:59 :00 No [id number] 1 tablet WEEKLY 1 tablet WEEKLY (route: oral) Med Classific ation: Endocrine clopidogrel 75 mg tablet 06-24 00:00: 00 10-01 23:59 :00 No [id number] 1 tablet DAILY 1 tablet DAILY (route: oral) Med Classific ation: Hematolog ical Agents Eliquis 5 mg tablet 06-24 00:00: 00 10-01 23:59 :00 No [id number] 1 tablet 2 TIMES DAILY 1 tablet 2 TIMES DAILY (route: oral) Med Classific ation: Hematolog ical Agents Farxiga 10 mg tablet 06-24 00:00: 00 10-01 23:59 :00 No [id number] 1 tablet DAILY 1 tablet DAILY (route: oral) Med Classific ation: Endocrine furosemide 20 mg tablet 06-24 00:00: 00 10-01 23:59 :00 No [id number] 1 tablet DAILY 1 tablet DAILY (route: oral) Med Classific ation: Cardiovas cular Therapy Agents rosuvastati n 40 mg tablet 06-24 00:00: 00 10-01 23:59 :00 No [id number] 1 tablet DAILY 1 tablet DAILY (route: oral) Med Classific ation: Cardiovas cular Therapy Agents Vital Signs Vital Name Observation Time Observation Value Commen ts Temperature 2024-10-19 13:36:00.000 98.3 [degF] Temperature 2024-10-11 12:00:00.000 97.9 [degF] Temperature 2024-10-04 12:28:00.000 97.9 [degF] BMI (%) 2024-10-04 12:28:00.000 19 kg/m2 Height 2024-10-04 12:28:00.000 71 [in_us] Pulse 2024-10-19 13:36:00.000 62 /min Pulse 2024-10-11 12:00:00.000 72 /min Pulse 2024-10-04 12:28:00.000 55 /min O2 Saturation (%) 2024-10-19 13:47:00.000 96 % Respirations 2024-10-19 13:36:00.000 18 /min Respirations 2024-10-11 12:00:00.000 18 /min Respirations 2024-10-04 12:28:00.000 18 /min Weight (lbs) 2024-10-19 13:36:00.000 142 [lb_av] Weight (lbs) 2024-10-04 12:28:00.000 140 [lb_av] Systolic Blood Pressure 2024-10-19 13:36:00.000 92 mm[ Hg] Systolic Blood Pressure 2024-10-11 12:00:00.000 100 mm [Hg] Systolic Blood Pressure 2024-10-04 12:28:00.000 100 mm [Hg] Diastolic Blood Pressure 2024-10-19 13:36:00.000 [...] MAINTAIN SITUATIONAL AWARENESS AND WILL NOTIFY CLINICAL ORGANIC PREPARATION ANALYST AND PHYSICIAN/PROVIDER WITH ANY CHANGE IN CONDITION. [code = SKILLED NURSE TO PERFORM ENVIRONMENTAL SAFETY RISK ASSESSMENT AND FALL RISK ASSESSMENT AND PROVIDE INSTRUCTION TO IMPLEMENT ENVIRONMENTAL SAFETY AND FALL PREVENTION STRATEGIES THROUGHOUT THE CERTIFICATION PERIOD. SKILLED NURSE WILL MAINTAIN SITUATIONAL AWARENESS AND WILL NOTIFY CLINICAL ORGANIC PREPARATION ANALYST AND PHYSICIAN/PROVIDER WITH ANY CHANGE IN CONDITION.] [...] PROCESS, SIGNS AND SYMPTOMS, AND COMPLICATIONS.] Goal Patient Goal - I WANT TO FEE L BETTER Goal Provider Goal - A PLAN OF CARE WILL BE ESTABLISHED THAT MEETS PATIENT'S LONGTERM NEEDS AND INCLUDES PATIENT GOAL FOR HOME [...] MANAGEMENT OF COPD BY END OF EPISODE. 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 PT DENIES ANY N/V/D, ABNORMAL SOB, CHEST PAIN, DIZZINESS. SN ASSESSMENT LS NO WHEEZING OR CRACKLES, BSX4 LBM TODAY, ABDOMEN SOFT NONTENDER, TRACE MONTY LE EDEMA, PT AT BASELINE WEIGH. EDUCATION: LEG ELEVATION TO REDUCE EDEMA, REPORTING ANY CHANGE IN COUGH AND PHLEGM COLOR INTERVENTIONS NEEDED AT NEXT VISIT: PHYSICAL ASSESSMENT, FLUID OVER LOAD S/S, HEART FAILURE S/S COMMUNICATION WITH MD: Nathaniel NEXT MD APPOINTMENT: PCP 10/25 PT AND CAREGIVER INSTRUCTED TO CALL [facility] WITH ANY QUESTIONS OR CONCERNS AND/OR CHANGES IN CONDITION. PT VERBALIZED UNDERSTANDING</paragraph> Encounters Start Date/Time End Date/Time Encounter Type Admission Type Attending [facility] Facility Care Department Encounter ID Discharge Date Discharge Status Discharge Condition Discharge Reason Percent Goals Met 2024-10-04 00:00:00 2024-12-02 00:00:00 Outpatient [facility] [id number] 23.33
== END 2024-10-23 06:07 | disposition home or self-care (01) ==
LOC: HO.LAB 06:06
PROVIDERS: PCP Internal Medicine; Visit Provider Internal Medicine
DX: D64.9 Anemia, unspecified (principal); E78.00 Pure hypercholesterolemia, unspecified; I50.9 Heart failure, unspecified; E55.9 Vitamin D deficiency, unspecified; R30.0 Dysuria
CPT/HCPCS: 36415; 80053; 80061; 81001; 82306; 83880; 84443; 85025

== ENCOUNTER 2024-10-25 09:37 | Outpatient (AMB) | payer MEDICARE, SELFPAY ==
--- OUTSIDE RECORDS SUMMARY | 2024-04-25 06:15 | XMS_ITS ---
Author Organization [facility] Address [address] [place] [phone] Care Team Providers Care Recruiter Coordinator Name Role Phone Padilla SEBASTIAN, Vickey Primary Care Provider Unava ilNed Killian Unavailable [phone] Encounters Encounter Location Date Provider Diagnosis [address] [address] 04/25/2024 Ned Yu Plan Of Treatment Next Appt Details Provider Name:Ned Yu , 12/05/2024 11:30:00 AM, [address] [place] [address], [phone], Progress Notes * Remy TATEDOB: [birth year] (74 yo M)Acc No.[id number]:04/25/2024 Progress Notes Patient: Tere Remy GAONA Provider: Caprice Yu DPM :1950 A ge:74 Y S ex:Male Date:04/25/2024 Address:[address] [place] [address] Pcp:Vickey Causey MD Subjective: * Chief Complaints: [...] 0 04/25/2024 Generated for Debo ferrer/Nidhi/Yue on: 0 10/25/2024 10:16 AM EDT
--- OUTSIDE RECORDS SUMMARY | 2024-06-06 12:00 | XMS_ITS ---
Author Organization [facility] Address [address] [place] [phone] Care Team Providers Care Store Management Trainee Name Role Phone Padilla SEBASTIAN, Vickey Primary Care Provider Unava ilNed Killian Unavailable [phone] Encounters Encounter Location Date Provider Diagnosis [address] [address] 06/06/2024 Ned Yu Plan Of Treatment Next Appt Details Provider Name:Ned Yu , 12/05/2024 11:30:00 AM, [address] [place] [address], [phone], Progress Notes * Remy TATEDOB: [birth year] (74 yo M)Acc No.[id number]:06/06/2024 Progress Note Patient: Tere Remy GAONA Provider: Caprice Yu DPM :1950 A ge:74 Y S ex:Male Date:06/06/2024 Address:[address] [place] [address] Pcp:Vickey Causey MD Subjective: * Chief Complaints: [...] 06/06/2024 Generated for Debo ferrer/Nidhi/Yue on: 0 10/25/2024 10:15 AM EDT
--- NOTE | 2024-10-25 09:50 | A.OFFVIS_ITS ---
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 He is a patient of Dr. Causey. He is seen for the following urologic conditions - urinary retention Six week follow-up voiding trial PVR 200 cc Cystoscopy open bladder neck, short prostate PVR 250 cc Continue double voiding, continue combination medications tamsulosin, finasteride and bethanechol Urinary retention Recent admission to [facility] cardiac related issues Found to be in urinary retention Catheter placed No prostate medications initially given Placed on combination therapy [facility] Medical History (Updated 10/13/24 @ 13:43 by Lynn Jung NP) Closed rib fracture Fall Erythema intertrigo Nummular eczematous dermatitis Allergic rhinitis Chronic kidney disease (CKD) Vitamin D deficiency Pure hypercholesterolemia Benign essential hypertension Atrial fibrillation Chronic combined systolic and diastolic congestive heart failure Coronary artery disease Rheumatoid arthritis Degenerative disc disease, cervical Lumbar degenerative disc disease Surgical History History of coronary angioplasty History of hernia repair H/O wrist surgery History of arthroscopy of right knee History of coronary artery bypass graft Family History Father Past heart attack Mother Pneumonia Daughter Healthy adult Social History Housing: House Alcohol intake: current Alcohol intake frequency: holidays/special occasions only Patient Tobacco Use Status: Former Tobacco user e-Cigarette/Vaping Use: Never Used Second Hand Smoke Exposure: Yes service: Yes ([employer]) Current occupational status: retired and disabled Current occupation: right hand dominant Cognitive needs: Yes (cane) Hearing needs: Yes (hearing aide) Vision needs: Yes (glasses) Office Procedures Post Void Residual Post Residual Void Post Void Residual (PVR): 194 [id number] Void Residual by ultrasound Results AMB Urinalysis, Automated UA Leukoctes 0 Ronald/uL Last Edit by ISABELL Martin on 10/25/24 10:13 UA Nitrite Negative Last Edit by ISABELL Martin on 10/25/24 10:13 UA Urobilinogen 0.2 mg/dL Last Edit by ISABELL Martin on 10/25/24 10:1 3 UA Protein 0 mg/dL Last Edit by Meghann Lemon [facility] on 10/25/24 10:13 UA pH 6.0 Last Edit by Meghann Lemon [facility] on 10/25/24 10:13 UA Blood 0 Hossein/uL Last Edit by Meghann Lemon [facility] on 10/25/24 10:13 UA Specific [place] 1.015 Last Edit by ISABELL Martin on 10/25/24 10: 13 UA Ketone Negative Last Edit by Meghann Lemon [facility] on 10/25/24 10:13 UA Bilirubin 0 mg/dL Last Edit by Meghann Lemon [facility] on 10/25/24 10:13 UA Glucose 500 mg/dL Last Edit by Meghann Lemon [facility] on 10/25/24 10:13 Results Reviewed Results Reviewed: Laboratory Last Values Urine pH (Auto) 6.0 10/25/24 10:12 Specific [place] (Auto) 1.015 10/25/24 10:12 Urine Protein (Auto) 0 mg/dL 10/25/24 10:12 Glucose (UA)(Auto) 500 mg/dL 10/25/24 10:12 Urine Ketones (Auto) Negative 10/25/24 10:12 Urine Blood (Auto) 0 Hossein/uL 10/25/24 10:12 Urine Nitrite (Auto) Negative 10/25/24 10:12 Urine Bilirubin (Auto) 0 mg/dL 10/25/24 10:12 Urine Urobilinogen (Auto) 0.2 mg/dL 10/25/24 10:12 Leukocyte Esterase (Auto) 0 Ronald/uL 10/25/24 10:12 Assessment & Plan Assessment & Plan (1) Urinary retention: Code(s): R33.9 - Retention of urine, unspecified Category: Medical Plan Six-month follow-up PVR Orders: Orders AMB Post Void Residual by ultrasound Today R33.9 - Retention of urine, unspecified AMB Urinalysis Automated Today Z13.9 - Encounter for screening, unspecified Medications: Changed From bethanechol chloride 50 mg PO BID 30 days 60 tabs 2RF N39.0 - Urinary tract infection, site not specified, R33.9 - Retention of urine, unspecified To bethanechol chloride 50 mg PO BID 180 tabs 1RF 90 days N39.0 - Urinary tract infection, site not specified, R33.9 - Retention of urine, unspecified Refilled finasteride 5 mg PO DAILY 90 tabs 1RF 90 days R33.9 - Retention of urine, unspecified tamsulosin (Flomax) 0.4 mg PO BEDTIME 90 tabs 1RF 90 days R33.9 - Retention of urine, unspecified Patient Instructions: This note is constructed using voice recognition software. While every effort has been made to ensure accuracy mortar mixer operator errors may have been included. Imaging studies, laboratory and physical exam results were discussed and reviewed in detail. No major barriers to patient understanding were identified. An opportunity to ask questions regarding the treatment plan was provided. All questions were answered. The patient expressed understanding and agreement with the above treatment plan. The patient is aware they should contact our office by phone for worsening of their current condition or the appearance of new urologic symptoms. Compliance is encouraged with any medications and followup testing that is ordered. It is a privilege to participate in the urologic care of your patient. If you have any questions or concerns regarding treatment for the above conditions, or other urologic issues, please do not hesitate to contact me. The office telephone contact is [phone]. Sincerely, Dr Marcus Cade MD, [facility] - Urology Compassionate Specialist Care for the Genitourinary System Coding Level of Care Code Est Pt Level 3 (72343) Complex EM visit Add On G2211 Diagnoses Urinary retention R33.9 CPT Codes Post Residual Void - PVR CPT Code: 51734-Jjvt Void Residual by ultrasound ([id number])
--- OUTSIDE RECORDS SUMMARY | 2024-10-25 10:15 | XMS_ITS | Patient Health Record ---
Author Organization [facility] Address [address] [place] [address] Care Team Providers Care Weigher And Crusher Name Role Phone Padilla SEBASTIAN, Vickey Primary Care Provider Chrisotpher Chen Jr Unavailable Allergies Allergen (clinical drug [...] Problem Status W/U Status Risk Notes Problem [id number] Colon cancer screening (Z12.11) Active confirmed Problem [id number] Long-term use of aspirin therapy (Z79.82) Active confirmed Plan Of Treatment Future Test Test Name Order Date COLONOSCOPY 11/10/2012 COLONOSCOPY 07/08/2016 Insurance Providers Payer Name Payer Address Payer Phone Subscriber Number Group Number Insured Name Patient Relationship to Insured Coverage Start Date Coverage End Date [facility] [address] [facility] [place] [id number] [id number] PAT TATE Self - patient is the insured Medical (General) History Medical History History ICD Code coronary disease with history of [place] back pain rheumatoid arthritis Surgical History Surgery Date(Month/Year) left knee arthroscopy right knee arthroscopy CABG X 5 foot surgery ventral hernia repair
--- OUTSIDE RECORDS SUMMARY | 2024-10-25 10:16 | XMS_ITS | Patient Health Record ---
Author Organization [facility] Address [address] [place] [address] Care Team Providers Care Communications Instructor Name Role Phone Emelia Causey MDh Primary Care Provider UnaNed Galarza Unavailable [phone] Allergies Allergen (clinical drug ingredient) Drug/Non Drug [...] Vaccine Route Administration Date Status Comme nts Influenza Unknown 10/30/2021 Administered Influenza Unknown 11/30/2023 Administered Pneumococcal Unknown 12/16/2021 Administered COVID-19 Pfizer BioNTech Vaccine Unknown 01/29/2021 Administered 1st 04/27/20 2nd 05/18/20 Social History Tobacco Use: Social History Observation [...] atherosclerosis of arteries of lower limbs (disorder) ([id number] ) Atherosclerosis of [place] artery of both lower extremities, with unspecified presence of clinical manifestation (I70.203) Active confirmed Vital Signs Blood pressure diastolic 65 mm Hg 09/05/2024 Height 5ft1in in 09/05/2024 Blood pressure systolic 128 mm Hg 09/05/2024 Weight 140 lbs 09/05/2024 BMI 26.45 kg/m2 09/05/2024 Procedures Procedure Date Ordered Date Performed Result Body Sit e 62449-ARCZKUQ NAIL, 6 OR MORE 11/05/2023 N/A 19306-Pboa Destruction, 1-14 11/05/2023 N/A 32642-JBII SKIN LESIONS, OVER 4 11/05/2023 N/A 09331-BKXTPJN NAIL, 6 OR MORE 03/14/2024 N/A 84357-ORWY SKIN LESIONS, OVER 4 03/14/2024 N/A 30489-QORHVCR NAIL, 6 OR MORE 09/05/2024 N/A 25565-BHTX SKIN LESIONS, OVER 4 09/05/2024 N/A Encounters Encounter Location Date Provider Diagnosis [facility] [address] [place] [address] 11/05/2023 Ned Yu Atherosclerosis of [place] artery of both lower extremities, with unspecified presence of clinical manifestation I70.203 ; Plantar wart B07.0 ; Tinea unguium B35.1 ; Pain in right foot M79.671 ; Pain in right toe(s) M79.674 ; Pain in left toe(s) M79.675 and Tinea pedis of both feet B35.[address] [address] 12/21/2023 Ned Yu Cellulitis of foot, right L03.115 ; Cellulitis of foot, left L03.116 and Generalized edema R60.[address] [address] 02/04/2024 Ned Yu Cellulitis of foot, right L03.115 ; Cellulitis of foot, left L03.116 and Tinea pedis of both feet B35.[address] [address] 03/14/2024 Ned Yu Atherosclerosis of [place] artery of both lower extremities, with unspecified presence of clinical manifestation I70.203 ; Tinea unguium B35.1 ; Pain in right toe(s) M79.674 ; Pain in left toe(s) M79.675 and Tinea pedis of both feet B35.[address] [address] 09/05/2024 Ned Yu Tinea unguium B35.1 ; Atherosclerosis of [place] artery of both lower extremities, with unspecified presence of clinical manifestation I70.203 ; Pain in right toe(s) M79.674 and Pain in left toe(s) M79.[address] [address] 02/07/2024 Ned Yu Tinea pedis of both feet B35.[address] [address] 06/06/2024 Ned Yu Assessments Encounter Date Diagnosis (ICD Code) Assessment Notes Treatment Notes Treatment Clinical Notes Section Notes 11/05/2023 Plantar wart (ICD-10 - B07.0) 11/05/2023 Atherosclerosis of [place] artery of both lower extremities, with unspecified [...] unguium (ICD-10 - B35.1) 03/14/2024 Atherosclerosis of [place] artery of both lower extremities, with unspecified presence of clinical manifestation (ICD-10 - I70.203) 09/05/2024 Tinea unguium (ICD-10 - B35.1) 09/05/2024 Atherosclerosis of [place] artery of both lower extremities, with unspecified presence of clinical manifestation (ICD-10 - I70.203) 09/05/2024 Pain in right toe(s) (ICD-10 - M79.674) 12/21/2023 Generalized edema (ICD-10 - R60.1) 03/14/2024 Pain in right toe(s) (ICD-10 - M79.674) 02/04/2024 Tinea pedis of both feet (ICD-10 - B35.3) 11/05/2023 Tinea unguium (ICD-10 - B35.1) 11/05/2023 Pain in right foot (ICD-10 - [...] X ray : Foot, right 3V 03/15/2012 11891-MUHUTBE NAIL, 6 OR MORE 09/15/2019 15483-POIMIUM NAIL, 6 OR MORE 11/17/2019 59108-GKXURHB NAIL, 6 OR MORE 02/16/2020 81887-EPKSIFN NAIL, 6 OR MORE 06/11/2020 42563-FBINAOU NAIL, 6 OR MORE 08/27/2020 51380-STEWQKU NAIL, 6 OR MORE 11/08/2020 78097-XISUAND NAIL, 6 OR MORE 01/14/2021 85698-AFXDLWH NAIL, 6 OR MORE 05/27/2021 44036-YPCDRWN NAIL, 6 OR MORE 08/26/2021 42023-OTQQNIE NAIL, 6 OR MORE 09/15/2022 43865-LEHWUPZ NAIL, 6 OR MORE 12/22/2022 62064-AXVIDJE NAIL, 6 OR MORE 11/04/2021 43186-OIRPTEU NAIL, 6 OR MORE 01/27/2022 53800-WCJAGVH NAIL, 6 OR MORE 04/28/2022 57936-IMNIHZP NAIL, 6 OR MORE 03/05/2023 90527-FSEBQLS NAIL, 6 OR MORE 05/25/2023 12778-FVTQODJ NAIL, 6 OR MORE 08/03/2023 67930-GNNSIKP NAIL, 6 OR MORE 11/05/2023 79280-AKGAQDZ NAIL, 6 OR MORE 03/14/2024 53155-MXVJDSA NAIL, 6 OR MORE 09/05/2024 59580-Eawd Destruction, 1-14 11/05/2023 00022-Foqz Destruction, -14 06/29/2023 96873-Kjvu Destruction, -14 09/28/2023 44972-Eoqw Destruction, -14 08/03/2023 43688-Fvrj Destruction, -14 05/25/2023 55427-Prrw Destruction, -14 03/05/2023 96895-Pirl Destruction, -14 01/26/2023 97952-Whxc Destruction, 1-14 04/13/2023 30029-Yeij Destruction, 03-1404/28/2022 97804-Fnux Destruction, 03-1412/16/2021 17261-Qtsa Destruction, 03-1403/13/2022 65243-Npxb Destruction, 03-1401/27/2022 10899-Xrai Destruction, 03-1411/04/2021 14927-Otpx Destruction, 03-1412/22/2022 75672-Tgmi Destruction, 03-1406/09/2022 86850-Prse Destruction, 03-1410/20/2022 65982-Kjpe Destruction, 03-1409/15/2022 11264-Abkd Destruction, 03-1408/26/2021 84978-Yhls Destruction, 03-1403/14/2021 99977-Eyvp Destruction, 03-1407/15/2021 48046-Vvfp Destruction, 03-1405/27/2021 95074-Eezc Destruction, 03-1401/14/2021 35982-Kvum Destruction, 03-1411/08/2020 97950-Rrwj Destruction, 03-1410/01/2020 88833-Ycra Destruction, 03-1412/10/2020 69672-Xijj Destruction, 03-1408/27/2020 30173-Anjj Destruction, 03-1403/29/2020 76399-Xgis Destruction, 03-1407/19/2020 58756-Fnqe Destruction, 03-1406/11/2020 71897-Sgux Destruction, 03-1402/16/2020 42672-Djag Destruction, 03-1411/17/2019 19797-Waql Destruction, 03-1409/15/2019 80439-Uskn Destruction, 03-1408/08/2013 12858-Uwdg Destruction, 03-1409/29/2013 11494-Mazb Destruction, 03-1401/13/2011 65682-Stvv Destruction, 03-1403/24/2011 34710-Sykt Destruction, 03-1406/02/2011 69234-Uacx Destruction, 03-1407/17/2011 22008-Qexj Destruction, 03-1410/09/2011 76200-Zlxv Destruction, 1-14 01/05/2012 80157- Debride <25 sq cm 10/02/2014 95894-XVKQ SKIN LESIONS, OVER 4 02/16/20 20 65571-ITCX SKIN LESIONS, OVER 4 06/12/19 21 68964-ERAR SKIN LESIONS, OVER 4 08/28/19 21 94472-MSBL SKIN LESIONS, OVER 4 11/09/19 72096-JHMK SKIN LESIONS, OVER 4 01/15/20 52965-NNZX SKIN LESIONS, OVER 4 05/28/19 50698-CLMZ SKIN LESIONS, OVER 4 08/27/19 46679-BPLD SKIN LESIONS, OVER 4 09/16/19 23 34303-TBAP SKIN LESIONS, OVER 4 12/23/19 14437-KEBF SKIN LESIONS, OVER 4 11/05/19 68806-LWRD SKIN LESIONS, OVER 4 01/28/20 43913-LDWY SKIN LESIONS, OVER 4 04/28/19 23 41940-BTMT SKIN LESIONS, OVER 4 03/05/19 24 20429-FWKZ SKIN LESIONS, OVER 4 05/25/19 24 55337-MFCC SKIN LESIONS, OVER 4 08/03/19 24 50165-MTRH SKIN LESIONS, OVER 4 11/05/19 24 56722-PVIF SKIN LESIONS, OVER 4 09/06/19 25 91350-ZSIS SKIN LESIONS, OVER 4 03/14/19 95465-AANM SKIN LESIONS, 2 TO 4 09/15/19 91393-JFHF SKIN LESIONS, 2 TO 4 11/17/19 Next Appt Details Provider Name:Ned Yu , 12/05/2024 11:30:00 AM, [address] [place] [address], [phone], Insurance Providers Payer Name Payer Address Payer Phone Subscriber Number Group Number Insured Name Patient Relationship to Insured Coverage Start Date Coverage End Date Medicare [facility] [address] [place] [address] [id number] Remy Reno Self - patient is the insured [employer] [address] [place] [address] [id number] Remy Reno Self - patient is the [...]
--- OUTSIDE RECORDS SUMMARY | 2024-12-01 20:00 | XMS_ITS | Clinical Summary ---
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) USE OF ANTITHROMBOT ICS/ANTIPLAT ELETS Active 03-01 00:00: 00 SECURITY SYSTEM INSTALLER (CURRENT) USE OF ANTICOAGULAN TS Active 03-01 00:00: 00 SECURITY SYSTEM INSTALLER (CURRENT) USE OF ORAL HYPOGLYCEMIC DRUGS Active [...] 06-20 00:00: 00 10-01 23:59 :00 No [id number] 4 mL DIRECTED 4 mL DIRECTED (route: subcutaneo us) Med Classific ation: Dermatolo gical Entresto 49 mg-51 mg tablet 06-16 00:00: 00 10-01 23:59 :00 No [id number] 1 tablet TWICE A DAY 1 tablet TWICE A DAY (route: oral) Med Classific ation: Cardiovas cular Therapy Agents ezetimibe 10 mg tablet 06-16 00:00: 00 10-01 23:59 :00 No [id number] 1 tablet EVERY DAY 1 tablet EVERY DAY (route: oral) Med Classific ation: Cardiovas cular Therapy Agents metoprolol succinate ER 200 mg tablet,exte nded release 24 hr 4-18 00:00: 00 06-24 00:00 :00 No [id number] Per instruc tions EVERY DAY Per instructio ns EVERY DAY (route: oral) Med Classific ation: Cardiovas cular Therapy Agents OxyContin 80 mg tablet,nakita h resistant,e xtended release 02 00:00: 00 10-01 23:59 :00 No [id number] 1 tablet EVERY 8 HOURS NEEDED FOR 28 DAYS 1 tablet EVERY 8 HOURS NEEDED FOR 28 DAYS (route: oral) Med Classific ation: Analgesic , Anti-infl ammatory or Antipyret ic rosuvastati n 40 mg tablet 3-31 00:00: 00 06-24 00:00 :00 No [id number] Per instruc tions EVERY DAY Per instructio ns EVERY DAY (route: oral) Med Classific ation: Cardiovas cular Therapy Agents oxycodone 30 mg tablet 3-30 00:00: 00 10-01 23:59 :00 No [id number] 1 tablet EVERY 6 HOURS NEEDED FOR 28 DAYS 1 tablet EVERY 6 HOURS NEEDED FOR 28 DAYS (route: oral) Med Classific ation: Analgesic , Anti-infl ammatory or Antipyret ic Anoro Ellipta 62.5 mcg-25 mcg/actuati on powder for inhalation 3-29 00:00: 00 10-01 23:59 :00 No [id number] 1 inhalat ion INTO THE LUNGS EVERY DAY FOR 30 DAYS 1 inhalation INTO THE LUNGS EVERY DAY FOR 30 DAYS (route: inhalation ) Med Classific ation: Respirato ry Therapy Agents alendronate 70 mg tablet 06-24 00:00: 00 10-01 23:59 :00 No [id number] 1 tablet WEEKLY 1 tablet WEEKLY (route: oral) Med Classific ation: Endocrine clopidogrel 75 mg tablet - 00:00: 00 10-01 23:59 :00 No [id number] 1 tablet DAILY 1 tablet DAILY (route: oral) Med Classific ation: Hematolog ical Agents Eliquis 5 mg tablet 06-24 00:00: 00 10-01 23:59 :00 No [id number] 1 tablet 2 TIMES DAILY 1 tablet 2 TIMES DAILY (route: oral) Med Classific ation: Hematolog ical Agents Farxiga 10 mg tablet 06-24 00:00: 00 10-01 23:59 :00 No [id number] 1 tablet DAILY 1 tablet DAILY (route: oral) Med Classific ation: Endocrine furosemide 20 mg tablet 06-24 00:00: 00 10-01 23:59 :00 No [id number] 1 tablet DAILY 1 tablet DAILY (route: oral) Med Classific ation: Cardiovas cular Therapy Agents rosuvastati n 40 mg tablet 06-24 00:00: 00 10-01 23:59 :00 No [id number] 1 tablet DAILY 1 tablet DAILY (route: oral) Med Classific ation: Cardiovas cular Therapy Agents acetaminoph en 325 mg tablet 10-04 00:00: 00 Yes [id number] 975 mg EVERY 6 HOURS 975 mg EVERY 6 HOURS (route: oral) Med Classific ation: Analgesic , Anti-infl ammatory or Antipyret ic Anoro Ellipta 62.5 mcg-25 mcg/actuati on powder for inhalation 10-04 00:00: 00 Yes [id number] 1 inhalat ion DAILY 1 inhalation DAILY (route: inhalation ) Med Classific ation: Respirato ry Therapy Agents bethanechol chloride 50 mg tablet 10-04 00:00: 00 Yes [id number] 1 tablet 2 TIMES DAILY 1 tablet 2 TIMES DAILY (route: oral) Med Classific ation: Genitouri nary Therapy clopidogrel 75 mg tablet 10-04 00:00: 00 Yes [id number] 1 tablet DAILY 1 tablet DAILY (route: oral) Med Classific ation: Hematolog ical Agents Dupixent 300 mg/2 mL subcutaneou s pen injector 10-04 00:00: 00 Yes [id number] Per instruc tions EVERY OTHER WEEK Per instructio ns EVERY OTHER WEEK (route: subcutaneo us) Med Classific ation: Dermatolo gical Eliquis 5 mg tablet 10-04 00:00: 00 Yes [id number] 1 tablet 2 TIMES DAILY 1 tablet 2 TIMES DAILY (route: oral) Med Classific ation: Hematolog ical Agents Entresto 49 mg-51 mg tablet 10-04 00:00: 00 Yes [id number] 1 tablet 2 TIMES DAILY 1 tablet 2 TIMES DAILY (route: oral) Med Classific ation: Cardiovas cular Therapy Agents ezetimibe 10 mg tablet 10-04 00:00: 00 Yes [id number] 1 tablet DAILY 1 tablet DAILY (route: oral) Med Classific ation: Cardiovas cular Therapy Agents Farxiga 10 mg tablet 10-04 00:00: 00 Yes [id number] 1 tablet DAILY 1 tablet DAILY (route: oral) Med Classific ation: Endocrine finasteride 5 mg tablet 10-04 00:00: 00 Yes [id number] 1 tablet DAILY 1 tablet DAILY (route: oral) Med Classific ation: Genitouri nary Therapy furosemide 20 mg tablet 10-04 00:00: 00 Yes [id number] 1-2 tablet DIRECTED 1-2 tablet DIRECTED (route: oral) Med Classific ation: Cardiovas cular Therapy Agents nitroglycer in 0.4 mg sublingual tablet 10-04 00:00: 00 Yes [id number] 1 tablet DIRECTED 1 tablet DIRECTED (route: sublingual ) Med Classific ation: Cardiovas cular Therapy Agents OxyContin 80 mg tablet,nakita h resistant,e xtended release 10-04 00:00: 00 Yes [id number] 1 tablet 3 TIMES DAILY 1 tablet 3 TIMES DAILY (route: oral) Med Classific ation: Analgesic , Anti-infl ammatory or Antipyret ic rosuvastati n 40 mg tablet 10-04 00:00: 00 Yes [id number] 1 tablet DAILY 1 tablet DAILY (route: oral) Med Classific ation: Cardiovas cular Therapy Agents tamsulosin 0.4 mg capsule 10-04 00:00: 00 Yes [id number] 1 capsule BEDTIME 1 capsule BEDTIME (route: oral) Med Classific ation: Genitouri nary Therapy Toprol XL 25 mg tablet,exte nded release 10-04 00:00: 00 Yes [id number] 1 tablet DAILY 1 tablet DAILY (route: oral) Med Classific ation: Cardiovas cular Therapy Agents Vital Signs Vital Name Observation Time Observation Value Commen ts Temperature 2024-10-24 11:40:00.000 97.8 [degF] Temperature 2024-10-19 13:36:00.000 98.3 [degF] Temperature 2024-10-11 12:00:00.000 97.9 [degF] Temperature 2024-10-04 12:28:00.000 97.9 [degF] BMI (%) 2024-10-04 12:28:00.000 19 kg/m2 Height 2024-10-04 12:28:00.000 71 [in_us] Pulse 2024-10-24 11:40:00.000 60 /min Pulse 2024-10-19 13:36:00.000 62 /min Pulse 2024-10-11 12:00:00.000 72 /min Pulse 2024-10-04 12:28:00.000 55 /min O2 Saturation (%) 2024-10-24 11:41:00.000 99 % O2 Saturation (%) 2024-10-19 13:47:00.000 96 % Respirations 2024-10-24 11:40:00.000 18 /min Respirations 2024-10-19 13:36:00.000 18 /min Respirations 2024-10-11 12:00:00.000 18 /min Respirations 2024-10-04 12:28:00.000 18 /min Weight (lbs) 2024-10-24 11:40:00.000 142 [lb_av] Weight (lbs) 2024-10-19 13:36:00.000 142 [lb_av] Weight (lbs) 2024-10-04 12:28:00.000 140 [lb_av] Systolic Blood Pressure 2024-10-24 11:40:00.000 112 mm [Hg] Systolic Blood Pressure 2024-10-19 13:36:00.000 92 mm[ Hg] Systolic Blood Pressure 2024-10-11 12:00:00.000 100 mm [Hg] Systolic Blood Pressure 2024-10-04 12:28:00.000 100 mm [Hg] Diastolic Blood Pressure 2024-10-24 11:40:00.000 [...] MAINTAIN SITUATIONAL AWARENESS AND WILL NOTIFY CLINICAL CUSTOMS IMPORT SPECIALIST AND PHYSICIAN/PROVIDER WITH ANY CHANGE IN CONDITION. [code = SKILLED NURSE TO PERFORM ENVIRONMENTAL SAFETY RISK ASSESSMENT AND FALL RISK ASSESSMENT AND PROVIDE INSTRUCTION TO IMPLEMENT ENVIRONMENTAL SAFETY AND FALL PREVENTION STRATEGIES THROUGHOUT THE CERTIFICATION PERIOD. SKILLED NURSE WILL MAINTAIN SITUATIONAL AWARENESS AND WILL NOTIFY CLINICAL CUSTOMS IMPORT SPECIALIST AND PHYSICIAN/PROVIDER WITH ANY CHANGE IN CONDITION.] [...] CARE WILL BE ESTABLISHED THAT MEETS PATIENT'S [facility] NEEDS AND INCLUDES PATIENT GOAL FOR HOME [...] <paragraph>[Visit Date: 2024 by DEJUAN KAUFMAN LPN]:</paragraph><paragraph>SNV 10/24 ABNORMAL VITALS: WITHIN PTS ESTABLISHED PARAMETERS FALLS: NO RECENT FALLS MEDICATION CHANGES: NO CHANGES OBSERVATION AND ASSESSMENT PROVIDED: PATIENT IS ALERT AND ORIENTED X4 PLEASANT AND COOPERATIVE, WAS PRESENT AND ENGAGED DURING VISIT. PATIENT REPORTED OVERALL FEELING WELL DENIES ANY CHEST PAIN OR MAJOR BREATHING ISSUES, HAS OCCASIONAL MILD SHORTNESS OF BREATH WITH MODERATE EXERTION BUT RECOVERS QUICKLY WITH REST. VSS, LSCTA, +1 EDEMA BLE, WT STABLE, BASELINE LBP MANAGED WITH PAIN REGIME. NO ISSUES WITH BOWELS OR BLADDER OTHER THAN FREQUENCY WHICH IS EXPECTED DUE TO DIURETIC THERAPY. APPETITE HAS IMPROVED AND ADEQUATE EDUCATION: REVIEWED SIGNS AND SYMPTOMS OF HF EXACERBATION; RAPID WEIGHT GAIN, INCREASED SHORTNESS OF BREATH, CHEST PAIN, FATIGUE, SEEKING EMERGENCY CARE FOR SEVERE SYMPTOMS ESPECIALLY CHEST PAIN OR SEVERE SHORTNESS OF BREATH. EMPHASIZED NEED TO REPORT 2 POUND WEIGHT INCREASE IN 24 HOURS TO CARE TEAM FOR EARLY INTERVENTION INTERVENTIONS NEEDED AT NEXT VISIT: ASSESSMENT TEACHING COMMUNICATION WITH MD: Nathaniel PT AND CAREGIVER INSTRUCTED TO CALL [facility] WITH ANY QUESTIONS OR CONCERNS AND/OR CHANGES IN CONDITION. PATIENT AND WERE BOTH RECEPTIVE TO THE INFORMATION AND VERBALIZED UNDERSTANDING. DEJUAN KAUFMAN LPN</paragraph> <paragraph>[Visit Date: 2024 by EUSEBIO OJYNER RN]:</paragraph><paragraph>SNV 10/19/24 ABNORMAL VITALS: ALL VS WNL, [...] End Date/Time Encounter Type Admission Type Attending Clinicians Care Facility Care Department Encounter ID Discharge Date Discharge Status Discharge Condition Discharge Reason Percent Goals Met 2024-10-04 00:00:00 2024-12-02 00:00:00 Outpatient [facility] [id number] 26.67
--- OUTSIDE RECORDS SUMMARY | 2024-12-01 20:00 | XMS_ITS | Clinical Summary ---
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 (CURRENT) USE OF ANTITHROMBOT ICS/ANTIPLAT ELETS Active 03-01 00:00: 00 CONVERTIBLE SOFA BEDSPRING TESTER (CURRENT) USE OF ANTICOAGULAN TS Active 03-01 00:00: 00 CONVERTIBLE SOFA BEDSPRING TESTER (CURRENT) USE OF ORAL HYPOGLYCEMIC DRUGS Active [...] 06-20 00:00: 00 10-01 23:59 :00 No [id number] 4 mL DIRECTED 4 mL DIRECTED (route: subcutaneo us) Med Classific ation: Dermatolo gical Entresto 49 mg-51 mg tablet 06-16 00:00: 00 10-01 23:59 :00 No [id number] 1 tablet TWICE A DAY 1 tablet TWICE A DAY (route: oral) Med Classific ation: Cardiovas cular Therapy Agents ezetimibe 10 mg tablet 06-16 00:00: 00 10-01 23:59 :00 No [id number] 1 tablet EVERY DAY 1 tablet EVERY DAY (route: oral) Med Classific ation: Cardiovas cular Therapy Agents metoprolol succinate ER 200 mg tablet,exte nded release 24 hr 4-18 00:00: 00 06-24 00:00 :00 No [id number] Per instruc tions EVERY DAY Per instructio ns EVERY DAY (route: oral) Med Classific ation: Cardiovas cular Therapy Agents OxyContin 80 mg tablet,nakita h resistant,e xtended release 02 00:00: 00 10-01 23:59 :00 No [id number] 1 tablet EVERY 8 HOURS NEEDED FOR 28 DAYS 1 tablet EVERY 8 HOURS NEEDED FOR 28 DAYS (route: oral) Med Classific ation: Analgesic , Anti-infl ammatory or Antipyret ic rosuvastati n 40 mg tablet 3-31 00:00: 00 06-24 00:00 :00 No [id number] Per instruc tions EVERY DAY Per instructio ns EVERY DAY (route: oral) Med Classific ation: Cardiovas cular Therapy Agents oxycodone 30 mg tablet 3-30 00:00: 00 10-01 23:59 :00 No [id number] 1 tablet EVERY 6 HOURS NEEDED FOR 28 DAYS 1 tablet EVERY 6 HOURS NEEDED FOR 28 DAYS (route: oral) Med Classific ation: Analgesic , Anti-infl ammatory or Antipyret ic Anoro Ellipta 62.5 mcg-25 mcg/actuati on powder for inhalation 3-29 00:00: 00 10-01 23:59 :00 No [id number] 1 inhalat ion INTO THE LUNGS EVERY DAY FOR 30 DAYS 1 inhalation INTO THE LUNGS EVERY DAY FOR 30 DAYS (route: inhalation ) Med Classific ation: Respirato ry Therapy Agents alendronate 70 mg tablet 06-24 00:00: 00 10-01 23:59 :00 No [id number] 1 tablet WEEKLY 1 tablet WEEKLY (route: oral) Med Classific ation: Endocrine clopidogrel 75 mg tablet - 00:00: 00 10-01 23:59 :00 No [id number] 1 tablet DAILY 1 tablet DAILY (route: oral) Med Classific ation: Hematolog ical Agents Eliquis 5 mg tablet 06-24 00:00: 00 10-01 23:59 :00 No [id number] 1 tablet 2 TIMES DAILY 1 tablet 2 TIMES DAILY (route: oral) Med Classific ation: Hematolog ical Agents Farxiga 10 mg tablet 06-24 00:00: 00 10-01 23:59 :00 No [id number] 1 tablet DAILY 1 tablet DAILY (route: oral) Med Classific ation: Endocrine furosemide 20 mg tablet 06-24 00:00: 00 10-01 23:59 :00 No [id number] 1 tablet DAILY 1 tablet DAILY (route: oral) Med Classific ation: Cardiovas cular Therapy Agents rosuvastati n 40 mg tablet 06-24 00:00: 00 10-01 23:59 :00 No [id number] 1 tablet DAILY 1 tablet DAILY (route: oral) Med Classific ation: Cardiovas cular Therapy Agents acetaminoph en 325 mg tablet 10-04 00:00: 00 Yes [id number] 975 mg EVERY 6 HOURS 975 mg EVERY 6 HOURS (route: oral) Med Classific ation: Analgesic , Anti-infl ammatory or Antipyret ic Anoro Ellipta 62.5 mcg-25 mcg/actuati on powder for inhalation 10-04 00:00: 00 Yes [id number] 1 inhalat ion DAILY 1 inhalation DAILY (route: inhalation ) Med Classific ation: Respirato ry Therapy Agents bethanechol chloride 50 mg tablet 10-04 00:00: 00 Yes [id number] 1 tablet 2 TIMES DAILY 1 tablet 2 TIMES DAILY (route: oral) Med Classific ation: Genitouri nary Therapy clopidogrel 75 mg tablet 10-04 00:00: 00 Yes [id number] 1 tablet DAILY 1 tablet DAILY (route: oral) Med Classific ation: Hematolog ical Agents Dupixent 300 mg/2 mL subcutaneou s pen injector 10-04 00:00: 00 Yes [id number] Per instruc tions EVERY OTHER WEEK Per instructio ns EVERY OTHER WEEK (route: subcutaneo us) Med Classific ation: Dermatolo gical Eliquis 5 mg tablet 10-04 00:00: 00 Yes [id number] 1 tablet 2 TIMES DAILY 1 tablet 2 TIMES DAILY (route: oral) Med Classific ation: Hematolog ical Agents Entresto 49 mg-51 mg tablet 10-04 00:00: 00 Yes [id number] 1 tablet 2 TIMES DAILY 1 tablet 2 TIMES DAILY (route: oral) Med Classific ation: Cardiovas cular Therapy Agents ezetimibe 10 mg tablet 10-04 00:00: 00 Yes [id number] 1 tablet DAILY 1 tablet DAILY (route: oral) Med Classific ation: Cardiovas cular Therapy Agents Farxiga 10 mg tablet 10-04 00:00: 00 Yes [id number] 1 tablet DAILY 1 tablet DAILY (route: oral) Med Classific ation: Endocrine finasteride 5 mg tablet 10-04 00:00: 00 Yes [id number] 1 tablet DAILY 1 tablet DAILY (route: oral) Med Classific ation: Genitouri nary Therapy furosemide 20 mg tablet 10-04 00:00: 00 Yes [id number] 1-2 tablet DIRECTED 1-2 tablet DIRECTED (route: oral) Med Classific ation: Cardiovas cular Therapy Agents nitroglycer in 0.4 mg sublingual tablet 10-04 00:00: 00 Yes [id number] 1 tablet DIRECTED 1 tablet DIRECTED (route: sublingual ) Med Classific ation: Cardiovas cular Therapy Agents OxyContin 80 mg tablet,nakita h resistant,e xtended release 10-04 00:00: 00 Yes [id number] 1 tablet 3 TIMES DAILY 1 tablet 3 TIMES DAILY (route: oral) Med Classific ation: Analgesic , Anti-infl ammatory or Antipyret ic rosuvastati n 40 mg tablet 10-04 00:00: 00 Yes [id number] 1 tablet DAILY 1 tablet DAILY (route: oral) Med Classific ation: Cardiovas cular Therapy Agents tamsulosin 0.4 mg capsule 10-04 00:00: 00 Yes [id number] 1 capsule BEDTIME 1 capsule BEDTIME (route: oral) Med Classific ation: Genitouri nary Therapy Toprol XL 25 mg tablet,exte nded release 10-04 00:00: 00 Yes [id number] 1 tablet DAILY 1 tablet DAILY (route: [...] MAINTAIN SITUATIONAL AWARENESS AND WILL NOTIFY CLINICAL GROVE SUPERINTENDENT AND PHYSICIAN/PROVIDER WITH ANY CHANGE IN CONDITION. [code = SKILLED NURSE TO PERFORM ENVIRONMENTAL SAFETY RISK ASSESSMENT AND FALL RISK ASSESSMENT AND PROVIDE INSTRUCTION TO IMPLEMENT ENVIRONMENTAL SAFETY AND FALL PREVENTION STRATEGIES THROUGHOUT THE CERTIFICATION PERIOD. SKILLED NURSE WILL MAINTAIN SITUATIONAL AWARENESS AND WILL NOTIFY CLINICAL GROVE SUPERINTENDENT AND PHYSICIAN/PROVIDER WITH ANY CHANGE IN CONDITION.] [...] KAUFMAN LPN</paragraph> <paragraph>[Visit Date: 2024 by EUSEBIO JOYNER RN]:</paragraph><paragraph>SNV [...] 2024-10-04 00:00:00 2024-12-02 00:00:00 Outpatient [facility] G[facility]BOA [facility] [id number] 26.67
== END 2024-10-25 10:33 | disposition home or self-care (01) ==
LOC: HO.HUSH 09:38
PROVIDERS: PCP Internal Medicine; Visit Provider Urology
DX: R33.9 Retention of urine, unspecified (principal); Z13.9 Encounter for screening, unspecified
CPT/HCPCS: 99213; G2211

== ENCOUNTER → 2024-10-25 09:37 | Outpatient (BNVA) | payer MEDICARE, SELFPAY | PROVIDERS: PCP Internal Medicine; Visit Provider Urology | DX: I13.0 Hypertensive heart and chronic kidney disease with heart failure and stage 1 through stage 4 chronic kidney disease, or unspecified chronic kidney disease (principal); N18.32 Chronic kidney disease, stage 3b; I50.42 Chronic combined systolic (congestive) and diastolic (congestive) heart failure; D63.1 Anemia in chronic kidney disease; I48.91 Unspecified atrial fibrillation; I25.10 Atherosclerotic heart disease of native coronary artery without angina pectoris; E78.00 Pure hypercholesterolemia, unspecified; J43.9 Emphysema, unspecified; M05.9 Rheumatoid arthritis with rheumatoid factor, unspecified; R73.01 Impaired fasting glucose; M51.362 Other intervertebral disc degeneration, lumbar region with discogenic back pain and lower extremity pain; M50.30 Other cervical disc degeneration, unspecified cervical region; E55.9 Vitamin D deficiency, unspecified; J30.9 Allergic rhinitis, unspecified; L30.0 Nummular dermatitis; L30.4 Erythema intertrigo; Z79.01 Long term (current) use of anticoagulants; Z79.899 Other long term (current) drug therapy; Z13.31 Encounter for screening for depression; N39.0 Urinary tract infection, site not specified; R33.9 Retention of urine, unspecified | CPT/HCPCS: 51798; 81003; 96127; 99212 ==

== ENCOUNTER 2024-10-25 14:21 | Outpatient (AMB) | payer MEDICARE, SELFPAY ==
[2024-10-25 14:31] VITALS: BP 112/60; PULSE 54; TEMP 36.1; O2SAT 94; BMI 19.9
--- NOTE | 2024-10-25 14:31 | A.OFFPC_ITS ---
Vital Signs 10/25/24 14:31 Height 5 ft 11 in Weight 143 lb BMI 19.9 BP 112/60 Blood Pressure Location Lt brachial Position Sitting Pulse 54 Pulse Source Pulse Oximeter Temp 97.0 F Temp Source Temporal Artery Scan Pulse Oximetry (%) 94 Oxygen Delivery Method Room Air Intake Visit Reasons: 3 month follow up Allergies gabapentin (GABAPENTIN) Allergy (Severe, Verified 10/29/24 02:56) PASSED OUT , syncopal episodes at 800 mg TID azithromycin (From ZITHROMAX Z-DESIREE) Allergy (Intermediate, Verified 10/29/24 02:56) SWELLING pregabalin Adverse Reaction (Unknown, Verified 10/29/24 02:56) severe muscle pain Medication List - Last Reconciled 10/29/24 by Vickey Causey MD apixaban 5 mg PO BID bethanechol chloride 50 mg PO BID 90 days clopidogrel 75 mg PO DAILY dapagliflozin propanediol (Farxiga) 10 mg PO DAILY dupilumab (Dupixent) 300 mg subcut Q2W ezetimibe 10 mg PO DAILY finasteride 5 mg PO DAILY 90 days folic acid 1 mg PO DAILY hydrocortisone 2.5% 1 appl topical BID PRN nystatin 1 appl topical TID oxycodone 30 mg PO Q6H PRN 28 days oxycodone ER (OxyContin) 80 mg PO Q8H OxyContin ER (oxycodone) 80 mg PO .q8hrs 28 days NS rosuvastatin 40 mg PO DAILY tamsulosin (Flomax) 0.4 mg PO BEDTIME 90 days umeclidinium-vilanterol 62.5-25 mcg/actuation (Anoro Ellipta) 1 ea inhalation DAILY Tobacco use date assessed: 10/25/24 Fall risk assessment: 1 Fall in past year Last assessed Fall Risk: 10/25/24 Dental Screening Dental Screen Date: 10/25/24 Did you have a dental visit in the last 12 months?: Yes Did you have a dental problem in the last 6 months where you did not have access to dental care?: No Was dental information given to patient?: Patient has dentist HPI 3 month follow up HPI Details Patient comes in today for his follow up visit States that he currently feels okay He denies any headaches or dizziness Denies any chest pains, no increased SOB No nausea/vomiting, no abdominal pain No change in bowel habits noted States that his chronic low back pain remains adequately controlled on his current Rx He had his folllow up labs done a couple of days ago - to discuss his results [facility] Medical History (Updated 10/25/24 @ 15:26 by Vickey Causey MD) Chronic kidney disease (CKD), stage III (moderate) Closed rib fracture Fall Erythema intertrigo Nummular eczematous dermatitis Allergic rhinitis Chronic kidney disease (CKD) Vitamin D deficiency Pure hypercholesterolemia Benign essential hypertension Atrial fibrillation Chronic combined systolic and diastolic congestive heart failure Coronary artery disease Rheumatoid arthritis Degenerative disc disease, cervical Lumbar degenerative disc disease Surgical History History of coronary angioplasty History of hernia repair H/O wrist surgery History of arthroscopy of right knee History of coronary artery bypass graft Family History Father Past heart attack Mother Pneumonia Daughter Healthy adult Social History Housing: House Alcohol intake: current Alcohol intake frequency: holidays/special occasions only Patient Tobacco Use Status: Current someday Tobacco user e-Cigarette/Vaping Use: Never Used Second Hand Smoke Exposure: Yes service: Yes ([employer]) Current occupational status: retired and disabled Current occupation: right hand dominant Cognitive needs: Yes (cane) Hearing needs: Yes (hearing aide) Vision needs: Yes (glasses) Questionnaire PHQ-9 Over the last 2 weeks, how often have you been bothered by any of the following problems? 1. Little interest or pleasure in doing things: not at all 2. Feeling down, depressed, or hopeless: not at all 3. Trouble falling or staying asleep, or sleeping too much: not at all 4. Feeling tired or having little energy: several days 5. Poor appetite or overeating: not at all 6. Feeling bad about yourself - or that you are a failure or have let yourself or your family down: not at all 7. Trouble concentrating on things, such as reading the newspaper or watching television: not at all 8. Moving or speaking so slowly that other people could have noticed. Or the opposite - being so fidgety or restless that you have been moving around a lot more than usual: several days 9. Thoughts that you would be better off or of hurting yourself in some way: not at all Total score: 2 Depression Screening Interpretation: Negative Depression Screening Done: Yes [id number] - PHQ-9 Billing: Yes Source: Developed by Drs. Arben Noriega, Mona Gonzalez, Jerrod Adams and colleagues, with an educational arlen from [employer]. Thrive Questionnaire Date Thrive assessed: 10/13/24 I am a: Patient What is your living situation today?: I have a steady place to live Within the past 12 months, did the food you bought not last and you didn't have the money to get more?: Never true Within the past 12 months, did you worry whether your food would run out before you got money to buy more?: Never true Do you have trouble paying for medicines?: No Do you have trouble getting transportation to medical appointments?: No Do you have trouble paying your heating and electricity bill?: No Do you have trouble taking care of your child, family member or friend?: No Do you have trouble with day-to-day activities such as bathing, preparing meals, shopping, managing finances, etc.?: Yes Are you currently unemployed and looking for a job?: No Are you interested in more education?: No Please select the resources that you would like help with: None Currently or been in a relationship where the following occur: No concerns reported THRIVE Score: 0 AUDIT C Alcohol Use Questionnaire (AUDIT-C) 1. How often do you have a drink containing alcohol?: Monthly or less 2. How many drinks containing alcohol do you have on a typical day when you are drinking?: 1 or 2 3. How often do you have six or more drinks on one occasion?: Never Total Score: 1 Score Reviewed/Action Taken: Yes NILESH-7 AMB Questionnaire NILESH-7 Date NILESH - 7 assessed: 10/13/24 Feeling nervous, anxious, or on edge: 0 = Not at all Not being able to stop or control worryin = Not at all Worrying too much about different things: 0 = Not at all Trouble relaxin = Not at all Being so restless that it is hard to sit still: 0 = Not at all Becoming easily annoyed or irritable: 0 = Not at all Feeling afraid as if something awful might happen: 0 = Not at all Total NILESH-7 score (0-4 normal; 5-9 mild; 10-14 moderate; 15-21 severe): 0 Source: Developed by Drs. Arben Noriega, Mona Gonzalez, Jerrod Adams and colleagues, with an educational arlen from [employer]. Review of Systems Const Denies chills, Reports fatigue, Denies fever(s) and Denies headache(s) ENT Denies dysphagia, Denies dizziness, Denies otalgia, Denies headache(s), Reports hearing loss (both ears - now wears hearing aids), Reports hoarseness, Reports neck pain (chronic), Denies odynophagia and Denies sore throat Card Denies chest pain, Denies palpitations and Reports dyspnea on exertion (mild - better with current inhaler (Anoro)) Resp Denies chest congestion, Reports cough (on and off; non-productive), Denies pain on inspiration, Reports dyspnea on exertion (mild - better with current inhaler (Anoro)) and Denies wheezing GI Denies abdominal pain, Denies constipation, Denies dysphagia, Denies heartburn, Denies diarrhea, Denies nausea, Denies odynophagia and Denies vomiting Denies difficulty urinating, Denies dysuria, Denies nocturia and Denies urinary frequency Musc Reports back pain (over the lumbar spine - chronic), Reports arthralgias (over multiple joints - increased lately in the left shoulder) and Reports neck pain (chronic) Skin/Breast Details: (+) large cyst on the right 3rd finger Denies rash Neuro Denies dizziness and Denies headache(s) Endo Reports fatigue and Denies palpitations Aller/Immun Denies wheezing Physical exam (Primary Care) Vital Signs: Last Vital Signs Temp 97.0 F 10/25/24 14:31 Pulse 54 10/25/24 14:31 BP 112/60 10/25/24 14:31 Pulse Ox 94 10/25/24 14:31 Oxygen Delivery Method Room Air 10/25/24 14:31 BMI result Body Mass Index 19.9 Tobacco/Smoking Status: Tobacco use Status Tobacco use date assessed 10/25/24 10/25/24 14:41 Patient Tobacco Use Status Current someday Tobacco 10/25/24 14:41 e-Cigarette/Vaping Use Never Used 10/25/24 14:41 PHQ-9: PHQ-9 Score PHQ-9: Total score 2 10/25/24 15:18 Depression Screening Interpretation: Negative Thrive Assessment: Date of Thrive Assessment Date Thrive assessed 10/13/24 10/25/24 14:41 Currently or been in a relationship where the following occur: No concerns reported Const General: no acute distress and alert HENMT Ears: TM's normal bilaterally and EAC's normal Throat: Yes posterior oropharynx normal and Yes tonsils normal (no TP congestion noted) Neck Neck: No lymphadenopathy and Yes tender Thyroid: Thyroid normal Resp Auscultation: clear to auscultation bilaterally, no rales and no wheezes Cardio Rate: regular rate Rhythm: abnormal rhythm irregularly irregular Heart sounds: no murmurs GI Palpation (GI): Soft to palpation and nontender Auscultation: normal bowel sounds General: Yes no CVA tenderness Back/Spine/Pelvis Back: no CVA tenderness Cervical Spine: Cervical spine tenderness Thoracic/Lumbar Spine: lumbar spinal tenderness Skin Rashes: no rashes Extrem Other: (+) large cyst over the middle IP joint of the right 3rd finger General: Yes no clubbing, cyanosis or edema Right upper extremity: shoulder/upper arm Details: tenderness (mild) Location: of the A-C joint and Extremity exam: right hand Details: tenderness and no swelling Left upper extremity: shoulder/upper arm Details: tenderness (increased) Location: of the A-C joint and hand Details: tenderness Location: of the thumb Location: at the proximal phalanx, abnormal ROM of finger Details: unable to flex or extend Location: of the thumb and no swelling Results AMB Urinalysis, Automated UA Leukoctes 0 Ronald/uL Last Edit by ISABELL Martin on 10/25/24 10:13 UA Nitrite Negative Last Edit by ISABELL Martin on 10/25/24 10:13 UA Urobilinogen 0.2 mg/dL Last Edit by ISABELL Martin on 10/25/24 10:1 3 UA Protein 0 mg/dL Last Edit by ISABELL Martin on 10/25/24 10:13 UA pH 6.0 Last Edit by ISABELL Martin on 10/25/24 10:13 UA Blood 0 Hossein/uL Last Edit by ISABELL Martin on 10/25/24 10:13 UA Specific [place] 1.015 Last Edit by ISABELL Martin on 10/25/24 10: 13 UA Ketone Negative Last Edit by ISABELL Martin on 10/25/24 10:13 UA Bilirubin 0 mg/dL Last Edit by ISABELL Martin on 10/25/24 10:13 UA Glucose 500 mg/dL Last Edit by ISABELL Martin on 10/25/24 10:13 Results Reviewed Results Reviewed: Laboratory Tests 10/23/24 10/23/24 06:14 06:19 WBC 4.8 Hgb 9.4 L Hct 29.2 L Plt Count 178 D Sodium 140 Potassium 5.9 H Creatinine 2.15 H Estimated GFR 30 Fasting Glucose 93 Calcium 8.5 AST 34 ALT 8 B-Natriuretic Peptide 1555 H Triglycerides 67 Cholesterol 87 LDL Cholesterol, Calc 31 HDL Cholesterol 43 25-OH Vitamin D Total 23.5 L TSH 1.47 Ur Specific [place] 1.020 Urine Protein 30 (1+) H Urine Glucose (UA) >=1000 H Urine Blood Negative Urine Nitrite Negative Ur Leukocyte Esterase Negative Granular Casts Present Coding Level of Care Code Est Pt Level 4 (29421) Diagnoses Anemia, unspecified type D64.9 Anemia type: unspecified type Stage 3b chronic kidney disease N18.32 Chronic kidney disease stage 3 subtype: stage 3b (GFR 30-44) Chronic combined systolic and diastolic congestive heart failure I50.42 Atrial fibrillation, unspecified type I48.91 Atrial fibrillation type: unspecified Coronary artery disease involving [place] coronary artery of [place] heart without angina pectoris I25.10 Coronary Disease-Associated Artery/Lesion type: [place] artery [place] vs. transplanted heart: [place] heart Associated angina: without angina Pure hypercholesterolemia E78.00 Benign essential hypertension I10 Pulmonary emphysema, unspecified emphysema type J43.9 COPD type: emphysema Emphysema type: unspecified Rheumatoid arthritis with positive rheumatoid factor, involving unspecified site M05.9 Rheumatoid arthritis location: unspecified site Rheumatoid factor presence: with rheumatoid factor Impaired fasting glucose R73.01 Degeneration of intervertebral disc of lumbar region with discogenic back pain and lower extremity pain M51.362 Disc-related pain type: discogenic back pain and lower extremity pain Degenerative disc disease, cervical M50.30 Vitamin D deficiency E55.9 Allergic rhinitis, unspecified seasonality, unspecified trigger J30.9 Allergic rhinitis trigger: unspecified Allergic rhinitis seasonality: unspecified Nummular eczematous dermatitis L30.0 Erythema intertrigo L30.4 Additional Codes PHQ-9 - 47250 - PHQ-9 Billing: Yes ([id number]) Assessment & Plan Assessment & Plan (1) Anemia: Code(s): D64.9 - Anemia, unspecified Category: Medical Qualifiers: Anemia type: unspecified type Qualified Code(s): D64.9 - Anemia, unspecified Plan: Patient was admitted to [facility] a couple of months ago for significant anemia and he ended up receiving some blood transfusions His H/H on his recent labs is still low at 9.4/29.2 - he likely has anemia of chronic disease as well as some component of iron-deficiency Will go ahead and refer him to hematology for further evaluation and management (2) Chronic kidney disease (CKD), stage III (moderate): Code(s): N18.30 - Chronic kidney disease, stage 3 unspecified Category: Medical Qualifiers: Chronic kidney disease stage 3 subtype: stage 3b (GFR 30-44) Qualified Code(s): N18.32 - Chronic kidney disease, stage 3b Plan: He has also been advised that his renal function has declined significantly over the past few months, with his serum creatinine now at 2.15 and GFR of 30 on his recent labs Will refer him to nephrology [facility]ACARIAS for further evaluation and management (3) Chronic combined systolic and diastolic congestive heart failure: Comment: Echocardiogram done back on 01/20/2019 revealed significantly reduced ejection fraction at 27% with grade 2 diastolic dysfunction, severe global hypokinesia with regional variation and dilatation of the left atrium, left ventricle and right ventricle; RV systolic function is also moderately reduced Code(s): I50.42 - Chronic combined systolic (congestive) and diastolic (congestive) heart failure Category: Medical Plan: Patient currently remains compensated - continue Entresto 49-51 mg BID and Dapagliflozin 10 mg QD He has been advised to consider ICD placement in the past, which he declined - we have urged him to consider pursuing this in light of his cardiac condition and have emphasized to him that an ICD can be potentially life-saving (for him) as his risk of sudden cardiac is higher than normal Follow up with cardiology at the heart failure clinic at [facility] as scheduled (4) Atrial fibrillation: Code(s): I48.91 - Unspecified atrial fibrillation Category: Medical Qualifiers: Atrial fibrillation type: unspecified Qualified Code(s): I48.91 - Unspecified atrial fibrillation Plan: Patient remains rate-controlled on Metoprolol ER 200 mg QD Continue Eliquis 5 mg BID for thromboembolism prophylaxis (5) Coronary artery disease: Comment: S/P CABD x 5 in 1991; recent cardiac CT done showed (+) multi-vessel disease and patient was advised aggressive risk reduction 2018 or 2019, by pass at [facility] Code(s): I25.10 - Atherosclerotic heart disease of [place] coronary artery without angina pectoris Category: Medical Qualifiers: Coronary Disease-Associated Artery/Lesion type: [place] artery [place] vs. transplanted heart: [place] heart Associated angina: without angina Qualified Code(s): I25.10 - Atherosclerotic heart disease of [place] coronary artery without angina pectoris Plan: Continue Clopidogrel 75 mg QD and Metoprolol ER 200 mg QD He still has Nitrostat 0.4 mg to take SL PRN for chest pains Follow up with cardiology as scheduled (6) Pure hypercholesterolemia: Code(s): E78.00 - Pure hypercholesterolemia, unspecified Category: Medical Plan: Results of his labs done a couple of days ago reviewed and discussed with patient Reinforced low cholesterol diet Continue Rosuvastatin 40 mg QD Will recheck his labs and fasting lipids in 3 months for follow up (7) Benign essential hypertension: Code(s): I10 - Essential (primary) hypertension Category: Medical Plan: Reinforced low-sodium diet - goal is systolic BP of at least 130 to 140 mm or less Continue Metoprolol ER 200 mg QD; he is also on Entresto 49-51 mg BID He is reminded to continue monitoring his blood pressure regularly (8) COPD (chronic obstructive pulmonary disease): Code(s): J44.9 - Chronic obstructive pulmonary disease, unspecified Category: Medical Qualifiers: COPD type: emphysema Emphysema type: unspecified Qualified Code(s): J43.9 - Emphysema, unspecified Plan: Continue Anoro Ellipta 62.5-25 mcg 1 inhalation QD Follow up with pulmonary as scheduled Patient is advised to call at any time if he feels that his current respiratory symptoms are getting worse and he feels more SOB (9) Rheumatoid arthritis: Code(s): M06.9 - Rheumatoid arthritis, unspecified Category: Medical Qualifiers: Rheumatoid arthritis location: unspecified site Rheumatoid factor presence: with rheumatoid factor Qualified Code(s): M05.9 - Rheumatoid arthritis with rheumatoid factor, unspecified Plan: Continue Dupixent 200 mg SQ Q 2 weeks Follow-up with Rheumatology (Dr. West) at [facility] as scheduled (10) Impaired fasting glucose: Code(s): R73.01 - Impaired fasting glucose Category: Medical Plan: His FBS was normal at 93 mg/dl on his recent labs HgbA1c was normal at 5.3% when checked a few months ago; in-office HgbA1c was also normal at 5.1% previously Reinforced low calorie/low carb diet (11) Lumbar degenerative disc disease: Code(s): M51.36 - Other intervertebral disc degeneration, lumbar region Category: Medical Qualifiers: Disc-related pain type: discogenic back pain and lower extremity pain Qualified Code(s): M51.362 - Other intervertebral disc degeneration, lumbar region with discogenic back pain and lower extremity pain Plan: Reinforced activity and weight lifting restrictions Continue Oxycodone 30 mg Q 6 hours as needed, Oxycodone ER 80 mg Q 8 hours , Tizanidine 4 mg TID PRN and Lidoderm patch 5% 1 patch apply to affected area QD PRN for pain Follow-up with [facility] as scheduled (12) Degenerative disc disease, cervical: Code(s): M50.30 - Other cervical disc degeneration, unspecified cervical region Category: Medical Plan: States that his current medications help keep his neck pain manageable (13) Vitamin D deficiency: Code(s): E55.9 - Vitamin D deficiency, unspecified Category: Medical Plan: Continue Vitamin D3 1000 units QD (14) Allergic rhinitis: Code(s): J30.9 - Allergic rhinitis, unspecified Category: Medical Qualifiers: Allergic rhinitis trigger: unspecified Allergic rhinitis seasonality: unspecified Qualified Code(s): J30.9 - Allergic rhinitis, unspecified Plan: Continue Cetirizine 10 mg QD PRN (15) Nummular eczematous dermatitis: Code(s): L30.0 - Nummular dermatitis Category: Medical Plan: He was seen by Dr. De Jesus and was continued on Triamcinolone 0.1% cream BID for his feet Follow up with dermatology as scheduled (16) Erythema intertrigo: Code(s): L30.4 - Erythema intertrigo Category: Medical Plan: Continue Nystatin powder [id number] units/gm TID by dermatology Plan Follow up in 3 months Orders: Orders Complete Blood Count Auto Diff 3 Months D64.9 - Anemia, unspecified Lipid Panel 3 Months E78.00 - Pure hypercholesterolemia, unspecified Vitamin D 25-OH Total 3 Months E55.9 - Vitamin D deficiency, unspecified Vitamin B12 and Folate 3 Months E53.8 - Deficiency of other specified B group vitamins B Type Natriuretic Peptide 3 Months I50.9 - Heart failure, unspecified Comprehensive [place]. Panel Fast 3 Months E78.00 - Pure hypercholesterolemia, unspecified TSH reflex Free T4 3 Months E78.00 - Pure hypercholesterolemia, unspecified UA CC w/rflx Micro + Cult 3 Months R30.0 - Dysuria Referrals Nephrology Referral N18.32 - Chronic kidney disease, stage 3b Hematology & Oncology Referral D64.9 - Anemia, unspecified
== END 2024-10-25 15:34 | disposition home or self-care (01) ==
LOC: HO.HMCH 14:22
PROVIDERS: PCP Internal Medicine; Visit Provider Internal Medicine
DX: I12.9 Hypertensive chronic kidney disease with stage 1 through stage 4 chronic kidney disease, or unspecified chronic kidney disease (principal); N18.32 Chronic kidney disease, stage 3b; I50.42 Chronic combined systolic (congestive) and diastolic (congestive) heart failure; I48.91 Unspecified atrial fibrillation; J43.9 Emphysema, unspecified; M05.9 Rheumatoid arthritis with rheumatoid factor, unspecified; D64.9 Anemia, unspecified; I25.10 Atherosclerotic heart disease of native coronary artery without angina pectoris; E78.00 Pure hypercholesterolemia, unspecified; R73.01 Impaired fasting glucose; M51.362 Other intervertebral disc degeneration, lumbar region with discogenic back pain and lower extremity pain; M50.30 Other cervical disc degeneration, unspecified cervical region

== ENCOUNTER → 2024-10-25 23:59 | Outpatient (BNV) | payer MEDICARE, SELFPAY | PROVIDERS: PCP Internal Medicine; Visit Provider Internal Medicine | DX: S22.42XD Multiple fractures of ribs, left side, subsequent encounter for fracture with routine healing (principal); I13.0 Hypertensive heart and chronic kidney disease with heart failure and stage 1 through stage 4 chronic kidney disease, or unspecified chronic kidney disease; I50.22 Chronic systolic (congestive) heart failure; N18.31 Chronic kidney disease, stage 3a | CPT/HCPCS: G0180 ==

== ENCOUNTER 2024-11-20 11:04 | Outpatient (AMB) | payer MEDICARE, SELFPAY ==
--- NOTE | 2024-11-20 11:10 | HO.NEPHOV ---
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: No Accompanied by: Self / Same As Patient Allergies gabapentin (GABAPENTIN) Allergy (Severe, Verified 11/20/24 11:15) PASSED OUT , syncopal episodes at 800 mg TID azithromycin (From ZITHROMAX Z-DESIREE) Allergy (Intermediate, Verified 11/20/24 11:15) SWELLING pregabalin Adverse Reaction (Unknown, Verified 11/20/24 11:15) severe muscle pain Medication List - Last Reconciled 11/20/24 by Vincenzo Lerma MD apixaban 5 mg PO BID bethanechol chloride 50 mg PO BID 90 days clopidogrel 75 mg PO DAILY dapagliflozin propanediol (Farxiga) 10 mg PO DAILY dupilumab (Dupixent) 300 mg subcut Q2W ezetimibe 10 mg PO DAILY [ferrous sulfate 325 mg PO DAILY] finasteride 5 mg PO DAILY 90 days metoprolol succinate ER 25 mg PO DAILY nystatin 1 appl topical TID oxycodone 30 mg PO Q6H PRN 28 days oxycodone ER (OxyContin) 80 mg PO Q8H OxyContin ER (oxycodone) 80 mg PO .q8hrs 28 days NS rosuvastatin 40 mg PO DAILY sacubitril-valsartan 49-51 mg (Entresto) 1 tab PO BID tamsulosin (Flomax) 0.4 mg PO BEDTIME 90 days umeclidinium-vilanterol 62.5-25 mcg/actuation (Anoro Ellipta) 1 ea inhalation DAILY HPI Comments Details: - The patient is a 74-year-old male presenting with chronic kidney disease and hyperkalemia. - Chronic kidney disease with kidney function at 30-40%. History of urinary retention. History of elevated postvoid residual. Seen by Dr. Cade. Currently on tamsulosin and finasteride. He had a Steward catheter which has been removed. Today he denies any urinary symptoms. - Hyperkalemia linked to dietary potassium intake. He has been using salt substitute - History of heart failure and coronary artery disease, status post coronary artery bypass grafting. CAB[place] [address] Rosa. EF of 35-40%. Currently on Entresto 49/51 tab b.i.d. - Rib fractures from a fall two months ago. - History of severe COPD Tobacco use disorder with a 50-year smoking history. [facility] Medical History (Updated 11/15/24 @ 14:20 by Daiana Bhatt NP) Chronic kidney disease (CKD), stage III (moderate) Closed rib fracture Fall Erythema intertrigo Nummular eczematous dermatitis Allergic rhinitis Chronic kidney disease (CKD) Vitamin D deficiency Pure hypercholesterolemia Benign essential hypertension Atrial fibrillation Chronic combined systolic and diastolic congestive heart failure Coronary artery disease Rheumatoid arthritis Degenerative disc disease, cervical Lumbar degenerative disc disease Surgical History History of coronary angioplasty History of hernia repair H/O wrist surgery History of arthroscopy of right knee History of coronary artery bypass graft Family History Father Past heart attack Mother Pneumonia Daughter Healthy adult Social History Housing: House Alcohol intake: current Alcohol intake frequency: holidays/special occasions only Patient Tobacco Use Status: Current someday Tobacco user e-Cigarette/Vaping Use: Never Used Second Hand Smoke Exposure: Yes service: Yes ([employer]) Current occupational status: retired and disabled Current occupation: right hand dominant Cognitive needs: Yes (cane) Hearing needs: Yes (hearing aide) Vision needs: Yes (glasses) Physical Exam Vital Signs: Last Vital Signs Pulse 65 11/20/24 11:11 BP 100/46 L 11/20/24 11:11 Pulse Ox 95 11/20/24 11:11 Oxygen Delivery Method Room Air 11/20/24 11:11 BMI result Body Mass Index 19.4 Comfortable Neck supple no JVD. Lungs entry equal no rales. Heart S1-S2 heard no gallop or rub. Abdomen soft nontender. Neuro alert awake oriented. No asterixis. Extremities 1+ edema. R > L Results Reviewed Nephrology Results: Hgb, (14.0-18.0) 11.3 g/dl L Δ 09/17/25 WBC, (4.8-10.8) 6.7 X10*3/uL 11/15/24 Plt Count, (160-400) 251 X10*3/uL Δ 11/15/24 Sodium, (135-145) 138 mmol/L 11/15/24 Potassium, (3.3-5.1) 5.5 mmol/L H 11/15/24 Chloride, (96-108) 106 mmol/L 11/15/24 Carbon Dioxide, (22-29) 26 mmol/L 11/15/24 BUN, (9-16) 43 mg/dL H 11/15/24 Creatinine, (0.5-1.4) 1.72 mg/dL H 11/15/24 Calcium, (8.4-10.2) 9.2 mg/dL Δ 11/15/24 Urine Protein, (Neg-Trace) 30 (1+) mg/dL H 10/23/24 Assessment & Plan Assessment & Plan (1) Chronic kidney disease (CKD), stage III (moderate): Code(s): N18.30 - Chronic kidney disease, stage 3 unspecified Category: Medical Qualifiers: Chronic kidney disease stage 3 subtype: stage 3b (GFR 30-44) Qualified Code(s): N18.32 - Chronic kidney disease, stage 3b Plan 1. Chronic Kidney Disease Given the history of urinary retention ongoing obstruction should be ruled out. His blood pressure rather low today. He is on high dose of Entresto. Hypoperfusion could be contributing to acute kidney injury. . - Schedule ultrasound for urinary obstruction assessment. - Monitor kidney function and adjust medications 2. Hyperkalemia Most likely due to the combination of decreased renal function and use of salt substitute which contains potassium chloride in addition to the use of high dose of Entresto. - Advise dietary changes to reduce potassium intake. - Recheck potassium levels post dietary modification. 3. Heart Failure - Continue heart failure management and symptom monitoring. Currently volume status seems acceptable. 4. Coronary Artery Disease Status Post Coronary Artery Bypass Grafting - Regular cardiology follow-up 5. COPD Continue follow up with Pulmonary - Encourage cessation and provide support resources. Orders: Orders Total Protein Urine Random 1 Week N18.32 - Chronic kidney disease, stage 3b UA and rflx microscopic 1 Week N18.32 - Chronic kidney disease, stage 3b US renal BI Today N18.32 - Chronic kidney disease, stage 3b Basic Metabolic Panel 1 Week N18.32 - Chronic kidney disease, stage 3b Parathyroid Hormone Intact 1 Week N18.32 - Chronic kidney disease, stage 3b Creatinine Urine 1 Week N18.32 - Chronic kidney disease, stage 3b Patient Instructions: - Stop using salt substitutes and reduce intake of potassium-rich foods like oranges and bananas. - Expect a call to schedule an ultrasound for kidney assessment. - Follow up with the assessment rn in one month. - Continue current heart medications and monitor for any new symptoms. - Consider smoking cessation resources to quit smoking. Coding Level of Care Code New Pt Level 4 (15844) Diagnoses Stage 3b chronic kidney disease N18.32 Chronic kidney disease stage 3 subtype: stage 3b (GFR 30-44)
[2024-11-20 11:11] VITALS: BP 100/46; PULSE 65; O2SAT 95; BMI 19.4
== END 2024-11-20 11:34 | disposition home or self-care (01) ==
LOC: HO.HKA 11:05
PROVIDERS: PCP Internal Medicine; Visit Provider Internal Medicine Hypertension Specialist
DX: N18.32 Chronic kidney disease, stage 3b (principal)
CPT/HCPCS: 99204

== ENCOUNTER → 2024-11-20 11:04 | Outpatient (BNVA) | payer MEDICARE, SELFPAY | PROVIDERS: PCP Internal Medicine; Visit Provider Internal Medicine Hypertension Specialist | DX: N18.32 Chronic kidney disease, stage 3b (principal); F17.210 Nicotine dependence, cigarettes, uncomplicated; Z87.448 Personal history of other diseases of urinary system; Z98.890 Other specified postprocedural states | CPT/HCPCS: 99202 ==

== ENCOUNTER 2024-12-01 14:41 | Outpatient (REF) | payer MEDICARE, SELFPAY ==
--- OUTSIDE RECORDS SUMMARY | 2024-04-25 06:15 | XMS_ITS ---
Author Organization [facility] Address [address] [place] [address] Care Team Providers Care Paper Bag Press Operator Name Role Phone Padilla SEBASTIAN, Vickey Primary Care Provider Unava ilNed Killian Unavailable [phone] Encounters Encounter Location Date Provider Diagnosis [address] [address] 04/25/2024 Ned Yu Plan Of Treatment Next Appt Details Provider Name:Ned Yu , 12/05/2024 11:30:00 AM, [address] [place] [address], [phone], Progress Notes * Remy TATEDOB: [birth year] (74 yo M)Acc No.[id number]:04/25/2024 Progress Notes Patient: Tere Remy GAONA Provider: Caprice Yu DPM :1950 A ge:74 Y S ex:Male Date:04/25/2024 Address:[address] [place] [address] Pcp:Vickey Causey MD Subjective: * Chief Complaints: [...] 04/25/2024 Generated for Debo ferrer/Nidhi/Yue on: 1 02:46 PM EDT
--- OUTSIDE RECORDS SUMMARY | 2024-06-06 12:00 | XMS_ITS ---
Author Organization [facility] Address [address] [place] [address] Care Team Providers Care House Fellow Name Role Phone Padilla SEBASTIAN, Vickey Primary Care Provider Unava ilNed Killian Unavailable [phone] Encounters Encounter Location Date Provider Diagnosis [address] [address] 06/06/2024 Ned Yu Plan Of Treatment Next Appt Details Provider Name:Ned Yu , 12/05/2024 11:30:00 AM, [address] [place] [address], [phone], Progress Notes * Remy TATEDOB: [birth year] (74 yo M)Acc No.[id number]:06/06/2024 Progress Note Patient: Tere Remy GAONA Provider: Caprice Yu DPM :1950 A ge:74 Y S ex:Male Date:06/06/2024 Address:[address] [place] [address] Pcp:Vickey Causey MD Subjective: * Chief Complaints: [...] 06/06/2024 Generated for Debo ferrer/Nidhi/Yue on: 1 02:45 PM EDT
--- OUTSIDE RECORDS SUMMARY | 2024-11-28 20:00 | XMS_ITS | Clinical Summary ---
Author Organization Unknown Care Team Providers Care Easter Bunny Name Role Phone PATTI SEBASTIAN, GERALD Unavailable Unavailable AR RN, EUSEBIO Unavailable Unavaila matt HORTON RN, PINO Unavailable Unavailable FLORES KAUFMAN LPN, DEJUAN Unavailable Unavai lable Payers Payer Name Policy Type Policy Number Effective Date Expira tion Date MEDICARE - NGS [place] - PD [id number] Problems Condition Name Condition Details Condition Category Status Onset Date Resolution Date Last Treatment Date Treating Clinician Comments MULTIPLE FX OF RIBS, LEFT SIDE, SUBS FOR FX W ROUTN HEAL Active 03-01 00:00: 00 HYP HRT AND CHR KDNY DIS W HRT FAIL AND STG 1-4/UNSP CHR KDNY Active 03-01 00:00: 00 CHRONIC SYSTOLIC (CONGESTIVE) HEART FAILURE Active 03-01 00:00: 00 CHRONIC KIDNEY DISEASE, STAGE 3A Active 03-01 00:00: 00 ANEMIA IN CHRONIC KIDNEY DISEASE Active 03-01 00:00: 00 PULMONARY HYPERTENSION , UNSPECIFIED Active 03-01 00:00: 00 CHRONIC ATRIAL FIBRILLATION , UNSPECIFIED Active 03-01 00:00: 00 EMPHYSEMA, UNSPECIFIED Active 03-01 00:00: 00 ACUTE RESPIRATORY FAILURE WITH HYPOXIA Active 03-01 00:00: 00 ISCHEMIC CARDIOMYOPAT HY Active 03-01 00:00: 00 HYPERLIPIDEM IA, UNSPECIFIED Active 03-01 00:00: 00 UNSP FX SECOND LUM VERTEBRA, SUBS FOR FX W ROUTN HEAL Active 03-01 00:00: 00 UNSP FX THIRD LUM VERTEBRA, SUBS FOR FX W ROUTN HEAL Active 03-01 00:00: 00 NUTRITIONAL ANEMIA, UNSPECIFIED Active 03-01 00:00: 00 OTHER CHRONIC PAIN Active 03-01 00:00: 00 Obesity, class 1 Active 03-01 00:00: 00 BODY MASS INDEX [BMI] 19.9 OR LESS, ADULT Active 03-01 00:00: 00 PRESENCE OF AORTOCORONAR Y BYPASS GRAFT Active 03-01 00:00: 00 PERSONAL HISTORY OF NICOTINE DEPENDENCE Active 03-01 00:00: 00 POLE CUTTER (CURRENT) USE OF ANTITHROMBOT ICS/ANTIPLAT ELETS Active 03-01 00:00: 00 POLE CUTTER (CURRENT) USE OF ANTICOAGULAN TS Active 03-01 00:00: 00 DETENTION (CURRENT) USE OF ORAL HYPOGLYCEMIC DRUGS Active 03-01 00:00: 00 HISTORY OF FALLING Active 03-01 00:00: 00 Allergies, Adverse Reactions, Alerts Allergy Name Allergy Type Status Severity Reaction(s) Onset Date Inactive Date Treating Clinician Comments AZITHROMYCIN Propensity to adverse reactions Active 10-06 16:58: 39 GABAPENTIN Propensity to adverse reactions Active 10-06 16:58: 46 LYRICA Propensity to adverse reactions Active 10-06 16:58: 53 Medications Ordered Medication Name Filled Medication Name Start Date Stop Date Current Medication? Ordering Clinician Indication Dosage Frequency Signature (SIG) Comments Components Dupixent 300 mg/2 mL subcutaneou s pen injector 06-20 00:00: 00 10-01 23:59 :00 No [id number] 4 mL DIRECTED 4 mL DIRECTED (route: subcutaneo us) Med Classific ation: Dermatolo gical Entresto 49 mg-51 mg tablet 06-16 00:00: 00 10-01 23:59 :00 No [id number] 1 tablet TWICE A DAY 1 tablet TWICE A DAY (route: oral) Med Classific ation: Cardiovas cular Therapy Agents ezetimibe 10 mg tablet 06-16 00:00: 00 10-01 23:59 :00 No [id number] 1 tablet EVERY DAY 1 tablet EVERY DAY (route: oral) Med Classific ation: Cardiovas cular Therapy Agents metoprolol succinate ER 200 mg tablet,exte nded release 24 hr 4-18 00:00: 00 06-24 00:00 :00 No [id number] Per instruc tions EVERY DAY Per instructio ns EVERY DAY (route: oral) Med Classific ation: Cardiovas cular Therapy Agents OxyContin 80 mg tablet,nakita h resistant,e xtended release 02 00:00: 00 10-01 23:59 :00 No [id number] 1 tablet EVERY 8 HOURS NEEDED FOR 28 DAYS 1 tablet EVERY 8 HOURS NEEDED FOR 28 DAYS (route: oral) Med Classific ation: Analgesic , Anti-infl ammatory or Antipyret ic rosuvastati n 40 mg tablet 3-31 00:00: 00 06-24 00:00 :00 No [id number] Per instruc tions EVERY DAY Per instructio ns EVERY DAY (route: oral) Med Classific ation: Cardiovas cular Therapy Agents oxycodone 30 mg tablet 3-30 00:00: 00 10-01 23:59 :00 No [id number] 1 tablet EVERY 6 HOURS NEEDED FOR 28 DAYS 1 tablet EVERY 6 HOURS NEEDED FOR 28 DAYS (route: oral) Med Classific ation: Analgesic , Anti-infl ammatory or Antipyret ic Anoro Ellipta 62.5 mcg-25 mcg/actuati on powder for inhalation 3-29 00:00: 00 10-01 23:59 :00 No [id number] 1 inhalat ion INTO THE LUNGS EVERY DAY FOR 30 DAYS 1 inhalation INTO THE LUNGS EVERY DAY FOR 30 DAYS (route: inhalation ) Med Classific ation: Respirato ry Therapy Agents alendronate 70 mg tablet 06-24 00:00: 00 10-01 23:59 :00 No [id number] 1 tablet WEEKLY 1 tablet WEEKLY (route: oral) Med Classific ation: Endocrine clopidogrel 75 mg tablet - 00:00: 00 10-01 23:59 :00 No [id number] 1 tablet DAILY 1 tablet DAILY (route: oral) Med Classific ation: Hematolog ical Agents Eliquis 5 mg tablet 06-24 00:00: 00 10-01 23:59 :00 No [id number] 1 tablet 2 TIMES DAILY 1 tablet 2 TIMES DAILY (route: oral) Med Classific ation: Hematolog ical Agents Farxiga 10 mg tablet 06-24 00:00: 00 10-01 23:59 :00 No [id number] 1 tablet DAILY 1 tablet DAILY (route: oral) Med Classific ation: Endocrine furosemide 20 mg tablet 06-24 00:00: 00 10-01 23:59 :00 No [id number] 1 tablet DAILY 1 tablet DAILY (route: oral) Med Classific ation: Cardiovas cular Therapy Agents rosuvastati n 40 mg tablet 06-24 00:00: 00 10-01 23:59 :00 No [id number] 1 tablet DAILY 1 tablet DAILY (route: oral) Med Classific ation: Cardiovas cular Therapy Agents acetaminoph en 325 mg tablet 10-04 00:00: 00 Yes [id number] 975 mg EVERY 6 HOURS 975 mg EVERY 6 HOURS (route: oral) Med Classific ation: Analgesic , Anti-infl ammatory or Antipyret ic Anoro Ellipta 62.5 mcg-25 mcg/actuati on powder for inhalation 10-04 00:00: 00 Yes [id number] 1 inhalat ion DAILY 1 inhalation DAILY (route: inhalation ) Med Classific ation: Respirato ry Therapy Agents bethanechol chloride 50 mg tablet 10-04 00:00: 00 Yes [id number] 1 tablet 2 TIMES DAILY 1 tablet 2 TIMES DAILY (route: oral) Med Classific ation: Genitouri nary Therapy clopidogrel 75 mg tablet 10-04 00:00: 00 Yes [id number] 1 tablet DAILY 1 tablet DAILY (route: oral) Med Classific ation: Hematolog ical Agents Dupixent 300 mg/2 mL subcutaneou s pen injector 10-04 00:00: 00 Yes [id number] Per instruc tions EVERY OTHER WEEK Per instructio ns EVERY OTHER WEEK (route: subcutaneo us) Med Classific ation: Dermatolo gical Eliquis 5 mg tablet 10-04 00:00: 00 Yes [id number] 1 tablet 2 TIMES DAILY 1 tablet 2 TIMES DAILY (route: oral) Med Classific ation: Hematolog ical Agents Entresto 49 mg-51 mg tablet 10-04 00:00: 00 Yes [id number] 1 tablet 2 TIMES DAILY 1 tablet 2 TIMES DAILY (route: oral) Med Classific ation: Cardiovas cular Therapy Agents ezetimibe 10 mg tablet 10-04 00:00: 00 Yes [id number] 1 tablet DAILY 1 tablet DAILY (route: oral) Med Classific ation: Cardiovas cular Therapy Agents Farxiga 10 mg tablet 10-04 00:00: 00 Yes [id number] 1 tablet DAILY 1 tablet DAILY (route: oral) Med Classific ation: Endocrine finasteride 5 mg tablet 10-04 00:00: 00 Yes [id number] 1 tablet DAILY 1 tablet DAILY (route: oral) Med Classific ation: Genitouri nary Therapy furosemide 20 mg tablet 10-04 00:00: 00 Yes [id number] 1-2 tablet DIRECTED 1-2 tablet DIRECTED (route: oral) Med Classific ation: Cardiovas cular Therapy Agents nitroglycer in 0.4 mg sublingual tablet 10-04 00:00: 00 Yes [id number] 1 tablet DIRECTED 1 tablet DIRECTED (route: sublingual ) Med Classific ation: Cardiovas cular Therapy Agents OxyContin 80 mg tablet,nakita h resistant,e xtended release 10-04 00:00: 00 Yes [id number] 1 tablet 3 TIMES DAILY 1 tablet 3 TIMES DAILY (route: oral) Med Classific ation: Analgesic , Anti-infl ammatory or Antipyret ic rosuvastati n 40 mg tablet 10-04 00:00: 00 Yes [id number] 1 tablet DAILY 1 tablet DAILY (route: oral) Med Classific ation: Cardiovas cular Therapy Agents tamsulosin 0.4 mg capsule 10-04 00:00: 00 Yes [id number] 1 capsule BEDTIME 1 capsule BEDTIME (route: oral) Med Classific ation: Genitouri nary Therapy Toprol XL 25 mg tablet,exte nded release 10-04 00:00: 00 Yes [id number] 1 tablet DAILY 1 tablet DAILY (route: oral) Med Classific ation: Cardiovas cular Therapy Agents Vital Signs Vital Name Observation Time Observation Value Commen ts Temperature 2024-11-29 13:29:00.000 97.6 [degF] Temperature 2024-11-22 10:04:00.000 98.6 [degF] Temperature 2024-11-13 11:48:00.000 98.4 [degF] Temperature 2024-11-06 11:17:00.000 98 [degF] Temperature 2024-11-01 09:20:00.000 97.9 [degF] Temperature 2024-10-24 11:40:00.000 97.8 [degF] Temperature 2024-10-19 13:36:00.000 98.3 [degF] Temperature 2024-10-11 12:00:00.000 97.9 [degF] Temperature 2024-10-04 12:28:00.000 97.9 [degF] BMI (%) 2024-10-04 12:28:00.000 19 kg/m2 Height 2024-10-04 12:28:00.000 71 [in_us] Pulse 2024-11-29 13:29:00.000 60 /min Pulse 2024-11-22 10:04:00.000 62 /min Pulse 2024-11-13 11:48:00.000 60 /min Pulse 2024-11-06 11:17:00.000 62 /min Pulse 2024-11-01 09:20:00.000 94 /min Pulse 2024-10-24 11:40:00.000 60 /min Pulse 2024-10-19 13:36:00.000 62 /min Pulse 2024-10-11 12:00:00.000 72 /min Pulse 2024-10-04 12:28:00.000 55 /min O2 Saturation (%) 2024-11-22 10:04:00.000 96 % O2 Saturation (%) 2024-11-13 11:48:00.000 96 % O2 Saturation (%) 2024-11-06 11:19:00.000 96 % O2 Saturation (%) 2024-11-01 09:20:00.000 99 % O2 Saturation (%) 2024-10-24 11:41:00.000 99 % O2 Saturation (%) 2024-10-19 13:47:00.000 96 % Respirations 2024-11-29 13:29:00.000 18 /min Respirations 2024-11-22 10:04:00.000 18 /min Respirations 2024-11-13 11:48:00.000 17 /min Respirations 2024-11-06 11:17:00.000 18 /min Respirations 2024-11-01 09:20:00.000 20 /min Respirations 2024-10-24 11:40:00.000 18 /min Respirations 2024-10-19 13:36:00.000 18 /min Respirations 2024-10-11 12:00:00.000 18 /min Respirations 2024-10-04 12:28:00.000 18 /min Weight (lbs) 2024-11-29 13:29:00.000 141 [lb_av] Weight (lbs) 2024-11-22 10:04:00.000 141 [lb_av] Weight (lbs) 2024-11-13 11:48:00.000 142 [lb_av] Weight (lbs) 2024-11-06 11:18:00.000 142 [lb_av] Weight (lbs) 2024-11-01 09:20:00.000 142 [lb_av] Weight (lbs) 2024-10-24 11:40:00.000 142 [lb_av] Weight (lbs) 2024-10-19 13:36:00.000 142 [lb_av] Weight (lbs) 2024-10-04 12:28:00.000 140 [lb_av] Systolic Blood Pressure 2024-11-29 13:29:00.000 118 mm [Hg] Systolic Blood Pressure 2024-11-22 10:04:00.000 100 mm [Hg] Systolic Blood Pressure 2024-11-13 11:48:00.000 104 mm [Hg] Systolic Blood Pressure 2024-11-06 11:17:00.000 98 mm[ Hg] Systolic Blood Pressure 2024-11-01 09:20:00.000 124 mm [Hg] Systolic Blood Pressure 2024-10-24 11:40:00.000 112 mm [Hg] Systolic Blood Pressure 2024-10-19 13:36:00.000 92 mm[ Hg] Systolic Blood Pressure 2024-10-11 12:00:00.000 100 mm [Hg] Systolic Blood Pressure 2024-10-04 12:28:00.000 100 mm [Hg] Diastolic Blood Pressure 2024-11-29 13:29:00.000 62 mm [Hg] Diastolic Blood Pressure 2024-11-22 10:04:00.000 52 mm [Hg] Diastolic Blood Pressure 2024-11-13 11:48:00.000 54 mm [Hg] Diastolic Blood Pressure 2024-11-06 11:17:00.000 60 mm [Hg] Diastolic Blood Pressure 2024-11-01 09:20:00.000 72 mm [Hg] Diastolic Blood Pressure 2024-10-24 11:40:00.000 60 mm [Hg] Diastolic Blood Pressure 2024-10-19 13:36:00.000 60 mm [Hg] Diastolic Blood Pressure 2024-10-11 12:00:00.000 58 mm [Hg] Diastolic Blood Pressure 2024-10-04 12:28:00.000 60 mm [Hg] Plan of Treatment Planned Activity [...] HEALTH.] Future Scheduled Test SKILLED NU RSE TO [...] NOTIFY AGENCY OR PHYSICIAN/PROVIDER OF ANY CONCERNS.] Future Scheduled Test PATIENT POPE S A [...] MAINTAIN SITUATIONAL AWARENESS AND WILL NOTIFY CLINICAL LEAD NUCLEAR MEDICINE TECHNOLOGIST AND PHYSICIAN/PROVIDER WITH ANY CHANGE IN CONDITION. [code = SKILLED NURSE TO PERFORM ENVIRONMENTAL SAFETY RISK ASSESSMENT AND FALL RISK ASSESSMENT AND PROVIDE INSTRUCTION TO IMPLEMENT ENVIRONMENTAL SAFETY AND FALL PREVENTION STRATEGIES THROUGHOUT THE CERTIFICATION PERIOD. SKILLED NURSE WILL MAINTAIN SITUATIONAL AWARENESS AND WILL NOTIFY CLINICAL LEAD NUCLEAR MEDICINE TECHNOLOGIST AND PHYSICIAN/PROVIDER WITH ANY CHANGE IN CONDITION.] Future Scheduled Test SKILLED NU RSE FOR OBSERVATION AND ASSESSMENT OF PATIENT S PAIN LEVEL AND EFFECTIVENESS OF PAIN MANAGEMENT REGIMEN. SKILLED NURSE TO INSTRUCT PATIENT/CAREGIVER REGARDING PHARMACOLOGIC AND NON-PHARMACOLOGIC PAIN CONTROL MEASURES. SKILLED NURSE TO REPORT TO PHYSICIAN IF PAIN LEVEL IS OUTSIDE OF ESTABLISHED PARAMETERS. [code = SKILLED NURSE FOR OBSERVATION AND ASSESSMENT OF PATIENT S PAIN LEVEL AND EFFECTIVENESS OF PAIN MANAGEMENT REGIMEN. SKILLED NURSE TO INSTRUCT PATIENT/CAREGIVER REGARDING PHARMACOLOGIC AND NON-PHARMACOLOGIC PAIN CONTROL MEASURES. SKILLED NURSE TO REPORT TO PHYSICIAN IF PAIN LEVEL IS OUTSIDE OF ESTABLISHED PARAMETERS.] Future Scheduled Test SKILLED NU RSE TO ASSESS PATIENT'S SKIN INTEGRITY AND INSTRUCT PATIENT/CAREGIVER ON MEASURES TO PREVENT PRESSURE ULCERS. [code = SKILLED NURSE TO ASSESS PATIENT'S SKIN INTEGRITY AND INSTRUCT PATIENT/CAREGIVER ON MEASURES TO PREVENT PRESSURE ULCERS.] Future Scheduled Test SKILLED NU RSE FOR O/A OF RESPIRATORY SYSTEM TO IDENTIFY CHANGES ASSOCIATED WITH EXACERBATION AND TO PROVIDE SKILLED TEACHING ON MANAGEMENT OF ACUTE RESPIRATORY FAILURE WITH HYPOXIA RESPIRATORY DISEASE PROCESS. [code = SKILLED NURSE FOR O/A OF RESPIRATORY SYSTEM TO IDENTIFY CHANGES ASSOCIATED WITH EXACERBATION AND TO PROVIDE SKILLED TEACHING ON MANAGEMENT OF ACUTE RESPIRATORY FAILURE WITH HYPOXIA RESPIRATORY DISEASE PROCESS.] Future Scheduled Test SKILLED NU RSE FOR [...] RSE FOR O/A, TEACHING AND MANAGEMENT OF URINARY TRACT INFECTION. [code = SKILLED NURSE FOR O/A, TEACHING AND MANAGEMENT OF URINARY TRACT INFECTION.] Future Scheduled Test SKILLED NU RSE FOR O/A AND SKILLED TEACHING RELATED TO SIGNS AND SYMPTOMS AND MANAGEMENT OF MULTIPLE FRACTURED RIBS LEFT SIDE [code = SKILLED NURSE FOR O/A AND SKILLED TEACHING RELATED TO SIGNS AND SYMPTOMS AND MANAGEMENT OF MULTIPLE FRACTURED RIBS LEFT SIDE] Future Scheduled Test VIRTUAL SIT FREQUENCY: PRN VIRTUAL VISITS MAY BE PERFORMED UTILIZING TELECOMMUNICATIONS SYSTEM TO OPTIMIZE SKILLED SERVICES FURNISHED ON THE PLAN OF CARE. SKILLED NURSE TO ESTABLISH SUPPORT MEASURES TO MINIMIZE RISK OF REHOSPITALIZATION, AND INSTRUCT PATIENT/CAREGIVER ON METHODS TO REDUCE AVOIDABLE HOSPITALIZATION. [code = VIRTUAL VISIT FREQUENCY: PRN VIRTUAL VISITS MAY BE PERFORMED UTILIZING TELECOMMUNICATIONS SYSTEM TO OPTIMIZE SKILLED SERVICES FURNISHED ON THE PLAN OF CARE. SKILLED NURSE TO ESTABLISH SUPPORT MEASURES TO MINIMIZE RISK OF REHOSPITALIZATION, AND INSTRUCT PATIENT/CAREGIVER ON METHODS TO REDUCE AVOIDABLE HOSPITALIZATION.] Future Scheduled Test SKILLED NU RSE TO PROVIDE TEACHING ON SIGNS AND SYMPTOMS AND MANAGEMENT OF HYPERTENSION. [code = SKILLED NURSE TO PROVIDE TEACHING ON SIGNS AND SYMPTOMS AND MANAGEMENT OF HYPERTENSION.] Future Scheduled Test SKILLED NU RSE TO [...] DISEASE PROCESS, SIGNS AND SYMPTOMS, AND COMPLICATIONS.] Goal 2024-11-29 Patient Goal - I WANT TO FEE L BETTER Goal Provider Goal - A PLAN OF CARE WILL BE ESTABLISHED THAT MEETS PATIENT'S CUSTODIAL NEEDS AND INCLUDES PATIENT GOAL FOR HOME HEALTH. Goal Provider Goal - PATIENT/CAREGIVER WILL VERBALIZE UNDERSTANDING OF EDUCATION PROVIDED ON MEDICATIONS BY THE END OF THE CERTIFICATION PERIOD. Goal Provider Goal - PATIENT WILL HAVE [...] PAIN INTERFERING WITH ACTIVITY EVIDENCED BY PAIN AT A LEVEL THAT IS ACCEPTABLE TO THE PATIENT AND PAIN LEVEL WITHIN ESTABLISHED PARAMETERS BY END OF CERTIFICATION PERIOD. Goal Provider Goal - PATIENT/CAREGIVER WILL VERBALIZE UNDERSTANDING OF PRESSURE ULCER PREVENTION BY END OF THE EPISODE. Goal Provider Goal - PATIENT/CAREGIVER WILL VERBALIZE/DEMONSTRATE MANAGEMENT OF ACUTE RESPIRATORY FAILURE WITH HYPOXIA ... RESPIRATORY DISEASE PROCESS. CHANGES IN RESPIRATORY STATUS WILL BE IDENTIFIED AND REPORTED TO PHYSICIAN FOR PROMPT INTERVENTION THROUGHOUT THE CERTIFICATION PERIOD. Goal Provider Goal - PATIENT/CAREGIVER WILL VERBALIZE/DEMONSTRATE KNOWLEDGE AND MANAGEMENT OF HEART FAILURE DISEASE PROCESS BY END OF EPISODE. Goal Provider Goal - PATIENT/CAREGIVER WILL VERBALIZE UNDERSTANDING OF URINARY TRACT INFECTION DISEASE PROCESS AND MANAGEMENT. PATIENT WILL BE FREE OF S/S OF UTI UPON COMPLETION OF TREATMENT OF UTI. Goal Provider Goal - PATIENT/CAREGIVER WILL VERBALIZE UNDERSTANDING OF MULTIPLE FRACTURED RIBS LEFT SIDE MUSCULOSKELETAL DISEASE INCLUDING SIGNS AND SYMPTOMS, MANAGEMENT, AND PRESCRIBED TREATMENT REGIMEN BY END OF EPISODE. Goal Provider Goal - PATIENT/CAREGIVER WILL UTILIZE VIRTUAL VISITS TO ACHIEVE GOALS OUTLINED ON THE PLAN OF CARE. PATIENT WILL HAVE SUPPORT MEASURES ESTABLISHED TO PREVENT HOSPITALIZATION AND PATIENT/CAREGIVER WILL VERBALIZE/DEMONSTRATE METHODS TO REDUCE AVOIDABLE HOSPITALIZATION THROUGHOUT THE CERTIFICATION PERIOD. Goal Provider Goal - PATIENT/CAREGIVER WILL VERBALIZE SIGNS AND SYMPTOMS OF HYPERTENSION AND WILL BE ABLE TO DEMONSTRATE ABILITY TO MANAGE EXACERBATION BY END OF THE EPISODE. Goal Provider Goal - PATIENT/CAREGIVER WILL VERBALIZE UNDERSTANDING OF SIGNS AND SYMPTOMS, COMPLICATIONS, AND MANAGEMENT OF ATRIAL FIBRILLATION THROUGHOUT THE CERTIFICATION PERIOD. Goal Provider Goal - PATIENT/CAREGIVER WILL VERBALIZE/DEMONSTRATE KNOWLEDGE AND MANAGEMENT OF COPD BY END OF EPISODE. Reason for Visit INDEPENDENT IN THE COMMUNITY Encounters Start Date/Time End Date/Time Encounter Type Admission Type Attending [facility] Care Department Encounter ID Discharge Date Discharge Status Discharge Condition Discharge Reason Percent Goals Met 2024-10-04 00:00:00 2024-11-29 00:00:00 Outpatient [place] [facility] [id number] 2024-11-29 00:00:00 DISCHARGE TO HOME OR SELF CARE INDEPENDEN T IN THE COMMUNITY GOALS MET ( ONLY) 96.77
--- NOTE | ~2024-12-01 | US_ITS ---
EXAMINATION: US RETROPERITONEAL LIMITED (RENAL ONLY) CLINICAL INFORMATION: CKG.. COMPARISON: Correlated to CT chest dated June 16, 2024. TECHNIQUE: Real-time ultrasound of the kidneys using grayscale and color Doppler technique. FINDINGS: RIGHT KIDNEY: 10 x 5 x 5 cm (SAG x AP x TRV). Isoechoic parenchyma. Renal cortical thinning. No hydronephrosis. There are, 2, well-defined anechoic saphenous in the upper pole, the largest measures 0.7 cm without color Doppler flow or nodular component. Trace of perinephric fluid. LEFT KIDNEY: 11 x 4 x 5 cm (SAG x AP x TRV). Isoechoic parenchyma. Renal cortical thinning. No hydronephrosis. There are 1.8 cm and 1.3 cm round anechoic lesion with questionable punctate calcifications the centered in the lower pole without flow on color Doppler interrogation. Incidentally: Intra and extrahepatic biliary ductal dilatation and main pancreatic ductal dilatation. US/US renal BI IMPRESSION: No hydronephrosis. Bilateral renal cysts. Trace of right perinephric fluid. Intrahepatic or extrahepatic biliary ductal dilatation and main pancreatic ductal dilatation. Not fully evaluated. Electronically signed by: David Oviedo MD 12/01/2024 03:36 PM EDT
--- OUTSIDE RECORDS SUMMARY | 2024-12-01 14:46 | XMS_ITS | Patient Health Record ---
Author Organization [facility] Address [address] [place] [address] Care Team Providers Care Balance Wheel Motion Inspector Name Role Phone Vickey Causey MD Primary Care Provider Christopher Chen Jr Unavailable [...] Problem Status W/U Status Risk Notes Problem [id number] Colon cancer screening (Z12.11) Active confirmed Problem [id number] Long-term use of aspirin therapy (Z79.82) Active confirmed Plan Of Treatment Future Test Test Name Order Date COLONOSCOPY 11/10/2012 COLONOSCOPY 07/08/2016 Insurance Providers Payer Name Payer Address Payer Phone Subscriber Number Group Number Insured Name Patient Relationship to Insured Coverage Start Date Coverage End Date [facility] [address] [facility] [place] [phone] [id number] PAT TATE Self - patient is the insured Medical (General) History Medical History History ICD Code coronary disease with history of [place] back pain rheumatoid arthritis Surgical History Surgery Date(Month/Year) left knee arthroscopy right knee arthroscopy CABG X 5 foot surgery ventral hernia repair
--- OUTSIDE RECORDS SUMMARY | 2024-12-01 14:46 | XMS_ITS | Patient Health Record ---
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, with unspecified presence of clinical manifestation (I70.203) Active confirmed Vital Signs Blood pressure diastolic 65 mm Hg 09/05/2024 Height 5ft1in in 09/05/2024 Blood pressure systolic 128 mm Hg 09/05/2024 Weight 140 lbs 09/05/2024 BMI 26.45 kg/m2 09/05/2024 Procedures Procedure Date Ordered Date Performed Result Body Sit e 22489-GADEMKD NAIL, 6 OR MORE 03/14/2024 N/A 55959-UXNF SKIN LESIONS, OVER 4 03/14/2024 N/A 73656-NGOGCCP NAIL, 6 OR MORE 09/05/2024 N/A 87522-QYRA SKIN LESIONS, OVER 4 09/05/2024 N/A Encounters Encounter Location Date Provider Diagnosis [facility] [address] [address] 12/21/2023 Ned Aimee Cellulitis of foot, right L03.115 ; Cellulitis of foot, left L03.116 and Generalized edema R60.[address] [facility] [address] [address] 02/04/2024 Ned Aimee Cellulitis of foot, right L03.115 ; Cellulitis of foot, left L03.116 and Tinea pedis of both feet B35.[address] [address] 03/14/2024 Ned Yu 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, with unspecified presence of clinical manifestation I70.203 ; Tinea unguium B35.1 ; Pain in right toe(s) M79.674 ; Pain in left toe(s) M79.675 and Tinea pedis of both feet B35.[address] [address] 09/05/2024 Ned Yu Tinea unguium B35.1 ; 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, with unspecified presence of clinical manifestation I70.203 ; Pain in right toe(s) M79.674 and Pain in left toe(s) M79.[address] [address] 02/07/2024 Ned Yu Tinea pedis of both feet B35.[address] [address] 06/06/2024 Ned Yu Assessments Encounter Date Diagnosis (ICD Code) Assessment Notes Treatment Notes Treatment Clinical Notes Section Notes 12/21/2023 Cellulitis of foot, right (ICD-10 - L03.115) 12/21/2023 Cellulitis of foot, left (ICD-10 - L03.116) 02/04/2024 Cellulitis of foot, right (ICD-10 - L03.115) 02/04/2024 Cellulitis of foot, left (ICD-10 - L03.116) 02/07/2024 Tinea pedis of both feet (ICD-10 - B35.3) 03/14/2024 Tinea unguium (ICD-10 - B35.1) 03/14/2024 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, with unspecified presence of clinical manifestation (ICD-10 - I70.203) 09/05/2024 Tinea unguium (ICD-10 - B35.1) 09/05/2024 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, with unspecified presence of clinical manifestation (ICD-10 - I70.203) 09/05/2024 Pain in right toe(s) (ICD-10 - M79.674) 12/21/2023 Generalized edema (ICD-10 - R60.1) 03/14/2024 Pain in right toe(s) (ICD-10 - M79.674) 02/04/2024 Tinea pedis of both feet (ICD-10 - B35.3) 03/14/2024 Pain in left toe(s) (ICD-10 - M79.675) 09/05/2024 Pain in left toe(s) (ICD-10 - M79.675) 03/14/2024 Tinea pedis of both feet (ICD-10 - B35.3) Plan Of Treatment Pending Test Test Name Order Date X ray : Foot, left 3V 07/21/2022 X ray : Foot, right 3V 03/15/2012 04608-JQJLAGT NAIL, 6 OR MORE 09/15/2019 60631-RYYFAAJ NAIL, 6 OR MORE 11/17/2019 28716-VYVTEHA NAIL, 6 OR MORE 02/16/2020 16439-MNFGQNC NAIL, 6 OR MORE 06/11/2020 76886-CXUHKSF NAIL, 6 OR MORE 08/27/2020 74040-JBDUTEA NAIL, 6 OR MORE 11/08/2020 68072-XLIGWTB NAIL, 6 OR MORE 01/14/2021 23075-XMRXXAG NAIL, 6 OR MORE 05/27/2021 24628-IAWVMYQ NAIL, 6 OR MORE 08/26/2021 13973-OICQZHH NAIL, 6 OR MORE 09/15/2022 42417-SAHRIUC NAIL, 6 OR MORE 12/22/2022 37731-WYBWDGQ NAIL, 6 OR MORE 11/04/2021 67993-HIPZLTZ NAIL, 6 OR MORE 01/27/2022 53465-VTMLIKT NAIL, 6 OR MORE 04/28/2022 45664-OWIGKZH NAIL, 6 OR MORE 03/05/2023 16274-SVWZQNI NAIL, 6 OR MORE 05/25/2023 47507-STBPPRF NAIL, 6 OR MORE 08/03/2023 51584-AAEYSDP NAIL, 6 OR MORE 11/05/2023 56593-DCRQQGG NAIL, 6 OR MORE 03/14/2024 10359-BMQICXX NAIL, 6 OR MORE 09/05/2024 05930-Nqay Destruction, -11/05/2023 88062-Omip Destruction, 03-1406/29/2023 40357-Vwas Destruction, 03-1409/28/2023 69161-Pyfl Destruction, 03-1408/03/2023 33041-Esrx Destruction, 03-1405/25/2023 78883-Zehn Destruction, 03-1403/05/2023 85305-Skwc Destruction, 03-1401/26/2023 24432-Aeyn Destruction, 03-1404/13/2023 80026-Vbhr Destruction, 03-1404/28/2022 56073-Dacl Destruction, 03-1412/16/2021 07242-Latb Destruction, 03-1403/13/2022 50170-Msyj Destruction, 03-1401/27/2022 45409-Chgc Destruction, 03-1411/04/2021 16133-Ohpa Destruction, 03-1412/22/2022 40270-Yakw Destruction, 03-1406/09/2022 04373-Udrm Destruction, 03-1410/20/2022 58311-Sjda Destruction, 03-1409/15/2022 63851-Xalm Destruction, 03-1408/26/2021 85772-Idft Destruction, 03-1403/14/2021 93017-Rqzf Destruction, 03-1407/15/2021 86016-Tkhp Destruction, 03-1405/27/2021 75147-Ezou Destruction, 03-1401/14/2021 68644-Adzz Destruction, 03-1411/08/2020 55841-Jkhp Destruction, 03-1410/01/2020 64944-Zeun Destruction, 03-1412/10/2020 17225-Vqst Destruction, 03-1408/27/2020 27514-Yfgi Destruction, 03-1403/29/2020 34405-Qlku Destruction, 03-1407/19/2020 34607-Csvy Destruction, 1-06/11/2020 82893-Zuvy Destruction, -02/16/2020 46418-Fsmq Destruction, -11/17/2019 30836-Vntg Destruction, 03-1409/15/2019 34875-Ihrc Destruction, -08/08/2013 06171-Pdkf Destruction, -09/29/2013 28133-Dwuy Destruction, -01/13/2011 36171-Wyoy Destruction, -03/24/2011 38105-Wcew Destruction, -06/02/2011 29080-Imva Destruction, -07/17/2011 45072-Yryr Destruction, -10/09/2011 82016-Eiyw Destruction, 03-1401/05/2012 13410- Debride <25 sq cm 10/02/2014 49933-GVDJ SKIN LESIONS, OVER 4 02/16/20 20 16407-DPQQ SKIN LESIONS, OVER 4 06/12/19 21 91626-KVBQ SKIN LESIONS, OVER 4 08/28/19 21 82426-JEJG SKIN LESIONS, OVER 4 11/09/19 21 52680-PSBU SKIN LESIONS, OVER 4 01/15/20 21 67867-JWPA SKIN LESIONS, OVER 4 05/28/19 22 11616-GXUD SKIN LESIONS, OVER 4 08/27/19 22 99654-MEAR SKIN LESIONS, OVER 4 09/16/19 23 67319-KIDV SKIN LESIONS, OVER 4 12/23/19 23 64575-XJMW SKIN LESIONS, OVER 4 11/05/19 22 47336-BTMV SKIN LESIONS, OVER 4 01/28/20 22 90204-WBDY SKIN LESIONS, OVER 4 04/28/19 23 52754-DRML SKIN LESIONS, OVER 4 03/05/19 24 67806-GRWA SKIN LESIONS, OVER 4 05/25/19 24 93250-CYFZ SKIN LESIONS, OVER 4 08/03/19 24 60412-KHNX SKIN LESIONS, OVER 4 11/05/19 24 12678-LBNW SKIN LESIONS, OVER 4 09/06/19 04580-SCTN SKIN LESIONS, OVER 4 03/14/19 97824-TYJW SKIN LESIONS, 2 TO 4 09/15/19 05878-VVEH SKIN LESIONS, 2 TO 4 11/17/19 Next Appt Details Provider Name:Ned Yu 12/05/2024 11:30:00 AM, [address] [facility], [place], [address], Insurance Providers Payer Name Payer Address Payer Phone Subscriber Number Group Number Insured Name Patient Relationship to Insured Coverage Start Date Coverage End Date [employer] [address] [place] [address] [id number] Remy Reno Self - patient is the insured [employer] [facility] [address] [place] [address] [id number] Remy Reno Self - patient is the [...]
== END 2024-12-01 14:42 | disposition home or self-care (01) ==
LOC: HO.US 14:41
PROVIDERS: PCP Internal Medicine; Visit Provider Internal Medicine Hypertension Specialist
DX: N18.32 Chronic kidney disease, stage 3b (principal)
CPT/HCPCS: 76775

== ENCOUNTER → 2024-12-01 14:44 | Outpatient (BNV) | payer MEDICARE, SELFPAY | PROVIDERS: PCP Internal Medicine; Visit Provider Radiology Diagnostic Radiology | DX: N28.1 Cyst of kidney, acquired (principal); K86.89 Other specified diseases of pancreas; N18.32 Chronic kidney disease, stage 3b | CPT/HCPCS: 76775 ==

== ENCOUNTER 2024-12-21 11:20 | Outpatient (AMB) | payer MEDICARE, SELFPAY ==
--- NOTE | 2024-12-21 11:21 | HO.NEPHOV_ITS ---
Vital Signs 12/21/24 11:23 Height 5 ft 11 in Weight 135 lb BMI 18.8 BP 110/52 L Blood Pressure Location Rt brachial Position Sitting Pulse 62 Pulse Source Pulse Oximeter Pulse Oximetry (%) 95 Oxygen Delivery Method Room Air Intake Visit Reasons: 1mon f/u w/labs Non Destructive Evaluation Manager Required: No Accompanied by: Self / Same As Patient Allergies gabapentin (GABAPENTIN) Allergy (Severe, Verified 12/21/24 11:24) PASSED OUT , syncopal episodes at 800 mg TID azithromycin (From ZITHROMAX Z-DESIREE) Allergy (Intermediate, Verified 12/21/24 11:24) SWELLING pregabalin Adverse Reaction (Unknown, Verified 12/21/24 11:24) severe muscle pain Medication List - Last Reconciled 12/21/24 by Vincenzo Lerma MD apixaban 5 mg PO BID bethanechol chloride 50 mg PO BID 90 days clopidogrel 75 mg PO DAILY dapagliflozin propanediol (Farxiga) 10 mg PO DAILY dupilumab (Dupixent) 300 mg subcut Q2W ezetimibe 10 mg PO DAILY [ferrous sulfate 325 mg PO DAILY] finasteride 5 mg PO DAILY 90 days metoprolol succinate ER 25 mg PO DAILY nystatin 1 appl topical TID oxycodone 30 mg PO Q6H PRN 28 days oxycodone ER (OxyContin) 80 mg PO Q8H OxyContin ER (oxycodone) 80 mg PO .q8hrs 28 days NS rosuvastatin 40 mg PO DAILY sacubitril-valsartan 49-51 mg (Entresto) 1 tab PO BID tamsulosin (Flomax) 0.4 mg PO BEDTIME 90 days umeclidinium-vilanterol 62.5-25 mcg/actuation (Anoro Ellipta) 1 ea inhalation DAILY HPI Comments Details: - The patient is a 74-year-old male presenting with chronic kidney disease and hyperkalemia. - Chronic kidney disease with kidney function at 30-40%. History of urinary retention. History of elevated postvoid residual. Seen by Dr. Cade. Currently on tamsulosin and finasteride. He had a Steward catheter which has been removed. Today he denies any urinary symptoms. - Hyperkalemia linked to dietary potassium intake. He has been using salt substitute - History of heart failure and coronary artery disease, status post coronary artery bypass grafting. CAB[place] [address] Rosa. EF of 35-40%. Currently on Entresto 49/51 tab b.i.d. - Rib fractures from a fall two months ago. - History of severe COPD Tobacco use disorder with a 50-year smoking history. 12/21/24 - The patient is a 74-year-old male presenting with chronic kidney disease and hyperkalemia - Chronic kidney disease: Kidney function at 39%, improved from 30%. - Medications: On Entresto and Farxiga, affecting potassium excretion. - Renal cyst: Cyst on left kidney, no intervention planned. - Rheumatoid nodules: Nodules on hands, seen by regional hr manager. - Family history: Siblings with renal problems. History of anemia. Being evaluated by Oncology. [facility], [facility] Medical History (Updated 11/15/24 @ 14:20 by Daiana Bhatt NP) Chronic kidney disease (CKD), stage III (moderate) Closed rib fracture Fall Erythema intertrigo Nummular eczematous dermatitis Allergic rhinitis Chronic kidney disease (CKD) Vitamin D deficiency Pure hypercholesterolemia Benign essential hypertension Atrial fibrillation Chronic combined systolic and diastolic congestive heart failure Coronary artery disease Rheumatoid arthritis Degenerative disc disease, cervical Lumbar degenerative disc disease Surgical History History of coronary angioplasty History of hernia repair H/O wrist surgery History of arthroscopy of right knee History of coronary artery bypass graft Family History Father Past heart attack Mother Pneumonia Daughter Healthy adult Social History Housing: House Alcohol intake: current Alcohol intake frequency: holidays/special occasions only Patient Tobacco Use Status: Current someday Tobacco user e-Cigarette/Vaping Use: Never Used Second Hand Smoke Exposure: Yes service: Yes ([employer]) Current occupational status: retired and disabled Current occupation: right hand dominant Cognitive needs: Yes (cane) Hearing needs: Yes (hearing aide) Vision needs: Yes (glasses) Physical Exam Vital Signs: Last Vital Signs Pulse 62 12/21/24 11:23 BP 110/52 L 12/21/24 11:23 Pulse Ox 95 12/21/24 11:23 Oxygen Delivery Method Room Air 12/21/24 11:23 BMI result Body Mass Index 18.8 Comfortable Neck supple no JVD. Lungs entry equal no rales. Heart S1-S2 heard no gallop or rub. Abdomen soft nontender. Neuro alert awake oriented. No asterixis. Extremities no edema. Results Reviewed Results Reviewed: Nov 2024 RIGHT KIDNEY: 10 x 5 x 5 cm (SAG x AP x TRV). Isoechoic parenchyma. Renal cortical thinning. No hydronephrosis. There are, 2, well-defined anechoic saphenous in the upper pole, the largest measures 0.7 cm without color Doppler flow or nodular component. Trace of perinephric fluid. LEFT KIDNEY: 11 x 4 x 5 cm (SAG x AP x TRV). Isoechoic parenchyma. Renal cortical thinning. No hydronephrosis. There are 1.8 cm and 1.3 cm round anechoic lesion with questionable punctate calcifications the centered in the lower pole without flow on color Doppler interrogation. Nephrology Results: 2 Hgb, (14.0-18.0) 11.3 g/dl L Δ 11/15/24 WBC, (4.8-10.8) 6.7 X10*3/uL 11/15/24 Plt Count, (160-400) 251 X10*3/uL Δ 11/15/24 Sodium, (135-145) 138 mmol/L 11/15/24 Potassium, (3.3-5.1) 5.5 mmol/L H 11/15/24 Chloride, (96-108) 106 mmol/L 11/15/24 Carbon Dioxide, (22-29) 26 mmol/L 11/15/24 BUN, (9-16) 43 mg/dL H 11/15/24 Creatinine, (0.5-1.4) 1.72 mg/dL H 11/15/24 Calcium, (8.4-10.2) 9.2 mg/dL Δ 11/15/24 Urine Protein, (Neg-Trace) 30 (1+) mg/dL H 10/23/24 Renal US 12/01/24 Assessment & Plan Assessment & Plan (1) Chronic kidney disease (CKD), stage III (moderate): Code(s): N18.30 - Chronic kidney disease, stage 3 unspecified Category: Medical Qualifiers: Chronic kidney disease stage 3 subtype: stage 3b (GFR 30-44) Qualified Code(s): N18.32 - Chronic kidney disease, stage 3b Plan 1. Chronic Kidney Disease No evidence of obstruction based on ultrasonogram. Urine is bland without significant hematuria or proteinuria. He has had chronically low blood pressures. . He is on high dose of Entresto. Hypoperfusion could be contributing to acute kidney injury. - Monitor kidney function and adjust medications 2. Hyperkalemia Most likely due to the combination of decreased renal function and use of salt substitute which contains potassium chloride in addition to the use of high dose of Entresto. Currently he is not on salt substitutes. - Advise dietary changes to reduce potassium intake. Add Lokelma 5 g p.o. twice a day week and recheck potassium 3. Heart Failure - Continue heart failure management and symptom monitoring. Currently volume status seems acceptable. 4. Coronary Artery Disease Status Post Coronary Artery Bypass Grafting - Regular cardiology follow-up 5. COPD Continue follow up with Pulmonary - Encourage cessation and provide support resources. 6. Anemia. Multifactorial. Being evaluated by Hematology. 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
[2024-12-21 11:23] VITALS: BP 110/52; PULSE 62; O2SAT 95; BMI 18.8
== END 2024-12-21 11:40 | disposition home or self-care (01) ==
LOC: HO.HKA 11:21
PROVIDERS: PCP Internal Medicine; Visit Provider Internal Medicine Hypertension Specialist
DX: N18.32 Chronic kidney disease, stage 3b (principal)
CPT/HCPCS: 99214

== ENCOUNTER → 2024-12-21 11:20 | Outpatient (BNVA) | payer MEDICARE, SELFPAY | PROVIDERS: PCP Internal Medicine; Visit Provider Internal Medicine Hypertension Specialist | DX: N18.32 Chronic kidney disease, stage 3b (principal); I25.810 Atherosclerosis of coronary artery bypass graft(s) without angina pectoris; Z95.1 Presence of aortocoronary bypass graft; Z72.0 Tobacco use; E87.5 Hyperkalemia; D64.9 Anemia, unspecified | CPT/HCPCS: 99212 ==

== ENCOUNTER → 2024-12-27 09:00 | Outpatient (BNV) | payer MEDICARE, SELFPAY | PROVIDERS: PCP Internal Medicine; Referring Provider Nurse Practitioner Family; Visit Provider Nurse Practitioner Family | DX: D53.9 Nutritional anemia, unspecified (principal); D47.2 Monoclonal gammopathy | CPT/HCPCS: 99204 ==

== ENCOUNTER 2025-01-23 11:33 | Outpatient (REF) | payer MEDICARE, SELFPAY ==
--- NOTE | ~2025-01-23 | XR_ITS ---
EXAMINATION: XR HAND, RIGHT CLINICAL INFORMATION: M25.40 - Effusion, unspecified joint COMPARISON: None available. TECHNIQUE: PA, lateral, and oblique views of the right hand. FINDINGS: There is diffuse osteopenia. There is a healed boxer's fracture. There is moderate asymmetric narrowing of the first metacarpal phalangeal joint with mild palmar subluxation of the proximal phalanx, marginal osteophytes, sclerosis, and soft tissue ossification. There are areas of mild narrowing in the DIP and PIP joints in the fingers, most pronounced in the fourth and fifth digits. There is minimal associated osteophyte formation. There is moderate asymmetric narrowing of the second metacarpal phalangeal joint. There is moderate narrowing of the STT joint with subchondral sclerosis. No other abnormalities are seen. 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 There are mild degenerative changes involving the hand otherwise. There is a healed boxer's fracture. Electronically signed by: Jhony Bernal MD 01/23/2025 01:20 PM EST
== END 2025-01-23 11:34 | disposition home or self-care (01) ==
LOC: HO.XRAY 11:33
PROVIDERS: PCP Internal Medicine; Visit Provider Student in an Organized Health Care Education/Training Program
DX: M06.9 Rheumatoid arthritis, unspecified (principal); M79.641 Pain in right hand; M25.441 Effusion, right hand
CPT/HCPCS: 73130; 99212

== ENCOUNTER → 2025-01-23 12:54 | Outpatient (BNV) | payer MEDICARE, SELFPAY | PROVIDERS: PCP Internal Medicine; Visit Provider Radiology Diagnostic Radiology | DX: M18.11 Unilateral primary osteoarthritis of first carpometacarpal joint, right hand (principal); M19.041 Primary osteoarthritis, right hand | CPT/HCPCS: 73130 ==

== ENCOUNTER 2025-02-16 06:01 | Outpatient (REF) | payer MEDICARE, SELFPAY ==
--- OUTSIDE RECORDS SUMMARY | 2024-04-25 05:15 | XMS_ITS ---
Author Organization [facility] Address [address] [place] [id number] Care Team Providers Care Drum Cleaner Name Role Phone Padilla SEBASTIAN, Vickey Primary Care Provider Unava ilNed Killian Unavailable [phone] Encounters Encounter Location Date Provider Diagnosis [address] [address] 04/25/2024 Ned Yu Plan Of Treatment Next Appt Details Provider Name:Ned Yu , 04/03/2025 09:30:00 AM, [address] [place] [address], [phone], Progress Notes * Remy TATEDOB: [birth year] (75 yo M)Acc No.[id number]:04/25/2024 Progress Notes Patient: Tere Remy GAONA Provider: Caprice Yu DPM :1950 A ge:74 Y S ex:Male Date:04/25/2024 Address:[address] [place] [address] Pcp:Vickey Causey MD Subjective: * Chief Complaints: * * Medical History: Objective: * Vitals: Assessment: Plan: * Treatment: * Images: * The named appointment provid er may or may not be the originator of this progress note, and it is not deemed complete until electronically signed by the appointment provider. Sign off status: Pending * Provider: Caprice Yu DPM Date: 0 04/25/2024 Generated for Debo ferrer/Nidhi/Yue on: 04/19/2024 06:05 AM EST
--- OUTSIDE RECORDS SUMMARY | 2024-06-06 11:00 | XMS_ITS ---
Author Organization [facility] Address [address] [place] [address] Care Team Providers Care Facilities Maintenance Supervisor Name Role Phone Padilla SEBASTIAN, Vickey Primary Care Provider Unava ilNed Killian Unavailable [phone] Encounters Encounter Location Date Provider Diagnosis [address] [address] 06/06/2024 Ned Yu Plan Of Treatment Next Appt Details Provider Name:Ned Yu , 04/03/2025 09:30:00 AM, [address] [place] [address], [phone], Progress Notes * Remy TATEDOB: [birth year] (75 yo M)Acc No.[id number]:06/06/2024 Progress Note Patient: Tere Remy GAONA Provider: Caprice Yu DPM :1950 A ge:74 Y S ex:Male Date:06/06/2024 Address:[address] [place] [address] Pcp:Vickey Causey MD Subjective: * Chief Complaints: * * Medical History: Objective: * Vitals: Assessment: Plan: * Treatment: * Images: * The named appointment provid er may or may not be the originator of this progress note, and it is not deemed complete until electronically signed by the appointment provider. Sign off status: Pending * Provider: Caprice Yu DPM Date: 0 06/06/2024 Generated for Debo ferrer/Nidhi/Yue on: 04/19/2024 06:05 AM EST
--- OUTSIDE RECORDS SUMMARY | 2025-02-16 06:05 | XMS_ITS | Patient Health Record ---
Author Organization [facility] Address [address] [place] [address] Care Team Providers Care Vendor Analyst Name Role Phone Padilla SEBASTIAN, Vickey Primary [...] tablet Orally TID Active Aspirin 81 MG Tablet Chewable 1 tablet Orally Once a day Active Nitroglycerin 0.4 MG Tablet Sublingual 1 patch to skin remove after 12 hours Translingual prn Active Enbrel 50 MG/ML Solution Prefilled Syringe 1 ml Subcutaneous every week Active Methotrexate 50mg 1 as directed every weel Active Colyte with Flavor Packs 240 GM Solution Reconstituted As directed Orally Over the specified time.; Duration: 1 day(s) Active Folic Acid 1mg 1 capsule Orally Onc e a day Active Clopidogrel Bisulfate 75 MG Tablet 1 tablet Orally Once a day Active Metoprolol & Diet Manage Prod 100mg 1 po QD Active Lisinopril 5mg 1 tablet Orally Once a day Active Social History Tobacco Use: Social History Observation Description Date Details (start date - stop date) Current Smoker NA - NA Social History Tobacco Use: Social Info Question Answer Notes Tobacco Use/Smoking Patient is a current smoker How often do you smoke cigarettes? every day How many cigarettes a day do you smoke? 5 or less How soon after you wake up do you smoke your first cigarette? after 60 minutes Are you interested in quitting? Thinking about quitting Additional Details Category Social Info Options Details Miscellaneous: Marital status: Occupation: retired Problems Problem Type SNOMED Code ICD Code Onset Dates Problem Status W/U Status Risk Notes Problem Colon cancer screening (237929583) Colon cancer screening (Z12.11) Active confirmed Problem Long-term current use of antiplatelet drug (390964539692263) Long-term use of aspirin therapy (Z79.82) Active confirmed Plan Of Treatment Future Test Test Name Order Date COLONOSCOPY 11/10/2012 COLONOSCOPY 07/08/2016 Insurance Providers Payer Name Payer Address Payer Phone Subscriber Number Group Number Insured Name Patient Relationship to Insured Coverage Start Date Coverage End Date [facility] [address] [facility] [phone] [id number] PAT TATE Self - patient is the insured Medical (General) History Medical History History ICD Code coronary disease with history of [place] back pain rheumatoid arthritis Surgical History Surgery Date(Month/Year) left knee arthroscopy right knee arthroscopy CABG X 5 foot surgery ventral hernia repair
--- OUTSIDE RECORDS SUMMARY | 2025-02-16 06:05 | XMS_ITS | Patient Health Record ---
Author Organization [facility] Address [address] [place] [address] Care Team Providers Care Glassworker Name Role Phone Emelia Causey MDh Primary Care Provider UnaNed Galarza Unavailable [phone] Allergies Allergen (clinical drug ingredient) Drug/Non Drug Allergy documented on EMR Reaction Allergy Type Onset Date Status gabapentin Gabapentin fainting Drug Allergy Activ e Reason For Referral No Information Medications Medication SIG (Take, Route, Frequency, Duration) Notes Start Date End Date Status Rosuvastatin Calcium 40 MG 1 tablet Orally Once a day; Duration: 30 day(s) Active oxyCODONE HCl 30 MG Orally every 6 hrs Active Plavix Not-Taking Aspirin 81mg Active Cephalexin 500 MG 1 capsule Orally every 6 hrs; Duration: 10 days Active Ammonium Lactate 12 % 1 APPLICATION TO AFFECTED AREA TWICE A DAY EXTERNALLY TO FEET 30 DAYS; Duration: 30 Active Iodosorb 0.9 % as directed Externally Apply to ulceration daily with dry sterile dressing; Duration: 30 days 11/05/2023 Active Clopidogrel Bisulfate 75 MG 1 tablet Orally Once a day; Duration: 30 day(s) Active LamISIL 250 MG 1 tablet Orally Once a day; Duration: 30 days 02/04/2024 Active Entresto 24-26 MG 1 tablet Orally Twice a day; Duration: 30 day(s) Active Terbinafine 250mg once a day Not-Taking Eliquis 5 MG as directed Orally Active Furosemide 20 MG 1 tablet Orally Once a day; Duration: 30 day(s) Not-Taking Iron Active Methotrexate 2.5 MG 1 tablet Orally Three times a Week; Duration: 30 day(s) Not-Taking Folic Acid Active Enbrel 25 MG as directed Subcutaneous Not-Taking OxyCONTIN 80 MG Orally Acti ve Urea Not-Taking Metoprolol & Diet Manage Prod 200 Active Lipitor Not-Taking Immunizations Vaccine Route Administration Date [...] Question Answer Notes Tobacco use: Current smoker How often do you smoke cigarettes? Every day How many cigarettes a day do you smoke? 5 or les s How soon after you wake up do you smoke your fir st cigarette? After 60 minutes AUDIT-C (Standard) Question Answer Notes Did you have a drink contain ing alcohol in the past year? Yes How often did you have a dri nk containing alcohol in the past year? Monthly or less (1 point) How many drinks did you have on a typical day when you were drinking in the past year? 1 or 2 drinks (0 point) How often did you have six o r more drinks on one occasion in the past year? Never (0 point) Points 1 Interpretation Negative Problems Problem Type SNOMED Code ICD Code Onset Dates Problem Status W/U Status Risk Notes Problem Bilateral atherosclerosis of arteries of lower limbs (disorder) ([id number] ) Atherosclerosis of [place] artery of both lower extremities, with unspecified presence of clinical manifestation (I70.203) Active confirmed Vital Signs Blood pressure diastolic 70 mm Hg 12/05/2024 Height 5ft 11in in 12/05/2024 Blood pressure systolic 128 mm Hg 12/05/2024 Weight 140 lbs 12/05/2024 BMI 19.52 kg/m2 12/05/2024 Procedures Procedure Date Ordered Date Performed Result Body Sit e 03914-NGKFIKN NAIL, 6 OR MORE 03/14/2024 N/A 96572-CEYR SKIN LESIONS, OVER 4 03/14/2024 N/A 89874-TWAARQO NAIL, 6 OR MORE 09/05/2024 N/A 71952-WYSF SKIN LESIONS, OVER 4 09/05/2024 N/A 83175-KNFCQEQ NAIL, 6 OR MORE 12/05/2024 N/A 19301-PWFN SKIN LESIONS, OVER 4 12/05/2024 N/A Encounters Encounter Location Date Provider Diagnosis [address] [address] 03/14/2024 Ned Yu Atherosclerosis of [place] artery of both lower extremities, with unspecified presence of clinical manifestation I70.203 ; Tinea unguium B35.1 ; Pain in right toe(s) M79.674 ; Pain in left toe(s) M79.675 and Tinea pedis of both feet B35.[address] [address] 09/05/2024 Ned Yu Tinea unguium B35.1 ; Atherosclerosis of [place] artery of both lower extremities, with unspecified presence of clinical manifestation I70.203 ; Pain in right toe(s) M79.674 and Pain in left toe(s) M79.[address] [address] 12/05/2024 Ned Yu Tinea unguium B35.1 ; Atherosclerosis of [place] artery of both lower extremities, with unspecified presence of clinical manifestation I70.203 ; Pain in right toe(s) M79.674 and Pain in left toe(s) M79.[address] [address] 06/06/2024 Ned Yu Assessments Encounter Date Diagnosis (ICD Code) Assessment Notes Treatment Notes Treatment Clinical Notes Section Notes 03/14/2024 Tinea unguium (ICD-10 - B35.1) 03/14/2024 Atherosclerosis of [place] artery of both lower extremities, with unspecified presence of clinical manifestation (ICD-10 - I70.203) 09/05/2024 Tinea unguium (ICD-10 - B35.1) 09/05/2024 Atherosclerosis of [place] artery of both lower extremities, with unspecified presence of clinical manifestation (ICD-10 - I70.203) 12/05/2024 Tinea unguium (ICD-10 - B35.1) 12/05/2024 Atherosclerosis of [place] artery of both lower extremities, with unspecified presence of clinical manifestation (ICD-10 - I70.203) 09/05/2024 Pain in right toe(s) (ICD-10 - M79.674) 12/05/2024 Pain in right toe(s) (ICD-10 - M79.674) 03/14/2024 Pain in right toe(s) (ICD-10 - M79.674) 03/14/2024 Pain in left toe(s) (ICD-10 - M79.675) 09/05/2024 Pain in left toe(s) (ICD-10 - M79.675) 12/05/2024 Pain in left toe(s) (ICD-10 - M79.675) 03/14/2024 Tinea pedis of both feet (ICD-10 - B35.3) Plan Of Treatment Pending Test Test Name Order Date X ray : Foot, left 3V 07/21/2022 X ray : Foot, right 3V 03/15/2012 76278-STYLOIJ NAIL, 6 OR MORE 09/15/2019 77546-MGGAXOY NAIL, 6 OR MORE 11/17/2019 25170-TJQRDQA NAIL, 6 OR MORE 02/16/2020 56920-ZFNWAWP NAIL, 6 OR MORE 06/11/2020 84791-BHIRNAY NAIL, 6 OR MORE 08/27/2020 11155-BUDEAXE NAIL, 6 OR MORE 11/08/2020 55533-WIUMLWA NAIL, 6 OR MORE 01/14/2021 91174-HSJKBDJ NAIL, 6 OR MORE 05/27/2021 62461-CAFXSIX NAIL, 6 OR MORE 08/26/2021 97956-PGRXPPT NAIL, 6 OR MORE 09/15/2022 32237-NYYJMTK NAIL, 6 OR MORE 12/22/2022 69104-RVTXCIW NAIL, 6 OR MORE 11/04/2021 67438-KNJVCSN NAIL, 6 OR MORE 01/27/2022 44373-AXKPMZU NAIL, 6 OR MORE 04/28/2022 26010-CAVNTBS NAIL, 6 OR MORE 03/05/2023 05607-ZDYWZVT NAIL, 6 OR MORE 05/25/2023 50415-IQEUXSR NAIL, 6 OR MORE 08/03/2023 25806-HBNGNEK NAIL, 6 OR MORE 11/05/2023 93035-MJFPBCS NAIL, 6 OR MORE 03/14/2024 34146-CCFSYYU NAIL, 6 OR MORE 09/05/2024 78346-NLKEQHQ NAIL, 6 OR MORE 12/05/2024 92349-Cswc Destruction, -14 11/05/2023 62959-Fafh Destruction, -06/29/2023 19200-Wtmt Destruction, -09/28/2023 41417-Cntz Destruction, -08/03/2023 88550-Ierk Destruction, 03-1405/25/2023 23167-Coio Destruction, 03-1403/05/2023 03109-Dbhr Destruction, 03-1401/26/2023 50788-Ndjq Destruction, 03-1404/13/2023 89980-Xtrr Destruction, 03-1404/28/2022 74783-Uids Destruction, 03-1412/16/2021 46622-Vohb Destruction, 03-1403/13/2022 57766-Ckjy Destruction, 03-1401/27/2022 24088-Bxkv Destruction, 03-1411/04/2021 69146-Fycp Destruction, 03-1412/22/2022 81820-Tjtf Destruction, 03-1406/09/2022 92414-Ltoo Destruction, 03-1410/20/2022 47257-Wrkq Destruction, 03-1409/15/2022 37694-Gbtj Destruction, 03-1408/26/2021 87367-Oajl Destruction, 03-1403/14/2021 91334-Vsln Destruction, 03-1407/15/2021 26678-Qomb Destruction, 03-1405/27/2021 82176-Avbe Destruction, 03-1401/14/2021 44803-Mmud Destruction, 03-1411/08/2020 18810-Fktt Destruction, 03-1410/01/2020 24689-Sapy Destruction, 03-1412/10/2020 65833-Abaf Destruction, 03-1408/27/2020 68824-Uquh Destruction, 1-14 03/29/2020 80553-Rgqa Destruction, -14 07/19/2020 12122-Ptqn Destruction, -14 06/11/2020 60140-Qigv Destruction, -14 02/16/2020 32663-Qpiv Destruction, -14 11/17/2019 86966-Lsrx Destruction, -14 09/15/2019 50188-Wolw Destruction, -14 08/08/2013 67657-Lhdl Destruction, -14 09/29/2013 53363-Pqes Destruction, -14 2011 00531-Pdep Destruction, -03/24/2011 50838-Moet Destruction, -14 06/02/2011 56817-Iqwz Destruction, -07/17/2011 14661-Hcui Destruction, -14 10/09/2011 96214-Oinl Destruction, -14 01/05/2012 81226- Debride <25 sq cm 10/02/2014 89434-MGGR SKIN LESIONS, OVER 4 02/16/20 20 28209-PYYE SKIN LESIONS, OVER 4 06/12/19 21 24209-AFAT SKIN LESIONS, OVER 4 08/28/19 21 51530-WXKR SKIN LESIONS, OVER 4 11/09/19 21 02371-WHLC SKIN LESIONS, OVER 4 01/15/20 21 34694-BNLK SKIN LESIONS, OVER 4 05/28/19 22 41853-TKDE SKIN LESIONS, OVER 4 08/27/19 22 81479-OWIQ SKIN LESIONS, OVER 4 09/16/19 23 17716-YTAW SKIN LESIONS, OVER 4 12/23/19 23 94093-APCS SKIN LESIONS, OVER 4 11/05/19 22 01266-FNWV SKIN LESIONS, OVER 4 01/28/20 22 69255-ZPJR SKIN LESIONS, OVER 4 04/28/19 23 01893-GNLH SKIN LESIONS, OVER 4 03/05/19 24 30551-PWRM SKIN LESIONS, OVER 4 05/25/19 24 20040-JBCV SKIN LESIONS, OVER 4 08/03/19 24 45392-LVHH SKIN LESIONS, OVER 4 11/05/19 24 07962-RJJD SKIN LESIONS, OVER 4 09/06/19 25 15928-ZUBW SKIN LESIONS, OVER 4 03/14/19 86689-XTYN SKIN LESIONS, OVER 4 12/06/19 27023-XTYK SKIN LESIONS, 2 TO 4 09/15/19 44567-MEOG SKIN LESIONS, 2 TO 4 11/17/19 Next Appt Details Provider Name:Ned Yu , 04/03/2025 09:30:00 AM, [address] [place], [address], Insurance Providers Payer Name Payer Address Payer Phone Subscriber Number Group Number Insured Name Patient Relationship to Insured Coverage Start Date Coverage End Date Medicare National [employer] [address] [place] [address] [id number] Remy Reno Self - patient is the insured [employer] [address] [place] [address] [phone] [id number] Remy Reno Self - patient is the [...] heart surgery 01/2019 Hospitalization History Reason Date(Month/Year) [facility], broke ribs on left side 09/2024 CT Scan 08/2019
[2025-02-16 06:24] LABS: MANUAL DIFF FLAG NO
[2025-02-16 08:14] LABS: Appearance Urine Clear; Glucose Urine UA >=1000 mg/dL (Negative); PH 6.5 (5.0-9.0); Specific Gravity - Urine 1.025 (1.005-1.025); UMIC TRIGGER UACC YES
[2025-02-16 08:17] LABS: Hematocrit 33.9 % (42.0-52.0); Hemoglobin 11.1 g/dl (14.0-18.0); Imm Gran Abs Auto 0.03 X10*3/uL (0.00-0.03); Imm Gran Pct Auto 0.5 % (0.0-0.4); Lymphocytes Absolute Auto 1.2 X10*3/uL (1.2-4.9); Mean Corpuscular HGB Conc 32.7 g/dl (31.0-36.0); Mean Corpuscular Hemoglobin 35.5 pg (27.0-33.0); Mean Corpuscular Volume 108.3 fL (80.0-98.0); NRBC Abs Auto 0.000 X10*3/uL (0.0-0.012); NRBC Pct Auto 0.0 /100WBC (0.0-0.2); Platelet Count 220 X10*3/uL (160-400); Red Blood Count 3.13 X10*6/uL (4.60-5.80); White Blood Count 6.0 X10*3/uL (4.8-10.8)
[2025-02-16 08:29] LABS: Parathyroid Hormone Intact 64.8 pg/mL (8.7-77.1)
[2025-02-16 08:47] LABS: Alanine Aminotransferase 8 U/L (0-40); Albumin Level 3.4 g/dL (3.5-5.0); Alkaline Phosphatase 59 U/L (39-117); Anion Gap 11 (12-20); Aspartate Amino Transferase 26 U/L (5-37); Blood Urea Nitrogen 28 mg/dL (9-16); Calcium 9.6 mg/dL (8.4-10.2); Carbon Dioxide 24 mmol/L (22-29); Chloride 108 mmol/L (96-108); Cholesterol 95 mg/dL (<200); Estimated Glomerular Filt Rate 45; HDL Cholesterol 47 mg/dL (>40); Potassium 4.9 mmol/L (3.3-5.1); Sodium 138 mmol/L (135-145); Total Protein 6.8 g/dL (6.5-8.0); Triglycerides 62 mg/dL (<150)
[2025-02-16 09:02] LABS: Folate 11.4 ng/mL (> or = 4.0); Vitamin B12 471 pg/mL (200-900)
[2025-02-16 09:33] LABS: Total Protein Urine Random 23 mg/dL (<12)
== END 2025-02-16 06:02 | disposition home or self-care (01) ==
LOC: HO.LAB 06:01
PROVIDERS: Internal Medicine Hypertension Specialist; PCP Internal Medicine; Visit Provider Internal Medicine
DX: D64.9 Anemia, unspecified (principal); E53.8 Deficiency of other specified B group vitamins; E78.00 Pure hypercholesterolemia, unspecified; E55.9 Vitamin D deficiency, unspecified; N18.32 Chronic kidney disease, stage 3b
CPT/HCPCS: 36415; 80048; 80053; 80061; 81001; 81003; 82306; 82570; 82607; 82746; 83970; 84156; 84443; 85025

== ENCOUNTER 2025-02-20 09:41 | Outpatient (AMB) | payer MEDICARE, SELFPAY ==
--- OUTSIDE RECORDS SUMMARY | 2024-04-25 05:15 | XMS_ITS ---
Author Organization [facility] Address [address] [place] [id number] Care Team Providers Care Split Leather Department Supervisor Name Role Phone Padilla SEBASTIAN, Vickey Primary Care Provider Unava ilNed Killian Unavailable [phone] Encounters Encounter Location Date Provider Diagnosis [address] [address] 04/25/2024 Ned Yu Plan Of Treatment Next Appt Details Provider Name:Ned Yu , 04/03/2025 09:30:00 AM, [address] [place] [address], [phone], Progress Notes * Remy TATEDOB: [birth year] (75 yo M)Acc No.[id number]:04/25/2024 Progress Notes Patient: Tere Remy GAONA Provider: Caprice Yu DPM :1950 A ge:74 Y S ex:Male Date:04/25/2024 Address:[address] [place] [address] Pcp:Vickey Causey MD Subjective: * Chief Complaints: [...] 0 04/25/2024 Generated for Debo ferrer/Nidhi/Yue on: 1 04/23/2024 10:32 AM EST
--- OUTSIDE RECORDS SUMMARY | 2024-06-06 11:00 | XMS_ITS ---
Author Organization [facility] Address [address] [place] [phone] Care Team Providers Care Elocution Teacher Name Role Phone Padilla SEBASTIAN, Vickey Primary Care Provider Unava ilNed Killian Unavailable [phone] Encounters Encounter Location Date Provider Diagnosis [address] [address] 06/06/2024 Ned Yu Plan Of Treatment Next Appt Details Provider Name:Ned Yu , 04/03/2025 09:30:00 AM, [address] [place] [address], [phone], Progress Notes * Remy TATEDOB: [birth year] (75 yo M)Acc No.[id number]:06/06/2024 Progress Note Patient: Tere Remy GAONA Provider: Caprice Yu DPM :1950 A ge:74 Y S ex:Male Date:06/06/2024 Address:[address] [place] [address] Pcp:Vickey Causey MD Subjective: * Chief Complaints: [...] 0 06/06/2024 Generated for Debo ferrer/Nidhi/Yue on: 1 04/23/2024 10:32 AM EST
--- NOTE | 2025-02-20 09:44 | A.OFFPC_ITS ---
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 Accompanied by: Self / Same As Patient Allergies gabapentin (GABAPENTIN) Allergy (Severe, Verified 02/20/25 10:11) PASSED OUT , syncopal episodes at 800 mg TID azithromycin (From ZITHROMAX Z-DESIREE) Allergy (Intermediate, Verified 02/20/25 10:11) SWELLING sodium zirconium cyclosilicate (From Lokelma) Allergy (Intermediate, Verified 02/20/25 10:11) swelling of hand pregabalin Adverse Reaction (Unknown, Verified 02/20/25 10:11) severe muscle pain Medication List - Last Reconciled 02/20/25 by Vickey Causey MD apixaban 5 mg PO BID bethanechol chloride 50 mg PO BID 90 days clopidogrel 75 mg PO DAILY dapagliflozin propanediol (Farxiga) 10 mg PO DAILY dupilumab (Dupixent) 300 mg subcut Q2W ezetimibe 10 mg PO DAILY [ferrous sulfate 325 mg PO DAILY] finasteride 5 mg PO DAILY 90 days methylprednisolone PO PER PKG DIR for 6 days metoprolol succinate ER 25 mg PO DAILY nystatin 1 appl topical TID oxycodone 30 mg PO Q6H PRN 28 days OxyContin ER (oxycodone) 80 mg PO .q8hrs 28 days NS rosuvastatin 40 mg PO DAILY sacubitril-valsartan 49-51 mg (Entresto) 1 tab PO BID tamsulosin (Flomax) 0.4 mg PO BEDTIME 90 days umeclidinium-vilanterol 62.5-25 mcg/actuation (Anoro Ellipta) 1 ea inhalation DAILY Tobacco use date assessed: 02/20/25 Fall risk assessment: 1 Fall in past year Last assessed Fall Risk: 02/20/25 Dental Screening Dental Screen Date: 10/25/24 Did you have a dental visit in the last 12 months?: Yes Did you have a dental problem in the last 6 months where you did not have access to dental care?: No Was dental information given to patient?: Patient has dentist HPI 3 Months HPI Details - The patient is a 75 year old male pres enting with a flare-up of his chronic conditions, primarily rheumatoid arthritis and chronic pain. - He reports a recent flare-up of rheuma toid arthritis with his hands starting to swell again with nodules. - He was previously managed for his rheu matoid arthritis by Dr. West but has not seen him in approximately 1.5 years and has been unable to re-establish care despite a referral being placed. - He previously took Enbrel for his cond ition but stopped for reasons he cannot recall. - A recent course of oral steroids presc ribed by another provider was effective in treating his flare-up temporarily - The patient has a history of chronic p ain, including severe pain across his back and shoulder blades, and neck pain with audible cracking on movement. - His medical history is significant for a cervical spine fracture at age 18, lumbar spine fracture and a bone spur on his left heel. - Shoulder X-rays done two years ago jey wed (+) arthritis. - His current pain regimen includes OxyC ontin 80 mg three times daily and oxycodone 30 mg Q 6 hours, totaling 360 mg of oxycodone per day but states that they are no longer as effective in helping with his pain and he is requesting to have his Oxycodone dosing increased further to 6 times a day if possible - He also receives Dupixent injections e very two weeks from Dr. De Jesus for his eczema - The patient reports significant psycho social stress due to the recent deaths of both of his brothers, a [id number]-[id number], and a [id number], and verbalizes feelings of depression. - He had his follow up labs done a few d ays ago - to discuss his results [facility] Medical History (Updated 02/21/25 @ 03:12 by Vickey Causey MD) Positive TB test Chronic kidney disease (CKD), stage III (moderate) Closed rib fracture Fall Erythema intertrigo Nummular eczematous dermatitis Allergic rhinitis Chronic kidney disease (CKD) Vitamin D deficiency Pure hypercholesterolemia Benign essential hypertension Atrial fibrillation Chronic combined systolic and diastolic congestive heart failure Coronary artery disease Rheumatoid arthritis Degenerative disc disease, cervical Lumbar degenerative disc disease Surgical History History of coronary angioplasty History of hernia repair H/O wrist surgery History of arthroscopy of right knee History of coronary artery bypass graft Family History Father Past heart attack Mother Pneumonia Daughter Healthy adult Social History Housing: House Alcohol intake: current Alcohol intake frequency: holidays/special occasions only Patient Tobacco Use Status: Current everyday Tobacco user Tobacco use type: Cigarette Cigarettes Per Day: 3 e-Cigarette/Vaping Use: Never Used Second Hand Smoke Exposure: Yes service: Yes ([employer]) Current occupational status: retired and disabled Current occupation: right hand dominant Cognitive needs: Yes (cane) Hearing needs: Yes (hearing aide) Vision needs: Yes (glasses) Questionnaire PHQ-9 Over the last 2 weeks, how often have you been bothered by any of the following problems? 1. Little interest or pleasure in doing things: not at all 2. Feeling down, depressed, or hopeless: not at all 3. Trouble falling or staying asleep, or sleeping too much: not at all 4. Feeling tired or having little energy: several days 5. Poor appetite or overeating: not at all 6. Feeling bad about yourself - or that you are a failure or have let yourself or your family down: not at all 7. Trouble concentrating on things, such as reading the newspaper or watching television: not at all 8. Moving or speaking so slowly that other people could have noticed. Or the opposite - being so fidgety or restless that you have been moving around a lot more than usual: several days 9. Thoughts that you would be better off or of hurting yourself in some way: not at all Total score: 2 Depression Screening Interpretation: Negative Depression Screening Done: Yes 64842 - PHQ-9 Billing: Yes Source: Developed by Drs. Arben Noriega, Mona Gonzalez, Jerrod Adams and colleagues, with an educational arlen from [employer]. Thrive Questionnaire Date Thrive assessed: 02/20/25 I am a: Patient What is your living situation today?: I have a steady place to live Within the past 12 months, did the food you bought not last and you didn't have the money to get more?: Never true Within the past 12 months, did you worry whether your food would run out before you got money to buy more?: Never true Do you have trouble paying for medicines?: No Do you have trouble getting transportation to medical appointments?: No Do you have trouble paying your heating and electricity bill?: No Do you have trouble taking care of your child, family member or friend?: No Do you have trouble with day-to-day activities such as bathing, preparing meals, shopping, managing finances, etc.?: Yes Are you currently unemployed and looking for a job?: No Are you interested in more education?: No Please select the resources that you would like help with: None Currently or been in a relationship where the following occur: No concerns repo rted THRIVE Score: 0 AUDIT C Alcohol Use Questionnaire (AUDIT-C) 1. How often do you have a drink containing alcohol?: Monthly or less 2. How many drinks containing alcohol do you have on a typical day when you are drinking?: 1 or 2 3. How often do you have six or more drinks on one occasion?: Never Total Score: 1 Score Reviewed/Action Taken: Yes NILESH-7 AMB Questionnaire NILESH-7 Date NILESH - 7 assessed: 02/20/25 Feeling nervous, anxious, or on edge: 0 = Not at all Not being able to stop or control worryin = Not at all Worrying too much about different things: 0 = Not at all Trouble relaxin = Not at all Being so restless that it is hard to sit still: 0 = Not at all Becoming easily annoyed or irritable: 0 = Not at all Feeling afraid as if something awful might happen: 0 = Not at all Total NILESH-7 score (0-4 normal; 5-9 mild; 10-14 moderate; 15-21 severe): 0 Source: Developed by Drs. Arben Noriega, Mona Gonzalez, Jerrod Adams and colleagues, with an educational arlen from [employer]. Review of Systems Const Denies chills, Reports fatigue, Denies fever(s) and Denies headache(s) ENT Denies dysphagia, Denies dizziness, Denies otalgia, Denies headache(s), Reports hearing loss (both ears - now wears hearing aids), Reports hoarseness, Reports neck pain (chronic), Denies odynophagia and Denies sore throat Card Denies chest pain, Denies palpitations and Reports dyspnea on exertion (mild - better with current inhaler (Anoro)) Resp Denies chest congestion, Reports cough (on and off; non-productive), Denies pain on inspiration, Reports dyspnea on exertion (mild - better with current inhaler (Anoro)) and Denies wheezing GI Denies abdominal pain, Denies constipation, Denies dysphagia, Denies heartburn, Denies diarrhea, Denies nausea, Denies odynophagia and Denies vomiting Denies difficulty urinating, Denies dysuria, Denies nocturia and Denies urinary frequency Musc Reports back pain (over the lumbar spine - chronic), Reports myalgias (diffuse), Reports arthralgias (over multiple joints - increased lately in the left shoulder) and Reports neck pain (chronic) Skin/Breast Denies rash Neuro Denies dizziness and Denies headache(s) Endo Reports fatigue and Denies palpitations Aller/Immun Denies wheezing Physical exam (Primary Care) Vital Signs: Last Vital Signs Pulse 55 02/20/25 09:45 BP 98/66 02/20/25 09:45 Pulse Ox 94 02/20/25 09:45 Oxygen Delivery Method Room Air 02/20/25 09:45 BMI result Body Mass Index 19.9 Tobacco/Smoking Status: Tobacco use Status Tobacco use date assessed 02/20/25 02/20/25 09:48 Patient Tobacco Use Status Current everyday Tobacco 02/20/25 09:48 Tobacco use type Cigarette 02/20/25 09:48 e-Cigarette/Vaping Use Never Used 02/20/25 09:48 PHQ-9: PHQ-9 Score PHQ-9: Total score 2 02/20/25 12:46 Depression Screening Interpretation: Negative Thrive Assessment: Date of Thrive Assessment Date Thrive assessed 02/20/25 02/20/25 09:48 Currently or been in a relationship where the following occur: No concerns reported Const General: no acute distress and alert HENMT Ears: TM's normal bilaterally and EAC's normal Throat: Yes posterior oropharynx normal and Yes tonsils normal (no TP congestion noted) Neck Neck: No lymphadenopathy and Yes tender Thyroid: Thyroid normal Resp Auscultation: clear to auscultation bilaterally, no rales and no wheezes Cardio Rate: regular rate Rhythm: abnormal rhythm irregularly irregular Heart sounds: no murmurs GI Palpation (GI): Soft to palpation and nontender Auscultation: normal bowel sounds General: Yes no CVA tenderness Back/Spine/Pelvis Back: no CVA tenderness Cervical Spine: Cervical spine tenderness Thoracic/Lumbar Spine: lumbar spinal tenderness Skin Rashes: no rashes Extrem General: Yes no clubbing, cyanosis or edema Right upper extremity: shoulder/upper arm Details: tenderness (mild) Location: of the A-C joint and Extremity exam: right hand Details: tenderness and no swelling Left upper extremity: shoulder/upper arm Details: tenderness (increased) Location: of the A-C joint and hand Details: tenderness Location: of the thumb Location: at the proximal phalanx, abnormal ROM of finger Details: unable to flex or extend Location: of the thumb and no swelling Results Reviewed Results Reviewed: Laboratory Tests 02/16/25 02/16/25 06:16 06:23 WBC 6.0 Hgb 11.1 L Hct 33.9 L Plt Count 220 Sodium 138 Potassium 4.9 Creatinine 1.52 H Estimated GFR 45 Fasting Glucose 93 Calcium 9.6 AST 26 ALT 8 Triglycerides 62 Cholesterol 95 LDL Cholesterol, Calc 36 HDL Cholesterol 47 Vitamin B12 471 25-OH Vitamin D Total 26.5 L TSH 1.40 PTH Intact 64.8 Ur Specific [place] 1.025 Urine Protein Trace Urine Glucose (UA) >=1000 H Urine Blood Negative Urine Nitrite Negative Ur Leukocyte Esterase Negative Coding Level of Care Code Est Pt Level 4 (63848) Add On Problem Visit Only Diagnoses Anemia, unspecified type D64.9 Anemia type: unspecified type Stage 3a chronic kidney disease N18.31 Chronic kidney disease stage 3 subtype: stage 3a (GFR 45-59) Chronic combined systolic and diastolic congestive heart failure I50.42 Atrial fibrillation, unspecified type I48.91 Atrial fibrillation type: unspecified Coronary artery disease involving [place] coronary artery of [place] heart without angina pectoris I25.10 Associated angina: without angina Coronary Disease-Associated Artery/Lesion type: [place] artery [place] vs. transplanted heart: [place] heart Pure hypercholesterolemia E78.00 Benign essential hypertension I10 Pulmonary emphysema, unspecified emphysema type J43.9 COPD type: emphysema Emphysema type: unspecified Rheumatoid arthritis with positive rheumatoid factor, involving unspecified site M05.9 Rheumatoid arthritis location: unspecified site Rheumatoid factor presence: with rheumatoid factor Impaired fasting glucose R73.01 Degeneration of intervertebral disc of lumbar region with discogenic back pain and lower extremity pain M51.362 Disc-related pain type: discogenic back pain and lower extremity pain Degenerative disc disease, cervical M50.30 Vitamin D deficiency E55.9 Allergic rhinitis, unspecified seasonality, unspecified trigger J30.9 Allergic rhinitis seasonality: unspecified Allergic rhinitis trigger: unspecified Nummular eczematous dermatitis L30.0 Erythema intertrigo L30.4 Additional Codes PHQ-9 - 83160 - PHQ-9 Billing: Yes ([id number]) Assessment & Plan Assessment & Plan (1) Anemia: Code(s): D64.9 - Anemia, unspecified Category: Medical Qualifiers: Anemia type: unspecified type Qualified Code(s): D64.9 - Anemia, unspecified Plan: Patient was admitted to [facility] a few months ago for significant anemia and he ended up receiving some blood transfusions His H/H on his most recent labs is now at 11.1/33.9 - he likely has anemia of chronic disease as well as iron-deficiency anemia, which appears stable at this time Will continue to monitor his CBC regularly Follow up with hematology as scheduled (2) Chronic kidney disease (CKD), stage III (moderate): Code(s): N18.30 - Chronic kidney disease, stage 3 unspecified Category: Medical Qualifiers: Chronic kidney disease stage 3 subtype: stage 3a (GFR 45-59) Qualified Code(s): N18.31 - Chronic kidney disease, stage 3a Plan: His renal function appears to have stabilized over the past few months - will continue to monitor him regularly Follow up with nephrology as scheduled (3) Chronic combined systolic and diastolic congestive heart failure: Comment: Echocardiogram done back on 01/20/2019 revealed significantly reduced ejection fraction at 27% with grade 2 diastolic dysfunction, severe global hypokinesia with regional variation and dilatation of the left atrium, left ventricle and right ventricle; RV systolic function is also moderately reduced Code(s): I50.42 - Chronic combined systolic (congestive) and diastolic (congestive) heart failure Category: Medical Plan: Patient currently remains compensated - continue Entresto 49-51 mg BID and Dapagliflozin 10 mg QD He has been advised to consider ICD placement in the past, which he declined - we have urged him to consider pursuing this in light of his cardiac condition and have emphasized to him that an ICD can be potentially life-saving (for him) as his risk of sudden cardiac is higher than normal Follow up with cardiology at the heart failure clinic at [facility] as scheduled (4) Atrial fibrillation: Code(s): I48.91 - Unspecified atrial fibrillation Category: Medical Qualifiers: Atrial fibrillation type: unspecified Qualified Code(s): I48.91 - Unspecified atrial fibrillation Plan: Patient remains rate-controlled on Metoprolol ER 200 mg QD Continue Eliquis 5 mg BID for thromboembolism prophylaxis (5) Coronary artery disease: Comment: S/P CABD x 5 in 1991; recent cardiac CT done showed (+) multi-vessel disease and patient was advised aggressive risk reduction; 01/2019 - angioplasty at [facility] Code(s): I25.10 - Atherosclerotic heart disease of [place] coronary artery without angina pectoris Category: Medical Qualifiers: Associated angina: without angina Coronary Disease-Associated Artery/[place] type: [place] artery [place] vs. transplanted heart: [place] heart Qualified Code(s): I25.10 - Atherosclerotic heart disease of [place] coronary artery without angina pectoris Plan: Continue Clopidogrel 75 mg QD and Metoprolol ER 200 mg QD He still has Nitrostat 0.4 mg to take SL PRN for chest pains Follow up with cardiology as scheduled (6) Pure hypercholesterolemia: Code(s): E78.00 - Pure hypercholesterolemia, unspecified Category: Medical Plan: Results of his labs done a few days ago reviewed and discussed with patient Reinforced low cholesterol diet Continue Rosuvastatin 40 mg QD Will recheck his labs and fasting lipids in 3 months for follow up (7) Benign essential hypertension: Code(s): I10 - Essential (primary) hypertension Category: Medical Plan: Reinforced low-sodium diet - goal is systolic BP of at least 130 to 140 mm or less Continue Metoprolol ER 200 mg QD; he is also on Entresto 49-51 mg BID He is reminded to continue monitoring his blood pressure regularly (8) COPD (chronic obstructive pulmonary disease): Code(s): J44.9 - Chronic obstructive pulmonary disease, unspecified Category: Medical Qualifiers: COPD type: emphysema Emphysema type: unspecified Qualified Code(s): J43.9 - Emphysema, unspecified Plan: Continue Anoro Ellipta 62.5-25 mcg 1 inhalation QD Patient is unfortunately still smoking and is unable to completely quit Follow up with pulmonary as scheduled (9) Rheumatoid arthritis: Comment: was on MTX in the past, D/C in 2019 due to coronary angioplasty; Enbrel also D/C in 2019, resumed in 04/2020 at decreased dose every other week (Dr. West) Code(s): M06.9 - Rheumatoid arthritis, unspecified Category: Medical Qualifiers: Rheumatoid arthritis location: unspecified site Rheumatoid factor presence: with rheumatoid factor Qualified Code(s): M05.9 - Rheumatoid arthritis with rheumatoid factor, unspecified Plan: States that he used to see [facility] for treatment of his RA and was on Enbrel at a reduced dose as of his last visit with him sometime in late 2022 but he has not seen Dr. West in about 2 years now He was recently referred back to Dr. West and is hoping to get back on his Tx for his rheumatoid arthritis, which appears to be flaring up recently but has not yet been able to get an appointment scheduled Patient is advised today to try to reach out to Dr. West's office personally to see if they can get him back in [place] - advised patient that if Dr. West is able to take him back in, that would be the best situation as Dr. Jenna jarquin familiar with his case and can likely just start him back on medication immediately Otherwise, if he is really not able to get back in with Dr. West, then we may need to refer him instead to [facility] Rheumatology Will start him on oral Prednisone at 10 mg QD in the meantime to help address his current RA flare up until he is able to get back on his RA Tx with rheumatology (10) Impaired fasting glucose: Code(s): R73.01 - Impaired fasting glucose Category: Medical Plan: His FBS was normal at 93 mg/dl on his recent labs HgbA1c was normal at 5.3% when checked a few months ago; in-office HgbA1c was also normal at 5.1% previously Have advised patient that his oral Prednisone that will be started today will cause his blood sugar to go up and we will have to watch this closely Reinforced low calorie/low carb diet (11) Lumbar degenerative disc disease: Code(s): M51.36 - Other intervertebral disc degeneration, lumbar region Category: Medical Qualifiers: Disc-related pain type: discogenic back pain and lower extremity pain Qualified Code(s): M51.362 - Other intervertebral disc degeneration, lumbar region with discogenic back pain and lower extremity pain Plan: Reinforced activity and weight lifting restrictions Continue Oxycodone 30 mg Q 6 hours as needed, Oxycodone ER 80 mg Q 8 hours , Tizanidine 4 mg TID PRN and Lidoderm patch 5% 1 patch apply to affected area QD PRN for pain I have advised him that he is already on a very high dose of opioids (360 mg daily dose) and irregardless of how much pain he is in, at his age and with his COPD and other comorbidities, it would be inadvisable to go up further on his opioid dosage Advised patient that hopefully, with initiation of oral prednisone daily today, this will help calm down some of his pain until he can get back on treatment for his RA Follow-up with [facility] as scheduled (12) Degenerative disc disease, cervical: Code(s): M50.30 - Other cervical disc degeneration, unspecified cervical region Category: Medical Plan: States that his current medications were helping to keep his neck pain manageable until his rheumatoid arthritis started flaring up recently (13) Vitamin D deficiency: Code(s): E55.9 - Vitamin D deficiency, unspecified Category: Medical Plan: Continue Vitamin D3 1000 units QD (14) Allergic rhinitis: Code(s): J30.9 - Allergic rhinitis, unspecified Category: Medical Qualifiers: Allergic rhinitis seasonality: unspecified Allergic rhinitis trigger: unspecified Qualified Code(s): J30.9 - Allergic rhinitis, unspecified Plan: Continue Cetirizine 10 mg QD PRN (15) Nummular eczematous dermatitis: Code(s): L30.0 - Nummular dermatitis Category: Medical Plan: He was seen by Dr. De Jesus and was continued on Triamcinolone 0.1% cream BID for his feet Continue Dupixent 200 mg SQ Q 2 weeks, also with Dr. De Jesus Follow up with dermatology as scheduled (16) Erythema intertrigo: Code(s): L30.4 - Erythema intertrigo Category: Medical Plan: Continue Nystatin powder [id number] units/gm TID by dermatology Plan Follow up in 3 months Orders: Orders Lipid Panel 3 Months E78.00 - Pure hypercholesterolemia, unspecified NT Pro B Type Natriuretic Pept 3 Months R06.09 - Other forms of dyspnea TSH reflex Free T4 3 Months E78.00 - Pure hypercholesterolemia, unspecified Vitamin B12 and Folate 3 Months E53.8 - Deficiency of other specified B group vitamins Vitamin D 25-OH Total 3 Months E55.9 - Vitamin D deficiency, unspecified Rheumatoid Factor 3 Months M05.9 - Rheumatoid arthritis with rheumatoid factor, unspecified Erythrocyte Sedimentation Rate 3 Months M05.9 - Rheumatoid arthritis with rheumatoid factor, unspecified Hemoglobin A1c 3 Months R73.9 - Hyperglycemia, unspecified Complete Blood Count Auto Diff 3 Months D64.9 - Anemia, unspecified Comprehensive [place]. Panel Fast 3 Months E78.00 - Pure hypercholesterolemia, unspecified UA CC w/rflx Micro + Cult 3 Months R30.0 - Dysuria C Reactive Protein 3 Months M05.9 - Rheumatoid arthritis with rheumatoid factor, unspecified Medications: New prednisone 10 mg PO DAILY 30 tabs 1RF 30 days M05.9 - Rheumatoid arthritis with rheumatoid factor, unspecified Discontinued methylprednisolone Discontinued Reason: Patient Completed Course PO PER PKG DIR for 6 days 21 ea 0RF
[2025-02-20 09:45] VITALS: BP 98/66; PULSE 55; O2SAT 94; BMI 19.9
--- OUTSIDE RECORDS SUMMARY | 2025-02-20 10:32 | XMS_ITS | Patient Health Record ---
Author Organization [facility] Address [address] [place] [address] Care Team Providers [employer] Principal Name Role Phone Emelia Causey MDh Primary Care Provider UnaNed Galarza Unavailable [phone] Allergies Allergen (clinical drug ingredient) Drug/Non Drug [...] atherosclerosis of arteries of lower limbs (disorder) ([id number] ) Atherosclerosis of kas[place] artery of both lower extremities, with unspecified presence of clinical manifestation (I70.203) Active confirmed Vital Signs Blood pressure diastolic 70 mm Hg 12/05/2024 Height 5ft 11in in 12/05/2024 Blood pressure systolic 128 mm Hg 12/05/2024 Weight 140 lbs 12/05/2024 BMI 19.52 kg/m2 12/05/2024 Procedures Procedure Date Ordered Date Performed Result Body Sit e 54846-WWSQIEE NAIL, 6 OR MORE 03/14/2024 N/A 93633-CILR SKIN LESIONS, OVER 4 03/14/2024 N/A 64492-KANJUUK NAIL, 6 OR MORE 09/05/2024 N/A 66912-KEBL SKIN LESIONS, OVER 4 09/05/2024 N/A 19357-FLLZYNG NAIL, 6 OR MORE 12/05/2024 N/A 48477-GWTD SKIN LESIONS, OVER 4 12/05/2024 N/A Encounters Encounter Location Date Provider Diagnosis [address] [address] 03/14/2024 Ned Yu Atherosclerosis of kasaan artery of both lower extremities, with unspecified presence of clinical manifestation I70.203 ; Tinea unguium B35.1 ; Pain in right toe(s) M79.674 ; Pain in left toe(s) M79.675 and Tinea pedis of both feet B35.[address] [address] 09/05/2024 Ned Yu Tinea unguium B35.1 ; Atherosclerosis of kas[place] artery of both lower extremities, with unspecified presence of clinical manifestation I70.203 ; Pain in right toe(s) M79.674 and Pain in left toe(s) M79.[address] [address] 12/05/2024 Ned Yu Tinea unguium B35.1 ; Atherosclerosis of kas[place] artery of both lower extremities, with unspecified presence of clinical manifestation I70.203 ; Pain in right toe(s) M79.674 and Pain in left toe(s) M79.[address] [address] 06/06/2024 Ned Yu Assessments Encounter Date Diagnosis (ICD Code) Assessment Notes Treatment Notes Treatment Clinical Notes Section Notes 03/14/2024 Tinea unguium (ICD-10 - B35.1) 03/14/2024 Atherosclerosis of kas[place] artery of both lower extremities, with unspecified presence of clinical manifestation (ICD-10 - I70.203) 09/05/2024 Tinea unguium (ICD-10 - B35.1) 09/05/2024 Atherosclerosis of kas[place] artery of both lower extremities, with unspecified presence of clinical manifestation (ICD-10 - I70.203) 12/05/2024 Tinea unguium (ICD-10 - B35.1) 12/05/2024 Atherosclerosis of kasaan artery of both lower extremities, with unspecified [...] X ray : Foot, right 3V 03/15/2012 01857-PDAFWWR NAIL, 6 OR MORE 09/15/2019 16921-LGCVSQT NAIL, 6 OR MORE 11/17/2019 29175-QWUPJZU NAIL, 6 OR MORE 02/16/2020 47115-MIMXYFL NAIL, 6 OR MORE 06/11/2020 35539-RORIOOW NAIL, 6 OR MORE 08/27/2020 65240-UGIJSJJ NAIL, 6 OR MORE 11/08/2020 64662-UYIPPVX NAIL, 6 OR MORE 01/14/2021 76157-SDZYFBD NAIL, 6 OR MORE 05/27/2021 35053-QZUWNZD NAIL, 6 OR MORE 08/26/2021 16994-VBTHWWZ NAIL, 6 OR MORE 09/15/2022 85335-CZJPHTO NAIL, 6 OR MORE 12/22/2022 60745-NYEVZGH NAIL, 6 OR MORE 11/04/2021 55322-HZLTALC NAIL, 6 OR MORE 01/27/2022 63833-DZEZGEU NAIL, 6 OR MORE 04/28/2022 46407-GGGPAJD NAIL, 6 OR MORE 03/05/2023 89696-FBGROMA NAIL, 6 OR MORE 05/25/2023 64339-FGBDUQX NAIL, 6 OR MORE 08/03/2023 41163-UENDQDT NAIL, 6 OR MORE 11/05/2023 06164-VHPSQWO NAIL, 6 OR MORE 03/14/2024 02698-VCXUOFC NAIL, 6 OR MORE 09/05/2024 95951-CGPEOGN NAIL, 6 OR MORE 12/05/2024 35906-Jfov Destruction, -14 11/05/2023 52146-Coec Destruction, -06/29/2023 31954-Kwqw Destruction, -09/28/2023 46913-Ewkp Destruction, -08/03/2023 33518-Owyr Destruction, 03-1405/25/2023 52740-Fatg Destruction, 03-1403/05/2023 85441-Ewpi Destruction, 03-1401/26/2023 45567-Xmku Destruction, 03-1404/13/2023 80890-Rxgl Destruction, 03-1404/28/2022 38931-Odok Destruction, 03-1412/16/2021 40906-Juvf Destruction, 03-1403/13/2022 27202-Chxt Destruction, 03-1401/27/2022 61612-Mwqd Destruction, 03-1411/04/2021 87668-Jbcx Destruction, 03-1412/22/2022 03014-Ihty Destruction, 03-1406/09/2022 56514-Ajtb Destruction, 03-1410/20/2022 86062-Uonp Destruction, 03-1409/15/2022 48764-Tihv Destruction, 03-1408/26/2021 30480-Cknd Destruction, 03-1403/14/2021 65765-Qpzx Destruction, 03-1407/15/2021 76268-Udrg Destruction, 03-1405/27/2021 68926-Itlu Destruction, 03-1401/14/2021 83152-Icgn Destruction, 03-1411/08/2020 66481-Jwkk Destruction, 03-1410/01/2020 16839-Dbow Destruction, 03-1412/10/2020 63277-Seud Destruction, 03-1408/27/2020 79501-Xbmx Destruction, 1-14 03/29/2020 69457-Vhxd Destruction, -14 07/19/2020 31934-Hmrd Destruction, -14 06/11/2020 52298-Odgr Destruction, -14 02/16/2020 88885-Lsva Destruction, -14 11/17/2019 50797-Inwa Destruction, -14 09/15/2019 52655-Xchv Destruction, -14 08/08/2013 65797-Tsic Destruction, -14 09/29/2013 15918-Pece Destruction, -14 2011 54783-Umky Destruction, -03/24/2011 56903-Gcao Destruction, -14 06/02/2011 78962-Bsni Destruction, -07/17/2011 89220-Pvad Destruction, -14 10/09/2011 19544-Iuif Destruction, -14 01/05/2012 73060- Debride <25 sq cm 10/02/2014 67927-AKAA SKIN LESIONS, OVER 4 02/16/20 20 70464-IUPW SKIN LESIONS, OVER 4 06/12/19 21 70482-ZVWD SKIN LESIONS, OVER 4 08/28/19 21 30810-PSFZ SKIN LESIONS, OVER 4 11/09/19 21 30800-DCXS SKIN LESIONS, OVER 4 01/15/20 21 51923-AJXU SKIN LESIONS, OVER 4 05/28/19 22 48162-TQZH SKIN LESIONS, OVER 4 08/27/19 22 74910-KZHC SKIN LESIONS, OVER 4 09/16/19 23 69341-UJHM SKIN LESIONS, OVER 4 12/23/19 23 19381-ULCU SKIN LESIONS, OVER 4 11/05/19 22 75287-TGGG SKIN LESIONS, OVER 4 01/28/20 22 41059-JBGU SKIN LESIONS, OVER 4 04/28/19 23 22156-LIZF SKIN LESIONS, OVER 4 03/05/19 24 23163-YSGG SKIN LESIONS, OVER 4 05/25/19 24 40617-PKJH SKIN LESIONS, OVER 4 08/03/19 24 35216-TPED SKIN LESIONS, OVER 4 11/05/19 24 08817-SFMU SKIN LESIONS, OVER 4 09/06/19 25 95568-YPDB SKIN LESIONS, OVER 4 03/14/19 39864-OVLQ SKIN LESIONS, OVER 4 12/06/19 68759-DHXT SKIN LESIONS, 2 TO 4 09/15/19 47408-IDGY SKIN LESIONS, 2 TO 4 11/17/19 Next Appt Details Provider Name:Ned Yu , 04/03/2025 09:30:00 AM, [address] [place], [address], Insurance Providers Payer Name Payer Address Payer Phone Subscriber Number Group Number Insured Name Patient Relationship to Insured Coverage Start Date Coverage End Date Medicare National [employer] [address] [place] [address] [id number] Remy Reno Self - patient is the insured [employer] [address] [place] [address] [id number] Remy Reno Self - patient is the [...]
--- OUTSIDE RECORDS SUMMARY | 2025-02-20 10:32 | XMS_ITS | Patient Health Record ---
Author Organization 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 Name Role Phone Padilla SEBASTIAN, Vickey [...] Status Risk Notes Problem Colon cancer screening (063106008) Colon cancer screening (Z12.11) Active confirmed Problem Long-term current use of antiplatelet drug (424441477139100) Long-term use of aspirin therapy (Z79.82) Active confirmed Plan Of Treatment Future Test Test Name Order Date COLONOSCOPY 11/10/2012 COLONOSCOPY 07/08/2016 Insurance Providers Payer Name Payer Address Payer Phone Subscriber Number Group Number Insured Name Patient Relationship to Insured Coverage Start Date Coverage End Date [facility] [address] [facility] [phone] [id number] PAT TATE Self - patient is the insured Medical (General) History Medical History History ICD Code coronary disease with history of [place] back pain rheumatoid arthritis Surgical History Surgery Date(Month/Year) left knee arthroscopy right knee arthroscopy CABG X 5 foot surgery ventral hernia repair
== END 2025-02-20 10:32 | disposition home or self-care (01) ==
LOC: HO.HMCH 09:42
PROVIDERS: PCP Internal Medicine; Visit Provider Internal Medicine
DX: D64.9 Anemia, unspecified (principal); N18.31 Chronic kidney disease, stage 3a; I50.42 Chronic combined systolic (congestive) and diastolic (congestive) heart failure; I48.91 Unspecified atrial fibrillation; I25.10 Atherosclerotic heart disease of native coronary artery without angina pectoris; E78.00 Pure hypercholesterolemia, unspecified; I10 Essential (primary) hypertension; J43.9 Emphysema, unspecified; M05.9 Rheumatoid arthritis with rheumatoid factor, unspecified; R73.01 Impaired fasting glucose; M51.362 Other intervertebral disc degeneration, lumbar region with discogenic back pain and lower extremity pain; M50.30 Other cervical disc degeneration, unspecified cervical region; E55.9 Vitamin D deficiency, unspecified; J30.9 Allergic rhinitis, unspecified; L30.0 Nummular dermatitis; L30.4 Erythema intertrigo

== ENCOUNTER → 2025-02-20 09:41 | Outpatient (BNVA) | payer MEDICARE, SELFPAY | PROVIDERS: PCP Internal Medicine; Visit Provider Internal Medicine | DX: I10 Essential (primary) hypertension (principal); N18.31 Chronic kidney disease, stage 3a; I50.42 Chronic combined systolic (congestive) and diastolic (congestive) heart failure; D64.9 Anemia, unspecified; E78.00 Pure hypercholesterolemia, unspecified; J43.9 Emphysema, unspecified; M05.79 Rheumatoid arthritis with rheumatoid factor of multiple sites without organ or systems involvement; R73.01 Impaired fasting glucose; M50.30 Other cervical disc degeneration, unspecified cervical region; E55.9 Vitamin D deficiency, unspecified; J30.9 Allergic rhinitis, unspecified; L30.0 Nummular dermatitis; L30.4 Erythema intertrigo; Z13.31 Encounter for screening for depression; Z13.39 Encounter for screening examination for other mental health and behavioral disorders; Z79.899 Other long term (current) drug therapy | CPT/HCPCS: 96127; 99212 ==